=== PATIENT | female | born 1945 | race Caucasian/White ===

== ENCOUNTER → 2018-03-22 11:18 | Outpatient (CLI) | payer MEDICARE, MEDICAID, SELFPAY ==
--- NOTE | 2018-03-22 11:23 | ECHOD_ITS ---
Reason For Study: arrhythmia Procedure This was a 2D Doppler, Color Flow transthoracic echocardiogram. The study was technically difficult. Due to body habitus and right hip pain. Exam performed in department. Left Ventricle Normal LV size. Left ventricular systolic function is normal. The estimated ejection fraction is 60 %. No evidence for diastolic dysfunction. No regional wall motion abnormalities noted. Right Ventricle Normal RV size. Normal systolic function. Atria Normal left atrium. Normal right atrium. Mitral Valve Normal mitral valve. Tricuspid Valve Normal tricuspid valve. Mild (1+) tricuspid valve insufficiency. Pulmonary artery systolic pressure is 40 mmHg. Aortic Valve Normal aortic valve. Trisinus/trileaflet aortic valve. Pulmonic Valve Normal pulmonic valve. Great Vessels Normal aortic root. The pulmonary artery is normal size. Normal inferior vena cava. Pericardium/Pleural No pericardial effusion. MMode/2D Measurements & Calculations LVIDd: 5.4 cm IVSd: 0.99 cm LVOT diam: 2.0 cm LVIDs: 3.6 cm LVPWd: 0.99 cm LVOT area: 3.1 cm2 RVDd: 3.6 cm FS: 32.8 % Ao root diam: 3.1 cm LAV(MOD-bp): 62.0 ml LA A4 area: 19.7 cm2 LA dimension: 3.4 cm LAV(MOD-bp) Indexed: 29.5 ml/m2 LAV(MOD-sp2): 64.9 ml LAV(MOD-sp4): 59.3 ml RA A4 area: 12.4 cm2 Doppler Measurements & Calculations MV E max rashad: 80.1 cm/sec Lat Peak E' Rashad: 9.1 cm/sec Med Peak E' Rashad: 7.7 cm/sec MV A max rashad: 68.8 cm/sec E/E' lat: 8.8 E/E' med: 10.5 MV E/A: 1.2 Ao V2 max: 156.8 cm/sec AI max rashad: 382.5 cm/sec LV V1 max: 124.0 cm/sec Ao max P.8 mmHg AI max P.5 mmHg LV V1 max P.2 mmHg CAITLIN(V,D): 2.5 cm2 AI dec slope: 225.6 cm/sec2 AI P1/2t: 496.7 msec PA V2 max: 105.8 cm/sec TR max rashad: 308.5 cm/sec TR max P.1 mmHg Interpretation Summary Normal LV size. Left ventricular systolic function is normal. The estimated ejection fraction is 60 %. No evidence for diastolic dysfunction. Mild (1+) tricuspid valve insufficiency. Ordering Physician: Osman Montez Referring Physician: Kandis Dawson Performed By: Karyna Rothman RDCS, RVT
--- NOTE | 2018-03-22 15:11 | STRESSREP ---
Stress Test Report Pharmacologic myocardial perfusion stress test. 72-year-old lady with history of atrial tachycardia. Stress protocol: Resting EKG demonstrates normal sinus rhythm with a rate of 62 bpm normal intervals and noted resting blood pressures 160/60 mmHg. 0.4 mg of regadenoson was infused per usual protocol followed by rapid intravenous saline flush injection continuous EKG monitoring was performed. Patient maintained sinus rhythm throughout the recording. The maximum heart rate attained was 95 bpm which was 64% of maximum predicted heart rate the maximum workload was 1 metabolic equivalent. At rest there were no ST or T wave changes noted suggest abnormal flow reserve at peak infusion no ST or T wave changes were noted to suggest abnormal flow reserve. Resting blood pressure 160/60 peak blood pressure 180/70 mmHg. Myocardial perfusion protocol. 14.7 mCi of technetium 99m sestamibi was injected at rest. 0.4 mg regadenoson was infused per usual protocol peak infusion 44.8 mCi of technetium 99m sestamibi was injected stress images were obtained stress and rest images were reconstructed and compared in the short axis vertical long horizontal long axis. Gated images were also obtained. Perfusion SPECT analysis: Review of the stress images demonstrate normal uptake of tracer noted in the septum anterior wall and lateral wall. There is reduced perfusion noted in the mid inferior wall on the stress and rest images to a similar extent. The above likely suggest diaphragmatic attenuation. No obvious ischemia is noted. Gated SPECT analysis: The gated ejection fraction is 62%. Conclusion: Normal pharmacologic myocardial perfusion stress test. Diaphragmatic attenuation present.
== END ==
PROVIDERS: Family Provider Family Medicine; PCP Family Medicine; Referring Provider Internal Medicine Cardiovascular Disease; Visit Provider Internal Medicine Cardiovascular Disease
DX: I47.1 Supraventricular tachycardia (principal); R94.31 Abnormal electrocardiogram [ECG] [EKG]
CPT/HCPCS: 78452; 93017; 93225; 93306; A9500; A4216; J2785

== ENCOUNTER → 2018-10-29 08:12 | Outpatient (CLI) | payer MEDICARE, MEDICAID, SELFPAY ==
[2018-10-01 14:06] VITALS: BMI 41.3
[2018-10-29 09:33] LABS: Absolute Lymphocyte Count 1.82 X10^3/ul (0.83-4.51); Absolute Neutrophil Count 4.2 X10^3/uL (2.0-7.7); Basophil# 0.06 X10^3/uL; Basophil% 0.9 % (0-1); Eosinophil# 0.23 X10^3/uL; Eosinophils% 3.4 % (0-5); Hematocrit 41.6 % (37-47); Hemoglobin 13.9 g/dl (12.0-15.0); Lymphocyte # 1.82 X10^3/ul (4.0); Lymphocyte % 27.1 % (19-41); Mean Corp Hgb Conc 33.4 g/gl (32-36); Mean Corpuscular Hgb 29.3 pg (27.0-32.0); Mean Corpuscular Volume 87.8 fL (81-99); Mean Platelet Vol. 9.8 fl (6.2-12.0); Monocyte# 0.39 X10^3/uL; Monocyte% 5.8 % (0-10); Neutrophil % 62.7 % (47-70); Platelet Count 269 K/mm3 (150-450); RBC Distribution Width CV 13.7 % (11.6-14.6); Red Blood Count 4.74 M/mm3 (4.2-5.4); White Blood Count 6.7 K/mm3 (4.4-11.0)
[2018-10-29 09:34] LABS: POSITIVE COUNT NO; POSITIVE DIFFERENTIAL NO; POSITIVE MORPHOLOGY NO
[2018-10-29 10:08] LABS: Microalbumin:Creatinine Ratio 200.9 mg/g CRE (<30 mg/g CRE)
[2018-10-29 10:14] LABS: AST(SGOT) 19 U/L (15-37); Alanine Aminotransfer ALT/SGPT 26 U/L (13-56); Albumin, Serum 3.3 g/dL (3.2-5.0); Alkaline Phosphatase 62 U/L (45-117); Anion Gap 8 (5-15); BUN 17 mg/dL (7-18); BUN/Creat Ratio 18.7 RATIO (10-20); Calcium,Total 8.7 mg/dL (8.5-10.1); Chloride 101 mmol/L (98-107); Cholesterol 99 mg/dL (200); Creatinine, Serum 0.91 mg/dL (0.55-1.02); EST Glomerular Filtration Rate 64 mL/min (>60); Est Glom Filt Rate - Afr Amer 78 mL/min (>60); Globulin 3.4 g/dL (2.2-4.2); Glucose 132 mg/dL (74-106); High Density Lipoprotein 36 mg/dL; Potassium 3.6 mmol/L (3.5-5.1); Protein, Total 6.7 g/dL (6.4-8.2); Sodium Level 138 mmol/L (136-145); Thyroid Stim Hormone (TSH) 1.53 uIU/mL (0.358-3.74); Triglycerides 187 mg/dL; Very Low Density Lipoprotein 37 mg/dL (5-40)
== END ==
PROVIDERS: Family Provider Family Medicine; PCP Family Medicine; Referring Provider Family Medicine; Visit Provider Family Medicine
DX: E11.29 Type 2 diabetes mellitus with other diabetic kidney complication (principal); R80.9 Proteinuria, unspecified; I10 Essential (primary) hypertension; R53.83 Other fatigue
CPT/HCPCS: 36415; 80053; 80061; 82043; 82570; 84443; 85025

== ENCOUNTER → 2019-08-26 08:35 | Outpatient (CLI) | payer MEDICARE, MEDICAID, SELFPAY ==
[2019-05-13 10:18] VITALS: BMI 40.5
[2019-08-26 11:02] LABS: Absolute Lymphocyte Count 1.13 X10^3/uL (0.83-4.51); Absolute Neutrophil Count 4.6 X10^3/uL (2.0-7.7); Basophil# 0.05 X10^3/uL; Basophil% 0.8 % (0-1); Eosinophil# 0.11 X10^3/uL; Eosinophils% 1.8 % (0-5); Hematocrit 40.6 % (37-47); Hemoglobin 13.3 g/dL (12.0-15.0); Lymphocyte # 1.13 X10^3/ul (4.0); Lymphocyte % 18.1 % (19-41); Mean Corp Hgb Conc 32.8 g/dL (32-36); Mean Corpuscular Hgb 29.2 pg (27.0-32.0); Mean Platelet Vol. 9.9 fl (6.2-12.0); Monocyte# 0.35 X10^3/uL; Monocyte% 5.6 % (0-10); NRBC Flagged by Analyzer 0 % (0-5); Neutrophil % 73.4 % (47-70); Platelet Count 253 K/mm3 (150-450); RBC Distribution Width CV 13.2 % (11.6-14.6); RBC Distribution Width SD 43.1 fl (35.1-43.9); Red Blood Count 4.56 M/mm3 (4.2-5.4); White Blood Count 6.3 K/mm3 (4.4-11.0)
[2019-08-26 11:21] LABS: ALB/GLOB Ratio 0.9 RATIO (0.9-2.4); AST(SGOT) 20 U/L (15-37); Alanine Aminotransfer ALT/SGPT 22 U/L (13-56); Albumin, Serum 3.2 g/dL (3.2-5.0); Alkaline Phosphatase 62 U/L (45-117); Anion Gap 4 (5-15); BUN 13 mg/dL (7-18); BUN/Creat Ratio 17.3 RATIO (10-20); Calcium,Total 8.6 mg/dL (8.5-10.1); Chloride 105 mmol/L (98-107); Creatinine, Serum 0.75 mg/dL (0.55-1.02); EST Glomerular Filtration Rate 80 mL/min (>60); Est Glom Filt Rate - Afr Amer 97 mL/min (>60); Globulin 3.4 g/dL (2.2-4.2); Glucose 89 mg/dL (74-106); Potassium 3.4 mmol/L (3.5-5.1); Protein, Total 6.6 g/dL (6.4-8.2); Sodium Level 140 mmol/L (136-145)
== END ==
PROVIDERS: PCP Family Medicine; Visit Provider Family Medicine
DX: E11.29 Type 2 diabetes mellitus with other diabetic kidney complication (principal); R80.9 Proteinuria, unspecified; I10 Essential (primary) hypertension
CPT/HCPCS: 36415; 80053; 85025

== ENCOUNTER → 2020-06-07 09:28 | Outpatient (CLI) | payer MEDICARE, MEDICAID, SELFPAY ==
[2020-01-31 09:00] VITALS: BMI 41.0
[2020-06-07 12:46] LABS: Absolute Neutrophil Count 4.2 X10^3/uL (2.0-7.7); Basophil# 0.07 X10^3/uL; Basophil% 1.1 % (0-1); Eosinophil# 0.11 X10^3/uL; Eosinophils% 1.8 % (0-5); Hematocrit 40.2 % (37-47); Hemoglobin 12.4 g/dL (12.0-15.0); Lymphocyte % 22.5 % (19-41); Mean Corp Hgb Conc 30.8 g/dL (32-36); Mean Corpuscular Hgb 28.6 pg (27.0-32.0); Mean Corpuscular Volume 92.6 fL (81-99); Mean Platelet Vol. 10.3 fl (6.2-12.0); Monocyte# 0.37 X10^3/uL; NRBC Flagged by Analyzer 0 % (0-5); Neutrophil # 4.24 X10^3/uL (2.7-7.7); Neutrophil % 68.3 % (47-70); Platelet Count 297 K/mm3 (150-450); RBC Distribution Width CV 13.3 % (11.6-14.6); RBC Distribution Width SD 45.6 fl (35.1-43.9); Red Blood Count 4.34 M/mm3 (4.2-5.4); White Blood Count 6.2 K/mm3 (4.4-11.0)
[2020-06-07 12:51] LABS: ALB/GLOB Ratio 0.9 RATIO (0.9-2.4); AST(SGOT) 17 U/L (15-37); Alanine Aminotransfer ALT/SGPT 19 U/L (13-56); Albumin, Serum 3.2 g/dL (3.2-5.0); Alkaline Phosphatase 68 U/L (45-117); Anion Gap 6 (5-15); BUN 15 mg/dL (7-18); BUN/Creat Ratio 19.4 RATIO (10-20); Calcium,Total 8.3 mg/dL (8.5-10.1); Chloride 105 mmol/L (98-107); Creatinine, Serum 0.78 mg/dL (0.55-1.02); EST Glomerular Filtration Rate 77 mL/min (>60); Est Glom Filt Rate - Afr Amer 93 mL/min (>60); Globulin 3.5 g/dL (2.2-4.2); Glucose 63 mg/dL (74-106); Potassium 3.3 mmol/L (3.5-5.1); Protein, Total 6.7 g/dL (6.4-8.2); Sodium Level 142 mmol/L (136-145)
== END ==
PROVIDERS: PCP Family Medicine; Visit Provider Family Medicine
DX: E11.29 Type 2 diabetes mellitus with other diabetic kidney complication (principal); I10 Essential (primary) hypertension; R80.9 Proteinuria, unspecified
CPT/HCPCS: 36415; 80053; 85025

== ENCOUNTER → 2020-09-20 08:53 | Outpatient (CLI) | payer MEDICARE, MEDICAID, SELFPAY ==
[2020-01-31 09:00] VITALS: BMI 41.0
[2020-09-20 10:04] LABS: Color, Urine Yellow (Yellow); Glucose, Dipstick Normal (Normal); Ketone-Dipstick Negative (Negative); Leukocyte Esterase-Dipstick 25 /ul (Negative); Nitrite-Dipstick Negative (Negative); Occult Blood-Urine 10 /ul (Negative); Protein-Dipstick 100 mg/dl (Negative); Specific Gravity, Urine 1.015 (1.002-1.030); Urine Bilirubin Dipstick Negative (Negative); Urine Clarity Clear (Clear); Urine Urobilinogen Normal (Normal)
[2020-09-20 10:05] LABS: Absolute Lymphocyte Count 1.54 X10^3/uL (0.83-4.51); Absolute Neutrophil Count 4.1 X10^3/uL (2.0-7.7); Basophil# 0.05 X10^3/uL; Basophil% 0.8 % (0-1); Eosinophil# 0.13 X10^3/uL; Eosinophils% 2.1 % (0-5); Hematocrit 39.1 % (37-47); Hemoglobin 12.3 g/dL (12.0-15.0); Lymphocyte # 1.54 X10^3/ul (4.0); Lymphocyte % 24.6 % (19-41); Mean Corp Hgb Conc 31.5 g/dL (32-36); Mean Corpuscular Hgb 28.7 pg (27.0-32.0); Mean Corpuscular Volume 91.4 fL (81-99); Mean Platelet Vol. 10.2 fl (6.2-12.0); Monocyte# 0.39 X10^3/uL; Monocyte% 6.2 % (0-10); NRBC Flagged by Analyzer 0 % (0-5); Neutrophil # 4.14 X10^3/uL (2.7-7.7); Platelet Count 236 K/mm3 (150-450); RBC Distribution Width CV 13.8 % (11.6-14.6); RBC Distribution Width SD 46.3 fl (35.1-43.9); Red Blood Count 4.28 M/mm3 (4.2-5.4); White Blood Count 6.3 K/mm3 (4.4-11.0)
[2020-09-20 10:25] LABS: AST(SGOT) 17 U/L (15-37); Alanine Aminotransfer ALT/SGPT 21 U/L (13-56); Albumin, Serum 3.3 g/dL (3.2-5.0); Alkaline Phosphatase 67 U/L (45-117); Anion Gap 3 (5-15); BUN 16 mg/dL (7-18); BUN/Creat Ratio 20.6 RATIO (10-20); Calcium,Total 8.2 mg/dL (8.5-10.1); Chloride 109 mmol/L (98-107); Cholesterol 92 mg/dL (200); Creatinine, Serum 0.78 mg/dL (0.55-1.02); EST Glomerular Filtration Rate 77 mL/min (>60); Est Glom Filt Rate - Afr Amer 93 mL/min (>60); Globulin 3.3 g/dL (2.2-4.2); Glucose 62 mg/dL (74-106); High Density Lipoprotein 34 mg/dL; Potassium 3.7 mmol/L (3.5-5.1); Protein, Total 6.6 g/dL (6.4-8.2); Sodium Level 140 mmol/L (136-145); Triglycerides 136 mg/dL; Very Low Density Lipoprotein 27 mg/dL (5-40)
== END ==
PROVIDERS: PCP Family Medicine; Referring Provider Family Medicine; Visit Provider Family Medicine
DX: J44.9 Chronic obstructive pulmonary disease, unspecified (principal); E11.29 Type 2 diabetes mellitus with other diabetic kidney complication; I10 Essential (primary) hypertension; K21.9 Gastro-esophageal reflux disease without esophagitis; F17.200 Nicotine dependence, unspecified, uncomplicated; R80.9 Proteinuria, unspecified
CPT/HCPCS: 36415; 80053; 80061; 81002; 85025; 94762

== ENCOUNTER → 2020-12-18 14:41 | Outpatient (CLI) | payer MEDICARE, MEDICAID, SELFPAY ==
[2020-01-31 09:00] VITALS: BMI 41.0
--- NOTE | 2020-12-18 14:50 | CT_ITS ---
STUDY: CT CHEST WITHOUT CONTRAST- LOW DOSE SCREENING PROTOCOL REASON FOR EXAM: Female, 75 years old. Current smoker. 45 pack per year history. No current symptoms of lung cancer or pulmonary infection. Shared decision-making with referring PCP documented in patient''s record. RADIATION DOSAGE (If Supplied By Facility): CTDIvol = ( 3.18 ) mGy, DLP = ( 95.29 ) mGycm TECHNIQUE: Low dose screening CT examination performed from the base of the neck to the upper abdomen. Sagittal and coronal reformatted images performed. Sagittal and coronal MIP images provided. The measurements provided are average, rounded measurements per ACR guidelines. COMPARISON: None. FINDINGS: Some subpleural scarring. No noncalcified nodule or mass. There is no demonstrated pleural abnormality. Normal heart and pericardium. There are calcifications of the coronary arteries. Normal mediastinum. Normal hilar regions. Normal unenhanced pulmonary arteries. Normal aorta arch and descending thoracic aorta. Normal osseous structures. There is no demonstrated abnormality of the visualized upper abdomen. CT/Low Dose CT Lung Screening IMPRESSION: 1. No significant indeterminate incidental findings requiring additional imaging. 2. Incidental findings include subpleural scarring. ASSESSMENT CATEGORY: LungRADS 1 - Negative. Continue annual screening with LDCT in 12 months, per established ACR guidelines. Electronically Signed: Rob Guardado MD at 9:03 EDT Tel , Service support ,
== END ==
PROVIDERS: PCP Family Medicine; Referring Provider Family Medicine; Visit Provider Family Medicine
DX: J44.9 Chronic obstructive pulmonary disease, unspecified (principal); Z87.891 Personal history of nicotine dependence
CPT/HCPCS: 71271

== ENCOUNTER → 2020-12-20 07:51 | Outpatient (CLI) | payer MEDICARE, MEDICAID, SELFPAY ==
[2020-01-31 09:00] VITALS: BMI 41.0
[2020-12-20 08:28] VITALS: PULSE 67; PULSE 69; PULSE 78; PULSE 85; PULSE 88; O2SAT 92; O2SAT 95; O2SAT 96
--- NOTE | 2020-12-20 08:33 | CPS ---
1 min 30 seconds to end of test pt rested. Pt had stopped at 1 min 30 seconds for rest. During that rest pt became very emotional and started to cry. Pt was helped back into wheel chair and remained in chair for remainder of test.
--- NOTE | 2020-12-20 13:37 | PCM.PSN.6M ---
PSN 6 Minute Walk Test 6 Minute Walk Test 6 Minute Walk Test: 6 Minute Walk Test PSN:6-Minute Walk Test Start: 12/20/20 08:28 Freq: Status: Active Protocol: RESP.6MINW Document 12/20/20 08:28 [facility] (Rec: 12/20/20 08:37 [facility] [id number]) 6 Minute Walk Test Date Performed 12/20/20 Time Performed 08:15 Height 5 ft 4 in Weight: 240 lb Weight in Pounds 240.[address]: Kathy Assistive device used: Walker Pre-test Oxygen Delivery Method Room Air Pulse Ox (%) 96 Pulse Rate (60-100 beats/min) 67 Dyspnea Lisa Scale (0-10) 1 Reported Symptoms Increased Work of Breathing 1st minute Oxygen Delivery Method Room Air Pulse Ox (%) 92 Pulse Rate (60-100 beats/min) 78 Reported Symptoms Increased Work of Breathing 2nd minute Oxygen Delivery Method Room Air Pulse Ox (%) 92 Pulse Rate (60-100 beats/min) 78 Dyspnea Lisa Scale (0-10) 7 Reported Symptoms Increased Work of Breathing 3rd minute Oxygen Delivery Method Room Air Pulse Ox (%) 92 Pulse Rate (60-100 beats/min) 88 Dyspnea Lisa Scale (0-10) 7 Number of Rests Taken 1 Reported Symptoms Increased Work of Breathing 4th minute Oxygen Delivery Method Room Air Pulse Ox (%) 95 Pulse Rate (60-100 beats/min) 85 Dyspnea Lisa Scale (0-10) 7 Number of Rests Taken 1 Reported Symptoms Increased Work of Breathing 5th minute Oxygen Delivery Method Room Air Pulse Ox (%) 95 Pulse Rate (60-100 beats/min) 85 Dyspnea Lisa Scale (0-10) 7 Number of Rests Taken 1 Reported Symptoms Increased Work of Breathing 6th minute Oxygen Delivery Method Room Air Pulse Ox (%) 96 Pulse Rate (60-100 beats/min) 69 Dyspnea Lisa Scale (0-10) 4 Exertion Lisa Scale (6-20) 0 Number of Rests Taken 1 Reported Symptoms Increased Work of Breathing Post-test Oxygen Delivery Method Room Air Pulse Ox (%) 95 Pulse Rate (60-100 beats/min) 67 Full Laps Walked 1 Partial Lap, Number of Tiles Walked 29 Total Distance Walked (ft) 88 12/20/20 08:33 Cardiopulmonary Services by Neris Carr 1 min 30 seconds to end of test pt rested. Pt had stopped at 1 min 30 seconds for rest. During that rest pt became very emotional and started to cry. Pt was helped back into wheel chair and remained in chair for remainder of test. Initialized on 12/20/20 08:33 - END OF NOTE Interpretation Interpretation: The patient ambulated 88 feet over the course of 6 minutes beginning on room air with a walker. It should be noted that the patient only ambulated for the first 1 minute and 30 seconds of testing and then rested throughout the remainder of the test. Pretesting oxygen saturation was noted to be 96% on room air. With ambulation, the sharad oxygen saturation was 92%. This represents a significant exertional oxygen desaturation. Recommendations Recommendations: There is no indication for the use of supplemental oxygen at this time. However, the sensitivity for detecting exertional hypoxemia was significantly limited by the patient's limited walk time. Close interval follow-up is recommended.
== END ==
PROVIDERS: PCP Family Medicine; Referring Provider Family Medicine; Visit Provider Family Medicine
DX: J44.9 Chronic obstructive pulmonary disease, unspecified (principal)
CPT/HCPCS: 94618

== ENCOUNTER → 2021-01-01 13:37 | Outpatient (CLI) | payer MEDICARE, MEDICAID, SELFPAY ==
[2020-01-31 09:00] VITALS: BMI 41.0
[2021-01-01 14:16] VITALS: PULSE 101; PULSE 109; PULSE 110; PULSE 111; PULSE 118; PULSE 126; PULSE 130; PULSE 93; O2SAT 89; O2SAT 90; O2SAT 91; O2SAT 92; O2SAT 94
--- NOTE | 2021-01-02 10:02 | PCM.PSN.6M ---
PSN 6 Minute Walk Test 6 Minute Walk Test 6 Minute Walk Test: 6 Minute Walk Test PSN:6-Minute Walk Test Start: 01/01/21 14:16 Freq: Status: Active Protocol: RESP.6MINW Document 01/01/21 14:16 [facility] (Rec: 01/01/21 14:19 [facility]) 6 Minute Walk Test Date Performed 01/01/21 Time Performed 13:45 Height 5 ft 4 in Weight: 240 lb Weight in Pounds 240.[address]: Rajeev Dawson Assistive device used: Walker Pre-test Oxygen Delivery Method Room Air Pulse Ox (%) 91 Pulse Rate (60-100 beats/min) 101 H Dyspnea Lisa Scale (0-10) 0.5 Exertion Lisa Scale (6-20) 6 1st minute Oxygen Delivery Method Room Air Pulse Ox (%) 90 Pulse Rate (60-100 beats/min) 111 H 2nd minute Oxygen Delivery Method Room Air Pulse Ox (%) 91 Pulse Rate (60-100 beats/min) 110 H 3rd minute Oxygen Delivery Method Room Air Pulse Ox (%) 90 Pulse Rate (60-100 beats/min) 109 H 4th minute Oxygen Delivery Method Room Air Pulse Ox (%) 91 Pulse Rate (60-100 beats/min) 118 H 5th minute Oxygen Delivery Method Room Air Pulse Ox (%) 92 Pulse Rate (60-100 beats/min) 126 H 6th minute Oxygen Delivery Method Room Air Pulse Ox (%) 89 Pulse Rate (60-100 beats/min) 130 H Post-test Oxygen Delivery Method Room Air Pulse Ox (%) 94 Pulse Rate (60-100 beats/min) 93 Full Laps Walked 8 Partial Lap, Number of Tiles Walked 10 Total Distance Walked (ft) 482 Interpretation Interpretation: The patient ambulated 482 feet over the course of 6 minutes beginning on room air with the use of a push wheelchair. Pretesting oxygen saturation was noted to be 91% on room air. With ambulation, the sharad oxygen saturation was 89%. Although there was no evidence of significant exertional oxygen desaturation, there was evidence of impaired walk distance. Recommendations Recommendations: There is no indication for the use of supplemental oxygen at this time. However, close interval follow-up is recommended, given the patient's low resting oxygen saturation. Given the minimal walk distance traveled, the sensitivity for detecting significant exertional oxygen desaturation will be limited.
== END ==
PROVIDERS: PCP Family Medicine; Referring Provider Family Medicine; Visit Provider Family Medicine
DX: J44.9 Chronic obstructive pulmonary disease, unspecified (principal)
CPT/HCPCS: 94618

== ENCOUNTER → 2021-03-12 12:07 | Outpatient (CLI) | payer MEDICARE, MEDICAID, SELFPAY ==
[2021-03-12 13:06] LABS: Anion Gap 6 (5-15); BUN 18 mg/dL (7-18); Calcium,Total 8.8 mg/dL (8.5-10.1); Chloride 104 mmol/L (98-107); Creatinine, Serum 0.82 mg/dL (0.55-1.02); EST Glomerular Filtration Rate 72 mL/min (>60); Est Glom Filt Rate - Afr Amer 87 mL/min (>60); Glucose 224 mg/dL (74-106); Sodium Level 139 mmol/L (136-145)
== END ==
PROVIDERS: PCP Family Medicine; Referring Provider Nurse Practitioner Family; Visit Provider Nurse Practitioner Family
DX: I48.0 Paroxysmal atrial fibrillation (principal); R06.00 Dyspnea, unspecified
CPT/HCPCS: 36415; 80048; 83880

== ENCOUNTER → 2021-03-20 08:14 | Outpatient (CLI) | payer MEDICARE, MEDICAID, SELFPAY | PROVIDERS: PCP Family Medicine; Visit Provider Nurse Practitioner Family | DX: I48.0 Paroxysmal atrial fibrillation (principal); R06.00 Dyspnea, unspecified | CPT/HCPCS: 93225; 93226 ==

== ENCOUNTER 2021-11-19 15:53 | Inpatient (IN) | payer MEDICARE, MEDICAID, SELFPAY ==
[2021-11-19] VITALS (8 sets, daily range): BP systolic 120–148; BP diastolic 30–109; PULSE 67–73; RESP 18–28; TEMP 36.4–36.9; O2SAT 93–98; BMI 43.1; BMI 41.3
--- NOTE | 2021-11-19 16:02 | EKG12_ITS ---
Test Reason : SOB Blood Pressure : / mmHG Vent. Rate : 071 BPM Atrial Rate : 071 BPM P-R Int : 130 ms QRS Dur : 082 ms QT Int : 454 ms P-R-T Axes : 036 -30 052 degrees QTc Int : 493 ms Normal sinus rhythm Left axis deviation Prolonged QT Abnormal ECG Confirmed by BROCK MACHADO, EDWARDO ([id number]), food expeditor JESSICA ORTIZ ([id number]) on 11/20/2021 9:03:28 AM Referred By: Florencio Loco Confirmed By:EDWARDO GUTIÉRREZ MD
--- NOTE | 2021-11-19 16:03 | EDS_ITS ---
HPI History of Present Illness Chief Complaint: Fall Informant: patient and EMS Narrative Narrative: 76-year-old female arriving via EMS from home following a fall. She states that she tripped over a pillow and landed on her right knee. EMS notes a deformity and significant swelling. She denies any other injuries. EMS related that as they attempted to splint the knee region they could not feel a pulse in the foot so they unsplinted her and they could feel a pulse again. She notes that she is on Eliquis for paroxysmal A. fib. She is a diabetic. [facility] Medical History (Updated 11/19/21 @ 17:[address] Israel Hubbard, DO) Anemia Cataracts, bilateral Ectopic atrial tachycardia Essential (primary) hypertension GERD (gastroesophageal reflux disease) Hearing loss Hyperlipidemia Nicotine dependence Obesity Osteoarthritis Paroxysmal atrial fibrillation Peripheral neuropathic pain Sciatica Type 2 diabetes mellitus Home Medications amlodipine 10 mg tablet 10 mg PO DAILY 90 Days #90 tab 03/05/18 [History Last Taken Unknown] atenolol 100 mg tablet 100 mg PO DAILY 90 Days #90 tab 03/05/18 [History Last Taken Unknown] atorvastatin 40 mg tablet 40 mg PO DAILY 90 Days #90 tab 03/05/18 [History Last Taken Unknown] esomeprazole magnesium 20 mg capsule,delayed release 40 mg PO DAILY 90 Days #180 cap 03/05/18 [History Last Taken Unknown] ferrous sulfate 325 mg (65 mg iron) tablet 325 mg PO DAILY tab 03/05/18 [History Last Taken Unknown] ibuprofen 600 mg tablet 600 mg PO QHS 22 Days 03/05/18 [History Last Taken Unknown] insulin NPH isoph U-100 human 100 unit/mL subcutaneous suspension See Rx Instructions .ROUTE .COMPLEX 90 Days 03/05/18 [History Last Taken Unknown] insulin glargine 100 unit/mL subcutaneous solution 62 unit SC QHS 77 Days 03/05/18 [History Last Taken Unknown] insulin regular human 100 unit/mL injection solution 20 unit SC BID 85 Days 03/05/18 [History Last Taken Unknown] valsartan 80 mg tablet 80 mg PO DAILY 90 Days #90 tab 03/05/18 [History Last Taken Unknown] metformin 500 mg tablet 1,000 mg PO BID 90 Days #360 tab 10/01/18 [History Last Taken Unknown] calcium carbonate 600 mg calcium (1,500 mg) tablet 1,200 mg PO DAILY tab 01/31/20 [History Last Taken Unknown] diphenhydramine HCl 25 mg capsule 25 mg PO QHS 01/31/20 [History Last Taken Unknown] apixaban 5 mg tablet 5 mg PO BID #180 tab 01/29/21 [Rx Last Taken Unknown] furosemide 40 mg tablet 40 mg PO DAILY tab 04/11/21 [History Last Taken Unknown] potassium chloride 20 meq PO DAILY 11/19/21 [History Last Taken Unknown] Allergy/AdvReac Type Severity Reaction Status Date / Time No Known Allergies Allergy Verified 04/11/21 09:04 Family History (Reviewed 04/11/21 @ 09:14 by Peter Tanner TECHNICAL CUSTOMER SUPPORT SPECIALIST, TECHNICAL CUSTOMER SUPPORT SPECIALIST-C) Mother Hypertension Diabetes Father Lung cancer Sister Kidney disease Breast cancer Cancer liver, ovarian Hypertension Diabetes Brother Hypertension Diabetes Surgical History History of cataract surgery History of dilatation and curettage History of hysteroscopy Social History (Reviewed 04/11/21 @ 09:14 by Peter Tanner TECHNICAL CUSTOMER SUPPORT SPECIALIST, TECHNICAL CUSTOMER SUPPORT SPECIALIST-C) Smoking Status: Current every day smoker tobacco type: cigarettes ROS ROS ED Constitutional Constitutional ED: Denies chills, fever(s) or weight loss Eyes Eyes: Denies change in vision or diplopia ENT ENT ED: Denies ear pain, rhinorrhea or sore throat Cardiovascular Cardiovascular: Denies chest pain, orthopnea, palpitations or racing heartbeat Respiratory/Chest Respiratory/Chest: Denies cough, dyspnea or orthopnea Gastrointestinal Gastrointestinal: Denies abdominal pain, diarrhea, nausea or vomiting Genitourinary Genitourinary ED: Denies dysuria, hematuria or urinary frequency Musculoskeletal Musculoskeletal: Denies arthralgias or myalgias Integumentary Denies abscess or rash Neurologic Neurologic: Denies headache(s) or weakness Psychiatric Psychiatric: Denies anxiety, depression, suicidal ideation or suicidal thoughts Endocrine Endocrinology: Denies polydipsia, polyphagia or polyuria Allergic/Immunologic Allergic/Immunologic ED: Denies mouth swelling, tongue swelling or urticaria EXAM Physical Exam Const Vital Signs: 11/19/21 15:54 Temperature 97.5 F L Temperature Source Temporal Respiratory Rate 21 H Blood Pressure 134/109 H Blood Pressure Mean 117 Pulse Ox 95 Oxygen Delivery Method Nasal Cannula Oxygen Flow Rate (L/min) 2 Positive well nourished, well developed and obese General Appearance ED: well developed Nutritional Appearance: obese HEENT Reports normocephalic, head/scalp atraumatic, TM's clear and moist mucous membranes HEENT Narrative: Normal oropharyngeal exam atraumatic; Negative for trauma Tympanic Membrane ED: Yes TM's clear Eyes PERRL and EOMs intact bilaterally Neck full ROM, no lymphadenopathy, supple and no JVD General: Negative for tenderness Resp normal respiratory effort and clear to auscultation bilaterally Cardio regular rate, regular rhythm and no murmurs GI normal to inspection, nondistended, normoactive bowel sounds and non-tender Palpation: soft Back/Spine no CVA tenderness and normal ROM Extremity Extremity Narrative: There is a large hematoma formation and deformity of the right knee region. Distally the patient is able to move her toes. The foot is warm. Has capillary refill. I do feel a dorsalis pedis pulse. General Extremety ED: Yes tenderness Neuro oriented x3 and CN's II-XII intact bilaterally Sensorium / Orientation: alert Motor Exam: strength 5/5 throughout Psych mental status grossly normal Mood & Affect: Negative for depressed or tearful Skin no rashes or lesions noted and no wounds MDM MDM MDM Narrative Medical decision making narrative: Patient received morphine and Zofran as well as gentle hydration. My interpretation of the x-rays is as following: x-rays of the knee demonstrated prepatellar soft tissue swelling but no obvious fracture. X-rays of the femur were negative for fracture and chest x-ray is normal examination Patient noted to have a drop in her hemoglobin of 10.9 most likely due to this bleeding. I discussed the case with Dr. Reyes as well as Dr. Loco. Because the patient cannot ambulate we will be admitting her. Ice has been applied as well as Pancho wrap. Lab Data Attestation: I reviewed the patient's lab results. Labs: Laboratory Results - last 24 hr 11/19/21 11/19/21 11/19/21 16:03 16:03 16:03 WBC 11.1 H RBC 3.67 L Hgb 10.9 L Hct 33.1 L MCV 90.2 MCH 29.7 MCHC 32.9 RDW Std Deviation 42.5 RDW Coeff of Sebastian 13.0 Plt Count 280 MPV 10.7 Immature Gran % (Auto) 0.300 Neut % (Auto) 77.3 H Lymph % (Auto) 15.4 L [place] % (Auto) 5.7 Eos % (Auto) 0.8 Baso % (Auto) 0.5 Absolute Neuts (auto) 8.6 H Absolute Lymphs (auto) 1.71 Nucleated RBC % 0 PT 14.6 INR 1.2 APTT 30.7 Sodium 139 Potassium 4.6 Chloride 108 H Carbon Dioxide 24.0 Anion Gap 7 BUN 24 H Creatinine 0.98 Estim Creat Clear Calc 42.17 Est GFR (MDRD) Af Amer 71 Est GFR (MDRD) Non-Af 59 L BUN/Creatinine Ratio 24.5 H Glucose 226 H Calcium 8.5 Total Bilirubin 0.30 AST 19 ALT 18 Alkaline Phosphatase 59 Total Protein 6.2 L Albumin 3.2 Globulin 3.0 Albumin/Globulin Ratio 1.1 Radiography Diagnostic Testing: Clinical Impression(s) from Imaging Studies Chest X-Ray 11/19/21 16:12 IMPRESSION: Normal x-ray examination of the chest. Electronically Signed: Rob Guardado MD at 16:51 EDT , Knee X-Ray 11/19/21 16:13 IMPRESSION: Severe prepatellar soft tissue swelling. Electronically Signed: Rob Guardado MD at 16:52 EDT , Femur X-Ray 11/19/21 16:41 IMPRESSION: No acute fracture or dislocation in the right femur. 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 Large prepatellar soft tissue swelling/hematoma. No radiopaque foreign body. Electronically Signed: Denny Duckworth MD at 17:08 EDT , EKG Initial EKG: Attestation: I personally reviewed and interpreted this EKG as follows: Comments: Normal sinus rhythm with a ventricular rate of 71 bpm. Discharge Plan Dx/Rx/DC Orders Clinical Impression: Paroxysmal atrial fibrillation, Anticoagulant long-term use, Traumatic hematoma of right knee, Fall Disposition Disposition: Acute Care Hospital [facility]
[2021-11-19] MEDS: Ondansetron 4 MG/2 ML Vial IV (16:08)
[2021-11-19] MEDS: Morphine 4 MG/ML Syringe IV (16:08)
[2021-11-19] MEDS: 0.9% Normal Saline 1,000 ML 150 ML IV (16:10)
--- NOTE | 2021-11-19 16:12 | RAD_ITS ---
STUDY: X-RAY CHEST REASON FOR EXAM: Female, 76 years old. dyspnea TECHNIQUE: Single AP portable view of the chest. COMPARISON: None. FINDINGS: The lungs are clear and expanded. There is no demonstrated pleural abnormality. Normal size heart. Normal mediastinum and mayo. Normal visualized pulmonary arteries. Normal visualized aortic arch and descending thoracic aorta. Normal visualized thoracic spine. Normal visualized ribs, clavicles, and shoulders. There is no demonstrated abnormality of the visualized soft tissue structures of the upper abdomen. RAD/Chest 1 View IMPRESSION: Normal x-ray examination of the chest. Electronically Signed: Rob Guardado MD at 16:51 EDT ,
--- NOTE | 2021-11-19 16:13 | RAD_ITS ---
STUDY: X-RAY - RIGHT KNEE REASON FOR EXAM: Female, 76 years old. trauma TECHNIQUE: 2 view(s) of the knee. COMPARISON: None. FINDINGS: Normal visualized distal femur. Normal visualized proximal tibia and fibula. Normal proximal tibiofibular articulation. There is mild degenerative arthrosis of the medial femorotibial compartment. There is mild degenerative arthrosis of the lateral femorotibial compartment. There is moderate degenerative arthrosis of the patellofemoral articulation. Severe prepatellar soft tissue swelling. RAD/Knee 1 or 2 Views IMPRESSION: Severe prepatellar soft tissue swelling. Electronically Signed: Rob Guardado MD at 16:52 EDT ,
[2021-11-19 16:34] LABS: Absolute Lymphocyte Count 1.71 X10^3/uL (0.83-4.51); Absolute Neutrophil Count 8.6 X10^3/uL (2.0-7.7); Basophil# 0.05 X10^3/uL; Basophil% 0.5 % (0-1); Eosinophil# 0.09 X10^3/uL; Eosinophils% 0.8 % (0-5); Hematocrit 33.1 % (37-47); Hemoglobin 10.9 g/dL (12.0-15.0); Lymphocyte # 1.71 X10^3/ul (0.83-4.51); Lymphocyte % 15.4 % (19-41); Mean Corp Hgb Conc 32.9 g/dL (32-36); Mean Corpuscular Hgb 29.7 pg (27.0-32.0); Mean Corpuscular Volume 90.2 fL (81-99); Mean Platelet Vol. 10.7 fl (6.2-12.0); Monocyte# 0.63 X10^3/uL; Monocyte% 5.7 % (0-10); NRBC Flagged by Analyzer 0 % (0-5); Neutrophil % 77.3 % (47-70); Platelet Count 280 K/mm3 (150-450); RBC Distribution Width SD 42.5 fl (35.1-43.9); Red Blood Count 3.67 M/mm3 (4.2-5.4); White Blood Count 11.1 K/mm3 (4.4-11.0)
--- NOTE | 2021-11-19 16:41 | RAD_ITS ---
STUDY: X-RAY - RIGHT FEMUR REASON FOR STUDY: Female, 76 years old. trauma TECHNIQUE: 2 view(s) of the femur. COMPARISON: None. FINDINGS: Please see the impression. RAD/Femur Min 2 Views IMPRESSION: No acute fracture or dislocation in the right femur. 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 Large prepatellar soft tissue swelling/hematoma. No radiopaque foreign body. Electronically Signed: Denny Duckworth MD at 17:08 EDT ,
[2021-11-19 16:45] LABS: ALB/GLOB Ratio 1.1 RATIO (0.9-2.4); AST(SGOT) 19 U/L (15-37); Alanine Aminotransfer ALT/SGPT 18 U/L (13-56); Albumin, Serum 3.2 g/dL (3.2-5.0); Alkaline Phosphatase 59 U/L (45-117); Anion Gap 7 (5-15); BUN 24 mg/dL (7-18); BUN/Creat Ratio 24.5 RATIO (10-20); Calcium,Total 8.5 mg/dL (8.5-10.1); Chloride 108 mmol/L (98-107); Creatinine, Serum 0.98 mg/dL (0.55-1.02); EST Glomerular Filtration Rate 59 mL/min (>60); Est Glom Filt Rate - Afr Amer 71 mL/min (>60); Estimated Creatinine Clearance 42.17 ml/min; Glucose 226 mg/dL (74-106); Potassium 4.6 mmol/L (3.5-5.1); Protein, Total 6.2 g/dL (6.4-8.2); Sodium Level 139 mmol/L (136-145)
[2021-11-19 16:54] LABS: International Normalized Ratio 1.2; Prothrombin Time (Protime)PT. 14.6 SECONDS (11.7-14.9)
[2021-11-19 16:55] LABS: Partial Thromboplast Time 30.7 Seconds (24.1-36.2)
--- NOTE | 2021-11-19 17:59 | PCM.HP.STD ---
Documented by User: MARTINA Pineda 11/19/21 18:17 HPI - General General Date of Admission: 11/19/21 Date of Service: 11/19/21 Chief Complaint: Right knee pain HPI Narrative KARLA CAMARGO, is a 76 F who presents following a fall at home. Patient reports right knee pain. Xray in ER negative for fracture of the right femur, Large prepatellar soft tissue swelling/hematoma. Patient continues to report pain following administration of 1 dose of morphine. Medial aspect of the right thigh considerably swollen in comparison to the left leg. Patient is on Eliquis and this is likely contributing to the increased swelling. ER physician discussed the case with Dr. Anderw Alvarez. Because patient cannot ambulate and having pain we will admit her overnight for observation. Patient reports a medical history of hypertension, diabetes mellitus type 2, GERD, hyperlipidemia, atrial fibrillation. [facility] Medical History Anemia Cataracts, bilateral Ectopic atrial tachycardia Essential (primary) hypertension GERD (gastroesophageal reflux disease) Hearing loss Hyperlipidemia Nicotine dependence Obesity Osteoarthritis Paroxysmal atrial fibrillation Peripheral neuropathic pain Sciatica Type 2 diabetes mellitus Home Medications amlodipine 10 mg tablet 10 mg PO DAILY 90 Days #90 tab 03/05/18 [History Last Taken 11/19/21] atenolol 100 mg tablet 100 mg PO DAILY 90 Days #90 tab 03/05/18 [History Last Taken 11/19/21] atorvastatin 40 mg tablet 40 mg PO DAILY 90 Days #90 tab 03/05/18 [History Last Taken 11/19/21] esomeprazole magnesium 20 mg capsule,delayed release 40 mg PO DAILY 90 Days #180 cap 03/05/18 [History Last Taken 11/19/21] ferrous sulfate 325 mg (65 mg iron) tablet 325 mg PO DAILY tab 03/05/18 [History Last Taken 11/19/21] ibuprofen 600 mg tablet 600 mg PO QHS 22 Days 03/05/18 [History Last Taken 11/18/21] insulin NPH isoph U-100 human 100 unit/mL subcutaneous suspension See Rx Instructions .ROUTE .COMPLEX 90 Days 03/05/18 [History Last Taken 11/19/21] insulin glargine 100 unit/mL subcutaneous solution 62 unit SC QHS 77 Days 03/05/18 [History Last Taken 11/18/21] insulin regular human 100 unit/mL injection solution 20 unit SC BID 85 Days 03/05/18 [History Last Taken 11/19/21] valsartan 80 mg tablet 80 mg PO DAILY 90 Days #90 tab 03/05/18 [History Last Taken 11/19/21] metformin 500 mg tablet 1,000 mg PO BID 90 Days #360 tab 10/01/18 [History Last Taken 11/19/21] calcium carbonate 600 mg calcium (1,500 mg) tablet 1,200 mg PO DAILY tab 01/31/20 [History Last Taken 11/19/21] diphenhydramine HCl 25 mg capsule 25 mg PO QHS 01/31/20 [History Last Taken 11/19/21] furosemide 40 mg tablet 40 mg PO DAILY tab 04/11/21 [History Last Taken 11/19/21] apixaban [Eliquis] 5 mg PO BID 11/19/21 [History Last Taken 11/19/21] potassium chloride 20 meq PO DAILY 11/19/21 [History Last Taken 11/19/21] Allergy/AdvReac Type Severity Reaction Status Date / Time No Known Allergies Allergy Verified 04/11/21 09:04 Family History Mother Hypertension Diabetes Father Lung cancer Sister Kidney disease Breast cancer Cancer liver, ovarian Hypertension Diabetes Brother Hypertension Diabetes Surgical History History of cataract surgery History of dilatation and curettage History of hysteroscopy Social History Smoking Status: Current every day smoker tobacco type: cigarettes ROS Constitutional Constitutional: Denies anorexia, chills, fatigue, fever(s) or malaise Cardiovascular Cardiovascular: Denies chest pain, edema, palpitations or syncope Respiratory/Chest Respiratory/Chest: Denies cough, shortness of breath at rest, shortness of breath with exertion or wheezing Gastrointestinal Gastrointestinal: Denies abdominal pain, constipation, diarrhea, nausea or vomiting Genitourinary Genitourinary: Denies dysuria Musculoskeletal Musculoskeletal: Reports difficulty walking, extremity pain, joint swelling and limited range of motion; Denies back pain Integumentary Integumentary: Denies dry skin Neurologic Neurologic: Denies abnormal gait, abnormal speech, confusion or dizziness Psychiatric Psychiatric: Denies anxiety or depression Endocrine Endocrinology: Denies change in body appearance Hematologic/Lymphatic Hematologic/Lymphatic: Reports easy bleeding and easy bruising Vital Signs Vital Signs Vital Signs: 11/19/21 15:54 Temperature 97.5 F L Temperature Source Temporal Respiratory Rate 21 H Blood Pressure 134/109 H Blood Pressure Mean 117 Pulse Ox 95 Oxygen Delivery Method Nasal Cannula Oxygen Flow Rate (L/min) 2 Weight Weight: 251 lb 5.231 oz Body Mass Index (BMI) 43.1 Physical Exam Const alert, oriented x3 and no apparent distress General Appearance: cooperative HEENT normocephalic and head/scalp atraumatic Eyes conjunctivae normal and no scleral icterus Neck supple General: trachea midline Resp normal respiratory effort and normal air movement Effort and Inspection: able to speak in complete sentences and symmetric chest movement Auscultation: diminished lung sounds Cardio regular rate, regular rhythm, S1 normal heart sound, S2 normal heart sound and peripheral pulses 2+ throughout GI normal to inspection, nondistended, normoactive bowel sounds, soft to palpation and non-tender Extremity normal capillary refill Peripheral Pulses: Yes pulses 2+ throughout Right Lower Extremity: knee joint inspection (Swollen medial aspect of the right leg extending from the knee up to mid thigh), palpation (Tender), ROM (Limited) and neurovascular exam (Intact) Neuro no focal motor deficits and no sensory deficits noted Psych thought process normal, cooperative and affect normal Appearance: appropriate Results Lab / Micro Data Result Diagrams: 11/19/21 16:03 11/19/21 16:03 Labs: Laboratory Results - last 24 hr 11/19/21 16:03: WBC 11.1 H, RBC 3.67 L, Hgb 10.9 L, Hct 33.1 L, MCV 90.2, MCH 29.7, MCHC 32.9, RDW Std Deviation 42.5, RDW Coeff of Sebastian 13.0, Plt Count 280, MPV 10.7, Immature Gran % (Auto) 0.300, Neut % (Auto) 77.3 H, Lymph % (Auto) 15.4 L, [place] % (Auto) 5.7, Eos % (Auto) 0.8, Baso % (Auto) 0.5, Absolute Neuts (auto) 8.6 H, Absolute Lymphs (auto) 1.71, Nucleated RBC % 0 11/19/21 16:03: PT 14.6, INR 1.2, APTT 30.7 11/19/21 16:03: Sodium 139, Potassium 4.6, Chloride 108 H, Carbon Dioxide 24.0, Anion Gap 7, BUN 24 H, Creatinine 0.98, Estim Creat Clear Calc 42.17, Est GFR (MDRD) Af Amer 71, Est GFR (MDRD) Non-Af 59 L, BUN/Creatinine Ratio 24.5 H, Glucose 226 H, Calcium 8.5, Total Bilirubin 0.30, AST 19, ALT 18, Alkaline Phosphatase 59, Total Protein 6.2 L, Albumin 3.2, Globulin 3.0, Albumin/Globulin Ratio 1.1 Radiology Impression Chest X-Ray 11/19/21 16:12 IMPRESSION: Normal x-ray examination of the chest. Electronically Signed: Rob Guardado MD at 16:51 EDT , Knee X-Ray 11/19/21 16:13 IMPRESSION: Severe prepatellar soft tissue swelling. Electronically Signed: Rob Guardado MD at 16:52 EDT , Femur X-Ray 11/19/21 16:41 IMPRESSION: No acute fracture or dislocation in the right femur. 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 Large prepatellar soft tissue swelling/hematoma. No radiopaque foreign body. Electronically Signed: Denny Duckworth MD at 17:08 EDT , Assessment & Plan Assessment/Plan (1) Traumatic hematoma of right knee: QUALIFIERS: Encounter type: initial encounter Qualified Code(s): S80.01XA - Contusion of right knee, initial encounter (2) Fall: QUALIFIERS: Encounter type: initial encounter Qualified Code(s): W19.XXXA - Unspecified fall, initial encounter PLAN: 1. Traumatic hematoma of right knee secondary to mechanical fall at home -Admit to MedSurg -PT and OT to eval and treat -Consult orthopedics, case discussed with Dr. Reyes -Apply Pancho wrap to right knee and upper thigh -Apply ice to area -CBC ordered for a.m. -repeat hemoglobin and hematocrit 2300 -Hold apixaban -Normal saline 75 mL/h -As needed oxycodone and morphine ordered for pain management 2. Hypertension -Continue valsartan, furosemide, atenolol, amlodipine -Vital signs per protocol, slightly elevated likely secondary to pain 3. Diabetes mellitus type 2 -Hold metformin -ACH S blood sugars with sliding scale insulin ordered -Carb controlled diet ordered DVT prophylaxis-not indicated, chronically anticoagulated with Eliquis This patient was seen by Nanette Daigle, VICKIE-C under the supervision of Dr. Cobb. 30 minutes spent in clinical coordination of patient's plan of care. Documented by User: Dr. Florencio Loco DO 11/19/21 20:26 HPI - General General Date of Admission: 11/19/21 [facility] Medical History Anemia Cataracts, bilateral Ectopic atrial tachycardia Essential (primary) hypertension GERD (gastroesophageal reflux disease) Hearing loss Hyperlipidemia Nicotine dependence Obesity Osteoarthritis Paroxysmal atrial fibrillation Peripheral neuropathic pain Sciatica Type 2 diabetes mellitus Home Medications amlodipine 10 mg tablet 10 mg PO DAILY 90 Days #90 tab 03/05/18 [History Last Taken 11/19/21] atenolol 100 mg tablet 100 mg PO DAILY 90 Days #90 tab 03/05/18 [History Last Taken 11/19/21] atorvastatin 40 mg tablet 40 mg PO DAILY 90 Days #90 tab 03/05/18 [History Last Taken 11/19/21] esomeprazole magnesium 20 mg capsule,delayed release 40 mg PO DAILY 90 Days #180 cap 03/05/18 [History Last Taken 11/19/21] ferrous sulfate 325 mg (65 mg iron) tablet 325 mg PO DAILY tab 03/05/18 [History Last Taken 11/19/21] ibuprofen 600 mg tablet 600 mg PO QHS 22 Days 03/05/18 [History Last Taken 11/18/21] insulin NPH isoph U-100 human 100 unit/mL subcutaneous suspension See Rx Instructions .ROUTE .COMPLEX 90 Days 03/05/18 [History Last Taken 11/19/21] insulin glargine 100 unit/mL subcutaneous solution 62 unit SC QHS 77 Days 03/05/18 [History Last Taken 11/18/21] insulin regular human 100 unit/mL injection solution 20 unit SC BID 85 Days 03/05/18 [History Last Taken 11/19/21] valsartan 80 mg tablet 80 mg PO DAILY 90 Days #90 tab 03/05/18 [History Last Taken 11/19/21] metformin 500 mg tablet 1,000 mg PO BID 90 Days #360 tab 10/01/18 [History Last Taken 11/19/21] calcium carbonate 600 mg calcium (1,500 mg) tablet 1,200 mg PO DAILY tab 01/31/20 [History Last Taken 11/19/21] diphenhydramine HCl 25 mg capsule 25 mg PO QHS 01/31/20 [History Last Taken 11/19/21] furosemide 40 mg tablet 40 mg PO DAILY tab 04/11/21 [History Last Taken 11/19/21] apixaban [Eliquis] 5 mg PO BID 11/19/21 [History Last Taken 11/19/21] potassium chloride 20 meq PO DAILY 11/19/21 [History Last Taken 11/19/21] Allergy/AdvReac Type Severity Reaction Status Date / Time No Known Allergies Allergy Verified 04/11/21 09:04 Family History Mother Hypertension Diabetes Father Lung cancer Sister Kidney disease Breast cancer Cancer liver, ovarian Hypertension Diabetes Brother Hypertension Diabetes Surgical History History of cataract surgery History of dilatation and curettage History of hysteroscopy Social History Smoking Status: Current every day smoker tobacco type: cigarettes Results Lab / Micro Data Result Diagrams: 11/19/21 16:03 11/19/21 16:03 Charges/Coding Addendum Addendum: Patient was seen and examined independently of Angie Daigle today, she came to the emergency room today after sustaining a fall landing on her right knee area. The knee is grossly swollen and she was unable to ambulate or bear weight on the right leg. On examination she appeared in good health and spirits, she does not appear to be in any distress. Vital signs as documented. Skin warm and dry and without overt rashes. Neck without JVD, thyroid appears normal, trachea is midline, neck is supple. Lungs clear, normal air movement was noted. Heart exam notable for regular rhythm, normal sounds and absence of murmurs, rubs or gallops. Abdomen unremarkable and without evidence of organomegaly, masses, or abdominal aortic enlargement, bowel sounds are present in all 4 quadrants, no abdominal tenderness was noted. Extremities-there is severe edema in the inner aspect of the patient's right thigh extending down toward the knee and involving the knee-there is some visible ecchymosis noted of the area,, no cyanosis was noted, no clubbing was noted. There is decreased range of motion to flexion and extension of the right knee noted. Neuro: Cranial nerves II through XII are grossly intact, no focal motor deficits were noted, sensation to light touch and pinprick is intact, motor exam 5/5 throughout. Psych: Patient is alert and oriented x3, she does not appear anxious or depressed, she does not appear agitated. Impression: #1 severe contusion of the right knee with associated bleeding into the soft tissues of the right inner thigh and right knee area-patient will be admitted to [facility], repeat H&H will be obtained tonight and another CBC obtained tomorrow, patient will be seen in consultation by orthopedic surgery-I talked to them by phone today. Patient will be given IV pain meds as needed #2 paroxysmal atrial fibrillation-patient will need to be off her Eliquis for now, she will remain on her other home meds #3 type 2 diabetes-blood sugars will be monitored, patient is supposedly on Lantus insulin along with Humulin N insulin-I do not understand this combination and I will place her on Humulin N and sliding scale insulin, blood sugars will be monitored #4 morbid obesity-complicates care, prognosis, and recovery #5 chronic use of anticoagulation-Eliquis will be held at this time I have reviewed Angie Daigle's history and physical including her medical assessment and plan of care and endorse it. Total clinical time spent by myself addressing patient's issues, reviewing all the data, and collaborating with the patient's care team: 45 minutes Visit Charges Inpatient E&M: [id number] Init Hosp L3
[2021-11-19] MEDS: 0.9% Normal Saline 1,000 ML 75 ML IV (22:03)
[2021-11-19] MEDS: Insulin NPH Human 100 UNITS/ML PEN 35 UNITS SC (22:10)
[2021-11-19] MEDS: Nystatin Powder 15gm Bottle 1 APPLIC TOPICAL (22:19)
[2021-11-19] MEDS: Menthol/Lanolin/Calamine/Znox 113 GM Tube 1 APPLIC TOPICAL (22:19)
[2021-11-19 22:46] LABS: Bedside Glucose 249 mg/dL (74-106)
[2021-11-20] VITALS (10 sets, daily range): BP systolic 129–140; BP diastolic 64–104; PULSE 68–88; RESP 18–24; TEMP 36.8–37.1; O2SAT 92–97
[2021-11-20] MEDS: Acetaminophen 325 MG Tablet 650 MG PO ×2 (01:06→06:28)
[2021-11-20] MEDS: Albuterol 2.5 MG/3 ML VIAL.NEB. INHALATION ×2 (02:41→13:09)
[2021-11-20 06:02] LABS: Absolute Lymphocyte Count 1.17 X10^3/uL (0.83-4.51); Absolute Neutrophil Count 4.8 X10^3/uL (2.0-7.7); Basophil# 0.03 X10^3/uL; Basophil% 0.5 % (0-1); Eosinophil# 0.06 X10^3/uL; Eosinophils% 0.9 % (0-5); Hematocrit 24.6 % (37-47); Hemoglobin 8.1 g/dL (12.0-15.0); Lymphocyte # 1.17 X10^3/ul (0.83-4.51); Lymphocyte % 17.9 % (19-41); Mean Corp Hgb Conc 32.9 g/dL (32-36); Mean Corpuscular Volume 91.1 fL (81-99); Mean Platelet Vol. 10.4 fl (6.2-12.0); Monocyte# 0.47 X10^3/uL; Monocyte% 7.2 % (0-10); NRBC Flagged by Analyzer 0 % (0-5); Neutrophil # 4.77 X10^3/uL (2.7-7.7); Platelet Count 201 K/mm3 (150-450); RBC Distribution Width SD 42.9 fl (35.1-43.9); White Blood Count 6.5 K/mm3 (4.4-11.0)
[2021-11-20] MEDS: Insulin Lispro 100 UNIT/ML INSULN.PEN SC ×3 (08:16→16:15)
[2021-11-20] MEDS: Insulin NPH Human 100 UNITS/ML PEN 35 UNITS SC ×2 (08:17→16:16)
[2021-11-20] MEDS: Potassium Chloride Oral Tablet 20 MEQ PO (08:18)
[2021-11-20 08:26] LABS: Bedside Glucose 222 mg/dL (74-106)
--- NOTE | 2021-11-20 09:48 | CASEMGMT ---
ZAN WEBBER Assessment: Face to Face with pt for initial transition planning/care coordination assessment. ZAN WEBBER introduced self and role at [facility], pt voices understanding and consents to assessment. Pt is A/O x4 and answers all questions appropriately at this time. Pt lying in bed with O2 on in no distress with dtr at bedside. Care providers, pharmacy, and demographics verified/updated. Admitting Dx: hematoma knee PCP:Eunice Specialists:Melida cardio Contreras Pharmacy: [facility] Insurance: [facility] crossover Prescription Benefit: yes LW/HPOA: Pt states she has a LW/DPOA and is aware it is not on file at [facility]. She states her DPOA is her dtr cornel Jenkinsr aware this can be brought in to be scanned into her chart. LNOK: Karynamarco antonio Lam dtr Living Arrangements: Pt lives with dtr and anita in a ground level apt with 1 step to enter with a rail. Pt reports she is I in ADL's and denies concerns at home. Transportation: Pt does not drive, her dtr transports her and she denies concerns with transportation. DME/HHC/SNF: Pt has a cane that she uses when she needs it. She has oxygen through [employer] at 2L at hs only. She does not have a portable tank. Pt has a pox. Pt denies hx of HHC, SNF stays. Pt states no concerns with going home at time of dc. Pt states no further concerns/needs. CM to follow. Advised pt to ask CM if any further question/concerns/needs arise, voices understanding. Pt Goal: Home Plan: Home, pending course of treatment and therapy.
[2021-11-20] MEDS: Pantoprazole Sodium 40 MG Tablet PO (10:42)
[2021-11-20] MEDS: Atorvastatin Calcium 40 MG Tablet PO (10:42)
[2021-11-20] MEDS: Atenolol 100 MG Tablet PO (10:42)
[2021-11-20] MEDS: Furosemide 40 MG Tablet PO (10:42)
[2021-11-20] MEDS: Menthol/Lanolin/Calamine/Znox 113 GM Tube 1 APPLIC TOPICAL (10:43)
[2021-11-20] MEDS: Nystatin Powder 15gm Bottle 1 APPLIC TOPICAL (10:43)
[2021-11-20] MEDS: amLODIPine 10 MG Tablet PO (10:43)
[2021-11-20] MEDS: Losartan Potassium 25 MG Tablet PO (10:45)
--- NOTE | 2021-11-20 10:45 | PCM.PN.HOSP ---
Documented by User: MARTINA Pineda 11/20/21 10:50 Subjective Subjective Patient seen and examined. Patient lying in bed eating breakfast no distress noted. Pancho wrap to right leg intact, right thigh appears more swollen than yesterday and on initial evaluation. Objective Data Objective Data Vital Signs: Vital Signs Temp Pulse Resp BP Pulse Ox 98.3 F 74 18 137/64 H 97 11/20/21 08:21 11/20/21 08:21 11/20/21 09:54 11/20/21 08:21 11/20/21 08:21 Oxygen Flow Rate (L/min) 3 Oxygen Delivery Method Nasal Cannula Weight: 240 lb 8.389 oz Body Mass Index (BMI) 41.3 Intake & Output: Intake and Output for Last 24 Hours 11/18/21 11/19/21 11/20/21 23:59 23:59 23:59 Intake Total 592.5 / 992.5 400 / 400 Output Total 400 / 400 Balance 592.5 / 992.5 0 / 0 Lab / Micro Data Result Diagrams: 11/20/21 13:10 11/19/21 16:03 Labs: Laboratory Results - last 24 hr 11/19/21 16:03: WBC 11.1 H, RBC 3.67 L, Hgb 10.9 L, Hct 33.1 L, MCV 90.2, MCH 29.7, MCHC 32.9, RDW Std Deviation 42.5, RDW Coeff of Sebastian 13.0, Plt Count 280, MPV 10.7, Immature Gran % (Auto) 0.300, Neut % (Auto) 77.3 H, Lymph % (Auto) 15.4 L, [place] % (Auto) 5.7, Eos % (Auto) 0.8, Baso % (Auto) 0.5, Absolute Neuts (auto) 8.6 H, Absolute Lymphs (auto) 1.71, Nucleated RBC % 0 11/19/21 16:03: PT 14.6, INR 1.2, APTT 30.7 11/19/21 16:03: Sodium 139, Potassium 4.6, Chloride 108 H, Carbon Dioxide 24.0, Anion Gap 7, BUN 24 H, Creatinine 0.98, Estim Creat Clear Calc 42.17, Est GFR (MDRD) Af Amer 71, Est GFR (MDRD) Non-Af 59 L, BUN/Creatinine Ratio 24.5 H, Glucose 226 H, Calcium 8.5, Total Bilirubin 0.30, AST 19, ALT 18, Alkaline Phosphatase 59, Total Protein 6.2 L, Albumin 3.2, Globulin 3.0, Albumin/Globulin Ratio 1.1 11/19/21 22:09: POC Glucose 249 H 11/20/21 05:43: WBC 6.5, RBC 2.70 L, Hgb 8.1 L, Hct 24.6 L, MCV 91.1, MCH 30.0, MCHC 32.9, RDW Std Deviation 42.9, RDW Coeff of Sebastian 13.0, Plt Count 201, MPV 10.4, Immature Gran % (Auto) 0.500, Neut % (Auto) 73.0 H, Lymph % (Auto) 17.9 L, [place] % (Auto) 7.2, Eos % (Auto) 0.9, Baso % (Auto) 0.5, Absolute Neuts (auto) 4.8, Absolute Lymphs (auto) 1.17, Nucleated RBC % 0 11/20/21 08:08: POC Glucose 222 H Radiography Diagnostic Testing: Radiology Impression Chest X-Ray 11/19/21 16:12 IMPRESSION: Normal x-ray examination of the chest. Electronically Signed: Rob Guardado MD at 16:51 EDT , Knee X-Ray 11/19/21 16:13 IMPRESSION: Severe prepatellar soft tissue swelling. Electronically Signed: Rob Guardado MD at 16:52 EDT , Femur X-Ray 11/19/21 16:41 IMPRESSION: No acute fracture or dislocation in the right femur. 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 Large prepatellar soft tissue swelling/hematoma. No radiopaque foreign body. Electronically Signed: Denny Duckworth MD at 17:08 EDT , Physical Exam Const alert, oriented x3 and no apparent distress General Appearance: cooperative HEENT normocephalic and head/scalp atraumatic Eyes conjunctivae normal and no scleral icterus Neck supple General: trachea midline Resp normal respiratory effort and normal air movement Effort and Inspection: able to speak in complete sentences and symmetric chest movement Auscultation: diminished lung sounds Cardio regular rate, regular rhythm, S1 normal heart sound, S2 normal heart sound and peripheral pulses 2+ throughout GI normal to inspection, nondistended, normoactive bowel sounds, soft to palpation and non-tender Extremity normal capillary refill Right Lower Extremity: knee joint inspection (Swollen medial aspect of the right leg extending from the knee up to mid thigh), palpation (Tender), ROM (Limited) and neurovascular exam (Intact) Neuro no focal motor deficits and no sensory deficits noted Psych thought process normal, cooperative and affect normal Appearance: appropriate Assessment & Plan Assessment/Plan (1) Traumatic hematoma of right knee: QUALIFIERS: Encounter type: initial encounter Qualified Code(s): S80.01XA - Contusion of right knee, initial encounter (2) Fall: QUALIFIERS: Encounter type: initial encounter Qualified Code(s): W19.XXXA - Unspecified fall, initial encounter PLAN: 1. Traumatic hematoma of right knee secondary to mechanical fall at home -PT and OT following -Dr. Reyes following -Continue Pancho wrap to right knee and upper thigh -Apply ice to area -CBC daily, patient hemoglobin dropped from 10.9-8.1 today. H&H ordered for 1300 -Hold apixaban -Normal saline 75 mL/h -As needed oxycodone and morphine ordered for pain management 2. Hypertension -Continue valsartan, furosemide, atenolol, amlodipine -Vital signs per protocol, slightly elevated likely secondary to pain 3. Diabetes mellitus type 2 -Hold metformin -ACH S blood sugars with sliding scale insulin ordered -Carb controlled diet ordered DVT prophylaxis-not indicated, chronically anticoagulated with Eliquis This patient was seen by Nanette Daigle NP-C under the supervision of Dr. Cobb. 13 minutes spent in clinical coordination of patient's plan of care. Documented by User: Dr. Florencio Loco DO 11/23/21 17:58 Objective Data Lab / Micro Data Result Diagrams: 11/20/21 13:10 11/19/21 16:03
[2021-11-20] MEDS: DiphenhydrAMINE 25 MG Capsule PO (10:54)
[2021-11-20] MEDS: Ondansetron 4 MG/2 ML Vial IV (11:00)
[2021-11-20 11:40] LABS: Bedside Glucose 242 mg/dL (74-106)
--- NOTE | 2021-11-20 11:44 | CASEMGMT ---
Social Work Referral received from physician that pt and dgt now [facility]. SW met with pt and her dgt to discuss d/c plan. Pt dgt states pt lives with dgt and dgt but both work and they are concerned with pt being home alone. SW provided pt with SNF providers including quality and resource use data and consistent with the patient's preferred geographic region, medical needs and insurance network. Dgts preferred provider is [facility] as this is where she works. SW spoke with pt regarding placement at [facility] and pt is agreeable to this discharge plan. Phone call to Aide at [facility] and referral made. SW will await determination of acceptance. BETTY Haynes
[2021-11-20] MEDS: Ferrous Sulfate 325 MG Tablet PO (12:19)
[2021-11-20] MEDS: oxyCODONE 5 MG Tablet 10 MG PO ×2 (12:23→16:11)
--- NOTE | 2021-11-20 13:13 | CASEMGMT ---
Addendum entered by Cris Chen 11/20/21 16:19: Social Work Per physician, pt is ready for discharge. Pt and dgt notified and agreeable. 7000 convalescent form completed in [facility] and faxed along with orders to [facility]. Phone call to Kayli at [facility] and informed of d/c today. RN updated and to obtain Covid Test. [employer] to set up transportation when covid results are obtained. Plan: [facility] skilled level of care under convalescent stay BETTY Haynes Original Note: Social Work SW received call from Kayli at [facility] and they are able to accept pt when medically ready. Physician updated. Pt and dgt notified and agreeable with d/c plan. Plan: [facility], when medically ready BETTY Haynes
[2021-11-20 13:15] LABS: Hematocrit 25.6 % (37-47); Hemoglobin 8.3 g/dL (12.0-15.0)
--- NOTE | 2021-11-20 14:41 | CT_ITS ---
STUDY: CT RIGHT KNEE WITHOUT CONTRAST REASON FOR EXAM: Female, 76 years old. Possible tibial plateau fracture following a fall. Patient is on anticoagulants. RADIATION DOSAGE (If Supplied By Facility): CTDIvol = ( 15.35 ) mGy, DLP = ( 468.98 ) mGycm TECHNIQUE: Transaxial CT imaging of the knee was performed. Coronal and sagittal images were reformatted. Individualized dose optimization techniques were used for this CT. COMPARISON: None. FINDINGS: Normal medial femoral condyle and medial tibial plateau. Moderate degree of joint space narrowing of the medial compartment of the knee joint. Normal lateral femoral condyle and lateral tibial plateau. There is preservation of the articular joint space of the lateral knee compartment. Moderate degree of joint space narrowing of the patellofemoral joint. Normal proximal tibiofibular articulation. There is no joint effusion. The quadriceps tendon is grossly normal. The patellar tendon is grossly normal. Normal Hoffa''s fat pad. There is evidence of a 4.27 x 12.2 cm x 10.2 cm hematoma in the anterior medial aspect of the knee joint. There is also evidence of diffuse subcutaneous edematous changes. CT/Extremity Lower without Contra IMPRESSION: No fracture is seen. No evidence of joint effusion. Degenerative changes as described. Large hematoma overlying the anterior medial aspect of the knee joint. Electronically Signed: Serge Mueller MD at 15:33 EDT ,
--- NOTE | 2021-11-20 14:46 | CONS.ORTHO ---
HPI Consult Data Date of Consult: 11/20/21 HPI Narrative Reason for Consultation: Right knee pain with swelling HPI Narrative: KARLA CAMARGO, is a 76 F who presents to [facility] emergency department via squad as result of a fall at home on Friday November 19, 2021. Patient states she fell directly onto her right knee. Patient had immediate pain at the time of the fall. Patient also started developing swelling immediately after the fall per the patient. The patient denies striking her head any loss of consciousness or any other complaint of pain at this time. Patient is on anticoagulation Eliquis for history of atrial fib. Patient reports she is having significant pain in the right knee and in the thigh region. Patient denies any numbness or ting of the arms face or legs. Patient denies any pain of the right hip or ankle. Patient denies any neck or back pain. Patient this time has no other complaints. [facility] Medical History (Updated 11/20/21 @ 15:01 by Kevon CROWE PA-C) Anemia Cataracts, bilateral Ectopic atrial tachycardia Essential (primary) hypertension GERD (gastroesophageal reflux disease) Hearing loss Hyperlipidemia Nicotine dependence Obesity Osteoarthritis Paroxysmal atrial fibrillation Peripheral neuropathic pain Sciatica Type 2 diabetes mellitus Home Medications amlodipine 10 mg tablet 10 mg PO DAILY 90 Days #90 tab 03/05/18 [History Last Taken 11/19/21] atenolol 100 mg tablet 100 mg PO DAILY 90 Days #90 tab 03/05/18 [History Last Taken 11/19/21] atorvastatin 40 mg tablet 40 mg PO DAILY 90 Days #90 tab 03/05/18 [History Last Taken 11/19/21] esomeprazole magnesium 20 mg capsule,delayed release 40 mg PO DAILY 90 Days #180 cap 03/05/18 [History Last Taken 11/19/21] ferrous sulfate 325 mg (65 mg iron) tablet 325 mg PO DAILY tab 03/05/18 [History Last Taken 11/19/21] ibuprofen 600 mg tablet 600 mg PO QHS 22 Days 03/05/18 [History Last Taken 11/18/21] insulin NPH isoph U-100 human 100 unit/mL subcutaneous suspension See Rx Instructions .ROUTE .COMPLEX 90 Days 03/05/18 [History Last Taken 11/19/21] insulin glargine 100 unit/mL subcutaneous solution 62 unit SC QHS 77 Days 03/05/18 [History Last Taken 11/18/21] insulin regular human 100 unit/mL injection solution 20 unit SC BID 85 Days 03/05/18 [History Last Taken 11/19/21] valsartan 80 mg tablet 80 mg PO DAILY 90 Days #90 tab 03/05/18 [History Last Taken 11/19/21] metformin 500 mg tablet 1,000 mg PO BID 90 Days #360 tab 10/01/18 [History Last Taken 11/19/21] calcium carbonate 600 mg calcium (1,500 mg) tablet 1,200 mg PO DAILY tab 01/31/20 [History Last Taken 11/19/21] diphenhydramine HCl 25 mg capsule 25 mg PO QHS 01/31/20 [History Last Taken 11/19/21] furosemide 40 mg tablet 40 mg PO DAILY tab 04/11/21 [History Last Taken 11/19/21] apixaban [Eliquis] 5 mg PO BID 11/19/21 [History Last Taken 11/19/21] potassium chloride 20 meq PO DAILY 11/19/21 [History Last Taken 11/19/21] Allergy/AdvReac Type Severity Reaction Status Date / Time No Known Allergies Allergy Verified 04/11/21 09:04 Family History Mother Hypertension Diabetes Father Lung cancer Sister Kidney disease Breast cancer Cancer liver, ovarian Hypertension Diabetes Brother Hypertension Diabetes Surgical History History of cataract surgery History of dilatation and curettage History of hysteroscopy Social History Smoking Status: Current every day smoker tobacco type: cigarettes ROS ROS Narrative I reviewed 10 review of systems with the patient and medical records. Vital Signs Vital Signs Vital Signs: 11/19/21 15:54 11/19/21 16:53 11/19/21 17:00 Temperature 97.5 F L Temperature Source Temporal Pulse Rate Respiratory Rate 21 H 22 H 24 H Respiratory Effort Respiratory Pattern Blood Pressure 134/109 H Blood Pressure Mean 117 Blood Pressure Source Blood Pressure Position Blood Pressure Location Pulse Ox 95 96 95 Oxygen Delivery Method Nasal Cannula Nasal Cannula Nasal Cannula Oxygen Flow Rate (L/min) 2 2 2 11/19/21 18:00 11/19/21 18:20 11/19/21 18:22 Temperature 97.9 F 97.9 F Temperature Source Temporal Temporal Pulse Rate 73 73 Respiratory Rate 20 H 20 H Respiratory Effort Short of Breath Respiratory Pattern Tachypnea Blood Pressure 122/90 H 122/90 H Blood Pressure Mean 100 100 Blood Pressure Source Blood Pressure Position Blood Pressure Location Pulse Ox 93 93 Oxygen Delivery Method Nasal Cannula Nasal Cannula Nasal Cannula Oxygen Flow Rate (L/min) 2 2 2 11/19/21 19:00 11/19/21 22:20 11/19/21 22:28 Temperature 98.1 F 98.5 F Temperature Source Temporal Oral Pulse Rate 67 69 Respiratory Rate 18 28 H 24 H Respiratory Effort Respiratory Pattern Blood Pressure 120/95 H 148/30 H Blood Pressure Mean 103 69 Blood Pressure Source Monitor Monitor Blood Pressure Position Semi-Fowlers Semi-Fowlers Blood Pressure Location Left Arm Left Arm Pulse Ox 97 97 98 Oxygen Delivery Method Nasal Cannula Nasal Cannula Nasal Cannula Oxygen Flow Rate (L/min) 2 2 3 11/19/21 22:33 11/20/21 00:59 11/20/21 01:08 Temperature 98.4 F Temperature Source Oral Pulse Rate 69 68 Respiratory Rate 22 H 24 H Respiratory Effort Respiratory Pattern Blood Pressure 135/102 H Blood Pressure Mean 113 Blood Pressure Source Monitor Blood Pressure Position Semi-Fowlers Blood Pressure Location Left Arm Pulse Ox 92 96 Oxygen Delivery Method Nasal Cannula Nasal Cannula Nasal Cannula Oxygen Flow Rate (L/min) 3 3 3 11/20/21 01:12 11/20/21 02:41 11/20/21 02:46 Temperature Temperature Source Pulse Rate 71 Respiratory Rate 22 H Respiratory Effort Normal Short of Breath Respiratory Pattern Tachypnea Tachypnea Blood Pressure Blood Pressure Mean Blood Pressure Source Blood Pressure Position Blood Pressure Location Pulse Ox 95 Oxygen Delivery Method Nasal Cannula Nasal Cannula Oxygen Flow Rate (L/min) 3 3 11/20/21 06:21 11/20/21 08:21 11/20/21 09:54 Temperature 98.7 F 98.3 F Temperature Source Oral Oral Pulse Rate 72 74 Respiratory Rate 24 H 20 H 18 Respiratory Effort Normal Non-Labored Respiratory Pattern Blood Pressure 129/104 H 137/64 H Blood Pressure Mean 112 88 Blood Pressure Source Monitor Monitor Blood Pressure Position Semi-Fowlers Semi-Fowlers Blood Pressure Location Left Arm Left Arm Pulse Ox 94 97 Oxygen Delivery Method Nasal Cannula Nasal Cannula Nasal Cannula Oxygen Flow Rate (L/min) 3 3 3 11/20/21 12:03 11/20/21 13:30 11/20/21 13:55 Temperature Temperature Source Pulse Rate 79 Respiratory Rate 22 H Respiratory Effort Respiratory Pattern Tachypnea Blood Pressure Blood Pressure Mean Blood Pressure Source Blood Pressure Position Blood Pressure Location Pulse Ox 94 Oxygen Delivery Method Nasal Cannula Oxygen Flow Rate (L/min) 2 3 3 Weight Weight: 109.1 kg Body Mass Index (BMI) 41.3 Physical Exam Narrative Upon exam, I found the patient lying comfortably in bed. Her daughter at her side. Patient no signs of trauma to head face neck. Cranial nerves II through XII grossly intact. Patient no pain palpation cervical thoracic spine. Patient for exposure of the upper extremities with good muscle tone and strength. Patient full range of motion of the left hip knee and ankle without pain. There is no signs of trauma to the lower left extremity. Exam of the right leg, patient has diffuse swelling and ecchymosis of the medial aspect of the right thigh with extension into the right knee with +2 effusion. Patient was quite tender to palpation circumferentially of the right knee. Patient also had tenderness through the mid body and medial aspect of the quadriceps. Patient had good motion of the right hip without pain. Patient extensor mechanism was intact on the right leg with pain. There is no palpable defect within the distal quadriceps. The patella appeared to be midline and tracking with within the femoral groove. Patient was lacking approximately 6 degrees full extension, flexion to 90 degrees with pain. Patient has no calf tenderness. She has no pain through the tib-fib of the right leg. She has good plantar flexion dorsiflexion of the ankle and foot. Patient has strong posterior tibial and dorsalis pedis pulses. Neurovascular she is was otherwise intact. Lab / Micro Data Result Diagrams: 11/20/21 13:10 11/19/21 16:03 Labs: Laboratory Results - last 24 hr 11/19/21 16:03: WBC 11.1 H, RBC 3.67 L, Hgb 10.9 L, Hct 33.1 L, MCV 90.2, MCH 29.7, MCHC 32.9, RDW Std Deviation 42.5, RDW Coeff of Sebastian 13.0, Plt Count 280, MPV 10.7, Immature Gran % (Auto) 0.300, Neut % (Auto) 77.3 H, Lymph % (Auto) 15.4 L, [place] % (Auto) 5.7, Eos % (Auto) 0.8, Baso % (Auto) 0.5, Absolute Neuts (auto) 8.6 H, Absolute Lymphs (auto) 1.71, Nucleated RBC % 0 11/19/21 16:03: PT 14.6, INR 1.2, APTT 30.7 11/19/21 16:03: Sodium 139, Potassium 4.6, Chloride 108 H, Carbon Dioxide 24.0, Anion Gap 7, BUN 24 H, Creatinine 0.98, Estim Creat Clear Calc 42.17, Est GFR (MDRD) Af Amer 71, Est GFR (MDRD) Non-Af 59 L, BUN/Creatinine Ratio 24.5 H, Glucose 226 H, Calcium 8.5, Total Bilirubin 0.30, AST 19, ALT 18, Alkaline Phosphatase 59, Total Protein 6.2 L, Albumin 3.2, Globulin 3.0, Albumin/Globulin Ratio 1.1 11/19/21 22:09: POC Glucose 249 H 11/20/21 05:43: WBC 6.5, RBC 2.70 L, Hgb 8.1 L, Hct 24.6 L, MCV 91.1, MCH 30.0, MCHC 32.9, RDW Std Deviation 42.9, RDW Coeff of Sebastian 13.0, Plt Count 201, MPV 10.4, Immature Gran % (Auto) 0.500, Neut % (Auto) 73.0 H, Lymph % (Auto) 17.9 L, [place] % (Auto) 7.2, Eos % (Auto) 0.9, Baso % (Auto) 0.5, Absolute Neuts (auto) 4.8, Absolute Lymphs (auto) 1.17, Nucleated RBC % 0 11/20/21 08:08: POC Glucose 222 H 11/20/21 11:37: POC Glucose 242 H 11/20/21 13:10: Hgb 8.3 L, Hct 25.6 L Radiology Impression Chest X-Ray 11/19/21 16:12 IMPRESSION: Normal x-ray examination of the chest. Electronically Signed: Rob Guardado MD at 16:51 EDT , Knee X-Ray 11/19/21 16:13 IMPRESSION: Severe prepatellar soft tissue swelling. Electronically Signed: Rob Guardado MD at 16:52 EDT , Femur X-Ray 11/19/21 16:41 IMPRESSION: No acute fracture or dislocation in the right femur. 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 Large prepatellar soft tissue swelling/hematoma. No radiopaque foreign body. Electronically Signed: Denny Duckworth MD at 17:08 EDT , Assessment & Plan Assessment/Plan (1) Traumatic hematoma of right knee: QUALIFIERS: Encounter type: initial encounter Qualified Code(s): S80.01XA - Contusion of right knee, initial encounter PLAN: 1. Continue all pain medication as prescribed 2. Pancho wrap compression from the ankle up to the thigh 3. Continue with ice to the right knee and thigh 4. Toe-touch weightbearing with assistance with transfer 5. Keep right leg elevated 6. Obtain CT right knee for possible underlying tibial plateau fracture 7. Discharge to [facility] when cleared by medicine 8. Patient to follow-up with Kevon Hay PA-C in 10 to 14 days at [facility] [place]. Patient call for [phone] (2) Knee pain, acute:
--- NOTE | 2021-11-20 15:46 | TREXTCAR_ITS ---
Diet 11/19/21 19:02 Diet: Consistent Carb - Calorie Controlled Food consistency:: Regular Liquid Consistency:: Regular/Thin How many daily calories?: 1800 calorie Routine Orders/Code Status Enema Type: Fleetz Enema Frequency: Daily PRN Suppository Type: Dulcolax 10mg Suppository Frequency: Daily PRN O2 Liters per Minute: 2 O2 Frequency: PRN Routine Lab Work: CBC (1 week) Code Status: Full Code Wound(s) R knee: Wound Type: Hematoma Suggestions for Active Care Change Position every (hours): 2 Times a day to sit in chair: 3 Therapies Weight Bearing: Toe-touch weight bearing Extremity Affected:: Right Lower Physical Therapy: Eval and Treat Occupational Therapy: Eval and Treat Problem/Diagnosis (1) Traumatic hematoma of right knee: Status: Acute (2) Knee pain, acute: Status: Acute Allergies/Procedures Done in Hospital Allergies No Known Allergies Allergy (Verified 04/11/21 09:04) Procedures: None Type of Care/Length of Stay Estimated LOS: Convalescent Care Less Than 30 days Type of Care Needed: Skilled Rehab Potential: Good Prognosis: Good Additional Orders/Day of Discharge Day of Discharge: 11/20/21 Follow Up Care Please Follow Up With: Eric When: 10-14 days Discharge Plan Admission Admit Date/Time: 11/19/21 17:54 Primary Reason for Your Visit: Right knee contusion Attending Provider: Florencio Loco Primary Care Provider: Kandis Dawson Consulting Providers: Mendel Reyes Discharge Orders/Prescriptions Prescriptions: New acetaminophen [Tylenol] 325 mg Tablet 650 mg PO Q4H PRN PRN (Reason: Fever, pain 1-03/31) Qty: 0 RF: 0 albuterol sulfate 2.5 mg /3 mL (0.083 %) Solution For Nebulization 2.5 mg inhalation Q4H.RT Qty: 0 RF: 0 insulin lispro [Humalog KwikPen Insulin] 100 unit/mL Insulin Pen See Protocol unit subcut ACHS Qty: 0 RF: 0 Humulin N NPH Insulin KwikPen 100 unit/mL (3 mL) Insulin Pen 35 unit subcut BIDCM Qty: 0 RF: 0 nystatin [Nyamyc] 100,000 unit/gram Powder 1 applic topical BID Qty: 0 RF: 0 oxycodone 5 mg Tablet 10 mg PO Q4H PRN PRN (Reason: Pain Score 6-10) 3 Days Qty: 15 RF: 0 menthol-zinc oxide [Calmoseptine] 0.44-20.6 % Ointment 1 applic topical BID Qty: 0 RF: 0 Continued ferrous sulfate 325 mg (65 mg iron) tablet 325 mg PO DAILY RF: 0 atorvastatin 40 mg tablet 40 mg PO DAILY 90 Days Qty: 90 RF: 0 atenolol 100 mg tablet 100 mg PO DAILY 90 Days Qty: 90 RF: 0 amlodipine 10 mg tablet 10 mg PO DAILY 90 Days Qty: 90 RF: 0 valsartan 80 mg tablet 80 mg PO DAILY 90 Days Qty: 90 RF: 0 ibuprofen 600 mg tablet 600 mg PO QHS 22 Days RF: 0 esomeprazole magnesium 20 mg capsule,delayed release(DR/EC) 40 mg PO DAILY 90 Days Qty: 180 RF: 0 metformin 500 mg tablet 1,000 mg PO BID 90 Days Qty: 360 RF: 0 calcium carbonate [Calcium 600] 600 mg calcium (1,500 mg) tablet 1,200 mg PO DAILY RF: 0 diphenhydramine HCl [Allergy Relief(diphenhydramin)] 25 mg capsule 25 mg PO QHS RF: 0 furosemide [Lasix] 40 mg tablet 40 mg PO DAILY RF: 0 potassium chloride 20 mEq tablet,ER particles/crystals 20 meq PO DAILY RF: 0 Held Eliquis 5 mg tablet 5 mg PO BID RF: 0 Hold Instructions: Resume on 12/04/21. consult cardiology for restart of eliquis following follow up with ortho Discontinued insulin regular human 100 unit/mL solution 20 unit SC BID 85 Days RF: 0 insulin NPH isoph U-100 human 100 unit/mL suspension See Rx Instructions .ROUTE .COMPLEX 90 Days RF: 0 insulin glargine 100 unit/mL solution 62 unit SC QHS 77 Days RF: 0 Referrals / Follow Up: Kandis Dawson MD [Primary Care Provider] - Disposition Disposition (needs filled in before D/C Order can be placed): [facility] Facility
--- NOTE | 2021-11-20 15:57 | DS.PCM_ITS ---
Documented by User: MARTINA Pineda 11/20/21 16:00 Providers Date of Admission: 11/19/21 Date of Discharge: 11/20/21 Primary Care Physician: Dr. Kandis Dawson MD Consultations 11/19/21 19:02 Consult: Orthopedics Routine Consulting Provider: Mendel Reyes Reason for Consult: hematoma knee EMERGENT Consult: No MD Notified: Yes Date Notified: 11/19/21 Time Notified: 18:02 Method of Notification: Verbal Reason For Visit: HEMATOMA KNEE Diagnosis Discharge Diagnosis (1) Traumatic hematoma of right knee: Status: Acute Code(s): S80.01XA - Contusion of right knee, initial encounter Qualifiers: Encounter type: initial encounter Qualified Code(s): S80.01XA - Contusion of right knee, initial encounter (2) Knee pain, acute: Status: Acute Code(s): M25.569 - Pain in unspecified knee Medications at Discharge Home Medications amlodipine 10 mg tablet 10 mg PO DAILY 90 Days #90 tab 03/05/18 atenolol 100 mg tablet 100 mg PO DAILY 90 Days #90 tab 03/05/18 atorvastatin 40 mg tablet 40 mg PO DAILY 90 Days #90 tab 03/05/18 esomeprazole magnesium 20 mg capsule,delayed release 40 mg PO DAILY 90 Days #180 cap 03/05/18 ferrous sulfate 325 mg (65 mg iron) tablet 325 mg PO DAILY tab 03/05/18 ibuprofen 600 mg tablet 600 mg PO QHS 22 Days 03/05/18 valsartan 80 mg tablet 80 mg PO DAILY 90 Days #90 tab 03/05/18 metformin 500 mg tablet 1,000 mg PO BID 90 Days #360 tab 10/01/18 calcium carbonate 600 mg calcium (1,500 mg) tablet 1,200 mg PO DAILY tab 01/31/20 diphenhydramine HCl 25 mg capsule 25 mg PO QHS 01/31/20 furosemide 40 mg tablet 40 mg PO DAILY tab 04/11/21 Eliquis 5 mg PO BID 11/19/21 potassium chloride 20 meq PO DAILY 11/19/21 acetaminophen [Tylenol] 650 mg PO Q4H PRN PRN #0 tab 11/20/21 albuterol sulfate 2.5 mg INHALATION Q4H.RT #0 ml 11/20/21 insulin NPH isoph U-100 human [Humulin N NPH Insulin KwikPen] 35 unit SUBCUT BIDCM #0 ml 11/20/21 insulin lispro [Humalog KwikPen Insulin] See Protocol SUBCUT ACHS #0 ml 11/20/21 menthol-zinc oxide [Calmoseptine] 1 applic TOPICAL BID #0 g 11/20/21 nystatin [Nyamyc] 1 applic TOPICAL BID #0 g 11/20/21 oxycodone 10 mg PO Q4H PRN PRN 3 Days #15 tab 11/20/21 Hospital Course Operations None Procedures None Summary of Care Provided Minutes Spent on Discharge: 35 Hospital Course: Is a 76-year-old female who presented following a mechanical fall at home. Patient is on chronic anticoagulation with Eliquis for proximal A. fib. Patient was noted to have a large contusion to her medial aspect of her right thigh. Knee and femur x-ray demonstrate no acute fracture, large pr epatellar soft tissue swelling and hematoma. Lower extremity CT obtained prior to patient discharge demonstrates large hematoma overlying the anterior medial aspect of the knee joint, no evidence of joint effusion. Patient will be discharged to a [place] [facility] facility for further PT and OT until patient is able to ambulate. Patient continues to have large amount of pain secondary to hematoma. Physical Exam Const alert, oriented x3 and no apparent distress General Appearance: cooperative HEENT normocephalic and head/scalp atraumatic Eyes conjunctivae normal and no scleral icterus Neck supple General: trachea midline Resp normal respiratory effort and normal air movement Effort and Inspection: able to speak in complete sentences and symmetric chest movement Auscultation: diminished lung sounds Cardio regular rate, regular rhythm, S1 normal heart sound, S2 normal heart sound and peripheral pulses 2+ throughout GI normal to inspection, nondistended, normoactive bowel sounds, soft to palpation and non-tender Extremity normal capillary refill Right Lower Extremity: knee joint inspection (Swollen medial aspect of the right leg extending from the knee up to mid thigh), palpation (Tender), ROM (Limited) and neurovascular exam (Intact) Neuro no focal motor deficits and no sensory deficits noted Psych thought process normal, cooperative and affect normal Appearance: appropriate Weight / BMI Weight Weight: 240 lb 8.389 oz Body Mass Index (BMI) 41.3 ABG / Lab / Microbiology Data Result Diagrams: 11/20/21 13:10 11/19/21 16:03 Laboratory: Laboratory Results - last 24 hr 11/19/21 16:03: WBC 11.1 H, RBC 3.67 L, Hgb 10.9 L, Hct 33.1 L, MCV 90.2, MCH 29.7, MCHC 32.9, RDW Std Deviation 42.5, RDW Coeff of Sebastian 13.0, Plt Count 280, MPV 10.7, Immature Gran % (Auto) 0.300, Neut % (Auto) 77.3 H, Lymph % (Auto) 15.4 L, [place] % (Auto) 5.7, Eos % (Auto) 0.8, Baso % (Auto) 0.5, Absolute Neuts (auto) 8.6 H, Absolute Lymphs (auto) 1.71, Nucleated RBC % 0 11/19/21 16:03: PT 14.6, INR 1.2, APTT 30.7 11/19/21 16:03: Sodium 139, Potassium 4.6, Chloride 108 H, Carbon Dioxide 24.0, Anion Gap 7, BUN 24 H, Creatinine 0.98, Estim Creat Clear Calc 42.17, Est GFR (MDRD) Af Amer 71, Est GFR (MDRD) Non-Af 59 L, BUN/Creatinine Ratio 24.5 H, Glucose 226 H, Calcium 8.5, Total Bilirubin 0.30, AST 19, ALT 18, Alkaline Phosphatase 59, Total Protein 6.2 L, Albumin 3.2, Globulin 3.0, Albumin/Globulin Ratio 1.1 11/19/21 22:09: POC Glucose 249 H 11/20/21 05:43: WBC 6.5, RBC 2.70 L, Hgb 8.1 L, Hct 24.6 L, MCV 91.1, MCH 30.0, MCHC 32.9, RDW Std Deviation 42.9, RDW Coeff of Sebastian 13.0, Plt Count 201, MPV 10.4, Immature Gran % (Auto) 0.500, Neut % (Auto) 73.0 H, Lymph % (Auto) 17.9 L, [place] % (Auto) 7.2, Eos % (Auto) 0.9, Baso % (Auto) 0.5, Absolute Neuts (auto) 4.8, Absolute Lymphs (auto) 1.17, Nucleated RBC % 0 11/20/21 08:08: POC Glucose 222 H 11/20/21 11:37: POC Glucose 242 H 11/20/21 13:10: Hgb 8.3 L, Hct 25.6 L Radiography Diagnostic Testing: Radiology Impression Chest X-Ray 11/19/21 16:12 IMPRESSION: Normal x-ray examination of the chest. Electronically Signed: Rob Guardado MD at 16:51 EDT , Knee X-Ray 11/19/21 16:13 IMPRESSION: Severe prepatellar soft tissue swelling. Electronically Signed: Rob Guardado MD at 16:52 EDT , Femur X-Ray 11/19/21 16:41 IMPRESSION: No acute fracture or dislocation in the right femur. 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 Large prepatellar soft tissue swelling/hematoma. No radiopaque foreign body. Electronically Signed: Denny Duckworth MD at 17:08 EDT , Lower Extremity CT 11/20/21 14:41 IMPRESSION: No fracture is seen. No evidence of joint effusion. Degenerative changes as described. Large hematoma overlying the anterior medial aspect of the knee joint. Electronically Signed: Serge Mueller MD at 15:33 EDT , D/C Instructions Please Follow Up With: Eric Meaningful Use Info Meaningful Use Diagnoses (Choose all that apply): None applicable Discharge Plan Admission Admit Date/Time: 11/19/21 17:54 Primary Reason for Your Visit: Right knee contusion Attending Provider: Florencio Loco Primary Care Provider: Kandis Dawson Consulting Providers: Mendel Reyes Discharge Orders/Prescriptions Prescriptions: New acetaminophen [Tylenol] 325 mg Tablet 650 mg PO Q4H PRN PRN (Reason: Fever, pain 1-10/10) Qty: 0 RF: 0 albuterol sulfate 2.5 mg /3 mL (0.083 %) Solution For Nebulization 2.5 mg inhalation Q4H.RT Qty: 0 RF: 0 insulin lispro [Humalog KwikPen Insulin] 100 unit/mL Insulin Pen See Protocol unit subcut ACHS Qty: 0 RF: 0 Humulin N NPH Insulin KwikPen 100 unit/mL (3 mL) Insulin Pen 35 unit subcut BIDCM Qty: 0 RF: 0 nystatin [Nyamyc] 100,000 unit/gram Powder 1 applic topical BID Qty: 0 RF: 0 oxycodone 5 mg Tablet 10 mg PO Q4H PRN PRN (Reason: Pain Score 6-10) 3 Days Qty: 15 RF: 0 menthol-zinc oxide [Calmoseptine] 0.44-20.6 % Ointment 1 applic topical BID Qty: 0 RF: 0 Continued ferrous sulfate 325 mg (65 mg iron) tablet 325 mg PO DAILY RF: 0 atorvastatin 40 mg tablet 40 mg PO DAILY 90 Days Qty: 90 RF: 0 atenolol 100 mg tablet 100 mg PO DAILY 90 Days Qty: 90 RF: 0 amlodipine 10 mg tablet 10 mg PO DAILY 90 Days Qty: 90 RF: 0 valsartan 80 mg tablet 80 mg PO DAILY 90 Days Qty: 90 RF: 0 ibuprofen 600 mg tablet 600 mg PO QHS 22 Days RF: 0 esomeprazole magnesium 20 mg capsule,delayed release(DR/EC) 40 mg PO DAILY 90 Days Qty: 180 RF: 0 metformin 500 mg tablet 1,000 mg PO BID 90 Days Qty: 360 RF: 0 calcium carbonate [Calcium 600] 600 mg calcium (1,500 mg) tablet 1,200 mg PO DAILY RF: 0 diphenhydramine HCl [Allergy Relief(diphenhydramin)] 25 mg capsule 25 mg PO QHS RF: 0 furosemide [Lasix] 40 mg tablet 40 mg PO DAILY RF: 0 potassium chloride 20 mEq tablet,ER particles/crystals 20 meq PO DAILY RF: 0 Held Eliquis 5 mg tablet 5 mg PO BID RF: 0 Hold Instructions: Resume on 12/04/21. consult cardiology for restart of eliquis following follow up with ortho Discontinued insulin regular human 100 unit/mL solution 20 unit SC BID 85 Days RF: 0 insulin NPH isoph U-100 human 100 unit/mL suspension See Rx Instructions .ROUTE .COMPLEX 90 Days RF: 0 insulin glargine 100 unit/mL solution 62 unit SC QHS 77 Days RF: 0 Referrals / Follow Up: Kandis Dawson MD [Primary Care Provider] - Disposition Disposition (needs filled in before D/C Order can be placed): Long Term Facility Documented by User: Dr. Florencio Loco DO 11/20/21 21:15 Providers Date of Admission: 11/19/21 Reason For Visit: HEMATOMA KNEE Medications at Discharge Home Medications amlodipine 10 mg tablet 10 mg PO DAILY 90 Days #90 tab 03/05/18 atenolol 100 mg tablet 100 mg PO DAILY 90 Days #90 tab 03/05/18 atorvastatin 40 mg tablet 40 mg PO DAILY 90 Days #90 tab 03/05/18 esomeprazole magnesium 20 mg capsule,delayed release 40 mg PO DAILY 90 Days #180 cap 03/05/18 ferrous sulfate 325 mg (65 mg iron) tablet 325 mg PO DAILY tab 03/05/18 ibuprofen 600 mg tablet 600 mg PO QHS 22 Days 03/05/18 valsartan 80 mg tablet 80 mg PO DAILY 90 Days #90 tab 03/05/18 metformin 500 mg tablet 1,000 mg PO BID 90 Days #360 tab 10/01/18 calcium carbonate 600 mg calcium (1,500 mg) tablet 1,200 mg PO DAILY tab 01/31/20 diphenhydramine HCl 25 mg capsule 25 mg PO QHS 01/31/20 furosemide 40 mg tablet 40 mg PO DAILY tab 04/11/21 Eliquis 5 mg PO BID 11/19/21 potassium chloride 20 meq PO DAILY 11/19/21 acetaminophen [Tylenol] 650 mg PO Q4H PRN PRN #0 tab 11/20/21 albuterol sulfate 2.5 mg INHALATION Q4H.RT #0 ml 11/20/21 insulin NPH isoph U-100 human [Humulin N NPH Insulin KwikPen] 35 unit SUBCUT BIDCM #0 ml 11/20/21 insulin lispro [Humalog KwikPen Insulin] See Protocol SUBCUT ACHS #0 ml 11/20/21 menthol-zinc oxide [Calmoseptine] 1 applic TOPICAL BID #0 g 11/20/21 nystatin [Nyamyc] 1 applic TOPICAL BID #0 g 11/20/21 oxycodone 10 mg PO Q4H PRN PRN 3 Days #15 tab 11/20/21 ABG / Lab / Microbiology Data Result Diagrams: 11/20/21 13:10 11/19/21 16:03 Discharge Plan Admission Admit Date/Time: 11/19/21 17:54 Primary Reason for Your Visit: Right knee contusion Attending Provider: Florencio Loco Primary Care Provider: Kandis Dawson Consulting Providers: Mendel Reyes Discharge Orders/Prescriptions Prescriptions: New acetaminophen [Tylenol] 325 mg Tablet 650 mg PO Q4H PRN PRN (Reason: Fever, pain 1-10/10) Qty: 0 RF: 0 albuterol sulfate 2.5 mg /3 mL (0.083 %) Solution For Nebulization 2.5 mg inhalation Q4H.RT Qty: 0 RF: 0 insulin lispro [Humalog KwikPen Insulin] 100 unit/mL Insulin Pen See Protocol unit subcut ACHS Qty: 0 RF: 0 Humulin N NPH Insulin KwikPen 100 unit/mL (3 mL) Insulin Pen 35 unit subcut BIDCM Qty: 0 RF: 0 nystatin [Nyamyc] 100,000 unit/gram Powder 1 applic topical BID Qty: 0 RF: 0 oxycodone 5 mg Tablet 10 mg PO Q4H PRN PRN (Reason: Pain Score 6-10) 3 Days Qty: 15 RF: 0 menthol-zinc oxide [Calmoseptine] 0.44-20.6 % Ointment 1 applic topical BID Qty: 0 RF: 0 Continued ferrous sulfate 325 mg (65 mg iron) tablet 325 mg PO DAILY RF: 0 atorvastatin 40 mg tablet 40 mg PO DAILY 90 Days Qty: 90 RF: 0 atenolol 100 mg tablet 100 mg PO DAILY 90 Days Qty: 90 RF: 0 amlodipine 10 mg tablet 10 mg PO DAILY 90 Days Qty: 90 RF: 0 valsartan 80 mg tablet 80 mg PO DAILY 90 Days Qty: 90 RF: 0 ibuprofen 600 mg tablet 600 mg PO QHS 22 Days RF: 0 esomeprazole magnesium 20 mg capsule,delayed release(DR/EC) 40 mg PO DAILY 90 Days Qty: 180 RF: 0 metformin 500 mg tablet 1,000 mg PO BID 90 Days Qty: 360 RF: 0 calcium carbonate [Calcium 600] 600 mg calcium (1,500 mg) tablet 1,200 mg PO DAILY RF: 0 diphenhydramine HCl [Allergy Relief(diphenhydramin)] 25 mg capsule 25 mg PO QHS RF: 0 furosemide [Lasix] 40 mg tablet 40 mg PO DAILY RF: 0 potassium chloride 20 mEq tablet,ER particles/crystals 20 meq PO DAILY RF: 0 Held Eliquis 5 mg tablet 5 mg PO BID RF: 0 Hold Instructions: Resume on 12/04/21. consult cardiology for restart of eliquis following follow up with ortho Discontinued insulin regular human 100 unit/mL solution 20 unit SC BID 85 Days RF: 0 insulin NPH isoph U-100 human 100 unit/mL suspension See Rx Instructions .ROUTE .COMPLEX 90 Days RF: 0 insulin glargine 100 unit/mL solution 62 unit SC QHS 77 Days RF: 0 Referrals / Follow Up: Kandis Dawson MD [Primary Care Provider] - Disposition Disposition (needs filled in before D/C Order can be placed): Long Term Facility Charges/Coding Addendum Addendum: Patient was seen and examined independently of Angie Daigle today, I repeated her CBC to recheck her hemoglobin and it is unchanged at this time in the afternoon of 11/20/2021, I talked with orthopedic surgery about her care today , we obtained a CT of the patient's right knee area which showed no evidence of hematoma in the knee joint and no evidence of any tibial plateau fracture. On examination she appeared older than her stated age, she does not appear to be in any distress. Vital signs as documented. Skin warm and dry and without overt rashes. Neck without JVD, thyroid appears normal, trachea is midline, neck is supple. Lungs-scattered expiratory wheezes are noted bilaterally, normal air movement was noted. Heart exam notable for regular rhythm, normal sounds and absence of murmurs, rubs or gallops. Abdomen unremarkable and without evidence of organomegaly, masses, or abdominal aortic enlargement, bowel sounds are present in all 4 quadrants, no abdominal tenderness was noted. Extremities-there is ecchymosis noted over the patient's right inner thigh up into the groin area, there is also ecchymosis noted around the right knee with swelling noted around the right knee and tenderness in the area of the right knee and right thigh area, no cyanosis was noted, no clubbing was noted. Neuro: Cranial nerves II t hrough XII are grossly intact, no focal motor deficits were noted, sensation to light touch and pinprick is intact, motor exam 5/5 throughout. Psych: Patient is alert and oriented x3, she does not appear anxious or depressed, she does not appear agitated. #1 severe contusion of the right knee with associated bleeding to the soft tissues of the right inner thigh and around the right knee area-patient remains medically stable at this time, she will be discharged to an extended care facility for inpatient rehab services. She will follow-up with orthopedic surgery as an outpatient, no surgeries indicated at this time #2 paroxysmal atrial fibrillation #3 type 2 diabetes #4 morbid obesity #5 chronic use of anticoagulation I have reviewed Angie Daigle's discharge summary including her medical assessment and plan of care with the above additions endorse it. Total clinical time spent by myself addressing the patient's medical issues, reviewing the data, and collaborating with the patient's care team: 30 minutes Visit Charges Inpatient E&M: 07810 Disch Hosp
[2021-11-20 16:25] LABS: Bedside Glucose 173 mg/dL (74-106)
== END 2021-11-20 18:22 | DRG 605 ==
LOC: ED 17:48 → MS3 18:20
PROVIDERS: Nurse Practitioner Family; Admitting Provider Internal Medicine; Emergency Provider Emergency Medicine; PCP Family Medicine; Referring Provider Internal Medicine; Visit Provider Internal Medicine
DX: S80.01XA Contusion of right knee, initial encounter (principal); I48.0 Paroxysmal atrial fibrillation; Z68.41 Body mass index [BMI] 40.0-44.9, adult; E11.9 Type 2 diabetes mellitus without complications; E66.01 Morbid (severe) obesity due to excess calories; E78.5 Hyperlipidemia, unspecified; D64.9 Anemia, unspecified; Z79.4 Long term (current) use of insulin; W01.10XA Fall on same level from slipping, tripping and stumbling with subsequent striking against unspecified object, initial encounter; Y92.009 Unspecified place in unspecified non-institutional (private) residence as the place of occurrence of the external cause; I10 Essential (primary) hypertension; K21.9 Gastro-esophageal reflux disease without esophagitis; Z20.822 Contact with and (suspected) exposure to COVID-19; H91.90 Unspecified hearing loss, unspecified ear; F17.210 Nicotine dependence, cigarettes, uncomplicated; Z79.01 Long term (current) use of anticoagulants; Z79.1 Long term (current) use of non-steroidal anti-inflammatories (NSAID); Z79.899 Other long term (current) drug therapy
CPT/HCPCS: 36415; 71045; 73552; 73560; 73700; 80053; 82962; 85014; 85018; 85025; 85610; 85730; 87811; 93005; 94640; 94762; 97162; 97166; 99285; J7030; A4216; J2405

== ENCOUNTER → 2021-12-12 | Outpatient (CLI) | payer MEDICARE, MEDICAID, SELFPAY ==
--- NOTE | 2021-12-12 13:44 | VDLE_ITS ---
Reason For Study: contusion of right knee RIGHT GSV is normal. CFV is compressible, spontaneous, phasic, competent and demonstrates normal augmentation. FV is compressible, spontaneous, phasic, competent and demonstrates normal augmentation. POP V is compressible, spontaneous, phasic, competent and demonstrates normal augmentation. T/P Trunk is compressible. PTV is compressible. RT PerV is compressible. Heterogeneous area on the knee. Area is too large to measure. Area appears to be nonvascular. Procedure This is a venous duplex using B-mode, color flow and spectral Doppler. Exam performed in department. The exam was abbreviated due to the COVID 19 protocol. The exam was diagnostic. A preliminary report was called and/or faxed to Alonso Hay. VL/Venous Duplex US, Unilateral Interpretation Summary Deep veins of the right lower extremity are patent and compressible segmentally . There is no evidence of right lower extremity deep vein thrombosis. Valvular competence janel ears intact within the proximal deep venous system on the right . The right great saphenous vein a ppears patent and compressible segmentally. A large, non-vascular, heterogeneous area is noted ab out the right knee, which may represent a hematoma. Clinical correlation is advised. Ordering Physician: Kevon Hay Performed By: Elias Murdock RVT
== END | disposition home or self-care (01) ==
LOC: CVS 13:40
PROVIDERS: PCP Family Medicine; Visit Provider Physician Assistant
DX: M79.661 Pain in right lower leg (principal)
CPT/HCPCS: 93971

== ENCOUNTER → 2022-04-29 | Outpatient (CLI) | payer MEDICARE, MEDICAID, SELFPAY ==
[2022-04-29 15:15] LABS: Absolute Lymphocyte Count 1.45 X10^3/uL (0.83-4.51); Absolute Neutrophil Count 5.6 X10^3/uL (2.0-7.7); Basophil# 0.06 X10^3/uL; Basophil% 0.8 % (0-1); Eosinophil# 0.14 X10^3/uL; Eosinophils% 1.8 % (0-5); Hematocrit 35.1 % (37-47); Hemoglobin 10.6 g/dL (12.0-15.0); Lymphocyte # 1.45 X10^3/ul (0.83-4.51); Lymphocyte % 18.6 % (19-41); Mean Corp Hgb Conc 30.2 g/dL (32-36); Mean Corpuscular Volume 86.2 fL (81-99); Monocyte% 6.4 % (0-10); NRBC Flagged by Analyzer 0.3 % (0-5); Neutrophil # 5.62 X10^3/uL (2.7-7.7); Neutrophil % 72.1 % (47-70); Platelet Count 304 K/mm3 (150-450); RBC Distribution Width SD 50.7 fl (35.1-43.9); Red Blood Count 4.07 M/mm3 (4.2-5.4); White Blood Count 7.8 K/mm3 (4.4-11.0)
[2022-04-29 15:19] LABS: Anion Gap 7 (5-15); BUN 19 mg/dL (7-18); BUN/Creat Ratio 18.8 RATIO (10-20); Calcium,Total 8.8 mg/dL (8.5-10.1); Chloride 100 mmol/L (98-107); Creatinine, Serum 1.01 mg/dL (0.55-1.02); EST Glomerular Filtration Rate 57 mL/min (>60); Est Glom Filt Rate - Afr Amer 68 mL/min (>60); Glucose 101 mg/dL (74-106); Potassium 3.8 mmol/L (3.5-5.1); Sodium Level 139 mmol/L (136-145)
== END | disposition home or self-care (01) ==
LOC: BFHLAB 13:40
PROVIDERS: PCP Family Medicine; Visit Provider Family Medicine
DX: I48.19 Other persistent atrial fibrillation (principal); I50.9 Heart failure, unspecified
CPT/HCPCS: 36415; 80048; 85025

== ENCOUNTER → 2022-05-20 | Outpatient (CLI) | payer MEDICARE, MEDICAID, SELFPAY ==
--- NOTE | 2022-05-20 07:51 | US_ITS ---
STUDY: ULTRASOUND OF THE FEMALE PELVIS - COMPLETE REASON FOR EXAM: Female, 76 years old. Postmenopausal bleeding. LMP: Patient is postmenopausal. TECHNIQUE: Transabdominal and Transvaginal TECHNICAL QUALITY: Adequate. COMPARISON: None. FINDINGS: The uterus is anteverted and is in a midline position. The uterus measures 8.3 cm x 6 cm x 6.3 cm. Normal uterine cervix. The endometrium is thickened and measures 21 mm in thickness, and is hypoechoic. There is no demonstrated endometrial mass. Multiple fibroids are seen. The largest measures 2.3 cm x 2.77 x 1.9 cm. Scattered uterine calcifications are present. I.U.D. - The patient does not have an I.U.D. The right ovary is non-visualized. The left ovary is non-visualized. There is no fluid in the cul-de-sac. The pre void volume of the bladder was 53 ml. US/Pelvic (Non ) IMPRESSION: Fibroid uterus. Thickened endometrium. Electronically Signed: Serge Mueller MD at 14:54 EST ,
== END | disposition home or self-care (01) ==
LOC: US 07:49
PROVIDERS: PCP Family Medicine; Visit Provider Family Medicine
DX: N95.0 Postmenopausal bleeding (principal); N93.9 Abnormal uterine and vaginal bleeding, unspecified
CPT/HCPCS: 76830; 76856

== ENCOUNTER → 2022-06-17 | Outpatient (CLI) | payer MEDICARE, MEDICAID, SELFPAY ==
--- NOTE | 2022-06-17 11:40 | RAD_ITS ---
STUDY: X-RAY CHEST REASON FOR EXAM: Female, 76 years old. Increased oxygen requirements. Evaluate for edema. TECHNIQUE: Frontal and lateral views of the chest. COMPARISON: November 19, 2021. FINDINGS: Mild diffuse interstitial pattern which is slightly increased since the prior study. Linear scar/atelectasis in the left midlung zone. Stable scattered healed parenchymal granulomatous calcifications. There is no demonstrated pleural abnormality. Stable cardiomegaly. Normal mediastinum and mayo. Normal visualized pulmonary arteries. Aortic tortuosity with calcification unchanged. Stable diffuse thoracic spondylosis. Normal visualized ribs, clavicles, and shoulders. There is no demonstrated abnormality of the visualized soft tissue structures of the upper abdomen. RAD/Chest PA and Lateral IMPRESSION: Cardiomegaly with mild increase in diffuse interstitial pattern which may represent mild interstitial edema/congestive failure. Follow-up chest imaging to resolution recommended. No acute abnormality. Electronically Signed: Kevon Solano, at 12:01 EST ,
== END | disposition home or self-care (01) ==
LOC: MTRAD 11:29
PROVIDERS: PCP Family Medicine; Referring Provider Family Medicine; Visit Provider Family Medicine
DX: R60.9 Edema, unspecified (principal)
CPT/HCPCS: 71046

== ENCOUNTER → 2022-06-26 | Outpatient (CLI) | payer MEDICARE, MEDICAID, SELFPAY ==
--- NOTE | 2022-06-26 | EMB_PTH ---
PATIENT: KARLA CAMARGO LOC: [facility]#:[id number] AGE/SX: 76/F ROOM: RE06/26/[address]: Dr. Candido Escalona MD : 1945 BED: DIS: 06/26/2022 SPEC #: [id number] RECD: 06/26/22 12:04 STATUS: JR TYREL #: [id number] DENG: 06/26/22 00:[address]: Candido Escalona DEPT: SURGICAL PATHOLOGY RECD BY: Sobeida Childs ENTERED: 06/26/22 13:32 SP TYPE: ENDOM BX/C JAMES DR: Dr. Kandis Dawson MD Tissues: A - Endometrium, NOS B - Uterine cervix, NOS Procedures: Surgery Specimen Level IV HEADER OPERATION: Endometrial biopsy, cervical polyp removal PRE-OP DIAGNOSIS: PMB TISSUE SUBMITTED: A - Endometrial biopsy, B ? Cervical polyp MICROSCOPIC DIAGNOSIS A. Endometrium, biopsy: Fragments of benign lower uterine endometrium/endocervix. B. Cervical polyp, polypectomy: Benign endocervical polyp, inflamed. AM:jarret 06/27/2022 MICROSCOPIC DESCRIPTION Slides are reviewed. GROSS DESCRIPTION A - Received in fixative is one container labeled with the patient's name and designated endometrial biopsy. The specimen consists of multiple irregular fragments of light pink-lowery soft tissue that in aggregate measure 2.5 x 2 x <0.1 cm. The specimen is totally submitted in one cassette. B - Received in fixative is one container labeled with the patient's name and designated cervical polyp. The specimen consists of a polypoid fragment of pink-lowery soft tissue measuring 2 x 1.5 x 0.2 cm. The specimen is totally submitted in one cassette. / AM:jarret 06/26/2022 TC:1 CPT: 84894 x2
== END | disposition home or self-care (01) ==
LOC: LABSPEC 11:30
PROVIDERS: PCP Family Medicine; Visit Provider Obstetrics & Gynecology
DX: N84.1 Polyp of cervix uteri (principal)
CPT/HCPCS: 88305

== ENCOUNTER → 2022-08-26 | Outpatient (CLI) | payer MEDICARE, MEDICAID, SELFPAY ==
[2022-08-26 15:05] LABS: Absolute Lymphocyte Count 2.04 X10^3/uL (0.83-4.51); Absolute Neutrophil Count 6.7 X10^3/uL (2.0-7.7); Basophil# 0.05 X10^3/uL; Basophil% 0.5 % (0-1); Eosinophil# 0.11 X10^3/uL; Eosinophils% 1.2 % (0-5); Hematocrit 40.8 % (37-47); Hemoglobin 12.8 g/dL (12.0-15.0); Lymphocyte # 2.04 X10^3/ul (0.83-4.51); Lymphocyte % 21.4 % (19-41); Mean Corp Hgb Conc 31.4 g/dL (32-36); Mean Corpuscular Hgb 28.1 pg (27.0-32.0); Mean Corpuscular Volume 89.7 fL (81-99); Mean Platelet Vol. 10.7 fl (6.2-12.0); Monocyte# 0.61 X10^3/uL; Monocyte% 6.4 % (0-10); NRBC Flagged by Analyzer 0 % (0-5); Neutrophil # 6.71 X10^3/uL (2.7-7.7); Neutrophil % 70.2 % (47-70); Platelet Count 257 K/mm3 (150-450); RBC Distribution Width CV 15.1 % (11.6-14.6); RBC Distribution Width SD 49.1 fl (35.1-43.9); Red Blood Count 4.55 M/mm3 (4.2-5.4); White Blood Count 9.6 K/mm3 (4.4-11.0)
[2022-08-26 15:17] LABS: ALB/GLOB Ratio 0.9 RATIO (0.9-2.4); AST(SGOT) 25 U/L (15-37); Alanine Aminotransfer ALT/SGPT 27 U/L (13-56); Albumin, Serum 3.6 g/dL (3.2-5.0); Alkaline Phosphatase 75 U/L (45-117); Anion Gap 10 (5-15); BUN 22 mg/dL (7-18); Calcium,Total 9.2 mg/dL (8.5-10.1); Chloride 103 mmol/L (98-107); EST Glomerular Filtration Rate 51 mL/min (>60); Est Glom Filt Rate - Afr Amer 62 mL/min (>60); Globulin 3.8 g/dL (2.2-4.2); Glucose 79 mg/dL (74-106); Potassium 4.2 mmol/L (3.5-5.1); Protein, Total 7.4 g/dL (6.4-8.2); Sodium Level 141 mmol/L (136-145)
== END | disposition home or self-care (01) ==
LOC: BFHLAB 12:58
PROVIDERS: PCP Family Medicine; Visit Provider Family Medicine
DX: E11.29 Type 2 diabetes mellitus with other diabetic kidney complication (principal); I10 Essential (primary) hypertension
CPT/HCPCS: 36415; 80053; 85025

== ENCOUNTER → 2023-03-07 | Outpatient (CLI) | payer MEDICARE, MEDICAID, SELFPAY ==
[2023-03-07 09:57] LABS: Absolute Lymphocyte Count 1.29 X10^3/uL (0.83-4.51); Absolute Neutrophil Count 3.9 X10^3/uL (2.0-7.7); Basophil# 0.04 X10^3/uL; Basophil% 0.7 % (0-1); Eosinophil# 0.16 X10^3/uL; Eosinophils% 2.8 % (0-5); Hemoglobin 12.3 g/dL (12.0-15.0); Lymphocyte # 1.29 X10^3/ul (0.83-4.51); Lymphocyte % 22.2 % (19-41); Mean Corp Hgb Conc 31.5 g/dL (32-36); Mean Corpuscular Hgb 29.5 pg (27.0-32.0); Mean Corpuscular Volume 93.5 fL (81-99); Mean Platelet Vol. 10.4 fl (6.2-12.0); Monocyte# 0.38 X10^3/uL; Monocyte% 6.6 % (0-10); NRBC Flagged by Analyzer 0 % (0-5); Neutrophil # 3.91 X10^3/uL (2.7-7.7); Neutrophil % 67.4 % (47-70); Platelet Count 209 K/mm3 (150-450); RBC Distribution Width CV 13.2 % (11.6-14.6); RBC Distribution Width SD 44.8 fl (35.1-43.9); Red Blood Count 4.17 M/mm3 (4.2-5.4); White Blood Count 5.8 K/mm3 (4.4-11.0)
[2023-03-07 10:17] LABS: Hemoglobin A1c 7.6 % (3.8-5.6)
[2023-03-07 10:24] LABS: Microalbumin:Creatinine Ratio 328.9 mg/g CRE (<30 mg/g CRE)
[2023-03-07 10:29] LABS: ALB/GLOB Ratio 0.9 RATIO (0.9-2.4); AST(SGOT) 15 U/L (15-37); Alanine Aminotransfer ALT/SGPT 21 U/L (13-56); Albumin, Serum 3.1 g/dL (3.2-5.0); Alkaline Phosphatase 70 U/L (45-117); Anion Gap 5 (5-15); BUN 18 mg/dL (7-18); Calcium,Total 8.7 mg/dL (8.5-10.1); Chloride 109 mmol/L (98-107); Cholesterol 98 mg/dL (200); Creatinine, Serum 0.86 mg/dL (0.55-1.02); EST Glomerular Filtration Rate 68 mL/min (>60); Est Glom Filt Rate - Afr Amer 83 mL/min (>60); Globulin 3.4 g/dL (2.2-4.2); Glucose 114 mg/dL (74-106); High Density Lipoprotein 33 mg/dL; Protein, Total 6.5 g/dL (6.4-8.2); Sodium Level 142 mmol/L (136-145); Triglycerides 173 mg/dL; Very Low Density Lipoprotein 35 mg/dL (5-40)
== END | disposition home or self-care (01) ==
LOC: LAB 09:07
PROVIDERS: PCP Family Medicine; Referring Provider Family Medicine; Visit Provider Family Medicine
DX: Z00.00 Encounter for general adult medical examination without abnormal findings (principal); J44.9 Chronic obstructive pulmonary disease, unspecified; E11.29 Type 2 diabetes mellitus with other diabetic kidney complication; I48.19 Other persistent atrial fibrillation; R80.9 Proteinuria, unspecified
CPT/HCPCS: 36415; 80053; 80061; 82043; 82570; 83036; 85025

== ENCOUNTER → 2023-10-22 | Outpatient (CLI) | payer MEDICARE, SELFPAY ==
--- NOTE | 2023-10-22 14:48 | NEURO ---
NCS and/or EMG Patient Report Ordering Doctor: Jaspreet Dawson DATE OF SERVICE: 10/22/23 Clinical Summary: 78 year old female with numbness, tingling, and pain in the right hand/wrist. She denies having numbness, tingling, or pain in the left hand or either feet. Nerve Conduction Studies Summary: The right median-D2 SNAP was absent. The right median and ulnar corey response amplitudes were reduced. The right ulnar-D5 SNAP distal latency was prolonged with reduced amplitude. The right median-APB CMAP distal latency was prolonged with reduced amplitude. The right median motor conduction velocity was reduced in the forearm segment. The right ulnar-ADM CMAP distal latency was prolonged with reduced amplitude. The right median and ulnar F-wave onset latencies were prolonged. Needle Examination Summary: Needle examination demonstrated a higher proportion of motor unit action potentials with reduced recruitment, increased amplitude, increased duration, and polyphasia in the right first dorsal interosseous and abductor pollicis brevis muscles. 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
== END | disposition home or self-care (01) ==
PROVIDERS: PCP Family Medicine; Referring Provider Family Medicine; Visit Provider Family Medicine
DX: G56.20 Lesion of ulnar nerve, unspecified upper limb (principal); R53.1 Weakness
CPT/HCPCS: 95886; 95910

== ENCOUNTER → 2024-01-12 | Outpatient (CLI) | payer MEDICARE, SELFPAY ==
--- NOTE | 2024-01-12 09:45 | ECHOCS_ITS ---
Reason For Study: ATRIAL FIBRILLATION Procedure This was a 2D Doppler, Color Flow transthoracic echocardiogram. The study was technically difficult. Due to body habitus and deep respirations. Contrast injection was performed. Exam performed in department. Left Ventricle Normal LV size. Left ventricular systolic function is normal. The left ventricular ejection fraction is 60 %. Stage 2 diastolic dysfunction. No regional wall motion abnormalities noted. Right Ventricle Normal RV size. Normal systolic function. Atria The left atrium is moderately enlarged. Normal right atrium. Aortic Valve The aortic valve is not well visualized. Mild (1+) aortic valve insufficiency. Great Vessels Normal aortic root. Pericardium/Pleural No pericardial effusion. Medication 22 gauge I.V. with prn adaptor inserted into right arm. Diluted definity 2.5ml given slow IV push to enhance endocardial definition. MMode/2D Measurements & Calculations LVIDd: 4.6 cm FS: 30.5 % Ao root diam: 3.0 cm LVIDs: 3.2 cm RVDd: 4.0 cm LAV(MOD-bp): 92.3 ml SV(MOD-sp4): 57.4 ml LVAd ap4: 27.8 cm2 LAV(MOD-bp) Indexed: 43.1 ml/m2 LVLd ap4: 7.9 cm LAV(MOD-sp2): 87.8 ml EDV(MOD-sp4): 79.2 ml LAV(MOD-sp4): 85.0 ml EDV(sp4-el): 83.0 ml LVAs ap4: 13.0 cm2 LVLs ap4: 6.3 cm ESV(MOD-sp4): 21.8 ml ESV(sp4-el): 22.9 ml EF(MOD-sp4): 72.4 % EF(sp4-el): 72.4 % SV(sp4-el): 60.1 ml LA dimension(2D): 4.4 cm LA A4 area: 26.5 cm2 TAPSE: 2.3 cm RA A4 area: 14.6 cm2 Time Measurements MV dec time: 0.22 sec Doppler Measurements & Calculations MV E max rashad: 109.7 cm/sec Lat Peak E' Rashad: 4.2 cm/sec MV V2 max: 112.2 cm/sec MV A max rashad: 61.1 cm/sec E/E' lat: 26.1 MV max P.0 mmHg MV E/A: 1.8 MV V2 mean: 47.4 cm/sec MV mean P.2 mmHg MV V2 VTI: 30.5 cm MV P1/2t max rashad: 123.4 cm/sec Ao V2 max: 141.7 cm/sec AI max rashad: 273.6 cm/sec MV P1/2t: 69.3 msec Ao max P.1 mmHg AI max P.9 mmHg Ao V2 mean: 101.9 cm/sec MV dec slope: 521.7 cm/sec2 Ao mean P.7 mmHg AI dec slope: 136.0 cm/sec2 MVA(P1/2t): 3.2 cm2 Ao V2 VTI: 38.9 cm AI P1/2t: 589.1 msec AV (velocity ratio): 0.85 LV V1 max: 119.8 cm/sec PA V2 max: 110.5 cm/sec LV V1 max P.7 mmHg PA V2 mean: 75.8 cm/sec LV V1 mean P.4 mmHg LV V1 mean: 87.8 cm/sec LV V1 VTI: 32.9 cm ECHO/Echo Complete W/ Contrast Interpretation Summary Normal LV size. Left ventricular systolic function is normal. The left ventricular ejection fraction is 60 %. Stage 2 diastolic dysfunction. Contrast injection was performed. The study was technically difficult. Ordering Physician: Osman Montez Referring Physician: Kandis Dawson Performed By: Karyna Rothman, RDCS, RVT
== END | disposition home or self-care (01) ==
LOC: CVS 09:45
PROVIDERS: PCP Family Medicine; Referring Provider Internal Medicine Cardiovascular Disease; Visit Provider Internal Medicine Cardiovascular Disease
DX: I48.0 Paroxysmal atrial fibrillation (principal)
CPT/HCPCS: 93306; Q9957; A4216; C8929

== ENCOUNTER 2024-03-30 07:45 | Day surgery (SDC) | payer MEDICARE, MEDICAID, SELFPAY ==
[2024-03-30] VITALS (9 sets, daily range): BP systolic 99–171; BP diastolic 66–122; PULSE 91–139; RESP 16–32; TEMP 36.1–37.2; O2SAT 90–94; BMI 41.2
--- NOTE | 2024-03-30 08:52 | PRE.ANES_ITS ---
ASA Classification* ASA Classification ASA Classification: 3 Assessment & Plan Anesthesia* Anesthesia Assessment Anesthesia Assessment: Discussed sedation and/or anesthesia options, risks, benefits, and alternatives with patient/parents/legal guardian/POA. Questions invited. The patient/parents/legal guardian/POA seems to understand and agrees to proceed with anesthesia plan. Reviewed the physical assessment, medical history, allergy history and patient home medications list prior to surgery/procedure/anesthetic and documented any changes. Performed airway and anesthesia risk assessments. Anesthesia Type Anesthesia Type: MAC (GA bkup) Anesthesia Focused Assessment* Temperature: 97.0 F Pulse Rate: 112 Blood Pressure: 129/78 Respiratory Rate: 22 Pulse Ox: 94 Airway Assessment Mouth opens: >3 cm Mallampati Score: II Focused Labs Anesthesia Preop lab: CBC WBC 5.8 K/mm3 (4.4-11.0) 03/07/23 09:25 RBC 4.17 M/mm3 (4.2-5.4) L 03/07/23 09:25 Hgb 12.3 g/dL (12.0-15.0) 03/07/23 09:25 Hct 39.0 % (37-47) 03/07/23 09:25 Plt Count 209 K/mm3 (150-450) 03/07/23 09:25 CHEMISTRY Potassium 4.0 mmol/L (3.5-5.1) 03/07/23 09:25 Sodium 142 mmol/L (136-145) 03/07/23 09:25 BUN 18 mg/dL (7-18) 03/07/23 09:25 Creatinine 0.86 mg/dL (0.55-1.02) 03/07/23 09:25 Glucose 114 mg/dL (74-106) H 03/07/23 09:25 POC Glucose 173 mg/dL (74-106) H 11/20/21 16:14 TSH 1.53 uIU/mL (0.358-3.74) 10/29/18 08:18 COAG PT 14.6 SECONDS (11.7-14.9) 11/19/21 16:03 Pre-Assessment Diagnosis/Proposed Procedure Planned Operative Procedure(s): RIGHT ENDOSCOPIC CARPAL TUNNEL RELEASE, RIGHT ELBOW CUBITAL TUNNEL RELEASE Anesthesia History 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 When Was Last Pacemaker Check QUESTION #4 FULL TEXT: You/Your Family Experience fever (hyperthermia) with Anesthesia Last Oral Intake Last Oral intake: Last Oral Intake NPO since 00:00 03/30/24 08:14 Meds taken in AM with sips of No 03/30/24 08:14 water? Meds patient instructed to take am of surgery PONV PONV - mold maintenance technician: PONV - mold maintenance technician Female Yes 03/15/24 12:49 HX of Motion Sickness No 03/15/24 12:49 HX of N/V After Surgery No 03/15/24 12:49 Non-Smoker No 03/15/24 12:49 Duration of Surgery greater No 03/15/24 12:49 than 60 minutes Number of Risk Factors 1 03/15/24 12:49 PONV Score Low Risk 03/15/24 12:49 Height & Weight Height & Weight: Anesthesia: Height & Weight Height 5 ft 4 in 03/30/24 08:14 Weight: 109 kg 03/30/24 08:14 Body Mass Index (BMI) 41.2 03/30/24 08:14 Respiratory Assessment Respiratory Assessment - mold maintenance technician: Respiratory Tract Infection Hx - mold maintenance technician Hx Respiratory Tract Infection No 03/15/24 12:49 STOP Sleep Apnea STOP Sleep Apnea - mold maintenance technician: STOP Sleep Apnea - mold maintenance technician Hx Hypertension Yes: CONTROLLED WITH MEDS 03/15/24 12:49 Hx Sleep Apnea No 03/15/24 12:49 CPAP BIPAP Do you snore loudly (louder No 03/15/24 12:49 than talking or can be heard Do you often feel tired/ No 03/15/24 12:49 fatigued/ sleepy during daytime? Has anyone observed you stop No 03/15/24 12:49 breathing during sleep? STOP Results Negative 03/15/24 12:49 QUESTION #5 FULL TEXT : Do you snore loudly (louder than talking or can be heard through closed doors)? 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 technician: Tobacco Use History - mold maintenance technician Tobacco Use Smoking Status Current every day smoker 03/15/24 12:49 Hx Tobacco Use Yes 03/15/24 12:49 Years Smoking Packs Smoked per Day Smoking Cessation Date was within the last 15 years Hx Smoking Cessation Date Hx Smoking Cessation Counseling Hematologic Medial History Hematologic Hx - mold maintenance technician: Hematologic Medical Hx - clinical documentation spec Hx of Blood Transfusion No 03/15/24 12:49 Hx of Transfusion in last 3 No 03/15/24 12:49 Months Date of Last Transfusion (if within last 3 months) Ever experience any problems No 03/15/24 12:49 with transfusion(s)? Specify any problems Hx of Preganancy in last 3 No 03/15/24 12:49 Months Nurse Filling Out Transfusion [id number] 03/15/24 12:49 & Questions: Date: 03/15/24 03/15/24 12:49 Time: 12:52 03/15/24 12:49 Patient unable to answer at this time (ie. confused, unrespo /Reproduction History /Reproductive History - mold maintenance technician: /Reproductive Hx- mold maintenance technician Hx Now Gestational Age (in weeks): EDC: Hx Hx Para Hx Section SAB Active Medications Active Medications: Current Medications Generic Name Dose Route Start Last Admin Trade Name Freq PRN Reason Stop Dose Admin Cefazolin Sodium 2 gm/ Sodium 110 mls @ 150 mls/hr 03/30/24 09:35 Chloride IV 03/30/24 10:18 PREOP ONE [facility] Medical History Wears dentures History of stress test History of echocardiogram Cardiology follow-up encounter Cubital tunnel syndrome on right Right carpal tunnel syndrome On home oxygen therapy Lower extremity edema Knee pain, acute Traumatic hematoma of right knee Anticoagulant long-term use Paroxysmal atrial fibrillation Essential (primary) hypertension Sciatica Hearing loss Peripheral neuropathic pain Hyperlipidemia Cataracts, bilateral Osteoarthritis Anemia GERD (gastroesophageal reflux disease) Type 2 diabetes mellitus Nicotine dependence Obesity Ectopic atrial tachycardia Home Medications ?Medication ?Instructions ?Recorded ?Last Taken ?Type esomeprazole magnesium 20 mg 40 mg PO DAILY stomach 90 days 03/05/18 11/19/21 History capsule,delayed release #180 caps ferrous sulfate 325 mg (65 mg 325 mg PO DAILY supplement 03/05/18 11/19/21 History iron) tablet ibuprofen 600 mg tablet 600 mg PO QHS pain 22 days 03/05/18 11/18/21 History calcium carbonate (Calcium 600) 600 mg PO BID supplement 01/31/20 11/19/21 History diphenhydramine HCl 25 mg capsule 25 mg PO QHS allergies 01/31/20 11/19/21 History (Allergy Relief (diphenhydramine)) ipratropium bromide 0.02 % 2.5 ml continuous nebulization Q6H 02/06/22 Unknown History solution for inhalation PRN shortness of breath or wheezing amlodipine 10 mg tablet 10 mg PO DAILY bp 90 days #90 tabs 09/30/22 Unknown Rx valsartan 80 mg tablet 80 mg PO BID bp 90 days #180 tabs 09/30/22 Unknown Rx atenolol 100 mg tablet 50 mg (1/2 x 100 mg) PO DAILY bp 04/07/23 Unknown Rx 90 days #45 tabs docusate sodium 100 mg capsule 100 mg PO DAILY 04/07/23 Unknown History metformin 500 mg tablet 1,000 mg PO BID diabetes 90 days 04/07/23 Unknown History apixaban 5 mg tablet (Eliquis) 5 mg PO BID blood thinner #180 tabs 10/09/23 03/27/24 Rx atorvastatin 40 mg tablet 40 mg PO DAILY cholesterol 90 days 10/09/23 Unknown Rx #90 tabs potassium chloride 20 mEq 20 meq PO DAILY supplement #90 tabs 10/09/23 Unknown Rx tablet,extended release(part/cryst) insulin NPH isoph U-100 human 100 40 unit subcut DAILY 12/17/23 Unknown History unit/mL (3 mL) subcutaneous pen (Humulin N NPH U-100 Insulin KwikPen) albuterol sulfate 2.5 mg/3 mL 2.5 mg inhalation PRN PRN 03/28/24 Unknown History (0.083 %) solution for nebulization shortness of breath or wheezing furosemide 80 mg tablet 40 mg PO DAILY fluid retention 03/28/24 Unknown History insulin NPH isoph U-100 human 100 27 unit subcut QHS 03/28/24 Unknown History unit/mL subcutaneous suspension (Novolin N NPH U-100 Insulin isophane) insulin glargine 100 unit/mL 62 unit subcut QHS 03/28/24 Unknown History subcutaneous solution (Lantus U-100 Insulin) insulin regular human 100 unit/mL 20 unit subcut BID 03/28/24 Unknown History injection solution (Humulin R Regular U-100 Insulin) Allergy/AdvReac Type Severity Reaction Status Date / Time No Known Allergies Allergy Verified 03/30/24 08:08 Family History Mother Hypertension Diabetes Father Lung cancer Sister Kidney disease Breast cancer Cancer liver, ovarian Hypertension Diabetes Brother Hypertension Diabetes Surgical History History of dilatation and curettage History of hysteroscopy History of cataract surgery Social History Smoking Status: Current every day smoker tobacco type: cigarettes Review of Systems (Anesthesia) ROS Narrative System reviewed and no additional complaints, except as documented.
[2024-03-30 09:35] LABS: Bedside Glucose 148 mg/dL (74-106)
--- NOTE | 2024-03-30 09:38 | PCM.HP.STD ---
HPI - General HPI Narrative KARLA CAMARGO, is a 78 F who presents for right endoscopic carpal tunnel release, right elbow cubital tunnel release. No changes to history and physical exam. Patient wishes to proceed. Right elbow and right wrist marked. Patient was advised to hold her blood thinners prior to surgery. Risks alternatives benefits as well as postoperative instructions follow-up and narcotic counseling done. The patient understands no further questions or concerns. MR#: [id number] Acct: [id number] Name: KARLA CAMARGO Rep #: [id number] : 1945 Provider: Dr. Isauro Lewis MD Age/Sex: 78/F Location: [facility] [place] Status: Signed Intake Vital Signs 11/04/2408:54 12/16/2412:42 Height 5 ft 4 in 5 ft 4 in Weight: 247 lb 2 oz BMI 42.4 BP 136/61 H Blood Pressure Location Lt brachial Position Sitting Respiration 18 Pulse 59 L Pulse Source Monitor Intake Visit Reasons: RIGHT HAND Chief Complaint: pain and numbness Is patient in pain?: Yes Pain scale (1-10): 3 Allergies No Known Allergies Allergy (Verified 02/11/24 08:57) Medications ?Medication ?Instructions ?Recorded ?Confirmed ?Type esomeprazole magnesium 20 mg 40 mg PO DAILY stomach 90 days 03/05/18 02/11/24 History capsule,delayed release #180 caps ferrous sulfate 325 mg (65 mg 325 mg PO DAILY supplement 03/05/18 02/11/24 History iron) tablet ibuprofen 600 mg tablet 600 mg PO QHS pain 22 days 03/05/18 02/11/24 History calcium carbonate (Calcium 600) 1,200 mg PO DAILY supplement 01/31/20 02/11/24 History diphenhydramine HCl 25 mg capsule 25 mg PO QHS allergies 01/31/20 02/11/24 History (Allergy Relief (diphenhydramine)) acetaminophen 325 mg tablet 650 mg (2 x 325 mg) PO Q4H PRN PRN 11/20/21 02/11/24 Rx (Tylenol) Fever, pain 1-03/31 #0 tabs albuterol sulfate 2.5 mg/3 mL 2.5 mg (3 mL) inhalation Q4H.RT #0 11/20/21 02/11/24 Rx (0.083 %) solution for nebulization mL ipratropium bromide 0.02 % ml continuous nebulization Q6H 02/06/22 02/11/24 History solution for inhalation amlodipine 10 mg tablet 10 mg PO DAILY bp 90 days #90 tabs 09/30/22 02/11/24 Rx valsartan 80 mg tablet 80 mg PO BID bp 90 days #180 tabs 09/30/22 02/11/24 Rx atenolol 100 mg tablet 50 mg (1/2 x 100 mg) PO DAILY bp 04/07/23 02/11/24 Rx 90 days #45 tabs docusate sodium 100 mg capsule 100 mg PO DAILY 04/07/23 02/11/24 History metformin 500 mg tablet 500 mg PO .QID diabetes 90 days 04/07/23 02/11/24 History apixaban 5 mg tablet (Eliquis) 5 mg PO BID blood thinner #180 tabs 10/09/23 02/11/24 Rx atorvastatin 40 mg tablet 40 mg PO DAILY cholesterol 90 days 10/09/23 02/11/24 Rx #90 tabs furosemide 80 mg tablet 80 mg PO DAILY fluid retention #90 10/09/23 02/11/24 Rx tabs potassium chloride 20 mEq 20 meq PO DAILY supplement #90 tabs 10/09/23 02/11/24 Rx tablet,extended release(part/cryst) insulin NPH isoph U-100 human 100 40 unit subcut BIDCM 12/17/23 02/11/24 History unit/mL (3 mL) subcutaneous pen (Humulin N NPH U-100 Insulin KwikPen) insulin lispro 100 unit/mL 20 unit subcut ACHS 12/17/23 02/11/24 History subcutaneous pen (Humalog KwikPen (U-100) Insulin) Have you fallen in the past year?: No [facility] Medical History Cubital tunnel syndrome on right Right carpal tunnel syndrome On home oxygen therapy Lower extremity edema Knee pain, acute Traumatic hematoma of right knee Anticoagulant long-term use Paroxysmal atrial fibrillation Essential (primary) hypertension Sciatica Hearing loss Peripheral neuropathic pain Hyperlipidemia Cataracts, bilateral Osteoarthritis Anemia GERD (gastroesophageal reflux disease) Type 2 diabetes mellitus Nicotine dependence Obesity Ectopic atrial tachycardia Surgical History History of dilatation and curettage History of hysteroscopy History of cataract surgery Family History Mother Hypertension DiabetesFather Lung cancerSister Kidney disease Breast cancer Cancer liver, ovarian Hypertension DiabetesBrother Hypertension Diabetes Social History Smoking Status: Current every day smoker tobacco type: cigarettes HPI RIGHT HAND Details: This documentation accurately reflects the service provided and the decisions made by me, Dr. Isuaro Lewis MD 02/11/24 0853. Part of today?s visit was documented by [ ], acting as scribe. KARLA CAMARGO is a 78 year old F here today for 2 months follow-up for right carpal tunnel syndrome and cubital tunnel syndrome. Patient states the hand numbness is getting worse it is in all the fingers. Patient did try the nighttime splint for the last 6 weeks. The patient has diabetes hemoglobin A1c 7.1 most recently I do not have that formally. Smoker 7 to 10 cigarettes a day. The patient also is on home oxygen. Ortho Exam General General: Yes no acute distress Neurologic: Yes alert and Yes oriented x3 Psychologic: Yes reasonable and appropriate Right Wrist/Hand Skin/Wound: Yes CDI, No Swelling, No Ecchymosis, Yes nail intact and Yes capillary refill normal Right Wrist: Yes Thenar Atrophy; No Hypothenar Atrophy Motor: EPL: 4, FDP-2: 4, 1st Dorsal Interosseous: 4 and APB: 4 Sensation: Radial: I, Ulnar: D and Median: D WRIST: Patient has diffuse pain throughout the entire upper extremity where I am tapping and touching in a nondermatomal area. Tinel's test at the wrist and elbow are negative but Durkan's and compression test are positive at the wrist but equivocal at the elbow. Left Wrist/Hand Skin/Wound: No Swelling and No Ecchymosis Supplemental Info [facility] Pulmonary Services/Neurology [address] [place] [address] MR#: [id number] Acct: [id number] Name: KARLA CAMARGO Rep #: [id number] : 1945 78 From: Asmita Banda MD Referring Dr: Kandis Dawson MD Status: REG CLI Location: PSN Date: 10/22/23 Sex: F C NCS and/or EMG Patient Report Ordering Doctor: Jaspreet Dawson DATE OF SERVICE: 10/22/23 Clinical Summary: 78 year old female with numbness, tingling, and pain in the right hand/wrist. She denies having numbness, tingling, or pain in the left hand or either feet. Nerve Conduction Studies Summary: The right median-D2 SNAP was absent. The right median and ulnar corey response amplitudes were reduced. The right ulnar-D5 SNAP distal latency was prolonged with reduced amplitude. The right median-APB CMAP distal latency was prolonged with reduced amplitude. The right median motor conduction velocity was reduced in the forearm segment. The right ulnar-ADM CMAP distal latency was prolonged with reduced amplitude. The right median and ulnar F-wave onset latencies were prolonged. Needle Examination Summary: Needle examination demonstrated a higher proportion of motor unit action potentials with reduced recruitment, increased amplitude, increased duration, and polyphasia in the right first dorsal interosseous and abductor pollicis brevis muscles. Impression: There is electrodiagnostic evidence of the following - 1) Severe, right median mononeuropathy at the wrist (carpal tunnel syndrome), with secondary motor fiber axonal loss 2) Non-localizing, right ulnar mononeuropathy, with secondary motor fiber axonal loss Coding Level of Care Code Off vis,est,level 4 Diagnoses Cubital tunnel syndrome on right G56.21 Right carpal tunnel syndrome G56.01 Assessment and Plan Assessment and Plan (1) Cubital tunnel syndrome on right: Status: Acute Plan: KARLA CAMARGO is a 78 year old F here today for 2 months follow-up for right carpal tunnel syndrome and cubital tunnel syndrome. Patient symptoms are getting worse. Does have nerve conduction study evidence and physical exam findings for right carpal tunnel syndrome and right cubital tunnel syndrome. The carpal tunnel syndrome is severe that would be more unreliable in terms of surgical management as well as the patient's diabetes Eliquis and cigarette smoking on home oxygen would increase the risks of infection and surgery risks overall. The patient understands and is interested to proceed with surgical management of form of right endoscopic carpal tunnel release, right elbow cubital tunnel release. We will get a clearance from Dr. Montez to see if they can come off the Eliquis and for how long as well as a clearance from the family doctor. Pros and cons risks and benefits were discussed with the patient including but not limited to infection, pain, stiffness, bleeding, damage to surrounding structures, neurovascular injury, recurrence or retear, failure or wear of hardware or fixation, instability, fracture, deep vein thrombosis and pulmonary embolism, anesthetic risks, , patient dissatisfaction, need for further surgery and other risks. Patient understood and wished to proceed with surgery, and signed the informed consent documentation. (2) Right carpal tunnel syndrome: [facility] Medical History Wears dentures History of stress test History of echocardiogram Cardiology follow-up encounter Cubital tunnel syndrome on right Right carpal tunnel syndrome On home oxygen therapy Lower extremity edema Knee pain, acute Traumatic hematoma of right knee Anticoagulant long-term use Paroxysmal atrial fibrillation Essential (primary) hypertension Sciatica Hearing loss Peripheral neuropathic pain Hyperlipidemia Cataracts, bilateral Osteoarthritis Anemia GERD (gastroesophageal reflux disease) Type 2 diabetes mellitus Nicotine dependence Obesity Ectopic atrial tachycardia Home Medications ?Medication ?Instructions ?Recorded ?Last Taken ?Type esomeprazole magnesium 20 mg 40 mg PO DAILY stomach 90 days 03/05/18 11/19/21 History capsule,delayed release #180 caps ferrous sulfate 325 mg (65 mg 325 mg PO DAILY supplement 03/05/18 11/19/21 History iron) tablet ibuprofen 600 mg tablet 600 mg PO QHS pain 22 days 03/05/18 11/18/21 History calcium carbonate (Calcium 600) 600 mg PO BID supplement 01/31/20 11/19/21 History diphenhydramine HCl 25 mg capsule 25 mg PO QHS allergies 01/31/20 11/19/21 History (Allergy Relief (diphenhydramine)) ipratropium bromide 0.02 % 2.5 ml continuous nebulization Q6H 02/06/22 Unknown History solution for inhalation PRN shortness of breath or wheezing amlodipine 10 mg tablet 10 mg PO DAILY bp 90 days #90 tabs 09/30/22 Unknown Rx valsartan 80 mg tablet 80 mg PO BID bp 90 days #180 tabs 09/30/22 Unknown Rx atenolol 100 mg tablet 50 mg (1/2 x 100 mg) PO DAILY bp 04/07/23 Unknown Rx 90 days #45 tabs docusate sodium 100 mg capsule 100 mg PO DAILY 10/17/23 Unknown History metformin 500 mg tablet 1,000 mg PO BID diabetes 90 days 04/07/23 Unknown History apixaban 5 mg tablet (Eliquis) 5 mg PO BID blood thinner #180 tabs 10/09/23 03/27/24 Rx atorvastatin 40 mg tablet 40 mg PO DAILY cholesterol 90 days 10/09/23 Unknown Rx #90 tabs potassium chloride 20 mEq 20 meq PO DAILY supplement #90 tabs 10/09/23 Unknown Rx tablet,extended release(part/cryst) insulin NPH isoph U-100 human 100 40 unit subcut DAILY 12/17/23 Unknown History unit/mL (3 mL) subcutaneous pen (Humulin N NPH U-100 Insulin KwikPen) albuterol sulfate 2.5 mg/3 mL 2.5 mg inhalation PRN PRN 03/28/24 Unknown History (0.083 %) solution for nebulization shortness of breath or wheezing furosemide 80 mg tablet 40 mg PO DAILY fluid retention 03/28/24 Unknown History insulin NPH isoph U-100 human 100 27 unit subcut QHS 03/28/24 Unknown History unit/mL subcutaneous suspension (Novolin N NPH U-100 Insulin isophane) insulin glargine 100 unit/mL 62 unit subcut QHS 03/28/24 Unknown History subcutaneous solution (Lantus U-100 Insulin) insulin regular human 100 unit/mL 20 unit subcut BID 03/28/24 Unknown History injection solution (Humulin R Regular U-100 Insulin) Allergy/AdvReac Type Severity Reaction Status Date / Time No Known Allergies Allergy Verified 03/30/24 08:08 Family History Mother Hypertension Diabetes Father Lung cancer Sister Kidney disease Breast cancer Cancer liver, ovarian Hypertension Diabetes Brother Hypertension Diabetes Surgical History History of dilatation and curettage History of hysteroscopy History of cataract surgery Social History Smoking Status: Current every day smoker tobacco type: cigarettes Vital Signs Vital Signs Vital Signs: 03/30/24 08:14 03/30/24 08:14 03/30/24 08:52 Temperature 97.0 F L 97.0 F L Temperature Source Temporal Pulse Rate 112 H 112 H Respiratory Rate 22 H 22 H Respiratory Pattern Normal Blood Pressure 129/78 H 129/78 H Blood Pressure Mean 95 Blood Pressure Source Monitor Blood Pressure Position Semi-Fowlers Blood Pressure Location Left Arm Pulse Ox 94 94 Oxygen Delivery Method Nasal Cannula Oxygen Flow Rate (L/min) 3 3 Weight Weight: 240 lb 4.862 oz Body Mass Index (BMI) 41.2 Results Lab / Micro Data Labs: Laboratory Results - last 24 hr 03/30/24 08:30: POC Glucose 148 H
[2024-03-30] MEDS: Cefazolin 2 GM in 0.9% Normal Saline (100mL Bag) 100 ML IV (09:45)
[2024-03-30] MEDS: Bupivacaine 0.25% 30 ML Vial (10:31)
--- NOTE | 2024-03-30 10:49 | PCM.OPRPT ---
Problems Associated Problem List Diagnoses (1) Cubital tunnel syndrome on right: (2) Right carpal tunnel syndrome: Report of Operation Date of Procedure: 03/30/24 Pre-Operative Diagnosis: R carpal tunnel syndrome and right cubital tunnel release Post-Operative Diagnosis: same Surgery/Procedure Performed:: Right endoscopic carpal tunnel release and right cubital tunnel release Surgeon: Isauro Lewis Type of Anesthesia: Local MAC Anesthesiologist: Rolando Jennings Estimated Blood Loss (mL): 20 Description of Procedure: Patient brought to the operating room theater. Placed upon on the table. General anesthesia induced by the anesthetic team. Patient placed supine on the table all bony prominences padded. SCDs on the legs. Bed turned 90 degrees. Hand table used. Tourniquet applied properly padded to the upper extremity. Upper extremity prepped and draped in the usual sterile fashion with chlorhexidine-based prep solution allowing over 3 minutes drying time prior to draping. Preoperative timeout performed to confirm the site patient and the surgery. Began by elevating the limb and inflated the tourniquet to 250 mmHg. Used a bump under the elbow. Externally rotated the shoulder. Made a longitudinal incision over the medial aspect of the elbow overlying the ulnar nerve. Carried the dissection down through skin and subcutaneous tissue achieved meticulous hemostasis. Identified the nerve proximally followed this distally down through the cubital tunnel into the 2 heads of FCU, all the way to the first motor branch. Released all overlying fascia from the nerve. There was a positive hourglass sign just distal to the medial epicondyle. No osteophytes. I released the nerve from any sites of entrapment like the cubital tunnel ligament as well as 2 heads of the FCU medial intermuscular septum as well as proximally at the arcade of [place]. Released Zambrano's ligament took out a small central strip of this as it was a bit hypertrophic. Nerve was stable to range of motion no subluxation of the nerve. Left in situ. I used the [employer] center line endoscopic carpal tunnel kit / technique. I made a transverse 2 cm incision in line with the? transverse wrist crease.? This was in line with the fourth digit.? I carried the dissection down through skin and subcutaneous tissue achieved meticulous hemostasis. Just ulnar to palmaris tendon.? I incised the antebrachial fascia.? I passed sequential dilators into the carpal tunnel along the radial border of the Guyon's canal aiming for the fourth digit with the hand in extension.? I used a synovial elevator to identify the transverse fibers of the transverse carpal tunnel ligament.? Passed the scope into the carpal tunnel. Once I had identified the full proximal and distal extent of the ligament I fully released the ligament under direct visualization by deploying the blade and slowly withdrawing the scope made sequential passes until I no longer felt tension as well as the entire extent of the ligament was released under direct visualization.? Sounded the tunnel with penny tenotomy scissors, complete release, no bands. Arthroscope light was more visible through the skin. Pictures taken and saved. Wounds thoroughly irrigated.? 11cc 0.25% bupivicaine for local anesthesia. Tourniquet let down prior to end of the case and meticulous hemostasis achieved.? Thorough irrigation.? ? Incisions closed with 2-0 vicryl and 3-0 moncryl for the skin.?Then adaptic 4x4 gauze and ondina. Patient woken up,? transferred off the operating room table and taken to postanesthetic care unit in stable condition. All sponge needle instrument counts were correct no complications.? Plan for the patient to be discharged home according to day surgery criteria when they are comfortable. Follow-up in the office in 2 days time. Gentle ROM hand and elbow no heavy lifting. cpt 43738?and 17796 dictating machine transcriber finesse for positioning and retracting Procedure Start Time: 10:01 Procedure Stop Time: 10:43 Complications none Admit VTE Documentation VTE Present on Admission: No VTE Mechan Device Prophylaxis: SCD's VTE Pharm Prophylaxis ordered?: No Reason prophylaxis not ordered:: Treatment Not Indicated Procedures Musculoskeletal [id number]: Other Procedure See Report
--- NOTE | 2024-03-30 10:55 | DCINST_ITS ---
Discharge Instructions Diet Discharge Diet: No restrictions Activity Discharge Activity: Return to Normal Activity Ice area for (Minutes): 10 Keep extremity elevated above heart level: Operative Extremity Additional Activity Instructions:: rom of elbow and wrist ok, gently, no heavy lifting Dressing / Incision Call your doctor if your incision/area has: Continuous Slow Oozing, Sudden Increased Bleeding, Increased Pain/ Swelling, Increased Redness, Foul Smelling Discharge and Swelling at the incision site Call your doctor if you observe: Fever of 101 or Higher, Coldness, Increased Pain and Numbness or Tingling Remove Dressing in: leave in place till F/U Cleanse incision/area with: Do not get Incision Wet Follow Up Care Please Follow Up With: Isauro Lewis MD When: 2 days Test Results: Test results from this visit will be discussed in further detail at your follow- up appointment, if applicable. Discharge Plan Admission Attending Provider: Isauro Lewis Primary Care Provider: Kandis Dawson Instructions Print Language: Bulgarian Discharge Orders/Prescriptions Prescriptions: New oxycodone-acetaminophen [Percocet] 5-325 mg tablet 1 tab PO Q4H MDD 4 PRN (Reason: pain) 3 Days Qty: 14 0RF No Action ferrous sulfate 325 mg (65 mg iron) tablet 325 mg PO DAILY ibuprofen 600 mg tablet 600 mg PO QHS 22 Days Patient Comments: esomeprazole magnesium 20 mg capsule,delayed release(DR/EC) 40 mg PO DAILY 90 Days Qty: 180 Patient Comments: metformin 500 mg tablet 1,000 mg PO BID 90 Days Patient Comments: calcium carbonate [Calcium 600] 600 mg calcium (1,500 mg) tablet 600 mg PO BID diphenhydramine HCl [Allergy Relief(diphenhydramin)] 25 mg capsule 25 mg PO QHS ipratropium bromide 0.02 % solution 2.5 ml continuous nebulization Q6H PRN (Reason: shortness of breath or wheezing) Patient Comments: INHALE 1 VIAL IN NEBULIZER EVERY 6 HOURS NEEDED amlodipine 10 mg tablet 10 mg PO DAILY 90 Days Qty: 90 3RF valsartan 80 mg tablet 80 mg PO BID 90 Days Qty: 180 3RF docusate sodium 100 mg capsule 100 mg PO DAILY atenolol 100 mg tablet 50 mg PO DAILY 90 Days Qty: 45 0RF Humulin N NPH Insulin KwikPen 100 unit/mL (3 mL) insulin pen 40 unit subcut DAILY Humulin R Regular U-100 Insuln 100 unit/mL solution 20 unit subcut BID Patient Comments: INJECT 20 UNITS EVERY MORNING , THEN INJECT 20 UNITS EVERY EVENING Novolin N NPH U-100 Insulin 100 unit/mL suspension 27 unit subcut QHS insulin glargine [Lantus U-100 Insulin] 100 unit/mL solution 62 unit subcut QHS albuterol sulfate 2.5 mg /3 mL (0.083 %) Solution For Nebulization 2.5 mg inhalation PRN PRN (Reason: shortness of breath or wheezing) furosemide 80 mg tablet 40 mg PO DAILY Eliquis 5 mg tablet 5 mg PO BID Qty: 180 3RF Patient Comments: HOLD 03/27/24 FOR SURGERY ON 03/30/24 atorvastatin 40 mg tablet 40 mg PO DAILY 90 Days Qty: 90 3RF potassium chloride 20 mEq tablet,ER particles/crystals 20 meq PO DAILY Qty: 90 3RF Referrals / Follow Up: Kandis Dawson MD [Primary Care Provider] - Isauro Lewis MD [Med Staff - Active Staff] - Disposition Disposition (needs filled in before D/C Order can be placed): Home, Self Care
--- NOTE | 2024-03-30 10:58 | PCM.POST.ANE ---
Anesthesia: Postop Eval I Current Vital Signs Temperature: 98 F Pulse Rate: 126 (Baseline 122) Blood Pressure: 145/122 Respiratory Rate: 25 (Baseline 22) Pulse Ox: 93 Oxygen Delivery Method: Venturi Mask Oxygen Flow Rate (L/min): 6 Assessment Airway patent: Yes Spontaneous unlabored respirations: Yes Mental status: Awake and Uncooperative nausea: No Vomiting: No Anesthesia Complication: No Fluid Hydration Crystalloid volume administer (ml): 30 Total IV fluid infused: 30 Progress Note Anesthesia document: Postop Eval 1 completed: Yes
--- NOTE | 2024-03-30 11:42 | POSTOPAN2_ITS ---
Anesthesia Postop Eval I Sum Postop Eval Completion status Anesthesia document: Postop Eval 1 completed: Yes Anesthesia Postop Eval I Summary Anesthesia Postop Eval I Summary: Anesthesia Postop Eval I: Assessment Summary Airway patent Yes 03/30/24 10:59 LAUNDRY BAG PUNCH OPERATOR.MATEOLOU Spontaneous unlabored Yes 03/30/24 10:59 LAUNDRY BAG PUNCH OPERATOR.TENNILLE respirations Mental status Awake, 03/30/24 10:59 LAUNDRY BAG PUNCH OPERATOR.MATEOLOU Uncooperative nausea No 03/30/24 10:59 LAUNDRY BAG PUNCH OPERATOR.MATEOLOU Vomiting No 03/30/24 10:59 LAUNDRY BAG PUNCH OPERATOR.MATEOLOU Anesthesia Postop Eval I: Fluid Summary Crystalloid volume administer 30 03/30/24 10:59 LAUNDRY BAG PUNCH OPERATOR.MATEOLOU (ml) Colloids volume administered ( ml) Blood Product volume administered (ml) Total IV fluid infused 30 03/30/24 10:59 LAUNDRY BAG PUNCH OPERATOR.MATEOLORob Anesthesia Postop Eval I: Summary Notes Anesthesia Complication No 03/30/24 10:59 LAUNDRY BAG PUNCH OPERATOR.TENNILLE Anesthesia Complication Comment: Post-operative progress note Anesthesia: Postop Eval II Evaluation Mental status: Awake and Calm (Patient is more awake and cooperative now.) Pain Level: 1 nausea: No Vomiting: No Complications Anesthesia Complication: No
--- NOTE | 2024-03-30 11:42 | PCM.POSTANE2 ---
Anesthesia Postop Eval I Sum Postop Eval Completion status Anesthesia document: Postop Eval 1 completed: Yes Anesthesia Postop Eval I Summary Anesthesia Postop Eval I Summary: Anesthesia Postop Eval I: Assessment Summary Airway patent Yes 03/30/24 10:59 BUILDER BEAM.MATEOLOU Spontaneous unlabored Yes 03/30/24 10:59 BUILDER BEAM.TENNILLE respirations Mental status Awake, 03/30/24 10:59 BUILDER BEAM.MATEOLOU Uncooperative nausea No 03/30/24 10:59 BUILDER BEAM.MATEOLOU Vomiting No 03/30/24 10:59 BUILDER BEAM.MATEOLOU Anesthesia Postop Eval I: Fluid Summary Crystalloid volume administer 30 03/30/24 10:59 BUILDER BEAM.MATEOLOU (ml) Colloids volume administered ( ml) Blood Product volume administered (ml) Total IV fluid infused 30 03/30/24 10:59 BUILDER BEAM.MATEOLORob Anesthesia Postop Eval I: Summary Notes Anesthesia Complication No 03/30/24 10:59 BUILDER BEAM.TENNILLE Anesthesia Complication Comment: Post-operative progress note Anesthesia: Postop Eval II Evaluation Mental status: Awake and Calm (Patient is more awake and cooperative now.) Pain Level: 1 nausea: No Vomiting: No Complications Anesthesia Complication: No
== END 2024-03-30 12:33 | disposition home or self-care (01) ==
LOC: SDC 07:48 → AC 07:51
PROVIDERS: PCP Family Medicine; Referring Provider Orthopaedic Surgery Sports Medicine; Visit Provider Orthopaedic Surgery Sports Medicine
PROC: (CPT 29848; principal; 2024-03-30 09:20)
DX: G56.01 Carpal tunnel syndrome, right upper limb (principal); I48.0 Paroxysmal atrial fibrillation; Z68.41 Body mass index [BMI] 40.0-44.9, adult; Z79.4 Long term (current) use of insulin; E11.42 Type 2 diabetes mellitus with diabetic polyneuropathy; G56.21 Lesion of ulnar nerve, right upper limb; I10 Essential (primary) hypertension; E78.5 Hyperlipidemia, unspecified; E66.9 Obesity, unspecified; F17.210 Nicotine dependence, cigarettes, uncomplicated; Z99.81 Dependence on supplemental oxygen; Z79.01 Long term (current) use of anticoagulants; Z79.84 Long term (current) use of oral hypoglycemic drugs; Z79.899 Other long term (current) drug therapy
CPT/HCPCS: 29848; 64718; 01830; 82962; A4216; J2405

== ENCOUNTER 2024-09-06 08:21 | Inpatient (IN) | payer MEDICARE, MEDICAID, SELFPAY ==
[2024-09-06] VITALS (22 sets, daily range): BP systolic 93–157; BP diastolic 47–91; PULSE 59–78; RESP 16–28; TEMP 36.2–37; O2SAT 83–97; BMI 43.1; BMI 41.5
--- NOTE | 2024-09-06 08:30 | EDS_ITS ---
HPI History of Present Illness Chief Complaint: Hypoglycemia Informant: patient and family Onset/Context/Timing Onset: Today Context: Sudden Onset Timing: Continuous Quality: Dyspnea with exertion Location: Chest Worsened by: Exertion Relieved by: Rest Narrative Narrative: Patient presents with low blood sugar and shortness of breath that began today. Patient states her breathing is worse with any exertion. Patient states it is better with rest. Family states that patient's blood sugar was down to 53 this morning. EMS administered oral glucose and it improved. Patient states she is coughing up occasional white sputum. Patient admits to some subjective chills but denies any fevers. Patient denies any chest pain. Patient admits to a mild headache. Patient has a history of COPD. Patient smokes 5 to 7 cigarettes/day. [facility] Medical History Wears dentures History of stress test History of echocardiogram Cardiology follow-up encounter Cubital tunnel syndrome on right Right carpal tunnel syndrome On home oxygen therapy Lower extremity edema Knee pain, acute Traumatic hematoma of right knee Anticoagulant long-term use Paroxysmal atrial fibrillation Essential (primary) hypertension Sciatica Hearing loss Peripheral neuropathic pain Hyperlipidemia Cataracts, bilateral Osteoarthritis Anemia GERD (gastroesophageal reflux disease) Type 2 diabetes mellitus Nicotine dependence Obesity Ectopic atrial tachycardia Home Medications ?Medication ?Instructions ?Recorded ?Last Taken ?Type ferrous sulfate 325 mg (65 mg 325 mg PO DAILY suppleme nt 03/05/18 09/05/24 History iron) tablet ibuprofen 600 mg tablet 600 mg PO QHS pain 22 days 0 03/05/18 09/05/24 History calcium carbonate (Calcium 600) 600 mg PO BID suppleme nt 01/31/20 09/05/24 History diphenhydramine HCl 25 mg capsule 25 mg PO QHS allergi es 01/31/20 09/05/24 History (Allergy Relief (diphenhydramine)) ipratropium bromide 0.02 % 2.5 ml continuous nebulizat ion Q6H 02/06/22 09/05/24 History solution for inhalation PRN shortness of breath or w heezing amlodipine 10 mg tablet 10 mg PO DAILY bp 90 days #9 0 tabs 09/30/22 09/05/24 Rx valsartan 80 mg tablet 80 mg PO BID bp 90 days #180 tabs 09/30/22 09/05/24 Rx docusate sodium 100 mg capsule 100 mg PO QHS 04/07/23 09/05/24 History metformin 500 mg tablet 1,000 mg PO BID diabetes 90 days 04/07/23 09/05/24 History apixaban 5 mg tablet (Eliquis) 5 mg PO BID blood thinn er #180 tabs 10/09/23 09/05/24 Rx atorvastatin 40 mg tablet 40 mg PO DAILY cholesterol 9 0 days 10/09/23 09/05/24 Rx #90 tabs potassium chloride 20 mEq 20 meq PO DAILY supplement # 90 tabs 10/09/23 09/05/24 Rx tablet,extended release(part/cryst) insulin NPH isoph U-100 human 100 40 unit subcut DAILY 12/17/23 09/05/24 History unit/mL (3 mL) subcutaneous pen (Humulin N NPH U-100 Insulin KwikPen) albuterol sulfate 2.5 mg/3 mL 2.5 mg inhalation PRN DE N 03/28/24 09/05/24 History (0.083 %) solution for nebulization shortness of breat h or wheezing insulin glargine 100 unit/mL 62 unit subcut QHS 09/05/24 History subcutaneous solution (Lantus U-100 Insulin) insulin regular human 100 unit/mL 20 unit subcut BID 1 09/05/24 History injection solution (Humulin R Regular U-100 Insulin) atenolol 50 mg tablet 50 mg PO QDAY 06/09/2409/05 History esomeprazole magnesium 40 mg 40 mg PO QDAY 06/09/24 History capsule,delayed release furosemide 80 mg tablet 80 mg PO DAILY fluid retenti on 06/09/24 09/05/24 History insulin NPH isoph U-100 human 100 27 unit subcut QPM 0 09/06/24 09/05/24 History unit/mL (3 mL) subcutaneous pen (Humulin N NPH U-100 Insulin KwikPen) Allergy/AdvReac Type Severity Reaction Status Date / Time No Known Allergies Allergy Verified 06/09/24 10:31 Family History Mother Hypertension Diabetes Father Lung cancer Sister Kidney disease Breast cancer Cancer liver, ovarian Hypertension Diabetes Brother Hypertension Diabetes Surgical History History of carpal tunnel surgery of right wrist History of dilatation and curettage History of hysteroscopy History of cataract surgery Social History Smoking Status: Light Smoker (<10/day) alcohol intake: never substance use type: does not use caffeine: Yes Type: carbonated beverages and coffee ROS ROS ED Constitutional Constitutional ED: Reports chills and subjective; Denies fever(s) Eyes Eyes: Denies blurry vision or change in vision ENT ENT ED: Denies rhinorrhea or sore throat Cardiovascular Cardiovascular: Denies chest pain or palpitations Respiratory/Chest Respiratory/Chest: Reports cough and dyspnea Gastrointestinal Gastrointestinal: Denies nausea or vomiting Genitourinary Genitourinary ED: Denies dysuria or hematuria Musculoskeletal Musculoskeletal: Denies back pain or neck pain Integumentary Denies abscess or rash Neurologic Neurologic: Reports headache(s); Denies weakness Allergic/Immunologic Allergic/Immunologic ED: Denies mouth swelling or urticaria EXAM
--- NOTE | 2024-09-06 08:30 | EX.ED.DYSGE1 ---
HPI History of Present Illness Chief Complaint: Hypoglycemia Informant: patient and family Onset/Context/Timing Onset: Today Context: Sudden Onset Timing: Continuous Quality: Dyspnea with exertion Location: Chest Worsened by: Exertion Relieved by: Rest Narrative Narrative: Patient presents with low blood sugar and shortness of breath that began today. Patient states her breathing is worse with any exertion. Patient states it is better with rest. Family states that patient's blood sugar was down to 53 this morning. EMS administered oral glucose and it improved. Patient states she is coughing up occasional white sputum. Patient admits to some subjective chills but denies any fevers. Patient denies any chest pain. Patient admits to a mild headache. Patient has a history of COPD. Patient smokes 5 to 7 cigarettes/day. [facility] Medical History Wears dentures History of stress test History of echocardiogram Cardiology follow-up encounter Cubital tunnel syndrome on right Right carpal tunnel syndrome On home oxygen therapy Lower extremity edema Knee pain, acute Traumatic hematoma of right knee Anticoagulant long-term use Paroxysmal atrial fibrillation Essential (primary) hypertension Sciatica Hearing loss Peripheral neuropathic pain Hyperlipidemia Cataracts, bilateral Osteoarthritis Anemia GERD (gastroesophageal reflux disease) Type 2 diabetes mellitus Nicotine dependence Obesity Ectopic atrial tachycardia Home Medications ?Medication ?Instructions ?Recorded ?Last Taken ?Type ferrous sulfate 325 mg (65 mg 325 mg PO DAILY supplement 03/05/18 09/05/24 History iron) tablet ibuprofen 600 mg tablet 600 mg PO QHS pain 22 days 03/05/18 09/05/24 History calcium carbonate (Calcium 600) 600 mg PO BID supplement 01/31/20 09/05/24 History diphenhydramine HCl 25 mg capsule 25 mg PO QHS allergies 01/31/20 09/05/24 History (Allergy Relief (diphenhydramine)) ipratropium bromide 0.02 % 2.5 ml continuous nebulization Q6H 02/06/22 09/05/24 History solution for inhalation PRN shortness of breath or wheezing amlodipine 10 mg tablet 10 mg PO DAILY bp 90 days #90 tabs 09/30/22 09/05/24 Rx valsartan 80 mg tablet 80 mg PO BID bp 90 days #180 tabs 09/30/22 09/05/24 Rx docusate sodium 100 mg capsule 100 mg PO QHS 04/07/23 09/05/24 History metformin 500 mg tablet 1,000 mg PO BID diabetes 90 days 04/07/23 09/05/24 History apixaban 5 mg tablet (Eliquis) 5 mg PO BID blood thinner #180 tabs 10/09/23 09/05/24 Rx atorvastatin 40 mg tablet 40 mg PO DAILY cholesterol 90 days 10/09/23 09/05/24 Rx #90 tabs potassium chloride 20 mEq 20 meq PO DAILY supplement #90 tabs 10/09/23 09/05/24 Rx tablet,extended release(part/cryst) insulin NPH isoph U-100 human 100 40 unit subcut DAILY 12/17/23 09/05/24 History unit/mL (3 mL) subcutaneous pen (Humulin N NPH U-100 Insulin KwikPen) albuterol sulfate 2.5 mg/3 mL 2.5 mg inhalation PRN PRN 03/28/24 09/05/24 History (0.083 %) solution for nebulization shortness of breath or wheezing insulin glargine 100 unit/mL 62 unit subcut QHS 03/28/24 09/05/24 History subcutaneous solution (Lantus U-100 Insulin) insulin regular human 100 unit/mL 20 unit subcut BID 03/28/24 09/05/24 History injection solution (Humulin R Regular U-100 Insulin) atenolol 50 mg tablet 50 mg PO QDAY 06/09/24 09/05/24 History esomeprazole magnesium 40 mg 40 mg PO QDAY 06/09/24 09/05/24 History capsule,delayed release furosemide 80 mg tablet 80 mg PO DAILY fluid retention 06/09/24 09/05/24 History insulin NPH isoph U-100 human 100 27 unit subcut QPM 09/06/24 09/05/24 History unit/mL (3 mL) subcutaneous pen (Humulin N NPH U-100 Insulin KwikPen) Allergy/AdvReac Type Severity Reaction Status Date / Time No Known Allergies Allergy Verified 06/09/24 10:31 Family History Mother Hypertension Diabetes Father Lung cancer Sister Kidney disease Breast cancer Cancer liver, ovarian Hypertension Diabetes Brother Hypertension Diabetes Surgical History History of carpal tunnel surgery of right wrist History of dilatation and curettage History of hysteroscopy History of cataract surgery Social History Smoking Status: Light Smoker (<10/day) alcohol intake: never substance use type: does not use caffeine: Yes Type: carbonated beverages and coffee ROS ROS ED Constitutional Constitutional ED: Reports chills and subjective; Denies fever(s) Eyes Eyes: Denies blurry vision or change in vision ENT ENT ED: Denies rhinorrhea or sore throat Cardiovascular Cardiovascular: Denies chest pain or palpitations Respiratory/Chest Respiratory/Chest: Reports cough and dyspnea Gastrointestinal Gastrointestinal: Denies nausea or vomiting Genitourinary Genitourinary ED: Denies dysuria or hematuria Musculoskeletal Musculoskeletal: Denies back pain or neck pain Integumentary Denies abscess or rash Neurologic Neurologic: Reports headache(s); Denies weakness Allergic/Immunologic Allergic/Immunologic ED: Denies mouth swelling or urticaria EXAM Physical Exam Const Vital Signs: 09/06/24 08:23 09/06/24 08:42 09/06/24 09:03 Temperature 98.3 F Temperature Source Oral Pulse Rate 69 Respiratory Rate 16 Respiratory Pattern Normal Blood Pressure 121/91 H Blood Pressure Mean 101 Pulse Ox 97 93 Oxygen Delivery Method Nasal Cannula Nasal Cannula Oxygen Flow Rate (L/min) 3 3 09/06/24 09:03 09/06/24 10:21 09/06/24 12:00 Temperature Temperature Source Pulse Rate 65 63 61 Respiratory Rate 18 18 16 Respiratory Pattern Normal Blood Pressure 131/47 H 140/78 H Blood Pressure Mean 75 98 Pulse Ox 94 93 Oxygen Delivery Method Nasal Cannula Room Air Oxygen Flow Rate (L/min) 3 09/06/24 13:22 Temperature Temperature Source Pulse Rate 59 L Respiratory Rate 17 Respiratory Pattern Normal Blood Pressure Blood Pressure Mean Pulse Ox Oxygen Delivery Method Oxygen Flow Rate (L/min) Positive well nourished and well developed General Appearance ED: well developed and NAD HEENT Reports moist mucous membranes Neck supple and no JVD Resp normal respiratory effort Auscultation: wheezes expiratory wheezes and throughout Cardio regular rate Rhythm: abnormal rhythm irregularly irregular GI non-tender and non-distended Palpation: soft Extremity normal to inspection Neuro oriented x3, CN's II-XII intact bilaterally and no sensory deficits noted Sensorium / Orientation: alert Motor Exam: strength 5/5 throughout Psych mental status grossly normal MDM MDM MDM Narrative Medical decision making narrative: Differential diagnosis includes COPD exacerbation, pneumonia, bronchitis, hypoglycemia, electrolyte abnormality, cardiac dysrhythmia, and cardiac ischemia. EKG will be obtained to assess for cardiac dysrhythmia and cardiac ischemia. Chest x-ray will be obtained to assess for pneumonia or bronchitis. CBC will be obtained to assess for leukocytosis and anemia. Basic metabolic profile will be obtained to assess for electrolyte abnormality and renal function. Lab Data Attestation: I reviewed the patient's lab results. Lab results narrative: CBC was reviewed. There is a mild anemia with a hemoglobin of 10.3 hematocrit 32.8. Platelets were normal. Basic metabolic profile was reviewed and was within normal limits. BNP was reviewed and was normal at 692. Labs: Laboratory Results - last 24 hr 09/06/24 09/06/24 09/06/24 09:02 09:02 09:25 WBC Cancelled 5.8 Corrected WBC Cancelled RBC Cancelled 3.66 L Hgb Cancelled 10.3 L Hct Cancelled 32.8 L MCV Cancelled 89.6 MCH Cancelled 28.1 MCHC Cancelled 31.4 L RDW Std Deviation Cancelled 45.2 H RDW Coeff of Sebastian Cancelled 14.0 Plt Count Cancelled 208 MPV Cancelled 9.7 Immature Gran % (Auto) Cancelled 0.300 Neut % (Auto) Cancelled 77.5 H Lymph % (Auto) Cancelled 13.9 L [place] % (Auto) Cancelled 6.2 Eos % (Auto) Cancelled 1.4 Baso % (Auto) Cancelled 0.7 Absolute Neuts (auto) Cancelled 4.5 Absolute Lymphs (auto) Cancelled 0.81 L Total Counted Cancelled Neutrophils % (Manual) Cancelled Band Neutrophils % Cancelled Lymphocytes % (Manual) Cancelled Monocytes % (Manual) Cancelled Eosinophils % (Manual) Cancelled Basophils % (Manual) Cancelled Metamyelocytes % Cancelled Myelocytes % Cancelled Promyelocytes % Cancelled Blast Cells % Cancelled Plasma Cell % (Manual) Cancelled Other Cells % Cancelled Nucleated RBC % Cancelled 0 Nucleated RBCs/100 WBC Cancelled Differential Comment Cancelled Diff Path Review Cancelled Hypersegmented Neuts Cancelled Atypical Lymphocytes Cancelled Reactive Lymphocytes Cancelled Smudge Cells Cancelled Toxic Granulation Cancelled Toxic Vacuolation Cancelled Dohle Bodies Cancelled Chet Rods Cancelled Platelet Estimate Cancelled Plt Morphology Comment Cancelled RBC Morphology Cancelled Cancelled Polychromasia Cancelled Hypochromasia Cancelled Basophilic Stippling Cancelled Anisocytosis Cancelled Microcytosis Cancelled Macrocytosis Cancelled Spherocytes Cancelled Sickle Cells Cancelled Target Cells Cancelled Tear Drop Cells Cancelled Ovalocytes Cancelled Stomatocytes Cancelled [place] Bodies Cancelled Troy Cells Cancelled Bite Cells Cancelled Crenated Cell Cancelled Acanthocytes (Spur) Cancelled Rouleaux Cancelled Schistocytes Cancelled Sodium 141 Potassium 4.4 Chloride 107 Carbon Dioxide 21.1 Anion Gap 12 BUN 20 H Creatinine 0.87 Estim Creat Clear Calc 64.91 Est GFR (MDRD) Non-Af 68 BUN/Creatinine Ratio 23.4 H Glucose 92 Calcium 8.6 NT pro BNP II 692 POC Glucose 09/06/24 09/06/24 09:57 10:54 WBC Corrected WBC RBC Hgb Hct MCV MCH MCHC RDW Std Deviation RDW Coeff of Sebastian Plt Count MPV Immature Gran % (Auto) Neut % (Auto) Lymph % (Auto) [place] % (Auto) Eos % (Auto) Baso % (Auto) Absolute Neuts (auto) Absolute Lymphs (auto) Total Counted Neutrophils % (Manual) Band Neutrophils % Lymphocytes % (Manual) Monocytes % (Manual) Eosinophils % (Manual) Basophils % (Manual) Metamyelocytes % Myelocytes % Promyelocytes % Blast Cells % Plasma Cell % (Manual) Other Cells % Nucleated RBC % Nucleated RBCs/100 WBC Differential Comment Diff Path Review Hypersegmented Neuts Atypical Lymphocytes Reactive Lymphocytes Smudge Cells Toxic Granulation Toxic Vacuolation Dohle Bodies Chet Rods Platelet Estimate Plt Morphology Comment RBC Morphology Polychromasia Hypochromasia Basophilic Stippling Anisocytosis Microcytosis Macrocytosis Spherocytes Sickle Cells Target Cells Tear Drop Cells Ovalocytes Stomatocytes [place] Bodies Viki Cells Bite Cells Crenated Cell Acanthocytes (Spur) Rouleaux Schistocytes Sodium Potassium Chloride Carbon Dioxide Anion Gap BUN Creatinine Estim Creat Clear Calc Est GFR (MDRD) Non-Af BUN/Creatinine Ratio Glucose Calcium NT pro BNP II POC Glucose 90 168 H Radiography Chest X-Ray - ED: 2 View, Read by ED Physician, Read by Radiologist and - (Pulmonary venous congestion) Diagnostic Testing: Clinical Impression(s) from Imaging Studies Chest X-Ray 09/06/24 09:33 IMPRESSION: Pulmonary venous congestion. Reading Location: [facility] PA and lateral chest x-ray was obtained. There are 2 views. On my independent interpretation, lung estrella show some pulmonary venous congestion. There is normal cardiac silhouette. Bony thorax is normal. Radiologist also interpreted the x-ray and agrees. EKG Initial EKG: Attestation: I personally reviewed and interpreted this EKG as follows: Interpretation: Sinus Rhythm (60) and No Acute Injury Pattern Comments: EKG was obtained. On my independent interpretation, it showed a normal sinus rhythm with a rate of 60. CO interval, QRS interval, and QTc intervals were all normal. There is borderline left axis deviation at -28. There are no acute ST or T wave changes. Prior EKG tracings: available for review Prior: Unchanged (11/19/2021) Management Discussion w/another healthcare provider: Hospitalist (Dr. Gregory) Treatment and Re-Evaluation :: Smoking cessation was discussed. Patient was given a DuoNeb aerosol here. Patient was feeling better on reevaluation. Patient was advised of her findings. Patient was ambulated here in the emergency department. Patient oxygen saturation dropped to 89% while ambulating, and then dropped to 86% after she got back into bed. Patient was given an albuterol aerosol. Patient was given a dose of Solu-Medrol. Patient was advised of her need for admission for hypoxia. Patient is agreeable with this. Case was discussed with the hospitalist. He will admit the patient to his service. Patient understood and was agreeable with the plan. All questions were answered. Discharge Plan Triage Chief Complaint: Hypoglycemia ED Provider: Richard Corbett Dx/Rx/DC Orders Clinical Impression: Acute exacerbation of chronic obstructive pulmonary disease, Nicotine dependence, Hypoxia Prescriptions: No Action ferrous sulfate 325 mg (65 mg iron) tablet 325 mg PO DAILY ibuprofen 600 mg tablet 600 mg PO QHS 22 Days Patient Comments: metformin 500 mg tablet 1,000 mg PO BID 90 Days Patient Comments: calcium carbonate [Calcium 600] 600 mg calcium (1,500 mg) tablet 600 mg PO BID diphenhydramine HCl [Allergy Relief(diphenhydramin)] 25 mg capsule 25 mg PO QHS ipratropium bromide 0.02 % solution 2.5 ml continuous nebulization Q6H PRN (Reason: shortness of breath or wheezing) amlodipine 10 mg tablet 10 mg PO DAILY 90 Days Qty: 90 3RF valsartan 80 mg tablet 80 mg PO BID 90 Days Qty: 180 3RF docusate sodium 100 mg capsule 100 mg PO QHS Humulin N NPH Insulin KwikPen 100 unit/mL (3 mL) insulin pen 40 unit subcut DAILY atenolol 50 mg tablet 50 mg PO QDAY esomeprazole magnesium 40 mg capsule,delayed release(DR/EC) 40 mg PO QDAY Humulin R Regular U-100 Insuln 100 unit/mL solution 20 unit subcut BID Patient Comments: INJECT 20 UNITS EVERY MORNING , THEN INJECT 20 UNITS EVERY EVENING insulin glargine [Lantus U-100 Insulin] 100 unit/mL solution 62 unit subcut QHS albuterol sulfate 2.5 mg /3 mL (0.083 %) Solution For Nebulization 2.5 mg inhalation PRN PRN (Reason: shortness of breath or wheezing) furosemide 80 mg tablet 80 mg PO DAILY Humulin N NPH Insulin KwikPen 100 unit/mL (3 mL) insulin pen 27 unit subcut QPM Eliquis 5 mg tablet 5 mg PO BID Qty: 180 3RF atorvastatin 40 mg tablet 40 mg PO DAILY 90 Days Qty: 90 3RF potassium chloride 20 mEq tablet,ER particles/crystals 20 meq PO DAILY Qty: 90 3RF Primary Care Provider: Kandis Dawson Referrals: Kandis Dawson MD [Primary Care Provider] - Print Language: Namibian Disposition Disposition: Acute Care Hospital [facility]
--- NOTE | 2024-09-06 08:42 | EKG12_ITS ---
Test Reason : Blood Pressure : */* mmHG Vent. Rate : 60 BPM Atrial Rate : 60 BPM P-R Int : 158 ms QRS Dur : 92 ms QT Int : 484 ms P-R-T Axes : 53 -28 85 degrees QTcB Int : 484 ms Normal sinus rhythm Normal ECG When compared with ECG of 19-Nov-2021 17:03, No significant change was found Confirmed by BROCK MACHADO, EDWARDO ([id number]), pictures editor JESSICA ORTIZ ([id number]) on 09/08/2024 1:04:03 PM Referred By: Confirmed By: EDWARDO GUTIÉRREZ MD
[2024-09-06] MEDS: Ipratropium/Albuterol Sulfate 3 ML AMPUL.NEB INHALATION ×3 (09:03→23:03)
[2024-09-06 09:30] LABS: Absolute Lymphocyte Count 0.81 X10^3/uL (0.83-4.51); Absolute Neutrophil Count 4.5 X10^3/uL (2.0-7.7); Basophil# 0.04 X10^3/uL; Basophil% 0.7 % (0-1); Eosinophil# 0.08 X10^3/uL; Eosinophils% 1.4 % (0-5); Hematocrit 32.8 % (37-47); Hemoglobin 10.3 g/dL (12.0-15.0); Lymphocyte # 0.81 X10^3/ul (0.83-4.51); Lymphocyte % 13.9 % (19-41); Mean Corp Hgb Conc 31.4 g/dL (32-36); Mean Corpuscular Hgb 28.1 pg (27.0-32.0); Mean Corpuscular Volume 89.6 fL (81-99); Mean Platelet Vol. 9.7 fl (6.2-12.0); Monocyte# 0.36 X10^3/uL; Monocyte% 6.2 % (0-10); NRBC Flagged by Analyzer 0 % (0-5); Neutrophil % 77.5 % (47-70); Platelet Count 208 K/mm3 (150-450); RBC Distribution Width SD 45.2 fl (35.1-43.9); Red Blood Count 3.66 M/mm3 (4.2-5.4); White Blood Count 5.8 K/mm3 (4.4-11.0)
--- NOTE | 2024-09-06 09:33 | RAD_ITS ---
EXAM: XR Chest, 2 Views CLINICAL INDICATION: DYSPNEA TECHNIQUE: Frontal and lateral views of the chest. COMPARISON: No relevant prior studies available. FINDINGS: LUNGS AND PLEURAL SPACES: Pulmonary venous congestion. No consolidation. No pneumothorax. HEART: Unremarkable. No cardiomegaly. MEDIASTINUM: Unremarkable. Normal mediastinal contour. BONES/JOINTS: Unremarkable. No acute fracture. RAD/Chest PA and Lateral IMPRESSION: Pulmonary venous congestion. Reading Location: [facility]
[2024-09-06 09:36] LABS: Anion Gap 12 (5-15); BUN 20 mg/dL (4-19); BUN/Creat Ratio 23.4 RATIO (10-20); Calcium,Total 8.6 mg/dL (7.6-11.0); Carbon Dioxide 21.1 mmol/L (21.0-32.0); Chloride 107 mmol/L (98-108); Creatinine, Serum 0.87 mg/dL (0.70-1.20); EST Glomerular Filtration Rate 68 (>60); Estimated Creatinine Clearance 64.91 ml/min (50-250); Glucose 92 mg/dL (70-99); Potassium 4.4 mmol/L (3.3-5.1); Sodium Level 141 mmol/L (133-145)
[2024-09-06 10:16] LABS: Bedside Glucose 90 mg/dL (74-106)
[2024-09-06 10:48] LABS: Pro- Brain NATRIURETIC PEPTIDE 692 pg/mL (<=1800)
[2024-09-06 11:11] LABS: Bedside Glucose 168 mg/dL (74-106)
[2024-09-06] MEDS: MethylPREDNISolone 125 MG/2 ML Vial 60 MG IV (13:08)
[2024-09-06] MEDS: Albuterol 2.5 MG/3 ML VIAL.NEB. INHALATION (13:22)
--- NOTE | 2024-09-06 13:36 | PCM.HP.STD ---
[facility] - General General Date of Admission: 09/06/24 Date of Service: 09/06/24 Chief Complaint: Shortness of breath and hypoglycemia HPI Narrative KARLA CAMARGO, is a 79 F who presented to [facility] ED on 09/06/2024 with shortness of breath and hypoglycemia. Patient lives at home with her daughter. History is significant for COPD with chronic respiratory failure on 3 L nasal cannula, insulin-dependent type 2 diabetes mellitus, paroxysmal A-fib, hypertension, hyperlipidemia, and current smoker. Patient reports worsening shortness of breath with exertion over the past several months. However, this morning her daughter noted that she was much more short of breath when she woke up and called EMS. Was found to have a blood sugar 59 per EMS. Blood sugar improved with treatment. On arrival to the ED she was back on her home 3 L nasal cannula with oxygen saturations in the low 90s. She was mildly hypertensive but otherwise in rate controlled A-fib. CBC and BMP were unremarkable. BNP was normal at 692 but notably patient has BMI of 43. Chest x-ray showed pulmonary venous congestion patient had mild bilateral lower extremity edema on exam. Given concern for COPD versus CHF exacerbation, she was given doses of IV Solu-Medrol, DuoNeb treatment and IV Lasix and hospitalist was contacted for admission. I saw the patient at bedside in the ED, daughter and son were present. Patient was somewhat chronically ill appearing and mildly fatigued appearing but otherwise sitting back comfortably in bed, breathing comfortably on 3 L nasal cannula and in no acute distress. She is very hard of hearing at baseline and has difficulty maintaining a conversation. She does make appropriate eye contact and answers questions with short appropriate responses as able. She was able to show me her insulin regimen and notes that she has been taking this as prescribed recently. Denies any recent fevers or chills or upper respiratory symptoms. Has had slightly decreased appetite over the past few weeks especially per daughter but no nausea or vomiting. Has been taking her home Lasix as prescribed with good urine output. No other acute concerns at this time. [facility] Medical History Wears dentures History of stress test History of echocardiogram Cardiology follow-up encounter Cubital tunnel syndrome on right Right carpal tunnel syndrome On home oxygen therapy Lower extremity edema Knee pain, acute Traumatic hematoma of right knee Anticoagulant long-term use Paroxysmal atrial fibrillation Essential (primary) hypertension Sciatica Hearing loss Peripheral neuropathic pain Hyperlipidemia Cataracts, bilateral Osteoarthritis Anemia GERD (gastroesophageal reflux disease) Type 2 diabetes mellitus Nicotine dependence Obesity Ectopic atrial tachycardia Home Medications ?Medication ?Instructions ?Recorded ?Last Taken ?Type ferrous sulfate 325 mg (65 mg 325 mg PO DAILY supplement 03/05/18 09/05/24 History iron) tablet ibuprofen 600 mg tablet 600 mg PO QHS pain 22 days 03/05/18 09/05/24 History calcium carbonate (Calcium 600) 600 mg PO BID supplement 01/31/20 09/05/24 History diphenhydramine HCl 25 mg capsule 25 mg PO QHS allergies 01/31/20 09/05/24 History (Allergy Relief (diphenhydramine)) ipratropium bromide 0.02 % 2.5 ml continuous nebulization Q6H 02/06/22 09/05/24 History solution for inhalation PRN shortness of breath or wheezing amlodipine 10 mg tablet 10 mg PO DAILY bp 90 days #90 tabs 09/30/22 09/05/24 Rx valsartan 80 mg tablet 80 mg PO BID bp 90 days #180 tabs 09/30/22 09/05/24 Rx docusate sodium 100 mg capsule 100 mg PO QHS 04/07/23 09/05/24 History metformin 500 mg tablet 1,000 mg PO BID diabetes 90 days 04/07/23 09/05/24 History apixaban 5 mg tablet (Eliquis) 5 mg PO BID blood thinner #180 tabs 10/09/23 09/05/24 Rx atorvastatin 40 mg tablet 40 mg PO DAILY cholesterol 90 days 10/09/23 09/05/24 Rx #90 tabs potassium chloride 20 mEq 20 meq PO DAILY supplement #90 tabs 10/09/23 09/05/24 Rx tablet,extended release(part/cryst) insulin NPH isoph U-100 human 100 40 unit subcut DAILY 12/17/23 09/05/24 History unit/mL (3 mL) subcutaneous pen (Humulin N NPH U-100 Insulin KwikPen) albuterol sulfate 2.5 mg/3 mL 2.5 mg inhalation PRN PRN 03/28/24 09/05/24 History (0.083 %) solution for nebulization shortness of breath or wheezing insulin glargine 100 unit/mL 62 unit subcut QHS 03/28/24 09/05/24 History subcutaneous solution (Lantus U-100 Insulin) insulin regular human 100 unit/mL 20 unit subcut BID 03/28/24 09/05/24 History injection solution (Humulin R Regular U-100 Insulin) atenolol 50 mg tablet 50 mg PO QDAY 06/09/24 09/05/24 History esomeprazole magnesium 40 mg 40 mg PO QDAY 06/09/24 09/05/24 History capsule,delayed release furosemide 80 mg tablet 80 mg PO DAILY fluid retention 06/09/24 09/05/24 History insulin NPH isoph U-100 human 100 27 unit subcut QPM 09/06/24 09/05/24 History unit/mL (3 mL) subcutaneous pen (Humulin N NPH U-100 Insulin KwikPen) Allergy/AdvReac Type Severity Reaction Status Date / Time No Known Allergies Allergy Verified 06/09/24 10:31 Family History Mother Hypertension Diabetes Father Lung cancer Sister Kidney disease Breast cancer Cancer liver, ovarian Hypertension Diabetes Brother Hypertension Diabetes Surgical History History of carpal tunnel surgery of right wrist History of dilatation and curettage History of hysteroscopy History of cataract surgery Social History Smoking Status: Light Smoker (<10/day) alcohol intake: never substance use type: does not use caffeine: Yes Type: carbonated beverages and coffee ROS Constitutional Constitutional: Reports fatigue; Denies chills, fever(s) or weakness Eyes Eyes: Denies change in vision Cardiovascular Cardiovascular: Reports dyspnea on exertion, edema and orthopnea; Denies chest pain or palpitations Respiratory/Chest Respiratory/Chest: Reports cough, shortness of breath at rest and shortness of breath with exertion; Denies productive cough or wheezing Gastrointestinal Gastrointestinal: Denies abdominal pain, constipation, diarrhea, nausea or vomiting Genitourinary Genitourinary: Denies dysuria Musculoskeletal Musculoskeletal: Denies arthralgias or myalgias Neurologic Neurologic: Denies dizziness or headache(s) Vital Signs Vital Signs Vital Signs: 09/06/24 08:23 09/06/24 08:42 09/06/24 09:03 Temperature 98.3 F Temperature Source Oral Pulse Rate 69 Respiratory Rate 16 Respiratory Pattern Normal Blood Pressure 121/91 H Blood Pressure Mean 101 Pulse Ox 97 93 Oxygen Delivery Method Nasal Cannula Nasal Cannula Oxygen Flow Rate (L/min) 3 3 09/06/24 09:03 09/06/24 10:21 09/06/24 12:00 Temperature Temperature Source Pulse Rate 65 63 61 Respiratory Rate 18 18 16 Respiratory Pattern Normal Blood Pressure 131/47 H 140/78 H Blood Pressure Mean 75 98 Pulse Ox 94 93 Oxygen Delivery Method Nasal Cannula Room Air Oxygen Flow Rate (L/min) 3 09/06/24 13:22 Temperature Temperature Source Pulse Rate 59 L Respiratory Rate 17 Respiratory Pattern Normal Blood Pressure Blood Pressure Mean Pulse Ox Oxygen Delivery Method Oxygen Flow Rate (L/min) Weight Weight: 114 kg Body Mass Index (BMI) 43.1 Physical Exam Const alert, oriented x3 and no apparent distress Constitutional Narrative: Elderly female, chronically ill-appearing, mildly fatigued appearing, class III obesity, very hard of hearing, otherwise sitting back comfortably in bed, breathing comfortably on 3 L nasal cannula and in no acute distress. General Appearance: cooperative and comfortable HEENT normocephalic, head/scalp atraumatic, nasal mucous membranes and turbinates normal and moist oral mucous membranes HEENT Narrative: Very hard of hearing. Eyes PERRL, EOMs intact bilaterally and conjunctivae normal Neck full ROM Chest inspection of chest normal Resp normal respiratory effort and no use of accessory muscles Resp Narrative: Breathing comfortably on 3 L nasal cannula at rest. Mildly decreased breath sounds bilaterally with crackles and midlung zones. No wheezing noted. Cardio no murmurs and peripheral pulses 2+ throughout Cardio Narrative: A-fib, rate controlled. GI normal to inspection, nondistended, normoactive bowel sounds, soft to palpation, non-tender and non-distended Back/Spine normal ROM Extremity Extremity Narrative: +1-2 lower extremity edema noted. Skin no rashes or lesions noted Neuro moves all extremities and no focal motor deficits Speech: speech normal Psych mental status grossly normal Results Lab / Micro Data 09/06/24 09:25 09/06/24 09:02 Labs: Laboratory Results - last 24 hr 09/06/24 09:02: WBC Cancelled, Corrected WBC Cancelled, RBC Cancelled, Hgb Cancelled, Hct Cancelled, MCV Cancelled, MCH Cancelled, MCHC Cancelled, RDW Std Deviation Cancelled, RDW Coeff of Sebastian Cancelled, Plt Count Cancelled, MPV Cancelled, Immature Gran % (Auto) Cancelled, Neut % (Auto) Cancelled, Lymph % (Auto) Cancelled, Mcculloch % (Auto) Cancelled, Eos % (Auto) Cancelled, Baso % (Auto) Cancelled, Absolute Neuts (auto) Cancelled, Absolute Lymphs (auto) Cancelled, Total Counted Cancelled, Neutrophils % (Manual) Cancelled, Band Neutrophils % Cancelled, Lymphocytes % (Manual) Cancelled, Monocytes % (Manual) Cancelled, Eosinophils % (Manual) Cancelled, Basophils % (Manual) Cancelled, Metamyelocytes % Cancelled, Myelocytes % Cancelled, Promyelocytes % Cancelled, Blast Cells % Cancelled, Plasma Cell % (Manual) Cancelled, Other Cells % Cancelled, Nucleated RBC % Cancelled, Nucleated RBCs/100 WBC Cancelled, Differential Comment Cancelled, Diff Path Review Cancelled, Hypersegmented Neuts Cancelled, Atypical Lymphocytes Cancelled, Reactive Lymphocytes Cancelled, Smudge Cells Cancelled, Toxic Granulation Cancelled, Toxic Vacuolation Cancelled, Dohle Bodies Cancelled, Chet Rods Cancelled, Platelet Estimate Cancelled, Plt Morphology Comment Cancelled, RBC Morphology Cancelled 09/06/24 09:02: RBC Morphology Cancelled, Polychromasia Cancelled, Hypochromasia Cancelled, Basophilic Stippling Cancelled, Anisocytosis Cancelled, Microcytosis Cancelled, Macrocytosis Cancelled, Spherocytes Cancelled, Sickle Cells Cancelled, Target Cells Cancelled, Tear Drop Cells Cancelled, Ovalocytes Cancelled, Stomatocytes Cancelled, Hernandez-Centerfield Bodies Cancelled, Mosier Cells Cancelled, Bite Cells Cancelled, Crenated Cell Cancelled, Acanthocytes (Spur) Cancelled, Rouleaux Cancelled, Schistocytes Cancelled, Sodium 141, Potassium 4.4, Chloride 107, Carbon Dioxide 21.1, Anion Gap 12, BUN 20 H, Creatinine 0.87, Estim Creat Clear Calc 64.91, Est GFR (MDRD) Non-Af 68, BUN/Creatinine Ratio 23.4 H, Glucose 92, Calcium 8.6, NT pro BNP II 692 09/06/24 09:25: WBC 5.8, RBC 3.66 L, Hgb 10.3 L, Hct 32.8 L, MCV 89.6, MCH 28.1, MCHC 31.4 L, RDW Std Deviation 45.2 H, RDW Coeff of Sebastian 14.0, Plt Count 208, MPV 9.7, Immature Gran % (Auto) 0.300, Neut % (Auto) 77.5 H, Lymph % (Auto) 13.9 L, Mcculloch % (Auto) 6.2, Eos % (Auto) 1.4, Baso % (Auto) 0.7, Absolute Neuts (auto) 4.5, Absolute Lymphs (auto) 0.81 L, Nucleated RBC % 0 09/06/24 09:57: POC Glucose 90 09/06/24 10:54: POC Glucose 168 H Imaging Radiology Impression Chest X-Ray 09/06/24 09:33 IMPRESSION: Pulmonary venous congestion. Reading Location: [facility] Assessment & Plan Assessment/Plan (1) Acute heart failure with preserved ejection fraction (HFpEF): (2) Acute exacerbation of chronic obstructive pulmonary disease: PLAN: Plan Patient is a 79-year-old female who presented to [facility] ED on 09/06/2024 with shortness of breath and hypoglycemia. 1. Suspected HFpEF exacerbation with possible mild COPD exacerbation in setting of COPD with chronic hypoxic respiratory failure ? Admit under inpatient status to PCU. On home 3 L nasal cannula and stable on 3 L nasal cannula at rest in ED but did drop to the mid 80s with exertion. Chest x-ray showed pulmonary vascular congestion and patient with mild lower extremity edema on exam. On chart review, echo in 12/2023 showed EF 60%, stage II diastolic dysfunction. BNP normal but notably is underestimated with class III obesity. Suspect she has developed volume overload over an extended period of time in setting of her hypertension. Will treat with IV Lasix 60 mg twice daily for now, monitor daily BMP and urine output. COVID/flu/RSV pending. Will treat for COPD exacerbation as well with scheduled DuoNebs and IV Solu-Medrol but low threshold to de-escalate if patient improving with Lasix. 2. Episode of hypoglycemia in setting of insulin-dependent type 2 diabetes mellitus ? Current home regimen of Lantus 58 units at night, regular insulin 20 units in the morning and 20 units at night. Is being managed by her PCP. Has likely had reduced appetite recently due to volume overload from HFpEF exacerbation and this is led to episodes of hypoglycemia. Will treat with Lantus 40 units at night and sliding scale insulin with meals for now, adjust as needed. 3. Paroxysmal A-fib, hypertension, hyperlipidemia ? In rate controlled A-fib on admit. Continue home atenolol, amlodipine, valsartan, Eliquis and statin. 4. Mild acute on chronic debility ? PT/OT/case management consulted. Patient lives at home with her daughter and has slightly worsened debility now in setting of HFpEF and possible COPD exacerbation. Appreciate therapy recommendations. Chronic medical conditions: ? Class III obesity: BMI 43 on admit. Complicates hospital course, care and prognosis. ? GERD: Continue home PPI. ? Chronic iron deficiency anemia: Hemoglobin stable at baseline 10-11 on admit. Continue home iron supplement. DVT prophylaxis: Not indicated, on Eliquis CODE STATUS: DNR CCA, DNI Expected disposition: Home, 2 to 3 days Total clinical time spent by myself addressing the patient's medical issues, reviewing all the data, and collaborating with patient's care team: 75 minutes. Charges/Coding Visit Charges Inpatient E&M: 32226 Init Hosp L3
[2024-09-06] MEDS: Furosemide 100 MG/10 ML Vial 60 MG IV ×2 (14:00→21:14)
[2024-09-06 14:18] LABS: Hemoglobin A1c 6.6 % (<=5.6)
[2024-09-06] MEDS: Calcium (Elemental) 500 MG Tablet PO (16:22)
[2024-09-06] MEDS: amLODIPine 10 MG Tablet PO (16:23)
[2024-09-06] MEDS: APIXABAN 5 MG TABLET PO ×2 (16:23→22:54)
[2024-09-06] MEDS: Losartan Potassium 25 MG Tablet PO ×2 (16:24→22:54)
[2024-09-06] MEDS: Potassium Chloride Oral Tablet 20 MEQ PO (16:24)
[2024-09-06] MEDS: Pantoprazole Sodium 40 MG Tablet PO (16:24)
[2024-09-06] MEDS: Atenolol 50 MG Tablet PO (16:25)
[2024-09-06] MEDS: Insulin Lispro 100 UNIT/ML INSULN.PEN SC ×2 (16:25→21:00)
[2024-09-06] MEDS: Ferrous Sulfate 325 MG Tablet PO (16:25)
[2024-09-06 17:02] LABS: Bedside Glucose 119 mg/dL (74-106)
[2024-09-06 17:11] LABS: Bedside Glucose 282 mg/dL (74-106)
[2024-09-06] MEDS: Docusate Sodium 100 MG Capsule PO (20:56)
[2024-09-06] MEDS: Atorvastatin Calcium 40 MG Tablet PO (20:57)
[2024-09-06] MEDS: Insulin Glargine-YFGN 100 UNIT/ML Pen 40 UNIT SC (20:59)
[2024-09-06] MEDS: Methylprednisolone Sod Succ 40 MG/ML VIAL IV (21:02)
[2024-09-06] MEDS: 0.9% Saline Lock 10 ML Syringe IV (21:10)
[2024-09-06 22:35] LABS: Bedside Glucose 337 mg/dL (74-106)
[2024-09-07] VITALS (10 sets, daily range): BP systolic 131–161; BP diastolic 50–62; PULSE 61–82; RESP 16–24; TEMP 36.1–36.6; O2SAT 93–98; BMI 40.8
[2024-09-07] MEDS: guaiFENesin 10 ML UDC (200MG/10ML) PO ×3 (02:09→14:49)
[2024-09-07] MEDS: 0.9% Saline Lock 10 ML Syringe IV ×2 (05:17→11:23)
[2024-09-07] MEDS: Methylprednisolone Sod Succ 40 MG/ML VIAL IV ×3 (05:17→21:10)
[2024-09-07 05:41] LABS: Hematocrit 35.2 % (37-47); Hemoglobin 11.4 g/dL (12.0-15.0); Mean Corp Hgb Conc 32.4 g/dL (32-36); Mean Corpuscular Hgb 28.3 pg (27.0-32.0); Mean Corpuscular Volume 87.3 fL (81-99); Mean Platelet Vol. 10.8 fl (6.2-12.0); Platelet Count 236 K/mm3 (150-450); RBC Distribution Width CV 13.9 % (11.6-14.6); RBC Distribution Width SD 44.1 fl (35.1-43.9); Red Blood Count 4.03 M/mm3 (4.2-5.4); White Blood Count 6.7 K/mm3 (4.4-11.0)
[2024-09-07 06:14] LABS: Anion Gap 11 (5-15); BUN 24 mg/dL (4-19); BUN/Creat Ratio 23.3 RATIO (10-20); Calcium,Total 8.9 mg/dL (7.6-11.0); Carbon Dioxide 26.1 mmol/L (21.0-32.0); Chloride 102 mmol/L (98-108); Creatinine, Serum 1.01 mg/dL (0.70-1.20); EST Glomerular Filtration Rate 57 (>60); Estimated Creatinine Clearance 54.24 ml/min (50-250); Glucose 322 mg/dL (70-99); Potassium 4.2 mmol/L (3.3-5.1); Sodium Level 139 mmol/L (133-145)
[2024-09-07] MEDS: Insulin Lispro 100 UNIT/ML INSULN.PEN SC ×4 (06:38→21:17)
[2024-09-07 06:59] LABS: Bedside Glucose 321 mg/dL (74-106)
[2024-09-07] MEDS: Ipratropium/Albuterol Sulfate 3 ML AMPUL.NEB INHALATION ×4 (08:00→19:48)
--- NOTE | 2024-09-07 10:45 | CASEMGMT ---
Addendum entered by Dipak Giron 09/07/24 17:27: 3:50 PM: RN CM to room. Pt sitting up in chair, family @ bedside. Per therapy notes today, pt ambulated 17 ft w/CGA of one and state home w/HHC. Pt and dtr made aware. Pt states would like to go home and confirms she would like Karyna to decide on HHC agency. A list of [facility] providers including quality and resource use data and consistent with the patient?s preferred geographic region, medical needs, and insurance network were provided from the [employer] Guide. Karyna states she will take this home tonight to review and will give CM choices tomorrow. Karyna confirms she will charge pt's POC and can bring to [facility] for pt to go home on @ v[place]. Original Note: RN CM BATCH STILL OPERATOR CM?to room to meet with patient for initial transition planning/care coordination assessment. RN CM?introduced self and role at [facility]. Pt voices understanding and consents to assessment?at this time. Pt resting in bed in no distress at this time. Pt is A/O at this time and answers all questions appropriately. Care providers, pharmacy, and demographics verified/updated at this time. Strata:?2 PCP: Dr Dawson Specialists:YOAV/Cardiology- Dr Montez and AMRITA Banuelos Preferred Pharmacy: [facility] @ [place]. Insurance: [facility], [employer] Prescription Benefit: Yes Living Will/HPOA: Pt states she has both LW and HCPOA and states her daughter, Karyna, is primary agent. LNOK: Pt has 3 adult children. Dtr, Karyna, is only contact listed and pt states she is her HCPOA. Pt states she is only in contact w/2 of her children, stating, The other one I don't get along with. Living Arrangements: Lives w/dtr, Karyna, and son-in-law in ground-level apartment w/one step to enter w/rail. She states she is indep w/ADL's and manages her own medications. Karyna manages her appts, helps w/with bathing, and cooks dinner. Pt states she prepares her own breakfast and lunch most days and can usually dress herself. Transportation:?Pt does not drive. Krayna provides transportation and will take her home @ dc. DME: States has the following DME: shower chair, cane (uses PRN), hospital bed, functioning glucometer w/supplies, sufficient supply of insulin and needles, pulse ox, nebulizer, walker, rollator, lift chair, O2 through [employer] and POC. Pt states she has been wearing the O2 @ 3 L/M. She states her daughter can bring in the POC @ dc, will need to charge it. Pt states no need for further DME at this time. HHC/SNF: Hx of [facility] in 2021 and then had HHC after returning home. Discussed discharge and pt's wishes. She states she is weak and states, I don't know if I'll be strong enough. I was up last night and was shaky. Pt states she prefers to dc home w/HHC, if able to return home, but states if SNF is needed, she would be agreeable and 1st choice would be [facility] and declines wanting list of other SNF options. If she is able to dc home, then she would want her daughter to decide what HHC agency. Pt voices no further concerns/needs at this time. Advised pt to ask for CM?if any further questions/concerns/needs arise. Voices understanding. PLAN: TBD by progress w/therapy. Jose Alberto ANDREA RN AKBAR
[2024-09-07] MEDS: Furosemide 100 MG/10 ML Vial 60 MG IV ×2 (11:23→17:26)
[2024-09-07] MEDS: Pantoprazole Sodium 40 MG Tablet PO (11:23)
[2024-09-07] MEDS: Ferrous Sulfate 325 MG Tablet PO (11:23)
[2024-09-07] MEDS: Potassium Chloride Oral Tablet 20 MEQ PO (11:23)
[2024-09-07] MEDS: Losartan Potassium 25 MG Tablet PO ×2 (11:24→21:09)
[2024-09-07] MEDS: amLODIPine 10 MG Tablet PO (11:24)
[2024-09-07] MEDS: Atenolol 50 MG Tablet PO (11:24)
[2024-09-07] MEDS: Calcium (Elemental) 500 MG Tablet PO ×2 (11:39→17:26)
[2024-09-07] MEDS: APIXABAN 5 MG TABLET PO ×2 (11:39→21:09)
[2024-09-07 11:51] LABS: Bedside Glucose 374 mg/dL (74-106)
--- NOTE | 2024-09-07 13:01 | PN.HOSP_ITS ---
Reason for Visit Reason for Visit: Diagnoses Acute diastolic (congestive) heart failure (09/06/24) Chronic obstructive pulmonary disease with (acute) exacerbation (09/06/24) Subjective Subjective Patient was seen and examined today, she appears comfortable at rest, she is requiring 5 L oxygen via nasal cannula. Objective Data Objective Data Vital Signs: Vital Signs Temp Pulse Resp BP Pulse Ox O2 Del Method O2 Flow Rate 97.5 F L 79 20 H 144/54 H 97 Nasal Cannula 5 09/07/24 11:03 09/07/24 11:13 09/07/24 11:13 09/07/24 11:03 09/07/24 11:03 09/07/24 11:03 09/07/24 11:03 Oxygen Flow Rate (L/min) 5 Oxygen Delivery Method Nasal Cannula Weight: 108.12 kg Body Mass Index (BMI) 40.8 Intake & Output: Intake and Output for Last 24 Hours 09/05/24 09/06/24 09/07/24 23:59 23:59 23:59 Intake Total 480 / 480 120 / 120 Output Total 1000 / 1000 800 / 800 Balance -520 / -520 -680 / -680 Lab / Micro Data 09/07/24 05:04 09/07/24 05:04 Labs: Laboratory Results - last 24 hr 09/06/24 08:24: POC Glucose 119 H 09/06/24 09:25: Hemoglobin A1c 6.6 09/06/24 16:21: POC Glucose 282 H 09/06/24 20:46: POC Glucose 337 H 09/07/24 05:04: WBC 6.7, RBC 4.03 L, Hgb 11.4 L, Hct 35.2 L, MCV 87.3, MCH 28.3, MCHC 32.4, RDW Std Deviation 44.1 H, RDW Coeff of Sebastian 13.9, Plt Count 236, MPV 10.8, Sodium 139, Potassium 4.2, Chloride 102, Carbon Dioxide 26.1, Anion Gap 11, BUN 24 H, Creatinine 1.01, Estim Creat Clear Calc 54.24, Est GFR (MDRD) Non- Af 57 L, BUN/Creatinine Ratio 23.3 H, Glucose 322 H, Calcium 8.9 09/07/24 06:31: POC Glucose 321 H 09/07/24 11:27: POC Glucose 374 H Micro: Microbiology 09/06/24 14:00 Mucosa - Nose SARS-CoV-2, Influenza & RSV (PCR) - Final Physical Exam Const alert, oriented x3, no apparent distress and healthy appearing Constitutional Narrative: Patient has class III obesity General Appearance: cooperative, well kempt and well developed Orientation / Consciousness: awake, oriented to person, oriented to place and oriented to time HEENT normocephalic, head/scalp atraumatic and moist oral mucous membranes Eyes PERRL, EOMs intact bilaterally and conjunctivae normal Neck supple, no JVD, thyroid normal and no carotid bruits General: trachea midline Resp normal respiratory effort, no retractions and no use of accessory muscles Resp Narrative: Breath sounds are diminished bilaterally Auscultation: Negative for rales, rhonchi or wheezes Cardio regular rate, regular rhythm, S1 normal heart sound, S2 normal heart sound, no murmurs, no rub and no gallops GI normal to inspection, nondistended, normoactive bowel sounds, soft to palpation, non-tender and non-distended Extremity Extremity Narrative: Patient has bilateral lower leg edema Skin no rashes or lesions noted General Skin Exam: no breakdown Neuro oriented x3, CN's II-XII intact bilaterally, moves all extremities, no focal motor deficits and no sensory deficits noted Sensorium / Orientation: awake and alert Speech: speech normal Psych affect normal Assessment & Plan Assessment/Plan (1) Acute heart failure with preserved ejection fraction (HFpEF): PLAN: Plan 1. Acute congestive heart failure with preserved ejection fraction-continue IV Lasix at this time #2 acute on chronic hypoxic respiratory failure-patient is currently on 5 L of oxygen at rest, her baseline oxygen at home is 3 L, pulse ox will be monitored #3 acute exacerbation of chronic obstructive pulmonary disease-patient is being treated with IV corticosteroids and aerosol treatments #4 paroxysmal atrial fibrillation-patient is currently in sinus rhythm at this time, she will remain on rate limiting agents and Eliquis #5 essential hypertension-patient is on amlodipine and atenolol #6 hyperlipidemia-patient is on atorvastatin #7 type 2 diabetes-patient's blood sugars will be monitored with fingerstick blood sugars, sliding scale insulin will be administered as indicated, patient is on basal insulin Total clinical time spent by myself addressing the patient's medical issues, reviewing all of her data, and collaborating with patient's care team: 50 minutes Charges/Coding Visit Charges Inpatient E&M: 73637 Subs Hosp L3
[2024-09-07 19:16] LABS: Bedside Glucose 308 mg/dL (74-106)
[2024-09-07] MEDS: Atorvastatin Calcium 40 MG Tablet PO (21:10)
[2024-09-07] MEDS: Docusate Sodium 100 MG Capsule PO (21:10)
[2024-09-07] MEDS: Insulin Glargine-YFGN 100 UNIT/ML Pen 40 UNIT SC (21:16)
[2024-09-07 21:40] LABS: Bedside Glucose 338 mg/dL (74-106)
[2024-09-08] VITALS (10 sets, daily range): BP systolic 124–151; BP diastolic 48–62; PULSE 62–72; RESP 18–24; TEMP 36.7–36.9; O2SAT 89–98; BMI 41.1
[2024-09-08] MEDS: Methylprednisolone Sod Succ 40 MG/ML VIAL IV ×3 (05:12→20:41)
[2024-09-08] MEDS: Ipratropium/Albuterol Sulfate 3 ML AMPUL.NEB INHALATION ×4 (06:57→19:59)
[2024-09-08] MEDS: Insulin Lispro 100 UNIT/ML INSULN.PEN SC ×4 (08:10→20:34)
[2024-09-08] MEDS: Potassium Chloride Oral Tablet 20 MEQ PO (08:12)
[2024-09-08] MEDS: Calcium (Elemental) 500 MG Tablet PO ×2 (08:14→17:15)
[2024-09-08 08:27] LABS: Bedside Glucose 269 mg/dL (74-106)
--- NOTE | 2024-09-08 09:38 | PCM.PN.HOSP ---
Reason for Visit Reason for Visit: Diagnoses Acute diastolic (congestive) heart failure (09/06/24) Chronic obstructive pulmonary disease with (acute) exacerbation (09/06/24) Subjective Subjective Patient was seen and examined today, her family members were in the room at the time of my examination, I had a question whether the patient had a heart attack this admission-I stated she did not. Patient remains on 4 L of oxygen at this time, family states that the patient is on 3 L of oxygen normally at home and when ambulating. Objective Data Objective Data Vital Signs: Vital Signs Temp Pulse Resp BP Pulse Ox O2 Del Method O2 Flow Rate 98.2 F 66 18 128/48 H 95 Nasal Cannula 4 09/08/24 02:10 09/08/24 06:50 09/08/24 06:50 09/08/24 02:10 09/08/24 06:50 09/08/24 06:50 09/08/24 06:50 Oxygen Flow Rate (L/min) 4 Oxygen Delivery Method Nasal Cannula Weight: 108.6 kg Body Mass Index (BMI) 41.1 Intake & Output: Intake and Output for Last 24 Hours 09/06/24 09/07/24 09/08/24 23:59 23:59 23:59 Intake Total 480 / 480 570 / 570 0 / 0 Output Total 1000 / 1000 1675 / 1675 Balance -520 / -520 -1105 / -1105 0 / 0 Lab / Micro Data 09/07/24 05:04 09/07/24 05:04 Labs: Laboratory Results - last 24 hr 09/07/24 11:27: POC Glucose 374 H 09/07/24 17:25: POC Glucose 308 H 09/07/24 21:15: POC Glucose 338 H 09/08/24 08:09: POC Glucose 269 H Micro: Microbiology 09/06/24 14:00 Mucosa - Nose SARS-CoV-2, Influenza & RSV (PCR) - Final Physical Exam Narrative alert, oriented x3, no apparent distress and healthy appearing Constitutional Narrative: Patient has class III obesity General Appearance: cooperative, well kempt and well developed Orientation / Consciousness: awake, oriented to person, oriented to place and oriented to time HEENT normocephalic, head/scalp atraumatic and moist oral mucous membranes Eyes PERRL, EOMs intact bilaterally and conjunctivae normal Neck supple, no JVD, thyroid normal and no carotid bruits General: trachea midline Resp normal respiratory effort, no retractions and no use of accessory muscles Resp Narrative: Breath sounds are diminished bilaterally Auscultation: Negative for rales, rhonchi or wheezes Cardio regular rate, regular rhythm, S1 normal heart sound, S2 normal heart sound, no murmurs, no rub and no gallops GI normal to inspection, nondistended, normoactive bowel sounds, soft to palpation, non-tender and non-distended Extremity Extremity Narrative: Patient has bilateral lower leg edema Skin no rashes or lesions noted General Skin Exam: no breakdown Neuro oriented x3, CN's II-XII intact bilaterally, moves all extremities, no focal motor deficits and no sensory deficits noted Sensorium / Orientation: awake and alert Speech: speech normal Psych affect normal Assessment & Plan Assessment/Plan (1) Acute heart failure with preserved ejection fraction (HFpEF): PLAN: Plan 1. Acute congestive heart failure with preserved ejection fraction-continue IV Lasix at this time #2 acute on chronic hypoxic respiratory failure-patient is currently on 4 L of oxygen at rest, her baseline oxygen at home is 3 L, pulse ox will be monitored #3 acute exacerbation of chronic obstructive pulmonary disease-patient is being treated with IV corticosteroids and aerosol treatments #4 paroxysmal atrial fibrillation-patient is currently in sinus rhythm at this time, she will remain on rate limiting agents and Eliquis #5 essential hypertension-patient is on amlodipine and atenolol #6 hyperlipidemia-patient is on atorvastatin #7 type 2 diabetes-patient's blood sugars will be monitored with fingerstick blood sugars, sliding scale insulin will be administered as indicated, patient is on basal insulin Total clinical time spent by myself addressing the patient's medical issues, reviewing all of her data, and collaborating with patient's care team: 35 minutes Charges/Coding Visit Charges Inpatient E&M: 87584 Subs Hosp L2
[2024-09-08] MEDS: amLODIPine 10 MG Tablet PO (10:13)
[2024-09-08] MEDS: Furosemide 100 MG/10 ML Vial 60 MG IV ×2 (10:13→17:14)
[2024-09-08] MEDS: Pantoprazole Sodium 40 MG Tablet PO (10:13)
[2024-09-08] MEDS: Atenolol 50 MG Tablet PO (10:13)
[2024-09-08] MEDS: Losartan Potassium 25 MG Tablet PO ×2 (10:13→20:40)
[2024-09-08] MEDS: APIXABAN 5 MG TABLET PO ×2 (10:13→20:40)
[2024-09-08 11:54] LABS: Anion Gap 13 (5-15); BUN 33 mg/dL (4-19); BUN/Creat Ratio 30.1 RATIO (10-20); Calcium,Total 9.1 mg/dL (7.6-11.0); Carbon Dioxide 25.6 mmol/L (21.0-32.0); Chloride 97 mmol/L (98-108); EST Glomerular Filtration Rate 51 (>60); Estimated Creatinine Clearance 49.93 ml/min (50-250); Glucose 369 mg/dL (70-99); Potassium 4.5 mmol/L (3.3-5.1); Sodium Level 135 mmol/L (133-145)
[2024-09-08] MEDS: Ferrous Sulfate 325 MG Tablet PO (11:57)
[2024-09-08 12:12] LABS: Bedside Glucose 265 mg/dL (74-106)
[2024-09-08 17:24] LABS: Bedside Glucose 361 mg/dL (74-106)
[2024-09-08] MEDS: Insulin Glargine-YFGN 100 UNIT/ML Pen 40 UNIT SC (20:34)
[2024-09-08 20:39] LABS: Bedside Glucose 490 mg/dL (74-106)
[2024-09-08] MEDS: Atorvastatin Calcium 40 MG Tablet PO (20:40)
--- NOTE | 2024-09-08 22:16 | PCM.HOSP.N ---
Hospitalist Note BS remained elevated, on steroids of note, given ISS earlier and recheck only minimally improved, will given 10 u ISS x 1 now and reassess per discussion with RN.
[2024-09-08 22:27] LABS: Bedside Glucose 449 mg/dL (74-106)
[2024-09-08] MEDS: Insulin Lispro 100 UNIT/ML INSULN.PEN 10 UNIT SC (22:55)
[2024-09-09] VITALS (10 sets, daily range): BP systolic 119–130; BP diastolic 43–49; PULSE 52–84; RESP 18–22; TEMP 36.8–36.9; O2SAT 87–96; BMI 40.8
[2024-09-09] MEDS: Methylprednisolone Sod Succ 40 MG/ML VIAL IV ×2 (05:12→13:39)
[2024-09-09 06:19] LABS: Bedside Glucose 253 mg/dL (74-106)
[2024-09-09] MEDS: Ipratropium/Albuterol Sulfate 3 ML AMPUL.NEB INHALATION ×3 (07:34→14:27)
[2024-09-09] MEDS: Furosemide 100 MG/10 ML Vial 60 MG IV (08:42)
[2024-09-09] MEDS: 0.9% Saline Lock 10 ML Syringe IV (08:43)
[2024-09-09] MEDS: Pantoprazole Sodium 40 MG Tablet PO (08:45)
[2024-09-09] MEDS: Losartan Potassium 25 MG Tablet PO (08:45)
[2024-09-09] MEDS: Atenolol 50 MG Tablet PO (08:45)
[2024-09-09] MEDS: Potassium Chloride Oral Tablet 20 MEQ PO (08:45)
[2024-09-09] MEDS: amLODIPine 10 MG Tablet PO (08:45)
[2024-09-09] MEDS: Insulin Lispro 100 UNIT/ML INSULN.PEN SC ×2 (08:46→11:22)
[2024-09-09] MEDS: APIXABAN 5 MG TABLET PO (08:46)
[2024-09-09] MEDS: guaiFENesin 10 ML UDC (200MG/10ML) PO (08:51)
[2024-09-09 09:31] LABS: Bedside Glucose 246 mg/dL (74-106)
[2024-09-09] MEDS: Ferrous Sulfate 325 MG Tablet PO (11:22)
[2024-09-09 11:40] LABS: Bedside Glucose 165 mg/dL (74-106)
--- NOTE | 2024-09-09 13:33 | DCINST_ITS ---
Discharge Instructions Diet Discharge Diet: No restrictions DC O2, CPAP, BIPAP needs Home O2 Discharge instructions: Yes Type of respiratory needs?: Oxygen Oxygen frequency: Continuous Continuous oxygen liters per minute: 3 L and With Ambulation Oxygen liters per minute during Ambulation: 4 L Dressing / Incision Discharge Activity: Return to Normal Activity Weight Bearing Status: Full weight bearing Follow Up Care Test Results: Test results from this visit will be discussed in further detail at your follow- up appointment, if applicable. Discharge Plan Admission Admit Date/Time: 09/06/24 13:37 Primary Reason for Your Visit: CHF, COPD Attending Provider: Florencio Loco Primary Care Provider: Kandis Dawson Consulting Providers: Bladimir Gregory Discharge Orders/Prescriptions Prescriptions: New furosemide [Lasix] 40 mg tablet 40 mg PO UD Qty: 90 0RF Rx Instructions: 2 tablets every morning, 1 tablet late afternoon prednisone 20 mg tablet 20 mg PO DAILY Qty: 7 0RF Continued ferrous sulfate 325 mg (65 mg iron) tablet 325 mg PO DAILY metformin 500 mg tablet 1,000 mg PO BID 90 Days Patient Comments: calcium carbonate [Calcium 600] 600 mg calcium (1,500 mg) tablet 600 mg PO BID diphenhydramine HCl [Allergy Relief(diphenhydramin)] 25 mg capsule 25 mg PO QHS ipratropium bromide 0.02 % solution 2.5 ml continuous nebulization Q6H PRN (Reason: shortness of breath or wheezing) amlodipine 10 mg tablet 10 mg PO DAILY 90 Days Qty: 90 3RF valsartan 80 mg tablet 80 mg PO BID 90 Days Qty: 180 3RF docusate sodium 100 mg capsule 100 mg PO QHS atenolol 50 mg tablet 50 mg PO QDAY esomeprazole magnesium 40 mg capsule,delayed release(DR/EC) 40 mg PO QDAY insulin glargine [Lantus U-100 Insulin] 100 unit/mL solution 62 unit subcut QHS albuterol sulfate 2.5 mg /3 mL (0.083 %) Solution For Nebulization 2.5 mg inhalation PRN PRN (Reason: shortness of breath or wheezing) Eliquis 5 mg tablet 5 mg PO BID Qty: 180 3RF atorvastatin 40 mg tablet 40 mg PO DAILY 90 Days Qty: 90 3RF potassium chloride 20 mEq tablet,ER particles/crystals 20 meq PO DAILY Qty: 90 3RF Changed Humulin R Regular U-100 Insuln 100 unit/mL solution 15 unit subcut BID Qty: 1 0RF Patient Comments: INJECT 20 UNITS EVERY MORNING , THEN INJECT 20 UNITS EVERY EVENING Discontinued ibuprofen 600 mg tablet 600 mg PO QHS 22 Days Patient Comments: Humulin N NPH Insulin KwikPen 100 unit/mL (3 mL) insulin pen 40 unit subcut DAILY furosemide 80 mg tablet 80 mg PO DAILY Humulin N NPH Insulin KwikPen 100 unit/mL (3 mL) insulin pen 27 unit subcut QPM Referrals / Follow Up: Kandis Dawson MD [Primary Care Provider] - In 1 Week Disposition Disposition (needs filled in before D/C Order can be placed): Home, Self Care
--- NOTE | 2024-09-09 13:54 | DS.PCM_ITS ---
Providers Date of Admission: 09/06/24 Date of Discharge: 09/09/24 Primary Care Physician: Dr. Kandis Dawson MD Reason For Visit: hypoglycemia Diagnosis Discharge Diagnosis (1) Acute heart failure with preserved ejection fraction (HFpEF): Status: Acute Code(s): I50.31 - Acute diastolic (congestive) heart failure Plan 1. Acute congestive heart failure with preserved ejection fraction-continue IV Lasix at this time #2 acute on chronic hypoxic respiratory failure-patient is currently on 4 L of oxygen at rest, her baseline oxygen at home is 3 L, pulse ox will be monitored #3 acute exacerbation of chronic obstructive pulmonary disease-patient is being treated with IV corticosteroids and aerosol treatments #4 paroxysmal atrial fibrillation-patient is currently in sinus rhythm at this time, she will remain on rate limiting agents and Eliquis #5 essential hypertension-patient is on amlodipine and atenolol #6 hyperlipidemia-patient is on atorvastatin #7 type 2 diabetes-patient's blood sugars will be monitored with fingerstick blood sugars, sliding scale insulin will be administered as indicated, patient is on basal insulin Total clinical time spent by myself addressing the patient's medical issues, reviewing all of her data, and collaborating with patient's care team: 35 minutes Medications at Discharge Home Medications ferrous sulfate 325 mg (65 mg iron) tablet 325 mg PO DAILY supplement 03/05/18 calcium carbonate (Calcium 600) 600 mg PO BID supplement 01/31/20 diphenhydramine HCl 25 mg capsule (Allergy Relief (diphenhydramine)) 25 mg PO QHS allergies 01/31/20 ipratropium bromide 0.02 % solution for inhalation 2.5 ml continuous nebulization Q6H PRN shortness of breath or wheezing 02/06/22 amlodipine 10 mg tablet 10 mg PO DAILY bp 90 days #90 tabs 09/30/22 valsartan 80 mg tablet 80 mg PO BID bp 90 days #180 tabs 09/30/22 docusate sodium 100 mg capsule 100 mg PO QHS 04/07/23 metformin 500 mg tablet 1,000 mg PO BID diabetes 90 days 04/07/23 apixaban 5 mg tablet (Eliquis) 5 mg PO BID blood thinner #180 tabs 10/09/23 atorvastatin 40 mg tablet 40 mg PO DAILY cholesterol 90 days #90 tabs 10/09/23 potassium chloride 20 mEq tablet,extended release(part/cryst) 20 meq PO DAILY supplement #90 tabs 10/09/23 albuterol sulfate 2.5 mg/3 mL (0.083 %) solution for nebulization 2.5 mg inhalation PRN PRN shortness of breath or wheezing 03/28/24 insulin glargine 100 unit/mL subcutaneous solution (Lantus U-100 Insulin) 62 unit subcut QHS 03/28/24 atenolol 50 mg tablet 50 mg PO QDAY 06/09/24 esomeprazole magnesium 40 mg capsule,delayed release 40 mg PO QDAY 06/09/24 furosemide 40 mg tablet (Lasix) 40 mg PO UD #90 tabs 09/09/24 insulin regular human 100 unit/mL injection solution (Humulin R Regular U-100 Insulin) 15 unit (0.15 mL) subcut BID #1 mL 09/09/24 prednisone 20 mg tablet 20 mg PO DAILY #7 tabs 09/09/24 Hospital Course Operations None Procedures None Summary of Care Provided Minutes Spent on Discharge: 31 Hospital Course: This 79-year-old white female was seen in the emergency room at [facility] with complaints of shortness of breath and low blood sugar. Workup in the emergency room included a CBC which showed a normal white blood cell count, hemoglobin was 10.3, patient's chest x-ray showed pulmonary venous congestion. Patient was admitted to PCU with a diagnosis of acute congestive heart failure and acute exacerbation of COPD. She was given aerosol treatments, IV corticosteroids, and IV Lasix. Patient improved over the next several days. On 09/09/2024, patient was seen and examined:alert, oriented x3, no apparent distress and healthy appearing Constitutional Narrative: Patient has class III obesity General Appearance: cooperative, well kempt and well developed Orientation / Consciousness: awake, oriented to person, oriented to place and oriented to time HEENT normocephalic, head/scalp atraumatic and moist oral mucous membranes Eyes PERRL, EOMs intact bilaterally and conjunctivae normal Neck supple, no JVD, thyroid normal and no carotid bruits General: trachea midline Resp normal respiratory effort, no retractions and no use of accessory muscles Resp Narrative: Breath sounds are diminished bilaterally Auscultation: Negative for rales, rhonchi or wheezes Cardio regular rate, regular rhythm, S1 normal heart sound, S2 normal heart sound, no murmurs, no rub and no gallops GI normal to inspection, nondistended, normoactive bowel sounds, soft to palpation, non-tender and non-distended Extremity Extremity Narrative: Patient has bilateral lower leg edema Skin no rashes or lesions noted General Skin Exam: no breakdown Neuro oriented x3, CN's II-XII intact bilaterally, moves all extremities, no focal motor deficits and no sensory deficits noted Sensorium / Orientation: awake and alert Speech: speech normal Psych affect normal On 09/09/2024, patient was seen and examined and felt to be in stable condition for discharge home, patient required 3 L of oxygen at rest and 4 L of oxygen while ambulating at the time of discharge home Weight / BMI Weight Weight: 108.1 kg Body Mass Index (BMI) 40.8 ABG / Lab / Microbiology Data 09/07/24 05:04 09/08/24 10:57 Laboratory: Laboratory Results - last 24 hr 09/08/24 17:06: POC Glucose 361 H 09/08/24 20:17: POC Glucose 490 H* 09/08/24 22:08: POC Glucose 449 H 09/09/24 05:58: POC Glucose 253 H 09/09/24 08:38: POC Glucose 246 H 09/09/24 11:19: POC Glucose 165 H Microbiology: Microbiology 09/06/24 14:00 Mucosa - Nose SARS-CoV-2, Influenza & RSV (PCR) - Final D/C Instructions Discharge Diet: No restrictions Weight Bearing Status: Full weight bearing DC O2, CPAP, BIPAP Needs Home O2 Discharge instructions: Yes Type of respiratory needs?: Oxygen Oxygen frequency: Continuous Continuous oxygen liters per minute: 3 L and With Ambulation Oxygen liters per minute during Ambulation: 4 L DC home with Oxygen: Yes Home O2 MD Review: I have reviewed the oxygen testing, and the patient qualifies for home oxygen equipment and portability. The patient is mobile in the home and the community. Meaningful Use Info Meaningful Use Meaningful Use Diagnoses (Choose all that apply): CHF CHF GILBERT/ARB ordered at discharge?: Yes Documented LVEF (%): 60 Ischemic Stroke Statin Dosing Therapy Reference: STATIN DOSE THERAPY REFERENCE: * Patients > 75 years receive moderate or high dose statin therapy. * Patients 75 years or YOUNGER should receive HIGH intensity statin dose unless contraindicated. You will be required to document reason for non-treatment if statin daily dose does not meet guidelines. HIGH DOSE STATIN THERAPY DAILY Atorvastatin > than or = to 40 mg Rosuvastatin > than or = to 20 mg Amlodipine + Atorvastatin > than or = to 2.5/40 mg Ezetimibe + Simvastatin 10/80 mg Simvastatin 80mg Discharge Plan Admission Admit Date/Time: 09/06/24 13:37 Primary Reason for Your Visit: CHF, COPD Attending Provider: Florencio Loco Primary Care Provider: Kandis Dawson Consulting Providers: Bladimir Gregory Discharge Orders/Prescriptions Prescriptions: New furosemide [Lasix] 40 mg tablet 40 mg PO UD Qty: 90 0RF Rx Instructions: 2 tablets every morning, 1 tablet late afternoon prednisone 20 mg tablet 20 mg PO DAILY Qty: 7 0RF Continued ferrous sulfate 325 mg (65 mg iron) tablet 325 mg PO DAILY metformin 500 mg tablet 1,000 mg PO BID 90 Days Patient Comments: calcium carbonate [Calcium 600] 600 mg calcium (1,500 mg) tablet 600 mg PO BID diphenhydramine HCl [Allergy Relief(diphenhydramin)] 25 mg capsule 25 mg PO QHS ipratropium bromide 0.02 % solution 2.5 ml continuous nebulization Q6H PRN (Reason: shortness of breath or wheezing) amlodipine 10 mg tablet 10 mg PO DAILY 90 Days Qty: 90 3RF valsartan 80 mg tablet 80 mg PO BID 90 Days Qty: 180 3RF docusate sodium 100 mg capsule 100 mg PO QHS atenolol 50 mg tablet 50 mg PO QDAY esomeprazole magnesium 40 mg capsule,delayed release(DR/EC) 40 mg PO QDAY insulin glargine [Lantus U-100 Insulin] 100 unit/mL solution 62 unit subcut QHS albuterol sulfate 2.5 mg /3 mL (0.083 %) Solution For Nebulization 2.5 mg inhalation PRN PRN (Reason: shortness of breath or wheezing) Eliquis 5 mg tablet 5 mg PO BID Qty: 180 3RF atorvastatin 40 mg tablet 40 mg PO DAILY 90 Days Qty: 90 3RF potassium chloride 20 mEq tablet,ER particles/crystals 20 meq PO DAILY Qty: 90 3RF Changed Humulin R Regular U-100 Insuln 100 unit/mL solution 15 unit subcut BID Qty: 1 0RF Patient Comments: INJECT 20 UNITS EVERY MORNING , THEN INJECT 20 UNITS EVERY EVENING Discontinued ibuprofen 600 mg tablet 600 mg PO QHS 22 Days Patient Comments: Humulin N NPH Insulin KwikPen 100 unit/mL (3 mL) insulin pen 40 unit subcut DAILY furosemide 80 mg tablet 80 mg PO DAILY Humulin N NPH Insulin KwikPen 100 unit/mL (3 mL) insulin pen 27 unit subcut QPM Referrals / Follow Up: Kandis Dawson MD [Primary Care Provider] - In 1 Week Disposition Disposition (needs filled in before D/C Order can be placed): Home, Self Care Charges/Coding Visit Charges Inpatient E&M: 58891 Disch Hosp >30min
--- NOTE | 2024-09-09 14:24 | CASEMGMT ---
Patient has order for discharge. 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 Daughter states that patient does not need HHC at discharge. Patient requires increase in home oxygen, daughter states she has POC for at discharge. Daughter denied further needs or concerns at discharge. ZAN WEBBER received updated script for home oxygen and [place] [facility] [place] [facility] Discharge plan updated.
--- NOTE | 2024-09-09 16:04 | PHA.DC.MC.R ---
Pharmacy [facility] has performed discharge medication reconciliation and counseling for this patient. 1. PREDNISONE 20MG PO DAILY X 7 DAYS 2. LASIX CHANGED TO 80MG AM AND 40MG IN THE AFTERNOON 3. HUMULIN R CHANGED TO 15 UNITS AM AND 15 UNITS PM 4. HUMULIN N STOPPED, IBUPROFEN STOPPED The patient's discharge medication list was reviewed for discrepancies and discrepancies were resolved. The patient was counseled on the following discharge medications and changes in medications for homegoing were reviewed. The Reason for Use, instructions for use, and potential side effects were reviewed for all new medications. The patient's questions regarding all of their medications were answered. The patient was able to verbally demonstrate an understanding of their discharge medications. Medications at Discharge Home Medications ferrous sulfate 325 mg (65 mg iron) tablet 325 mg PO DAILY supplement 03/05/18 calcium carbonate (Calcium 600) 600 mg PO BID supplement 01/31/20 diphenhydramine HCl 25 mg capsule (Allergy Relief (diphenhydramine)) 25 mg PO QHS allergies 01/31/20 ipratropium bromide 0.02 % solution for inhalation 2.5 ml continuous nebulization Q6H PRN shortness of breath or wheezing 02/06/22 amlodipine 10 mg tablet 10 mg PO DAILY bp 90 days #90 tabs 09/30/22 valsartan 80 mg tablet 80 mg PO BID bp 90 days #180 tabs 09/30/22 docusate sodium 100 mg capsule 100 mg PO QHS 04/07/23 metformin 500 mg tablet 1,000 mg PO BID diabetes 90 days 04/07/23 apixaban 5 mg tablet (Eliquis) 5 mg PO BID blood thinner #180 tabs 10/09/23 atorvastatin 40 mg tablet 40 mg PO DAILY cholesterol 90 days #90 tabs 10/09/23 potassium chloride 20 mEq tablet,extended release(part/cryst) 20 meq PO DAILY supplement #90 tabs 10/09/23 albuterol sulfate 2.5 mg/3 mL (0.083 %) solution for nebulization 2.5 mg inhalation PRN PRN shortness of breath or wheezing 03/28/24 insulin glargine 100 unit/mL subcutaneous solution (Lantus U-100 Insulin) 62 unit subcut QHS 03/28/24 atenolol 50 mg tablet 50 mg PO QDAY 06/09/24 esomeprazole magnesium 40 mg capsule,delayed release 40 mg PO QDAY 06/09/24 furosemide 40 mg tablet (Lasix) 40 mg PO UD #90 tabs 09/09/24 insulin regular human 100 unit/mL injection solution (Humulin R Regular U-100 Insulin) 15 unit (0.15 mL) subcut BID #1 mL 09/09/24 prednisone 20 mg tablet 20 mg PO DAILY #7 tabs 09/09/24
== END 2024-09-09 16:09 | disposition home or self-care (01) | DRG 291 ==
LOC: ED 13:44 → PCU 14:42
PROVIDERS: Admitting Provider Hospitalist; Emergency Provider Emergency Medicine; PCP Family Medicine; Visit Provider Internal Medicine
DX: I11.0 Hypertensive heart disease with heart failure (principal); I50.31 Acute diastolic (congestive) heart failure; J96.21 Acute and chronic respiratory failure with hypoxia; J44.1 Chronic obstructive pulmonary disease with (acute) exacerbation; Z68.41 Body mass index [BMI] 40.0-44.9, adult; E11.649 Type 2 diabetes mellitus with hypoglycemia without coma; D50.9 Iron deficiency anemia, unspecified; E11.42 Type 2 diabetes mellitus with diabetic polyneuropathy; Z66 Do not resuscitate; I48.0 Paroxysmal atrial fibrillation; E11.65 Type 2 diabetes mellitus with hyperglycemia; F17.210 Nicotine dependence, cigarettes, uncomplicated; E78.5 Hyperlipidemia, unspecified; Z79.4 Long term (current) use of insulin; K21.9 Gastro-esophageal reflux disease without esophagitis; E66.813 Obesity, class 3; R53.81 Other malaise; Z99.81 Dependence on supplemental oxygen; Z79.01 Long term (current) use of anticoagulants; Z79.84 Long term (current) use of oral hypoglycemic drugs; Z79.899 Other long term (current) drug therapy
CPT/HCPCS: 36415; 71046; 80048; 82962; 83036; 83880; 85025; 85027; 87631; 93005; 94640; 94668; 97162; 97166; 97530; 97535; 97802; 97803; 99285; 99406; A4216; J1940

== ENCOUNTER → 2024-10-27 | Outpatient (CLI) | payer MEDICARE, MEDICAID, SELFPAY ==
[2024-11-01 13:08] LABS: HPV APTIMA, High Risk Negative (Negative)
== END | disposition home or self-care (01) ==
LOC: LABSPEC 14:21
PROVIDERS: PCP Family Medicine; Referring Provider Nurse Practitioner Family; Visit Provider Nurse Practitioner Family
DX: Z12.4 Encounter for screening for malignant neoplasm of cervix (principal)
CPT/HCPCS: 87624; 88175; G0145

== ENCOUNTER → 2024-11-01 | Outpatient (CLI) | payer MEDICARE, MEDICAID, SELFPAY ==
--- NOTE | 2024-11-01 15:13 | US_ITS ---
PROCEDURE: PELVIC W/ TRANSVAGINAL REASON FOR EXAM: AUB TECHNIQUE: Transabdominal and transvaginal pelvic ultrasound COMPARISON: None FINDINGS: Patient is postmenopausal. Measurements: Uterus: 8.9 cm x 7.9 cm x 5.6 cm with a volume of 204.5 mL Endometrial Thickness: Endometrium is thickened measuring 1.6 cm. Right Ovary: Not visualized. Left Ovary: Nonvisualized. TRANSABDOMINAL: Uterus: 3 fibroids are seen within the uterus. The largest measures 2.4 cm x 2.4 cm x 1.8 cm. Endometrium: The endometrium is thickened. Fluid is seen within the endometrium. Multiple cystic spaces with increased vascularity. Right ovary: Not visualized. Left ovary: Not visualized. Other: No large pelvic mass identified. Transvaginal sonography was performed to better visualize the endometrium. TRANSVAGINAL: Uterus: Anteverted. Fibroid changes as described. Endometrium: Heterogeneous thickening of the endometrium measuring 1.6 cm with vascularity. Clinical correlation recommended. Right ovary: Not visualized. Left ovary: Not visualized. Other adnexal findings: None. Cul-de-sac: No free intraperitoneal fluid identified. Tenderness: No tenderness US/Pelvic w/ Transvaginal IMPRESSION: Fibroid uterus. Heterogeneous thickening of the endometrium measuring 1.6 cm. Increased vascul arity is seen. Clinical correlation recommended. Reading Location: [id number]
== END | disposition home or self-care (01) ==
PROVIDERS: PCP Family Medicine; Referring Provider Nurse Practitioner Family; Visit Provider Nurse Practitioner Family
DX: N93.9 Abnormal uterine and vaginal bleeding, unspecified (principal)
CPT/HCPCS: 76830; 76856

== ENCOUNTER 2024-12-02 01:51 | Emergency (ER) | payer MEDICARE, SELFPAY ==
[2024-12-02] VITALS (21 sets, daily range): BP systolic 75–144; BP diastolic 50–120; PULSE 100–132; RESP 16–118; TEMP 32.9–36.8; O2SAT 91–100; BMI 43.4
--- NOTE | 2024-12-02 01:57 | EDS_ITS ---
HPI History of Present Illness Chief Complaint: Alt LOC Detail of Chief Complaint: Last known well 1999December 01 Informant: EMS Limited: uncooperative Onset/Context/Timing Onset: Today and Hours Context: Sudden Onset Timing: Continuous Quality: Patient was combative per EMS. She seemed more responsive by the time she Location: Unknown Mechanism/Context: Yes other Current Severity: Moderate Maximum Severity: Moderate Worsened by: Unknown Relieved by: Nothing Narrative Narrative: Patient is a 79-year-old woman. She has history of paroxysmal atrial fibrillation on apixaban and chronic respiratory failure with hypoxemia on oxygen at 3 to 3-1/2 L by nasal cannula, tobacco use, congestive heart failure, hypertension and hyperlipidemia. She was last seen alert and oriented x 4 at 1999 on December 01. Patient is not cooperative. She initially responded to her name. She is not responding to her name at this time. Will need to speak with family once they arrived and determine if she had any complaints. Patient had pulse ox in the 60s. She was on her oxygen however the length of the nasal cannula cord was quite long per paramedics. She also had a low blood sugar. They were unable to establish an IV because she was not cooperative and would swing at them. They did give glucagon. Patient was seen October 27 by Jojo Whittington for postmenopausal bleeding. Assessment was acute postmenopausal bleeding. EMB June 2022 benign. Ultrasound 22 mm lining. Plan was repeat ultrasound vaginal cavity Pap and return to office in 2 weeks to review ultrasound results and repeat exam by MD. Based on medication patient has history of iron deficiency anemia. She apparently has type 1 diabetes. Inpatient records indicates patient was admitted to the hospital on September 06 and discharged on September 09. She was admitted for acute heart failure with preserved ejection fraction. She also had acute on chronic hypoxemic respiratory failure. She was on 4 L at the time at rest. Baseline is [address] Florencio Loco's note. [facility] Medical History Acute heart failure with preserved ejection fraction (HFpEF) Acute exacerbation of chronic obstructive pulmonary disease Diabetes Smoker COPD (chronic obstructive pulmonary disease) Atrial fibrillation Congestive heart failure (CHF) Wears dentures History of stress test History of echocardiogram Cardiology follow-up encounter Cubital tunnel syndrome on right Right carpal tunnel syndrome On home oxygen therapy Lower extremity edema Knee pain, acute Traumatic hematoma of right knee Anticoagulant long-term use Paroxysmal atrial fibrillation Essential (primary) hypertension Sciatica Hearing loss Peripheral neuropathic pain Hyperlipidemia Cataracts, bilateral Osteoarthritis Anemia GERD (gastroesophageal reflux disease) Type 2 diabetes mellitus Nicotine dependence Obesity Ectopic atrial tachycardia Home Medications ?Medication ?Instructions ?Recorded ?Last Taken ?Type ferrous sulfate 325 mg (65 mg 325 mg PO DAILY suppleme nt 03/05/18 09/05/24 History iron) tablet calcium carbonate (Calcium 600) 600 mg PO BID suppleme nt 01/31/20 09/05/24 History diphenhydramine HCl 25 mg capsule 25 mg PO QHS allergi es 01/31/20 09/05/24 History (Allergy Relief (diphenhydramine)) ipratropium bromide 0.02 % 2.5 ml continuous nebulizat ion Q6H 02/06/22 09/05/24 History solution for inhalation PRN shortness of breath or w heezing amlodipine 10 mg tablet 10 mg PO DAILY bp 90 days #9 0 tabs 09/30/22 09/05/24 Rx valsartan 80 mg tablet 80 mg PO BID bp 90 days #180 tabs 09/30/22 09/05/24 Rx docusate sodium 100 mg capsule 100 mg PO QHS 04/07/23 09/05/24 History metformin 500 mg tablet 1,000 mg PO BID diabetes 90 days 04/07/23 09/05/24 History albuterol sulfate 2.5 mg/3 mL 2.5 mg inhalation PRN VT N 03/28/24 09/05/24 History (0.083 %) solution for nebulization shortness of breat h or wheezing insulin glargine 100 unit/mL 62 unit subcut QHS 09/05/24 History subcutaneous solution (Lantus U-100 Insulin) atenolol 50 mg tablet 50 mg PO QDAY 06/09/2409/05 History esomeprazole magnesium 40 mg 40 mg PO QDAY 06/09/24 History capsule,delayed release furosemide 40 mg tablet (Lasix) 40 mg PO UD #90 tabs 0 09/09/24 Unknown Rx Held on 10/04/24. Instructions: Home Medication placed on hold at Doctor's office insulin regular human 100 unit/mL 15 unit (0.15 mL) osei bcut BID #1 mL 09/09/24 09/05/24 Rx injection solution (Humulin R Regular U-100 Insulin) prednisone 20 mg tablet 20 mg PO DAILY #7 tabs 09/09 Unknown Rx apixaban 5 mg tablet (Eliquis) 5 mg PO BID blood thinn er #180 tabs 10/04/24 Unknown Rx atorvastatin 40 mg tablet 40 mg PO DAILY cholesterol 9 0 days 10/04/24 Unknown Rx #90 tabs furosemide 80 mg tablet 80 mg PO QAM #90 tabs Unknown Rx potassium chloride 20 mEq 20 meq PO DAILY supplement # 90 tabs 10/10/24 Unknown Rx tablet,extended release(part/cryst) nystatin 100,000 unit/gram topical 1 applic topical BI D 14 days #30 10/27/24 Unknown Rx ointment grams Allergy/AdvReac Type Severity Reaction Status Date / Time No Known Allergies Allergy Verified 12/02/24 02:12 Family History Mother Hypertension Diabetes Father Lung cancer Sister Kidney disease Breast cancer Cancer liver, ovarian Hypertension Diabetes Brother Hypertension Diabetes Surgical History History of carpal tunnel surgery of right wrist History of dilatation and curettage History of hysteroscopy History of cataract surgery Social History Smoking Status: Light Smoker (<10/day) alcohol intake: never substance use type: does not use caffeine: Yes Type: carbonated beverages and coffee ROS ROS ED Review of Systems ROS Unobtainable: due to mental status EXAM Physical Exam Const Vital Signs: 12/02/24 01:51 12/02/24 01:54 12/02/24 02:02 Temperature 92.4 F L 91.2 F L Temperature Source Rectal Core Pulse Rate 107 H 102 H 105 H Respiratory Rate 19 H 18 Respiratory Pattern Blood Pressure 144/120 H 144/120 H Blood Pressure Mean 128 128 Pulse Ox 93 92 93 Oxygen Delivery Method Nasal Cannula Nasal Cannula Nasal Cannula Oxygen Flow Rate (L/min) 4 4 4 Fraction of Inspired Oxygen (FIO2) 12/02/24 02:51 12/02/24 03:02 12/02/24 03:59 Temperature 93.1 F L 93.3 F L 94.4 F L Temperature Source Core Core Core Pulse Rate 110 H 108 H 132 H Respiratory Rate 18 18 16 Respiratory Pattern Blood Pressure 109/92 H 118/99 H 117/52 L Blood Pressure Mean 97 105 73 Pulse Ox 99 98 100 Oxygen Delivery Method Nasal Cannula Nasal Cannula Mechanical Ventilator Oxygen Flow Rate (L/min) 4 4 Fraction of Inspired Oxygen (FIO2) 12/02/24 04:02 12/02/24 04:43 12/02/24 04:59 Temperature 94.7 F L Temperature Source Core Pulse Rate 128 H 121 H Respiratory Rate 16 16 Respiratory Pattern Normal Normal Blood Pressure 123/56 H Blood Pressure Mean 78 Pulse Ox 99 95 Oxygen Delivery Method Mechanical Ventilator Oxygen Flow Rate (L/min) Fraction of Inspired Oxygen (FIO2) 100 12/02/24 05:00 12/02/24 05:47 12/02/24 06:00 Temperature 95.1 F L 95.9 F L 96.3 F L Temperature Source Core Core Core Pulse Rate 113 H 123 H 115 H Respiratory Rate 17 16 16 Respiratory Pattern Blood Pressure 95/64 75/50 L 100/62 Blood Pressure Mean 74 58 74 Pulse Ox 91 92 100 Oxygen Delivery Method Mechanical Ventilator Mechanical Ventilator Mechanical Ventilator Oxygen Flow Rate (L/min) Fraction of Inspired Oxygen (FIO2) 12/02/24 06:01 12/02/24 06:04 12/02/24 06:43 Temperature 96.1 F L 96.6 F L Temperature Source Core Core Pulse Rate 112 H 117 H 113 H Respiratory Rate 16 16 118 H Respiratory Pattern Normal Blood Pressure 85/69 L 116/80 Blood Pressure Mean 74 92 Pulse Ox 97 100 Oxygen Delivery Method Mechanical Ventilator Oxygen Flow Rate (L/min) Fraction of Inspired Oxygen (FIO2) 12/02/24 06:49 12/02/24 07:00 Temperature 96.8 F L Temperature Source Core Pulse Rate 100 115 H Respiratory Rate 16 16 Respiratory Pattern Blood Pressure 122/77 H Blood Pressure Mean 92 Pulse Ox 100 100 Oxygen Delivery Method Mechanical Ventilator Oxygen Flow Rate (L/min) Fraction of Inspired Oxygen (FIO2) 100 Positive well nourished, well developed and unkempt Constitutional Narrative: Poor hygiene. Vital signs at the time of this documentation 0207 have not been entered because patient is not cooperative. I was told by nurse that her rectal temperature is 92 degrees. Her skin is cool to touch. Perfusion is delayed. She has acrocyanosis noted. She is also diaphoretic. General Appearance ED: unkempt, well developed and pallor HEENT normocephalic and atraumatic Eyes Eyes Narrative: Attempt to open her eye lids to see if she has pale conjunctive and the size of her pupils was unsuccessful because she will tighten down. She is not able to follow simple commands at this time. Neck no lymphadenopathy and no JVD Neck Narrative: Trachea is midline. Unable to honestly say if she has JVD or not due to body habitus. Chest Wall Chest Narrative: Appears normal. Resp Resp Narrative: Her breathing is not labored. She does have some crackles at the bases. This may be due to poor inspiratory effort or heart failure. Cardio regular rate, regular rhythm and no murmurs GI non-tender, non-distended and no masses GI Narrative: Abdominal exam is limited due to lack of cooperation and body habitus. Also the due to the fact that she has altered mental status. Palpation: soft Neuro No oriented x3 Neuro Narrative: Unable to assess gait. Unable to assess for cerebellar dysfunction. Sensorium / Orientation: Negative for alert Psych Appearance: unkempt Attitude: agitated Skin General Skin Exam: pallor Lesions: no lesions Rashes: no rashes MDM MDM MDM Narrative Medical decision making narrative: Will need to speak to family when they arrive. Differential diagnosis is broad. This may represent sepsis, hypothyroidism, hypothermia due to environmental exposure, this may also contribute to her altered mental status. Also need to consider hypercapnia since she was hypoxic when paramedics arrived. Also this may be due to hypoglycemia since she is diabetic on insulin and blood sugar was 53. Her repeat glucose was 50. Since she is type I it is not unexpected that there was no response to the glucagon. Patient withdraws to Babinski testing. Also need to consider potential for intracranial bleed. Will attempt to adjust things. At this point she is not cooperative and would require either chemical sedation which would alter her exam or potential chemical paralysis with intubation to expedite CT of the head. Patient is still not cooperative. Will medicate with Versed. Also awaiting results of BGT. I was informed at 0221 by nurse that her blood glucose is 99. This is probably not the cause of her altered mental status. Since the geochemical laboratory technician is not able to do an EKG or ABG a VBG was ordered. CO2 is assessed through the monitor and is 45. This would not explain her change in mental status either. Her core temperature since she has temperature Pope Tonya is 91.7. Since patient is hypothermic and there is no good explanation at this time and she had abrupt onset of mental status change need to consider infectious cause and specifically meningitis. LP is contraindicated since patient is on anticoagulant. Patient is screaming and yelling out Gary. She is saying other things that I nor the nurses are able to understand. Concern patient will pull out her IV. She is not directable. Attempted Versed and unsuccessful to for sedation. She was given ketamine in order to obtain radiologic imaging. When she returned she was thrashing yelling. Apparently patient is also spitting. Her pulse ox was low but the waveform was not adequate. Spoke to daughter. She stated do it ever takes. She also was informed that we do not have critical care beds and she would require transfer. She requested in [facility]. Fentanyl and propofol drip was ordered for sedation postintubation. Patient received 5 mg of metoprolol IV push for rate control since she is on atenolol. With history of congestive heart failure fact the patient's has atrial fibrillation with RVR and there is worsening venous congestion on the postintubation x-ray will order IV Lasix for diuresis. This would not explain her acute encephalopathy since she was not hypoxic at the time of intubation. Spoke with the nurse practitioner for Dr. Love the vp customer service at 0428. Patient was admitted for transport to [facility]. Critical care transport was on the line as well. They will make arrangements to get patient for transfer. ABG results are consistent with a VBG. Respiratory therapist was asked to obtain an ABG. Patient's presently on ventilator AC/VC with a tidal volume of 500 respiratory rate of 16 PEEP of 5 and FiO2 of 1.0. (0437) ABG on ventilatory settings timed at 0452 reveals acidosis. pH is 7.34, CO2 is 44, PO2 is 94 on the documented vent settings with a base excess of -1.8 and a 96.8% saturation. Since patient has acute encephalopathy and unable to perform LP need to consider possibility of herpetic encephalopathy. 10 mg/kg of acyclovir was ordered. I was informed by respiratory therapist that patient is hypoxic. PEEP was in creased from 5-10. X-ray may represent ARDS. Will treat with DuoNeb to see if this helps. She also informing that he had some thick secretions. Las 2 attempts of suctioning resulted in no return. (0515) At 0520 I was asked to see patient by nurse. She has a palpable carotid pulse may be a femoral pulse. Blood pressure is reading 38 systolic. Will start peripheral Levophed. Levophed was quadrupled dose. Will need to place a central line if she does not respond to the low-dose Levophed. While peripheral Levophed was running a right IJ was placed. Patient not able to give consent. Patient was prepped draped in sterile fashion. Everyone in the room was wearing And mask. I was in appropriate attire. The right IJ was visualized with the ultrasound. The right IJ was cannulated successfully on first attempt. Using Salinger technique 7.5 [place] triple-lumen was placed. Blood was aspirated from all 3 ports. Since patient has a functioning central line Levophed was switched to the central line. Patient was ventilated by bag since difficulty ventilator on the ventilator. Her sats improved. Chest x-ray status post line placement reveals line to be in proper position. X-ray is consistent with ARDS. (1016) History & Record Review Additional record(s) reviewed:: Prior inpatient record, Prior outpatient record, Prior ED visit and Prior labs Lab Data Attestation: I reviewed the patient's lab results. Lab results narrative: CBC reveals mild anemia. Patient has chronic mild anemia. Indices are normal. Differential reveals slight elevation of neutrophils. Lactate is elevated 2.2. Comprehensive metabolic panel reveals slight elevation of her AST. CO2 is low normal at 20.4. Anion gap is 15. BUN is elevated 22 with a creatinine of 1.03 and a BUN to creatinine ratio of approximately 22-1. TSH is low end of normal at 1.2. Cortisol level is high at 35.4. Urine macro was positive for blood, nitrites and leukoesterase. Microscopic however reveals 0 RBCs and WBCs with 1+ bacteria. Labs: Laboratory Results - last 24 hr 12/02/24 12/02/24 12/02/24 02:10 02:12 02:18 WBC 8.3 RBC 3.96 L Hgb 11.3 L Hct 36.1 L MCV 91.2 MCH 28.5 MCHC 31.3 L RDW Std Deviation 51.2 H RDW Coeff of Sebastian 15.7 H Plt Count 263 MPV 10.7 Immature Gran % (Auto) 0.500 Neut % (Auto) 72.3 H Lymph % (Auto) 19.0 [place] % (Auto) 5.3 Eos % (Auto) 2.2 Baso % (Auto) 0.7 Absolute Neuts (auto) 6.0 Absolute Lymphs (auto) 1.58 Nucleated RBC % 0 Sodium 141 Potassium 4.2 Chloride 106 Carbon Dioxide 20.4 L Anion Gap 15 BUN 22 H Creatinine 1.03 Estim Creat Clear Calc 55.25 Est GFR (MDRD) Non-Af 55 L BUN/Creatinine Ratio 21.7 H Glucose 75 Lactic Acid 2.2 H* Calcium 9.1 Total Bilirubin 0.22 AST 41 H ALT 14 Alkaline Phosphatase 70 Total Creatine Kinase 193 Total Protein 6.6 Albumin 3.8 Globulin 2.8 Albumin/Globulin Ratio 1.4 Triglycerides 108 TSH 1.260 Cortisol PM Sample 35.40 H Urine Color Yellow Urine Clarity Clear Urine pH 6.0 Ur Specific [place] 1.015 Urine Protein 30 H Urine Glucose (UA) Normal Urine Ketones Negative Urine Occult Blood 10 H Urine Nitrite Positive H Urine Bilirubin Negative Urine Urobilinogen Normal Ur Leukocyte Esterase 25 H Urine RBC 0 SEEN Urine WBC 0 SEEN Ur Squamous Epith Cells 0 SEEN Urine Bacteria 1+ Urine Mucus 0 SEEN POC Glucose 12/02/24 12/02/24 02:20 06:29 WBC RBC Hgb Hct MCV MCH MCHC RDW Std Deviation RDW Coeff of Sebastian Plt Count MPV Immature Gran % (Auto) Neut % (Auto) Lymph % (Auto) [place] % (Auto) Eos % (Auto) Baso % (Auto) Absolute Neuts (auto) Absolute Lymphs (auto) Nucleated RBC % Sodium Potassium Chloride Carbon Dioxide Anion Gap BUN Creatinine Estim Creat Clear Calc Est GFR (MDRD) Non-Af BUN/Creatinine Ratio Glucose Lactic Acid 1.3 Calcium Total Bilirubin AST ALT Alkaline Phosphatase Total Creatine Kinase Total Protein Albumin Globulin Albumin/Globulin Ratio Triglycerides TSH Cortisol PM Sample Urine Color Urine Clarity Urine pH Ur Specific [place] Urine Protein Urine Glucose (UA) Urine Ketones Urine Occult Blood Urine Nitrite Urine Bilirubin Urine Urobilinogen Ur Leukocyte Esterase Urine RBC Urine WBC Ur Squamous Epith Cells Urine Bacteria Urine Mucus POC Glucose 99 ABG Data Attestation: I personally reviewed and interpreted this ABG as follows: Interpretation: VBG reveals a acidosis most likely metabolic. Her CO2 reading is 35 on the monitor. Results are a venous blood gas and not arterial. Because of lack of cooperation and the fact that she is on anticoagulant and concern for arterial injury respiratory therapist was unable to obtain a ABG. ABG results: ABG 12/02/24 12/02/24 12/02/24 02:48 04:29 04:52 Specimen Type APARNA Cancelled ART Sample Site Not entered Cancelled R Radial pH 7.34 L Bicarbonate Actual 24.0 Total CO2 25 Base Excess -2 O2 Saturation 97 O2 % 4.0 Cancelled 100.0 ABG pCO2 44.1 ABG pO2 94 Erwin Test N/A VBG pH 7.26 L Cancelled VBG pH (Temp Correct) Cancelled VBG pCO2 (Temp Corrct Cancelled VBG pO2 44 H Cancelled VBG HCO3 23 Cancelled VBG Total CO2 25 Cancelled VBG O2 Sat (Calc) 72 H Cancelled VBG Base Excess -4 L Cancelled POC Mix VBG pCO2 Pt Tmp 52.0 H Cancelled Respiration Rate Cancelled 16 O2 Delivery Device Cannula Cancelled Adult Vent Liter Flow Cancelled Minute Volume Cancelled Vent Mode AC Inspiratory Time Cancelled Expiratory Time Cancelled Tidal Volume Cancelled 500.0 Mean Airway Pressure Cancelled POC PEEP Cancelled 5 Peak Inspir Pressure Cancelled POC Pressure Suppt Cancelled Pressure Control Cancelled EPAP Cancelled IPAP Cancelled Blood Gas Comments Cancelled Crit Call To/Read Back Cancelled Blood Gas Notified Whom Cancelled Blood Gas Notified Time Cancelled Clinical Comments Cancelled Radiography Chest X-Ray - ED: 1 View, Read by ED Physician (Suboptimal due to lack of cooperation. Patient does have evidence of cephalization. Difficult to read anything else into this film.) and - (Portable chest x-ray postintubation and OG placement reveals OG to be in proper position. Endotracheal tube is approximately 4 cm above the wong. Patient has increased vascular congestion. Suboptimal film since she is rotated. Single view KUB was obtained. Orogastric tube is in proper positio) Diagnostic Testing: Clinical Impression(s) from Imaging Studies Brain CT 12/02/24 02:35 IMPRESSION: No CT evidence for acute brain abnormality. Reading Location[facility] Chest X-Ray 12/02/24 03:08 IMPRESSION: Increased central pulmonary venous congestion. Unchanged cardiomegaly. Reading Location: [place] [address] Chest X-Ray 12/02/24 04:06 IMPRESSION: Endotracheal tube is in good position. Enteric feeding tube is in good position with its tip at the level of the gastric body. Increased central pulmonary venous congestion. Increased bilateral basilar airspace disease/infiltrates. Enlarged cardiac silhouette. Reading Location: [place] [address] KUB X-Ray 12/02/24 04:06 IMPRESSION: Endotracheal tube is in good position. Enteric feeding tube is in good position with its tip extending below the level of the left hemidiaphragm reaching the gastric body. Increased bilateral basilar atelectatic changes/infiltrates. Mild increase in central pulmonary venous congestion. Reading Location: [place] [address] Chest X-Ray 12/02/24 07:10 IMPRESSION: Interval placement of right IJ line. Moderate pulmonary edema. Underlying focal consolidation is not excluded. Increased moderate posterior layered pleural effusion of the right and stable mild posterior layered pleural effusion of the left. Reading Location: [facility] CT of the head reveals a calcification in the left cerebellum. I do not believe this is blood. There is no comparison film. Awaiting read by radiologist. Rhythm Strip Rhythm Strip: A-fib Rate: 104 EKG Initial EKG: Attestation: I personally reviewed and interpreted this EKG as follows: Interpretation: Atrial Fibrillation (Rate is 134. QRS duration 94 ms. QT duration 356 ms. [place] is normal. There is nonspecific changes most likely due to the A-fib with RVR. Patient has history of chronic atrial fibrillation.) Management Discussion w/another healthcare provider: Cryptography Teacher, Pharmacist (Pharmacist called because of dose of acyclovir. They said that it should be on ideal body weight and not actual. Dose was changed.) and Other (Transfer nurse at [facility]) Procedures Intubations Intubation Method: orotracheal (Breath sounds noted bilateral. Chest x-ray was obtained to assess for tube placement.) Intubation Verification: Positive color change Intubation Complications: no complications Other Procedures Procedure(s): Right IJ placed by me. Documentation in the MDM portion of the EMR Critical Care Time Critical Care Time: Yes Critical care time (excluding procedures): 75-104 minutes (87), Including time spent: (History, physical, documentation, review of prior records, discussion with EMS, discussion with daughter, independent of rotation of laboratory results, chest x-ray and CT.), Discussing w/Patient &/or Family/Manager Marketing Communications (Discussed CODE STATUS and need for transfer with daughter), Discussing w/Consultants (Baggage Checker at receiving hospital, nurse practitioner Chintan on behalf of Dr. Love), Arranging Admission or Transfer and Performing Direct Patient Care at Bedside (Administer duration of IV anesthetic, dissociative agent, ketamine) Discharge Plan Triage Chief Complaint: Alt LOC ED Provider: Jared Mccall Dx/Rx/DC Orders Clinical Impression: Acute encephalopathy, Hyperlipidemia, Essential (primary) hypertension, Lower extremity edema, Atrial fibrillation with RVR, Chronic hypoxic respiratory failure, Anticoagulant long-term use, Hypothermia not due to cold exposure, Acidosis, lactic Prescriptions: No Action ferrous sulfate 325 mg (65 mg iron) tablet 325 mg PO DAILY metformin 500 mg tablet 1,000 mg PO BID 90 Days Patient Comments: calcium carbonate [Calcium 600] 600 mg calcium (1,500 mg) tablet 600 mg PO BID diphenhydramine HCl [Allergy Relief(diphenhydramin)] 25 mg capsule 25 mg PO QHS ipratropium bromide 0.02 % solution 2.5 ml continuous nebulization Q6H PRN (Reason: shortness of breath or wheezing) amlodipine 10 mg tablet 10 mg PO DAILY 90 Days Qty: 90 3RF valsartan 80 mg tablet 80 mg PO BID 90 Days Qty: 180 3RF docusate sodium 100 mg capsule 100 mg PO QHS atenolol 50 mg tablet 50 mg PO QDAY esomeprazole magnesium 40 mg capsule,delayed release(DR/EC) 40 mg PO QDAY nystatin 100,000 unit/gram ointment 1 applic topical BID 14 Days Qty: 30 1RF insulin glargine [Lantus U-100 Insulin] 100 unit/mL solution 62 unit subcut QHS albuterol sulfate 2.5 mg /3 mL (0.083 %) Solution For Nebulization 2.5 mg inhalation PRN PRN (Reason: shortness of breath or wheezing) furosemide [Lasix] 40 mg tablet 40 mg PO UD Qty: 90 0RF Rx Instructions: 2 tablets every morning, 1 tablet late afternoon Humulin R Regular U-100 Insuln 100 unit/mL solution 15 unit subcut BID Qty: 1 0RF Patient Comments: INJECT 20 UNITS EVERY MORNING , THEN INJECT 20 UNITS EVERY EVENING prednisone 20 mg tablet 20 mg PO DAILY Qty: 7 0RF atorvastatin 40 mg tablet 40 mg PO DAILY 90 Days Qty: 90 3RF Eliquis 5 mg tablet 5 mg PO BID Qty: 180 3RF furosemide 80 mg tablet 80 mg PO QAM Qty: 90 3RF potassium chloride 20 mEq tablet,ER particles/crystals 20 meq PO DAILY Qty: 90 3RF Primary Care Provider: Kandis Dawson Referrals: Kandis Dawson MD [Primary Care Provider] - Print Language: Serbian Disposition Disposition: Acute Care Hospital Discharge Location: [facility]
[2024-12-02 02:13] LABS: Mucous, Urine 0 SEEN /hpf (<or=2+); Red Blood Cells-Urine 0 SEEN /hpf (0-5); Squamous Epithelial Cells - UA 0 SEEN /hpf (5-10); White Blood Cells 0 SEEN /hpf (0-5)
[2024-12-02 02:14] LABS: Color, Urine Yellow (Yellow); Glucose, Dipstick Normal (Normal); Ketone-Dipstick Negative (Negative); Leukocyte Esterase-Dipstick 25 /ul (Negative); Nitrite-Dipstick Positive (Negative); Occult Blood-Urine 10 /ul (Negative); Protein-Dipstick 30 mg/dl (Negative); Specific Gravity, Urine 1.015 (1.002-1.030); Urine Bilirubin Dipstick Negative (Negative); Urine Clarity Clear (Clear); Urine Urobilinogen Normal (Normal)
[2024-12-02] MEDS: Midazolam 2 MG/2 ML Syringe IV (02:31)
--- NOTE | 2024-12-02 02:35 | CT_ITS ---
PROCEDURE: BRAIN/HEAD WITHOUT CONTRAST 12/02/2024 REASON FOR EXAM: ACUTE CHANGE IN MENTAL STATUS, ON ANTICOAGULANT TECHNIQUE: Head CT without intravenous contrast. Coronal and Sagittal reconstruction series were provided. One or more dose reduction techniques were used (e.g., Automated exposure control, adjustment of the mA and/or kV according to patient size, use of iterative reconstruction technique. RADIATION DOSE SUMMARY: CTDlvol: 44.99 mGy DLP: 914 mGycm COMPARISON: None. FINDINGS: Peripherally calcified benign chronic meningioma arising from the most lateral aspect of the left tentorium measuring 1.3 x 2.2 cm. No significant mass effect, edema or acute brain changes. Mild diffuse cortical atrophy, commensurate with the patient's age. Scattered hypodense foci in the periventricular and subcortical white matter suggestive of chronic ischemic white matter disease. Normal size of the ventricles and extra-axial spaces for the patient's age. Normal basal ganglia and thalami. Normal brainstem. Normal cerebellum. There is no demonstrated extra-axial, intraparenchymal, or intraventricular hemorrhage. There are no findings of an acute ischemic infarction. Normal calvarium. There is no demonstrated fracture. Normal soft tissue structures. Normal visualized paranasal sinuses. CT/Brain/Head without Contrast IMPRESSION: No CT evidence for acute brain abnormality. Reading Location[facility]
[2024-12-02 02:41] LABS: Absolute Lymphocyte Count 1.58 X10^3/uL (0.83-4.51); Basophil# 0.06 X10^3/uL; Basophil% 0.7 % (0-1); Eosinophil# 0.18 X10^3/uL; Eosinophils% 2.2 % (0-5); Hematocrit 36.1 % (37-47); Hemoglobin 11.3 g/dL (12.0-15.0); Lymphocyte # 1.58 X10^3/ul (0.83-4.51); Mean Corp Hgb Conc 31.3 g/dL (32-36); Mean Corpuscular Hgb 28.5 pg (27.0-32.0); Mean Corpuscular Volume 91.2 fL (81-99); Mean Platelet Vol. 10.7 fl (6.2-12.0); Monocyte# 0.44 X10^3/uL; Monocyte% 5.3 % (0-10); NRBC Flagged by Analyzer 0 % (0-5); Neutrophil # 6.01 X10^3/uL (2.7-7.7); Neutrophil % 72.3 % (47-70); Platelet Count 263 K/mm3 (150-450); RBC Distribution Width CV 15.7 % (11.6-14.6); RBC Distribution Width SD 51.2 fl (35.1-43.9); Red Blood Count 3.96 M/mm3 (4.2-5.4); White Blood Count 8.3 K/mm3 (4.4-11.0)
[2024-12-02] MEDS: Ketamine HCl 500 MG/5 ML Vial 55 MG IV (02:45)
[2024-12-02 02:52] LABS: Blood Gas Specimen Type VEN; O2 Delivery Device Cannula; SITE Not entered; VBG BASE EXCESS -4 mmol/L (-1.0-3.5); VBG Bicarbonate 23 mmol/L (22-26); VBG PO2 44 mmHg (25-40); VBG SO2 72 % (50-70); VBG TCO2 25 mmol/L (23-33); VBG pH 7.26 (7.32-7.42)
--- OUTSIDE RECORDS SUMMARY | 2024-12-02 02:53 | XMS RPT_ITS | CCD ---
Author Organization [facility] Care Team Providers Care [employer] Sergeant Name Role Phone Dr. Kandis Dawson Primary Care Provider Dr. Israel Hubbard Emergency Provider Dr. Florencio Loco Admit Provider Dr. Florencio Loco Referring Provider Dr. Florencio Loco Other Provider Dr. Mendel Reyes Other Provider MARTINA Daigle Attending Provider Unavail able Dr. Florencio Loco Attending Provider TIMO SYKES MD Admitting Unavailable TIMO SYKES MD Attending Unavailable TIMO SYKES MD Primary Care Unavailable KANDIS DAWSON MD Consulting Unavailable PROVIDER, UNKNOWN Consulting Unavailable PROVIDER, UNKNOWN Consulting Unavailable Dr. Kandis Dawson Primary Care Provider Dr. Kandis Dawson Referring Provider Dr. Osman Montez Attending Provider Sheryl Arora Attending Provider Unavailable Dr. Kandis Dawson Primary Care Provider Dr. Kandis Dawson Primary Care Provider Dr. Kandis Dawson Referring Provider Dr. Kandis Dawson Other Provider Dr. Amsita Banda Attending Provider Dr. Kandis Dawson MD Primary Care Provider Dr. Kandis Dawson MD Referring Provider Ciro JOHNSTON-CPeter Attending Provider Isauro Lewis MD Attending Provider Aric JOSHUA, Dr. Ramos Emergency Provider Aric JOSHUA, Dr. Ramos Emergency Provider Colt JOSHUA, Dr. Garrison Attending Provider Clot JOSHUA, Dr. Garrison Admit Provider Colt JOSHUA, Dr. Garrison Other Provider Claudy JOSHUA, Dr. Matias Attending Provider Claudy JOSHUA, Dr. Matias Other Provider Eunice MACHADO, Dr. Marquis Primary Care Provider Melida MACHADO, Dr. Brewer Attending Provider Dr. Osman Montez MD Referring Provider Eunice MACHADO, Dr. Marquis Referring Provider Pk VEGETABLE FARM WORKERJojo Bardales Attending Provider Pk VEGETABLE FARM WORKER-CJojo Referring Provider Bladimir Gregory Admitting Unavailable Miedel, Kandis Primary Care Unavailable Bladimir Gregory Consulting Unavailable Florencio Loco Attending Unavailable Florencio Loco Consulting Unavailable Miedel, Kandis Primary Care Unavailable Melida, Osman Referring Unavailable Melida, [place] Attending Unavailable Miedel, Kandis Referring Unavailable Miedel, Kandis Primary Care Unavailable Melida, Osman Attending Unavailable Miedel, Kandis Primary Care Unavailable Melida, Osman Attending Unavailable Miedel, Kandis Primary Care Unavailable Sylvia Morgan NP Attending Unavailable Miedel, Kandis Referring Unavailable Isauro Lewis Attending Unavailable Miedel, Kandis Primary Care Unavailable Larsel, Kandis Referring Unavailable Isauro Lewis Attending Unavailable Miedel, Kandis Primary Care Unavailable Aminahedel, Kandis Referring Unavailable Isauro Lewis Attending Unavailable [facility] Primary Care Unavailable [facility] Primary Care Unavailable Melida, Osman Referring Unavailable Melida, Osman Attending Unavailable Jojo Whittington Referring Unavailable Jojo Whittington Attending Unavailable [facility] Primary Care Unavailable Jojo Whittington Referring Unavailable Jojo Whittington Attending Unavailable [facility] Primary Care Unavailable Sibilia, Jian V Referring Unavailable Sibilia Jian V Attending Unavailable [facility] Primary Care Unavailable Bladimir Gregory Admitting Unavailable Sded, [place] Primary Care Unavailable Bladimir Gregory Consulting Unavailable Florencio Loco Attending Unavailable Isauro Leiws Referring Unavailable Isauro Lewis Attending Unavailable [facility] Primary Care Unavailable [facility] Primary Care Unavailable [facility], Kandis Referring Unavailable Isauro Lewis Attending Unavailable [facility] Primary Care Unavailable [facility], Kandis Referring Unavailable Isauro Lewis Attending Unavailable [facility] Referring Unavailable Peter Tanner NP Attending Unavailable [facility] Primary Care Unavailable Jojo Whittington Attending Unavailable [facility], Kandis Referring Unavailable [facility] Primary Care Unavailable Isauro Lewis Consulting Unavailable Isauro Lewis Referring Unavailable Isauro Lewis Attending Unavailable [facility] Primary Care Unavailable [facility], [place] Primary Care Unavailable Bladimir Gregory Attending Unavailable Micelesteel MD [place] Primary Care Provider Mitchell Almeida MD Unavailable [phone] MITCHELL ALMEIDA Attending Unavailable JOJO WHITTINGTON Referring Unavailable [facility] Primary Care Unavailable Medications Current Medications Medication Drug Class(es) Dates Sig (Normalized) Sig (Original) albuterol 0.83 mg/ml inhalation solution (19 sources) beta2-Adrenergic Agonist Start: 03-28-2024 Albuterol Sulfate 2.5 mg /3 mL (0.083 %) Solution For Nebulization Active 2.5 mg INHALATION NEEDED as needed for shortness of breath or wheezing March 28, 2024 12:00am Start: 11-20-2021 End: 03-28-2024 take 2.5 mg by inhalation every four hours Albuterol Sulfate 2.5 mg /3 mL (0.083 %) Solution For Nebulization Discontinued 2.5 mg INHALATION EVERY 4 HOURS 0 November 20, 2021 12:00am March 28, 2024 3:50pm albuterol (2.5 M G/3ML) 0.083% nebulizer solution Take 2.5 mg by nebulization every 6 hours as needed for wheezing or shortness of breath. Active amLODIPine 10 mg oral tablet (20 sources) Dihydropyridine Calcium Channel [place] Start: 03-05-2018 End: 09-30-2022 take 1 tablet by mouth once daily Amlodipine 10 mg tablet Active 10 mg PO DAILY 90 September 30, 2022 10:56am apixaban 5 mg oral tablet (20 sources) Factor Xa Inhibitor Start: 04-02-2018 End: 10-04-2024 take 1 tablet by mouth twice daily Apixaban (Eliquis) 5 mg tablet Active 5 mg PO TWICE A DAY 180 October 04, 2024 11:39am atenolol 50 mg oral tablet (20 sources) beta-Adrenergic [place] Start: 06-09-2024 take 1 tablet by mouth once daily Atenolol 50 mg tablet Active 50 mg PO daily June 09, 2024 1:00am Start: 04-07-2023 End: 04-07-2023 take 1 tablet by mouth once daily Atenolol 100 mg tablet Discontinued 100 mg PO DAILY 90 April 07, 2023 9:31am April 07, 2023 9:57am Start: 09-30-2022 End: 06-09-2024 Atenolol 100 mg tablet Disco ntinued 50 mg PO DAILY 45 April 07, 2023 9:56am June 09, 2024 9:56am Start: 09-30-2022 End: 04-07-2023 take 50 mg by mouth once daily Atenolol Active 50 MG P O DAILY 45 April 07, 2023 9:56am Start: 03-05-2018 End: 09-30-2022 take 1 tablet by mouth once daily Atenolol 100 mg tablet Discontinued 100 mg PO DAILY 90 March 05, 2018 12:00am September 30, 2022 10:55am atorvastatin 40 mg oral tablet (20 sources) HMG-CoA Reductase Inhibitor Start: 03-05-2018 End: 10-04-2024 take 1 tablet by mouth once daily Atorvastatin 40 mg tablet Active 40 mg PO DAILY October 04, 2024 11:39am calcium carbonate 1500 mg oral tablet (17 sources) Start: 01-31-2020 take 1 tablet by mouth twice daily Calcium Carbonate (Calcium 600) 600 mg calcium (1,500 mg) tablet Active 600 mg PO TWICE A DAY January 31, 2020 12:00am Start: 01-31-2020 Calcium Carbon ate (Calcium 600) 600 mg calcium (1,500 mg) tablet Active 1200 MG PO DAILY January 31, 2020 12:00am calcium carbonat e (Tums) 500 MG chewable tablet Chew 600 mg daily. Active diphenhydrAMINE hydrochloride 25 mg oral capsule (17 sources) Histamine-1 Receptor Antagonist Start: 01-31-2020 take 1 capsule by mouth at bedtime Diphenhydramine Hcl (Allergy Relief(Diphenhydramin)) 25 mg capsule Active 25 mg PO AT BEDTIME January 31, 2020 12:00am docusate sodium 100 mg oral capsule (8 sources) Start: 04-07-2023 take 1 capsule by mouth at bedtime Docusate Sodium 100 mg capsule Active 100 mg PO AT BEDTIME April 07, 2023 12:00am Esomeprazole Magnesium 40 mg capsule,delayed release(DR/EC) (3 sources) Start: 06-09-2024 take 1 capsule by mouth once daily Esomeprazole Magnesium 40 mg capsule,delayed release(DR/EC) Active 40 mg PO daily June 09, 2024 1:00am ferrous sulfate 325 mg oral tablet (17 sources) Start: 03-05-2018 take 1 tablet by mouth once daily Ferrous Sulfate 325 mg (65 mg iron) tablet Active 325 mg PO DAILY March 05, 2018 12:00am furosemide 80 mg oral tablet (20 sources) Loop Diuretic Start: 10-04-2024 take 1 tablet by mouth once daily in the morning Furosemide 80 mg tablet Active 80 mg PO EVERY MORNING October 04, 2024 12:00am Start: 09-09-2024 Furosemide (La six) 40 mg tablet Active 40 mg PO DIRECTED September 09, 2024 12:00am On Hold: None 2 tablets every morning, 1 tablet late afternoon Start: 06-09-2024 End: 09-09-2024 take 1 tablet by mouth once daily Furosemide 80 mg tablet Discontinued 80 mg PO DAILY June 09, 2024 9:55am September 09, 2024 1:35pm Start: 03-28-2024 End: 06-09-2024 Furosemide 80 mg tablet Disc ontinued 40 mg PO DAILY March 28, 2024 12:00am June 09, 2024 9:57am Start: 04-07-2023 End: 04-07-2023 Furosemide 80 mg tablet Disc ontinued 40 mg PO DAILY April 07, 2023 9:32am April 07, 2023 9:58am Start: 04-07-2023 End: 04-07-2023 take 40 mg by mouth once daily Furosemide Discontinued 40 MG PO DAILY April 07, 2023 9:32am April 07, 2023 9:58am Start: 09-30-2022 End: 03-28-2024 take 1 tablet by mouth once daily Furosemide 80 mg tablet Discontinued 80 mg PO DAILY October 09, 2023 12:57pm March 28, 2024 3:50pm Start: 09-30-2022 End: 09-30-2022 take 1 tablet by mouth once daily Furosemide (Lasix) 40 mg tablet Discontinued 40 mg PO DAILY September 30, 2022 10:17am September 30, 2022 10:59am Start: 04-29-2022 End: 09-30-2022 take 2 tablets by mouth once daily Furosemide (Lasix) 40 mg tablet Discontinued 80 mg PO DAILY April 29, 2022 8:47pm September 30, 2022 10:17am Start: 04-11-2021 End: 04-29-2022 take 1 tablet by mouth once daily Furosemide (Lasix) 40 mg tablet Discontinued 40 mg PO DAILY February 06, 2022 10:42am April 29, 2022 8:47pm Start: 03-12-2021 End: 04-11-2021 take 1 tablet by mouth twice daily Furosemide (Lasix) 40 mg tablet Discontinued 40 mg PO TWICE A DAY March 12, 2021 12:01pm April 11, 2021 9:30am Start: 01-31-2020 End: 03-12-2021 take 1 tablet by mouth once daily Furosemide (Lasix) 40 mg tablet Discontinued 40 mg PO DAILY January 29, 2021 10:56am March 12, 2021 12:01pm Insulin Glargine (Lantus U-1 00 Insulin) 100 unit/mL solution (3 sources) Start: 03-28-2024 Insulin Glargi ne (Lantus U-100 Insulin) 100 unit/mL solution Active 62 U SC AT BEDTIME March 28, 2024 12:00am insulin, regular, human 100 unt/ml injectable solution (20 sources) Insulin Start: 09-09-2024 Insulin Regula r Human (Humulin R Regular U-100 Insuln) 100 unit/mL solution Active 15 U SC TWICE A DAY 1 September 09, 2024 1:51pm Start: 03-28-2024 End: 09-09-2024 Insulin Regular Human (Humul in R Regular U-100 Insuln) 100 unit/mL solution Discontinued 20 U SC TWICE A DAY March 28, 2024 12:00am September 09, 2024 1:51pm Start: 03-05-2018 End: 11-20-2021 Insulin Regular Human 100 un it/mL solution Discontinued 20 U SC TWICE A DAY March 05, 2018 12:00am November 20, 2021 3:52pm insulin regular (HumuLIN R,NovoLIN R) 100 UNIT/ML patient supplied pump Inject 15 Units under the skin continuous. Active ipratropium bromide 0.2 mg/ml inhalation solution (14 sources) Anticholinergic Start: 02-06-2022 Ipratropium Br omide 0.02 % solution Active 2.5 mL continuous nebulization EVERY 6 HOURS as needed for shortness of breath or wheezing February 06, 2022 12:00am Start: 02-06-2022 Ipratropium Br omide Active ML continuous nebulization EVERY 6 HOURS February 06, 2022 12:00am ipratropium (Atr ovent) 0.02 % nebulizer solution Take 2.5 mL by nebulization every 6 hours. Active Menthol / Zinc Oxide (12 sources) Start: 11-20-2021 Menthol-Zinc O xide (Calmoseptine) 0.44-20.6 % Ointment Active 1 APPLIC TOPICAL TWICE A DAY 0 November 20, 2021 3:54pm Start: 11-20-2021 End: 02-06-2022 Menthol-Zinc Oxide (Calmosep rinku) 0.44-20.6 % Ointment Discontinued 1 NMA TOPICAL TWICE A DAY 0 November 20, 2021 12:00am February 06, 2022 10:40am Please contact the information source for Protocol details. Start: 11-20-2021 End: 02-06-2022 Menthol-Zinc Oxide (Calmosep rinku) 0.44-20.6 % Ointment Discontinued 1 APPLIC TOPICAL TWICE A DAY 0 November 20, 2021 12:00am February 06, 2022 10:40am Start: 11-20-2021 End: 02-06-2022 Menthol-Zinc Oxide (Calmosep rinku) 0.44-20.6 % Ointment Discontinued 1 APPLIC TOPICAL TWICE A DAY 0 November 19, 2021 11:00pm February 06, 2022 9:40am Start: 11-20-2021 Menthol-Zinc O xide (Calmoseptine) 0.44-20.6 % Ointment Active 1 APPLIC TOPICAL TWICE A DAY 0 November 20, 2021 12:00am metFORMIN hydrochloride 500 mg oral tablet (20 sources) Biguanide Start: 04-07-2023 take 500 mg by mouth four times daily Metformin Active 500 MG PO .QID April 07, 2023 9:32am Start: 10-01-2018 End: 04-07-2023 take 2 tablets by mouth twice daily Metformin 500 mg tablet Active 1000 mg PO TWICE A DAY April 07, 2023 9:32am Start: 10-01-2018 End: 04-07-2023 take 1000 mg by mouth twice daily Metformin Discontinued 1000 MG PO TWICE A DAY 360 October 01, 2018 2:19pm April 07, 2023 9:33am Start: 03-05-2018 End: 10-01-2018 take 2 tablets by mouth once daily Metformin 500 mg tablet Discontinued 1000 mg PO DAILY 180 March 05, 2018 12:00am October 01, 2018 2:20pm Start: 03-05-2018 End: 10-01-2018 take 1000 mg by mouth once daily Metformin Discontinued 1000 MG PO DAILY 180 March 05, 2018 12:00am October 01, 2018 2:20pm nystatin 100 unt/mg topical ointment (13 sources) Polyene Antifungal Start: 10-27-2024 Nystatin 10 0,000 unit/gram ointment Active 1 NMA TOPICAL TWICE A DAY 30 October 27, 2024 12:00am Start: 11-20-2021 End: 02-06-2022 Nystatin (Nyamyc) 100,000 un it/gram Powder Discontinued 1 NMA TOPICAL TWICE A DAY 0 November 20, 2021 12:00am February 06, 2022 10:39am Please contact the information source for Protocol details. Start: 11-20-2021 End: 02-06-2022 Nystatin (Nyamyc) 100,000 un it/gram Powder Discontinued 1 APPLIC TOPICAL TWICE A DAY 0 November 20, 2021 12:00am February 06, 2022 10:39am microencapsulated potassium chloride 20 meq extended release oral tablet (20 sources) Start: 11-19-2021 End: 10-10-2024 take 1 tablet by mouth once daily Potassium Chloride 20 mEq tablet,ER particles/crystals Active 20 meq PO DAILY October 10, 2024 4:22pm predniSONE 20 mg oral tablet (6 sources) Start: 09-09-2024 take 1 tablet by mouth once daily Prednisone 20 mg tablet Active 20 mg PO DAILY September 09, 2024 12:00am valsartan 80 mg oral tablet (20 sources) Angiotensin 2 Receptor [place] Start: 02-06-2022 End: 09-30-2022 take 1 tablet by mouth twice daily Valsartan 80 mg tablet Active 80 mg PO TWICE A DAY 180 90 September 30, 2022 10:57am Start: 03-05-2018 End: 02-06-2022 take 1 tablet by mouth once daily Valsartan 80 mg tablet Discontinued 80 mg PO DAILY 90 90 March 05, 2018 12:00am February 06, 2022 10:41am Completed/Discontinued Medications Medication Drug Class(es) Dates Sig (Normalized) Sig (Original) acetaminophen 325 mg oral tablet (12 sources) Start: 11-20-2021 End: 03-28-2024 take 2 tablets by mouth every four hours as needed for pain Acetaminophen (Tylenol) 325 mg Tablet Discontinued 650 mg PO EVERY 4 HOURS NEEDED as needed for Fever, pain 0 November 20, 2021 12:00am March 28, 2024 3:48pm acetaminophen 325 mg / oxyCODONE hydrochloride 5 mg oral tablet (3 sources) Opioid Agonist Start: 03-30-2024 End: 06-09-2024 Oxycodone-Acetamino phen (Percocet) 5-325 mg tablet Discontinued 1 {tbl} PO Q4H as needed for pain 14 3 March 30, 2024 June 09, 2024 9:56am aspirin 325 mg oral tablet (13 sources) Platelet Aggregation Inhibitor, Nonsteroidal Anti-inflammatory Drug Start: 03-05-2018 End: 04-02-2018 take 1 tablet by mouth once daily Aspirin 325 mg tablet Discontinued 325 mg PO DAILY March 05, 2018 12:00am April 02, 2018 1:34pm esomeprazole 20 mg delayed release oral capsule (17 sources) Proton Pump Inhibitor Start: 03-05-2018 End: 06-09-2024 take 2 capsules by mouth once daily Esomeprazole Magnesium 20 mg capsule,delayed release(DR/EC) Discontinued 40 mg PO DAILY 180 90 March 05, 2018 12:00am June 09, 2024 9:57am Start: 03-05-2018 take 40 mg by mouth once daily Esomeprazole Magnesium Active 40 MG PO DAILY 180 90 March 05, 2018 12:00am take 1 capsule by [facility] once daily before breakfast esomeprazole (NexIUM) [address] capsule Take 40 mg by mouth every morning (before breakfast). Do not open capsule. Active hydroCHLOROthiazide 50 mg oral tablet (13 sources) Thiazide Diuretic Start: 03-05-2018 End: 01-31-2020 take 1 tablet by mouth once daily in the morning Hydrochlorothiazide 50 mg tablet Discontinued 50 mg PO EVERY MORNING 90 90 March 05, 2018 12:00am January 31, 2020 9:27am ibuprofen 600 mg oral tablet (13 sources) Nonsteroidal Anti-inflammator y Drug Start: 03-05-2018 End: 09-09-2024 take 1 tablet by mouth at bedtime Ibuprofen 600 mg tablet Discontinued 600 mg PO AT BEDTIME March 05, 2018 12:00am September 09, 2024 1:36pm insulin glargine 100 unt/ml injectable solution (17 sources) Insulin Analog Start: 03-05-2018 End: 11-20-2021 Insulin Glargine 100 unit/mL solution Discontinued 62 U SC AT BEDTIME 77 March 05, 2018 12:00am November 20, 2021 3:51pm inject 62 [IU] by osei bcutaneous injection once daily insulin glargine (Lantus) 100 UNIT/ML injection Inject 62 Units under the skin Nightly. Active 3 ml insulin isophane, human 100 unt/ml pen injector (20 sources) Start: 09-06-2024 End: 09-09-2024 Insulin Nph Isoph U-100 Kim n (Humulin N Nph Insulin Kwikpen) 100 unit/mL (3 mL) insulin pen Discontinued 27 U SC EVERY EVENING September 06, 2024 12:00am September 09, 2024 1:45pm Start: 03-28-2024 End: 09-06-2024 Insulin Nph Isoph U-100 Kim n (Novolin N Nph U-100 Insulin) 100 unit/mL suspension Discontinued 27 U SC AT BEDTIME March 28, 2024 12:00am September 06, 2024 1:32pm Start: 12-17-2023 End: 09-09-2024 Insulin Nph Isoph U-100 Kim n (Humulin N Nph Insulin Kwikpen) 100 unit/mL (3 mL) insulin pen Discontinued 40 U SC DAILY December 17, 2023 1:46pm September 09, 2024 1:45pm Start: 11-20-2021 End: 12-17-2023 Insulin Nph Isoph U-100 Kim n (Humulin N Nph Insulin Kwikpen) 100 unit/mL (3 mL) Insulin Pen Discontinued 35 U SC TWICE DAILY WITH MEALS 0 November 20, 2021 12:00am December 17, 2023 1:48pm Start: 03-05-2018 End: 11-20-2021 Insulin Nph Isoph U-100 Kim n 100 unit/mL suspension Discontinued 0 .ROUTE .COMPLEX 90 March 05, 2018 12:00am November 20, 2021 3:52pm 40 U IN AM, 27 IN PM 3 ml insulin lispro 100 unt/ml pen injector (15 sources) Insulin Analog Start: 12-17-2023 End: 03-28-2024 Insulin Lispro (Humalog Kwikpen Insulin) 100 unit/mL insulin pen Discontinued 20 U SC BEFORE MEALS AND AT BEDTIME December 17, 2023 1:46pm March 28, 2024 3:42pm Please contact the information source for Protocol details. Start: 11-20-2021 End: 12-17-2023 Insulin Lispro (Humalog Kwik pen Insulin) 100 unit/mL Insulin Pen Discontinued 0 U SC BEFORE MEALS AND AT BEDTIME 0 November 20, 2021 12:00am December 17, 2023 1:48pm Please contact the information source for Protocol details. Start: 11-20-2021 Insulin Lispro (Humalog Kwikpen Insulin) 100 unit/mL Insulin Pen Active 0 UNIT SC BEFORE MEALS AND AT BEDTIME 0 November 20, 2021 12:00am oxyCODONE hydrochloride 5 mg oral tablet (12 sources) Opioid Agonist Start: 11-20-2021 End: 02-06-2022 take 2 tablets by mouth every four hours as needed for pain Oxycodone 5 mg Tablet Discontinued 10 mg PO EVERY 4 HOURS NEEDED as needed for Pain Score 6-10 15 3 November 20, 2021 February 06, 2022 10:39am Start: 11-20-2021 End: 02-06-2022 take 10 mg by mouth every four hours as needed Oxycodone Discontinued 10 MG PO EVERY 4 HOURS NEEDED 15 3 November 20, 2021 February 06, 2022 10:39am Problems Active Problems Problem Classification Problem Date Documented Da te Episodic/Chronic Cardiac dysrhythmias (20 sources) Paroxysmal atrial fibrillation; Translations: [Paroxysmal atrial fibrillation] Onset: 11-25-2021 Chronic Chronic obstructive pulmonary disease and bronchiectasis (6 sources) Acute exacerbation of chronic obstructive airways disease; Translations: [Chronic obstructive pulmonary disease with (acute) exacerbation] Onset: 09-12-2024 09-06-2024 Chronic Congestive heart failure; nonhypertensive (6 sources) Heart failure with normal ejection fraction; Translations: [Acute diastolic (congestive) heart failure] Onset: 09-12-2024 09-06-2024 Chronic Diabetes mellitus without complication (3 sources) Type 2 diabetes mellitus without complications; Translations: [Type 2 diabetes mellitus without complications] Onset: 11-25-2021 Chronic Disorders of lipid metabolism (14 sources) Hyperlipidemia; Translations: [Hyperlipidemia, unspecified] Onset: 11-25-2021 10-01-2018 Chronic E Codes: Fall (16 sources) Fall; Translations: [Unspecified fall, initial encounter] Episodic Essential hypertension (19 sources) Essential hypertension; Translations: [Essential (primary) hypertension] Onset: 11-25-2021 Chronic Menopausal disorders (8 sources) Postmenopausal bleeding; Translations: [Postmenopausal bleeding] Onset: 11-28-2024 10-27-2024 Chronic Comment on above: EMB 06/2022 benign; u ltrasound 22mm lining Mycoses (1 source) Candidiasis of skin; Translations: [Candidiasis of skin and nail] 10-27-2024 Episodic Comment on above: abdominal folds Osteoarthritis (1 source) Unspecified osteoarthritis, unspecified site; Translations: [Unspecified osteoarthritis, unspecified site] Onset: 11-25-2021 Chronic Other aftercare (13 sources) Long-term current use of anticoagulant; Translations: [ocean transportation intermediary (current) use of anticoagulants] 02-05-2022 Episodic Other aftercare (3 sources) alf (current) use of anticoagulants; Translations: [Long-term (current) use of anticoagulants] Episodic Other female genital disorders (1 source) Abnormal uterine and vaginal bleeding, unspecified; Translations: [Abnormal uterine and vaginal bleeding, unspecified] Onset: 11-10-2024 Chronic Other lower respiratory disease (13 sources) Dyspnea on exertion; Translations: [Dyspnea, unspecified] 01-31-2020 Episodic Other lower respiratory disease (3 sources) Hypoxia; Translations: [Hypoxemia] 09-06-2024 Episodic Other lower respiratory disease (1 source) Hypoxemia; Translations: [Hypoxemia] Onset: 09-13-2024 Episodic Other nervous system disorders (5 sources) Carpal tunnel syndrome of right wrist; Translations: [Carpal tunnel syndrome, right upper limb] 11-05-2023 Chronic Other nervous system disorders (6 sources) Lesion of ulnar nerve, right upper limb; Translations: [Cubital tunnel syndrome on right] Onset: 06-09-2024 12-17-2023 Chronic Other nervous system disorders (1 source) Carpal tunnel syndrome, right upper limb; Translations: [Carpal tunnel syndrome, right upper limb] Onset: 06-09-2024 Chronic Other non-traumatic joint disorders (14 sources) Pain in unspecified knee; Translations: [Acute knee pain] Episodic Other nutritional; endocrine; and metabolic disorders (10 sources) Obesity; Translations: [Obesity, unspecified] 02-05-2022 Chronic Other screening for suspected conditions (not mental disorders or infectious disease) (6 sources) Endometrium thickened; Translations: [Abnormal findings on diagnostic imaging of other specified body structures] Onset: 11-28-2024 11-27-2024 Chronic Other screening for suspected conditions (not mental disorders or infectious disease) (1 source) Encounter for screening for malignant neoplasm of cervix; Translations: [Encounter for screening for malignant neoplasm of cervix] Onset: 11-01-2024 Episodic Pulmonary heart disease (1 source) Pulmonary hypertension, unspecified; Translations: [Pulmonary hypertension, unspecified] Onset: 11-15-2024 Chronic Residual codes; unclassified (10 sources) Edema of lower extremity; Translations: [Localized edema] 04-29-2022 Episodic Comment on above: PCP increased lasix 80 mg 02/2022 see note 04/29/22 scanned in chart Respiratory failure; insufficiency; arrest (adult) (10 sources) Dependence on supplemental oxygen; Translations: [Dependence on supplemental oxygen] 04-29-2022 Chronic Substance-related disorders (13 sources) Nicotine dependence; Translations: [Nicotine dependence, unspecified, uncomplicated] 03-05-2018 Chronic Superficial injury; contusion (16 sources) Hematoma of right knee region; Translations: [Contusion of right knee, initial encounter] Episodic Past or Other Problems Problem Classification Problem Date Documented Da te Episodic/Chronic Genitourinary symptoms and ill-defined conditions (1 source) Other difficulties with micturition; Translations: [Other difficulties with micturition] Onset: 11-25-2021 Episodic Results Test Name Value Interpretation Reference Range Facility Office Visiton 11-28-2024 Follow-up visit [id number] Karla Mina 1945 F Date Provider Department Center 11/28/2024 [id number] ALMEIDA [facility] 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 SERVICES DIRECTOR None Family History Problem Relation Age of Onset Hypertension Mother Diabetes Mother Lung cancer Father Kidney disease Sister Breast cancer Sister Liver cancer Sister Ovarian cancer Sister Hypertension Sister Diabetes Sister Hypertension Brother Diabetes Brother Family Status - Relation Status Age at Mother Father Sister Brother Level of Service:51416 ID OFFICE/OUTPATIENT NEW LOW MDM 30 MINUTES (25) Reason for Visit and Comments: Female Problem [263] Normal [facility] Progress Noteon 11-28-2024 Progress Note Workforce Management Analyst was offered to the patient for exam. Patient accepted, faculty i on call medical assistant in room during exam Normal [facility] PAP IG HPV APTIMA 16/18,45on 11-01-2024 ADEQ Comment Normal . [facility] Comment on above: Order Comment: Speci men Comment: [id number] Specimen Comment: No. of containers..01 ThinPrep Vial Result Comment: Sati sfactory for evaluation. Endocervical and/or squamous metaplastic cells (endocervical component) are present. Performed By: #### L 7400.0280 #### [facility] [address] [place], [address] COMM . Normal . [facility] Comment on above: Order Comment: Speci men Comment: [id number] Specimen Comment: No. of containers..01 ThinPrep Vial Performed By: #### L 7400.0280 #### [facility] [address] [place], [address] COMMENT Comment Normal . [facility] Comment on above: Order Comment: Speci men Comment: [id number] Specimen Comment: No. of containers..01 ThinPrep Vial Result Comment: This liquid based ThinPrep(R) pap test was screened with the use of an image guided system. Performed By: #### L 7400.0280 #### [facility] [address] [place], [address] DIAG Comment Normal . [facility] Comment on above: Order Comment: Speci men Comment: [id number] Specimen Comment: No. of containers..01 ThinPrep Vial Result Comment: NEGA TIVE FOR INTRAEPITHELIAL LESION OR MALIGNANCY. Performed By: #### L 7400.0280 #### [facility] [address] [place], [address] HPV APTIMA, HR Negative Normal Negative [facility] Comment on above: Order Comment: Speci men Comment: [id number] Specimen Comment: No. of containers..01 ThinPrep Vial Result Comment: This nucleic acid amplification test detects fourteen high- risk HPV types (16,18,31,33,35,39,45,51,52,56,58,59,66,68) without differentiation. Performed By: #### L 7400.0280 #### [facility] [address] [place], [place], [id number] HPV Emily Rfx Comment Normal . [facility] Comment on above: Order Comment: Speci men Comment: [id number] Specimen Comment: No. of containers..01 ThinPrep Vial Result Comment: Crit eria not met, HPV Genotype not performed. Performed at: [facility] - [facility] [id number] Heel Sprayer First: Shelli Brenner MD, Phone: [phone] Performed at: =G - [facility] [place], [place] [id number] Heel Sprayer First: Shelli Brenner MD, Phone: [phone] Performed By: #### L 7400.0280 #### [facility] [address] [place], [place], [id number] PAPSMR Comment Normal . [facility] Comment on above: Order Comment: Speci men Comment: [id number] Specimen Comment: No. of containers..01 ThinPrep Vial Result Comment: The Pap smear is a screening test designed to aid in the detection of premalignant and malignant conditions of the uterine cervix. It is not a diagnostic procedure and should not be used as the sole means of detecting cervical cancer. Both false-positive and false-negative reports do occur. Performed By: #### L 7400.0280 #### [facility] [address] [place], [place], [address] PERFORM Comment Normal . [facility] Comment on above: Order Comment: Speci men Comment: [id number] Specimen Comment: No. of containers..01 ThinPrep Vial Result Comment: Eddy Tomas Respiratory Equipment Assistant (ASCP) Performed By: #### L 7400.0280 #### [facility] [address] [place], [place], [address] Pelvic w/ Transvaginalon Pelvic w/ Transvaginal [facility] Services [address] [place] [address] Pelvic w/ Transvaginal MR#: [id number] Acct: [id number] Name: KARLA MINA Rep #: [id number] : 1945 F 79 From: Serge chavez MD PCP: Dr. Kandis Dawson MD Status: REG CLI Study: Pelvic w/ Transvaginal Date of Exam: 11/01/24 Exam# [id number] Ordering Dr: Jojo Whittington VEGETABLE FARM WORKERCatia PROCEDURE: PELVIC W/ TRANSVAGINAL REASON FOR EXAM: AUB TECHNIQUE: Transabdominal and transvaginal pelvic ultrasound COMPARISON: None FINDINGS: Patient is postmenopausal. Measurements: Uterus: 8.9 cm x 7.9 cm x 5.6 cm with a volume of 204.5 mL Endometrial Thickness: Endometrium is thickened measuring 1.6 cm. Right Ovary: Not visualized. Left Ovary: Nonvisualized. TRANSABDOMINAL: Uterus: 3 fibroids are seen within the uterus. The largest measures 2.4 cm x 2.4 cm x 1.8 cm. Endometrium: The endometrium is thickened. Fluid is seen within the endometrium. Multiple cystic spaces with increased vascularity. Right ovary: Not visualized. Left ovary: Not visualized. Other: No large pelvic mass identified. Transvaginal sonography was performed to better visualize the endometrium. TRANSVAGINAL: Uterus: Anteverted. Fibroid changes as described. Endometrium: Heterogeneous thickening of the endometrium measuring 1.6 cm with vascularity. Clinical correlation recommended. Right ovary: Not visualized. Left ovary: Not visualized. Other adnexal findings: None. Cul-de-sac: No free intraperitoneal fluid identified. Tenderness: No tenderness US/Pelvic w/ Transvaginal IMPRESSION: Fibroid uterus. Heterogeneous thickening of the endometrium measuring 1.6 cm. Increased vascularity is seen. Clinical correlation recommended. Reading Location: [facility] CC: MARTINA Whittington; Dr. Kandis Dawson MD Manager Code: Signed Normal [facility] Adolescent Coordinator Office Visit Reporton 05-08-2025 Adolescent Coordinator Office Visit Report [facility] [address], [address] [place] [address] OFFICE VISIT Date of Service: 10/27/24 MR#: [id number] Acct: [id number] Name: KARLA MINA Rep #: [id number] : 1945 Provider: MARTINA Ca Age/Sex: 79/F Location: [facility] Status: Signed Intake Vital Signs 09/08/24 15:49 10/27/24 10:10 10/27/24 10:16 Height 5 ft 4 in 5 ft 4 in 5 ft 4 in Weight: 244 lb 7 oz BMI 41.9 BP 115/44 L Intake Visit Reasons: VAGINAL ULCER ([place] [facility]) Veneer Cutter Required: No Is patient in pain?: No Allergies No Known Allergies Allergy (Verified 10/27/24 10:10) Medications ???Medication ???Instructions ???Recorded ???Confirmed ???Type ferrous sulfate 325 mg (65 mg 325 mg PO DAILY supplement 8 10/27/24 History iron) tablet calcium carbonate (Calcium 600) 600 mg PO BID supplement 01/31/20 10/27/24 History diphenhydramine HCl 25 mg capsule 25 mg PO QHS allergies 01/31/20 0 10/27/24 History (Allergy Relief (diphenhydramine)) ipratropium bromide 0.02 % 2.5 ml continuous nebulization Q6H 02/06/22 10/27/24 History solution for inhalation PRN shortness of breath or wheezin g amlodipine 10 mg tablet 10 mg PO DAILY bp 90 days #90 tabs 09/30/22 10/27/24 Rx valsartan 80 mg tablet 80 mg PO BID bp 90 days #180 tabs 09/30/22 10/27/24 Rx docusate sodium 100 mg capsule 100 mg PO QHS 04/07/23 10/27/24 Hi story metformin 500 mg tablet 1,000 mg PO BID diabetes 90 days 1 10/27/24 History albuterol sulfate 2.5 mg/3 mL 2.5 mg inhalation PRN PRN 03/28/24 10/27/24 History (0.083 %) solution for nebulization shortness of breath or wheezing insulin glargine 100 unit/mL 62 unit subcut QHS 03/28/24 History subcutaneous solution (Lantus U-100 Insulin) atenolol 50 mg tablet 50 mg PO QDAY 06/09/24 10/27/24 Hi story esomeprazole magnesium 40 mg 40 mg PO QDAY 06/09/24 10/27/24 Hi story capsule,delayed release furosemide 40 mg tablet (Lasix) 40 mg PO UD #90 tabs 09/09/2402/13 Rx Held on 10/04/24. Instructions: Home Medication placed on hold at Doctor's office insulin regular human 100 unit/mL 15 unit (0.15 mL) subcut BID #1 m L 09/09/24 10/27/24 Rx injection solution (Humulin R Regular U-100 Insulin) prednisone 20 mg tablet 20 mg PO DAILY #7 tabs 09/09/24 Rx apixaban 5 mg tablet (Eliquis) 5 mg PO BID blood thinner #180 tab s 10/04/24 10/27/24 Rx atorvastatin 40 mg tablet 40 mg PO DAILY cholesterol 90 days 10/04/24 10/27/24 Rx #90 tabs furosemide 80 mg tablet 80 mg PO QAM #90 tabs 10/04/2402/13 Rx potassium chloride 20 mEq 20 meq PO DAILY supplement #90 tab s 10/10/24 10/27/24 Rx tablet,extended release(part/cryst) [facility] Medical History Acute heart failure with preserved ejection fraction (HFpEF) Acute exacerbation of chronic obstructive pulmonary disease Diabetes Smoker COPD (chronic obstructive pulmonary disease) Atrial fibrillation Congestive heart failure (CHF) Wears dentures History of stress test History of echocardiogram Cardiology follow-up encounter Cubital tunnel syndrome on right Right carpal tunnel syndrome On home oxygen therapy Lower extremity edema Knee pain, acute Traumatic hematoma of right knee Anticoagulant long-term use Paroxysmal atrial fibrillation Essential (primary) hypertension Sciatica Hearing loss Peripheral neuropathic pain Hyperlipidemia Cataracts, bilateral Osteoarthritis Anemia GERD (gastroesophageal reflux disease) Type 2 diabetes mellitus Nicotine dependence Obesity Ectopic atrial tachycardia Surgical History History of carpal tunnel surgery of right wrist History of dilatation and curettage History of hysteroscopy History of cataract surgery Family History Mother Hypertension Diabetes Father Lung cancer Sister Kidney disease Breast cancer Cancer liver, ovarian Hypertension Diabetes Brother Hypertension Diabetes Social History Smoking Status: Light Smoker (<10/day) alcohol intake: never substance use type: does not use caffeine: Yes Type: carbonated beverages and coffee HPI VAGINAL ULCER ([facility] FAMILY) Details: KARLA MINA is a 79 year old who presents for a vaginal ulcer; review of PCP note reports patient was seen October 04 for medicare annual and during this presented that she had witnessed vaginal ble eding. She is currently unsure how long this has been going on. Reports she has had on and off vaginal bleeding for a couple years at least. Denies pain/pelvic bloating or pain. During the visit with PCP it (more content not included)... Normal [facility] Bedside Glucoseon 09-09-2024 FINGERSTICK GLU 165 mg/dL High 74-106 [facility] Comment on above: Result Comment: NICOLAS GEMENT OF PATIENT CARE PER NURSING PROTOCOL Performed By: #### L 501.080 ####[facility] [address] [place], [address] FINGERSTICK GLU 246 mg/dL High -106 [facility] Comment on above: Result Comment: NICOLAS GEMENT OF PATIENT CARE PER NURSING PROTOCOL Performed By: #### L 501.080 ####[facility] [address] [place], [address] FINGERSTICK GLU 253 mg/dL High [facility]106 [facility] Comment on above: Result Comment: NICOLAS GEMENT OF PATIENT CARE PER NURSING PROTOCOL Performed By: #### L 501.080 #### [facility] [address] [place], [address] Discharge Instructionon 08-21 Discharge Instruction [facility] Medical Records Department [address] [place] [address] Instructions for Home/Discharge Instructions 09/09/24 1333 MR#: [id number] Acct: [id number] Name: KARLA MINA Rep #: [id number] : 1945 79 From: Florencio Loco DO PCP: Dr. Kandis Dawson MD Status:ADM IN Discharge Instructions Diet Discharge Diet: No restrictions DC O2, CPAP, BIPAP needs Home O2 Discharge instructions: Yes Type of respiratory needs?: Oxygen Oxygen frequency: Continuous Continuous oxygen liters per minute: 3 L and With Ambulation Oxygen liters per minute during Ambulation: 4 L Dressing / Incision Discharge Activity: Return to Normal Activity Weight Bearing Status: Full weight bearing Follow Up Care Test Results: Test results from this visit will be discussed in further detail at your follow-up appointment, if applicable. Discharge Plan Admission Admit Date/Time: 09/06/24 13:37 Primary Reason for Your Visit: CHF, COPD Attending Provider: Florencio Loco Primary Care Provider: Kandis Dawson Consulting Providers: Bladimir Gregory Discharge Orders/Prescription s Prescriptions: New furosemide [Lasix] 40 mg tablet 40 mg PO UD Qty: 90 0RF Rx Instructions: 2 tablets every morning, 1 tablet late afternoon prednisone 20 mg tablet 20 mg PO DAILY Qty: 7 0RF Continued ferrous sulfate 325 mg (65 mg iron) tablet 325 mg PO DAILY metformin 500 mg tablet 1,000 mg PO BID 90 Days Patient Comments: calcium carbonate [Calcium 600] 600 mg calcium (1,500 mg) tablet 600 mg PO BID diphenhydramine HCl [Allergy Relief(diphenhydram in)] 25 mg capsule 25 mg PO QHS ipratropium bromide 0.02 % solution 2.5 ml continuous nebulization Q6H PRN (Reason: shortness of breath or wheezing) amlodipine 10 mg tablet 10 mg PO DAILY 90 Days Qty: 90 3RF valsartan 80 mg tablet 80 mg PO BID 90 Days Qty: 180 3RF docusate sodium 100 mg capsule 100 mg PO QHS atenolol 50 mg tablet 50 mg PO QDAY esomeprazole magnesium 40 mg capsule,delayed release(DR/EC) 40 mg PO QDAY insulin glargine [Lantus U-100 Insulin] 100 unit/mL solution 62 unit subcut QHS albuterol sulfate 2.5 mg /3 mL (0.083 %) Solution For Nebulization 2.5 mg inhalation PRN PRN (Reason: shortness of breath or wheezing) Eliquis 5 mg tablet 5 mg PO BID Qty: 180 3RF atorvastatin 40 mg tablet 40 mg PO DAILY 90 Days Qty: 90 3RF potassium chloride 20 mEq tablet,ER particles/crystals 20 meq PO DAILY Qty: 90 3RF Changed Humulin R Regular U-100 Insuln 100 unit/mL solution 15 unit subcut BID Qty: 1 0RF Patient Comments: INJECT 20 UNITS EVERY MORNING , THEN INJECT 20 UNITS EVERY EVENING Discontinued ibuprofen 600 mg tablet 600 mg PO QHS 22 Days Patient Comments: Humulin N NPH Insulin KwikPen 100 unit/mL (3 mL) insulin pen 40 unit subcut DAILY furosemide 80 mg tablet 80 mg PO DAILY Humulin N NPH Insulin KwikPen 100 unit/mL (3 mL) insulin pen 27 unit subcut QPM Referrals / Follow Up: Kandis Dawson MD [Primary Care Provider] - In 1 Week Disposition Disposition (needs filled in before D/C Order can be placed): Home, Self Care 09/09/24 1354 Florencio Loco DO CC: Dr. Bladimir Gregory DO; Dr. Kandis Dawson MD Signed Normal [facility] Gl[facility] deOrdered By: Florencio Loco on 09-09-2024 Bedside Glucose (Misc Panel) 165 mg/dL [address] [facility] Comment on above: MANAGEMENT OF PATIEN T CARE PER NURSING PROTOCOL Glucose [Mass/Vol] 165 mg/dL High 74-106 [facility] Comment on above: MANAGEMENT OF PATIEN T CARE PER NURSING PROTOCOL Anion gap in Serum or Plasma Ordered By: Florencio Loco on 09-08-2024 Anion gap [Moles/Vol] 13 mmol/L - [facility] BUN/creatinine ratioOrdered By: Florencio Loco on 09-08-2024 Urea nitrogen/Creatinine [Mass ratio] 30.1 mg/mg High 04-10 [facility] Basic Metabolic Profile (BMP )on 09-08-2024 BUN/CRE 30.1 RATIO High [facility] Comment on above: Performed By: #### L 501.080 #### [facility] [address] [place], [address] Calcium [Mass/Vol] 9.1 mg/dL Normal 7.6-11.0 [facility] Comment on above: Performed By: #### L 501.080 #### [facility] [address] [place], [address] Chloride [Moles/Vol] 97 mmol/L Low 98-108 [facility] Comment on above: Performed By: #### L 501.080 #### [facility] [address] [place], [address] CO2 [Moles/Vol] 25.6 mmol/L Normal 21.0-32.0 [facility] Comment on above: Performed By: #### L 501.080 #### [facility] [address] [place], [address] Creatinine [Mass/Vol] 1.10 mg/dL Normal 0.70-1.20 [facility] Comment on above: Performed By: #### L 501.080 #### [facility] [address] [place], [address] ECRCL 49.93 ml/min Low 50-250 [facility] Comment on above: Performed By: #### L 501.080 #### [facility] [address] [place], [address] GAP 13 Normal 5-15 [facility] Comment on above: Performed By: #### L 501.080 #### [facility] [address] [place], [address] GFR/1.73 sq M.predicted among non-blacks MDRD (S/P/Bld) [Vol rate/Area] 51 mL/min/{1.73_m2} Low >60 [facility] Comment on above: Result Comment: mL/m in/1.73m2 CKD-EPI Creatinine Equation (2020) Performed By: #### L 501.080 #### [facility] [address] [place], [address] Glucose [Mass/Vol] 369 mg/dL High 70-99 [facility] Comment on above: Performed By: #### L 501.080 #### [facility] [address] [place], [address] Potassium [Moles/Vol] 4.5 mmol/L Normal 3.3-5.1 [facility] Comment on above: Performed By: #### L 501.080 #### [facility] [address] [place], [address] Sodium [Moles/Vol] 135 mmol/L Normal 133-145 [facility] Comment on above: Performed By: #### L 501.080 #### [facility] [address] [place], [address] Urea nitrogen [Mass/Vol] 33 mg/dL High 4-19 [facility] Comment on above: Performed By: #### L 501.080 #### [facility] [address] [place], [address] Bedside Glucoseon 09-08-2024 FINGERSTICK GLU 449 mg/dL High 74-106 [facility] Comment on above: Result Comment: NICOLAS GEMENT OF PATIENT CARE PER NURSING PROTOCOL Performed By: #### L 501.080 #### [facility] [address] [place], [address] FINGERSTICK GLU 490 mg/dL Invalid Interpretation Code 74-106 [facility] Comment on above: Result Comment: Dr Eddie felix Followed MANAGEMENT OF PATIENT CARE PER NURSING PROTOCOL Performed By: #### L 501.080 #### [facility] [address] [place], [address] FINGERSTICK GLU 361 mg/dL High 74-106 [facility] Comment on above: Result Comment: NICOLAS GEMENT OF PATIENT CARE PER NURSING PROTOCOL Performed By: #### L 501.080 #### [facility] [address] [place], [address] FINGERSTICK GLU 265 mg/dL High 74-106 [facility] Comment on above: Result Comment: NICOLAS GEMENT OF PATIENT CARE PER NURSING PROTOCOL Performed By: #### L 501.080 #### [facility] [address] [place], [address] FINGERSTICK GLU 269 mg/dL High 74-106 [facility] Comment on above: Result Comment: NICOLAS GEMENT OF PATIENT CARE PER NURSING PROTOCOL Performed By: #### L 501.080 ####[facility] [address] [place], [address] Carbon dioxide, total [Moles /volume] in Central venous bloodOrdered By: Florencio Loco on 09-08-2024 CO2 [Moles/Vol] 25.6 mmol/L 21.0-32.0 [facility] Chloride assayOrdered By: Katie Loco on 09-08-2024 Chloride [Moles/Vol] 97 mmol/L Low 98-108 [facility] Electrocardiogram reportOrde red By: Osman Montez on 09-08-2024 EKG study [facility] Cardiovascular Services [address] [place] [address] 12 Lead EKG 09/06/24 0904 MR#: [id number] Acct: [id number] Name: KARLA MINA Rep #:[id number] : 1945 79 From: Osman Montez MD Attending Dr: Dr. Florencio Loco, DO Status: ADM IN Ordering Dr: Richard Corbett DO Date: 09/06/24 Location: U Sex: F C Admitted: 09/06/24 Test Reason : Blood Pressure : */* mmHG Vent. Rate : 60 BPM Atrial Rate : 60 BPM P-R Int : 158 ms QRS Dur : 92 ms QT Int : 484 ms P-R-T Axes : 53 -28 85 degrees QTcB Int : 484 ms Normal sinus rhythm Normal ECG When compared with ECG of 19-Nov-2021 17:03, No significant change was found Confirmed by MELIDA MACHADO, OSMAN ([id number]), senior editor JESSICA ORTIZ ([id number]) on 51:04:03 PM Referred By: Confirmed By: OSMAN MONTEZ MD 09/08/24 1304 Date _ Osman Montez MD CC: Dr. Richard Corbett DO; Dr. Kandis Dawson MD; Dr. Florencio Loco DO ~ Signed [facility] Work Phone: [phone] Estimation of creatinine vance aranceOrdered By: Florencio Loco on 09-08-2024 Estimated Creatinine Clearance Calc 49.93 ml/min Low 50-250 [facility] GFR/1.73 sq M.predicted bala g non-blacks MDRD (S/P/Bld) [Vol rate/Area]Ordered By: Florencio Loco on 09-08-2024 Estimated GFR (MDRD) Non-Af Amer 51 Low >60 [facility] Comment on above: mL/min/1.73m2 CKD-EP I Creatinine Equation (2020) Glomerular filtration rate ( GFR) estimation/1.73 sq m using serum, plasma, or whole bOrdered By: Florencio Loco on 09-08-2024 GFR/1.73 sq M.predicted among non-blacks MDRD (S/P/Bld) [Vol rate/Area] 51 mL/min/{1.73_m2} Low >60 [facility] Comment on above: mL/min/1.73m2 CKD-EP I Creatinine Equation (2020) Potassium (Unsp spec) [Mass/ Vol]Ordered By: Florencio Loco on 09-08-2024 Potassium [Moles/Vol] 4.5 mmol/L 3.3-5.1 [facility] Potassium measurement (mass/ volume)Ordered By: Florencio Loco on 09-08-2024 Potassium (Unsp spec) [Mass/Vol] 4.5 mmol/L 3.3-5.1 [facility] Serum creatinine measurement (mass/volume)Ordered By: Florencio Loco on 09-08-2024 Creatinine [Mass/Vol] 1.10 mg/dL 0.70-1.20 [facility] Serum glucose measurement (m ass/volume)Ordered By: Florencio Loco on 09-08-2024 Glucose [Mass/Vol] 369 mg/dL High 70-99 [facility] Serum or plasma calcium luis urement (mass/volume)Ordered By: Florencio Loco on 09-08-2024 Calcium [Mass/Vol] 9.1 mg/dL 7.6-11.0 [facility] Serum or plasma urea nitroge n measurement (mass/volume)Ordered By: Florencio Loco on 09-08-2024 Urea nitrogen [Mass/Vol] 33 mg/dL High 10-08 [facility] Sodium levelOrdered By: Florencio Loco on 09-08-2024 Sodium [Moles/Vol] 135 mmol/L 133-145 [facility] Basic Metabolic Profile (BMP )on 09-07-2024 BUN/CRE 23.3 RATIO High 10-20 [facility] Comment on above: Performed By: #### L 100.0500, L500.2500 #### [facility] [address] [place], [address] Calcium [Mass/Vol] 8.9 mg/dL Normal 7.6-11.0 [facility] Comment on above: Performed By: #### L 100.0500, L500.2500 #### [facility] [address] [place], [address] Chloride [Moles/Vol] 102 mmol/L Normal 98-108 [facility] Comment on above: Performed By: #### L 100.0500, L500.2500 #### [facility] [address] [place], [address] CO2 [Moles/Vol] 26.1 mmol/L Normal 21.0-32.0 [facility] Comment on above: Performed By: #### L 100.0500, L500.2500 #### [facility] [address] [place], [address] Creatinine [Mass/Vol] 1.01 mg/dL Normal 0.70-1.20 [facility] Comment on above: Performed By: #### L 100.0500, L500.2500 #### [facility] [address] [place], [address] ECRCL 54.24 ml/min Normal 50-250 [facility] Comment on above: Performed By: #### L 100.0500, L500.2500 #### [facility] [address] [place], [address] GAP 11 Normal 5-15 [facility] Comment on above: Performed By: #### L 100.0500, L500.2500 #### [facility] [address] [place], [address] GFR/1.73 sq M.predicted among non-blacks MDRD (S/P/Bld) [Vol rate/Area] 57 mL/min/{1.73_m2} Low >60 [facility] Comment on above: Result Comment: mL/m in/1.73m2 CKD-EPI Creatinine Equation (2020) Performed By: #### L 100.0500, L500.2500 #### [facility] [address] [place], [address] Glucose [Mass/Vol] 322 mg/dL High 70-99 [facility] Comment on above: Performed By: #### L 100.0500, L500.2500 #### [facility] [address] [place], [address] Potassium [Moles/Vol] 4.2 mmol/L Normal 3.3-5.1 [facility] Comment on above: Performed By: #### L 100.0500, L500.2500 #### [facility] [address] [place], [address] Sodium [Moles/Vol] 139 mmol/L Normal 133-145 [facility] Comment on above: Performed By: #### L 100.0500, L500.2500 #### [facility] [address] [place], [address] Urea nitrogen [Mass/Vol] 24 mg/dL High -19 [facility] Comment on above: Performed By: #### L 100.0500, L500.2500 #### [facility] [address] [place], [address] Bedside Glucoseon 09-07-2024 FINGERSTICK GLU 338 mg/dL High 74-106 [facility] Comment on above: Result Comment: NICOLAS GEMENT OF PATIENT CARE PER NURSING PROTOCOL Performed By: #### L 100.0500, L500.2500 #### [facility] [address] [place], [address] FINGERSTICK GLU 308 mg/dL High 74-106 [facility] Comment on above: Result Comment: NICOLAS GEMENT OF PATIENT CARE PER NURSING PROTOCOL Performed By: #### L 501.080 ####[facility] [address] [place], [address] FINGERSTICK GLU 374 mg/dL High 74-106 [facility] Comment on above: Result Comment: NICOLAS GEMENT OF PATIENT CARE PER NURSING PROTOCOL Performed By: #### L 501.080 #### [facility] [address] [place], [address] FINGERSTICK GLU 321 mg/dL High 74-106 [facility] Comment on above: Result Comment: NICOLAS GEMENT OF PATIENT CARE PER NURSING PROTOCOL Performed By: #### L 501.080 ####[facility] [address] [place], [address] CBC-Complete Blood Cnt No Di ffon 09-07-2024 Erythrocyte distribution width (RBC) [Ratio] 13.9 % Normal 11.6-14.6 [facility] Comment on above: Performed By: #### L 100.0500, L500.2500 #### [facility] [address] [place], [address] Hematocrit (Bld) [Volume fraction] 35.2 % Low 37-47 [facility] Comment on above: Performed By: #### L 100.0500, L500.2500 #### [facility] [address] [place], [address] Hemoglobin (Bld) [Mass/Vol] 11.4 g/dL Low 12.0-15.0 [facility] Comment on above: Performed By: #### L 100.0500, L500.2500 #### [facility] [address] [place], [address] MCH (RBC) [Entitic mass] 28.3 pg Normal 27.0-32.0 [facility] Comment on above: Performed By: #### L 100.0500, L500.2500 #### [facility] [address] [place], [address] MCHC (RBC) [Mass/Vol] 32.4 g/dL Normal 32-36 [facility] Comment on above: Performed By: #### L 100.0500, L500.2500 #### [facility] [address] [place], [address] MCV (RBC) [Entitic vol] 87.3 fL Normal 81-99 [facility] Comment on above: Performed By: #### L 100.0500, L500.2500 #### [facility] [address] [place], [address] Platelet mean volume (Bld) [Entitic vol] 10.8 fL Normal 6.2-12.0 [facility] Comment on above: Performed By: #### L 100.0500, L500.2500 #### [facility] [address] [place], [address] Platelets (Bld) [#/Vol] 236 10*3/uL Normal 150-450 [facility] Comment on above: Performed By: #### L 100.0500, L500.2500 #### [facility] [address] [place], [address] RBC (Bld) [#/Vol] 4.03 10*6/uL Low 4.2-5.4 [facility] Comment on above: Performed By: #### L 100.0500, L500.2500 #### [facility] [address] [place], [address] RDW SD 44.1 fl High 35.1-43.9 [facility] Comment on above: Performed By: #### L 100.0500, L500.2500 #### [facility] [address] [place], [address] WBC (Bld) [#/Vol] 6.7 10*3/uL Normal 4.4-11.0 [facility] Comment on above: Performed By: #### L 100.0500, L500.2500 #### [facility] [address] [place], [address] Erythrocyte distribution wid th ratioOrdered By: Bladimir Gregory on 09-07-2024 Erythrocyte distribution width (RBC) [Ratio] 13.9 % 11.6-14.6 [facility] Erythrocyte distribution wid th standard deviationOrdered By: Bladimir Gregory on 09-07-2024 Erythrocyte distribution width (RBC) [Entitic vol] 44.1 fL High 35.1-43.9 [facility] Erythrocyte distribution width (RBC) [Ratio] 44.1 fl High 35.1-43.9 [facility] Hematocrit Auto (Bld) [Volum e fraction]Ordered By: Bladimir Gregory on 09-07-2024 Hematocrit (Bld) [Volume fraction] 35.2 % Low 37-47 [facility] Hemoglobin measurementOrdere d By: Bladimir Gregory on 09-07-2024 Hemoglobin (Bld) [Mass/Vol] 11.4 g/dL Low 12.0-15.0 [facility] MCV (mean corpuscular volume ) determinationOrdered By: Bladimir Gregory on 09-07-2024 MCV (RBC) [Entitic vol] 87.3 fL 81-99 [facility] Mean corpuscular hemoglobin (MCH) determinationOrdered By: Bladimir Gregory on 09-07-2024 MCH (RBC) [Entitic mass] 28.3 pg 27.0-32.0 [facility] Mean corpuscular hemoglobin concentration (MCHC) determinationOrdered By: Bladimir Gregory on 09-07-2024 MCHC (RBC) [Mass/Vol] 32.4 g/dL 32-36 [facility] Mean platelet volume determi nationOrdered By: Bladimir Gregory on 09-07-2024 Platelet mean volume (Bld) [Entitic vol] 10.8 fL 6.2-12.0 [facility] Platelet countOrdered By: Shayne Gregory on 09-07-2024 Platelets (Bld) [#/Vol] 236 10*3/uL 150-450 [facility] RBC Auto (Bld) [#/Vol]Ordere d By: Bladimir Gregory on 09-07-2024 RBC (Bld) [#/Vol] 4.03 10*6/uL Low 4.2-5.4 [facility] White blood cell (WBC) count Ordered By: Bladimir Gregory on 09-07-2024 WBC (Bld) [#/Vol] 6.7 10*3/uL 4.4-11.0 [facility] 12 Lead EKGon 09-06-2024 12 Lead EKG [facility] [address] [place] [address] 12 Lead EKG 09/06/24 0904 MR#: [id number] Acct: [id number] Name: KARLA MINA Rep #: [id number] : 1945 79 From: Osman Montez MD Attending Dr: Dr. Florencio Loco DO Status: A DM IN Ordering Dr: Richard Corbett DO Date: 09/06/24 Location: [facility] Sex: F C Admitted: 09/06/24 Test Reason : Blood Pressure : */* mmHG Vent. Rate : 60 BPM Atrial Rate : 60 BPM P-R Int : 158 ms QRS Dur : 92 ms QT Int : 484 ms P-R-T Axes : 53 -28 85 degrees QTcB Int : 484 ms Normal sinus rhythm Normal ECG When compared with ECG of 19-Nov-2021 17:03, No significant change was found Confirmed by MELIDA MACHADO, OSMAN ([id number]), senior editor JESSICA ORTIZ ([id number]) on 09/08/2024 1:04:03 PM Referred By: Confirmed By: OSMAN MONTEZ MD 09/08/24 1304 Date Osman Montez MD CC: Dr. Richard Corbett DO; Dr. Kandis Dawson MD; Dr. Florencio Loco DO Signed Normal [facility] Absolute lymphocyte countOrd ered By: Richard Corbett on 09-06-2024 Lymphocytes Auto (Unsp spec) [#/Vol] 0.81 10*3/uL Low 0.83-4.51 [facility] Absolute neutrophil countOrd ered By: Richard Corbett on 09-06-2024 Neutrophils (Bld) [#/Vol] 4.5 10*3/uL 2.0-7.7 [facility] Anion gap in Serum or Plasma Ordered By: Richard Corbett on 09-06-2024 Anion gap [Moles/Vol] 12 mmol/L 5-15 [facility] Automated lymphocyte count a s percentage of total leukocytesOrdered By: Richard Corbett on 09-06-2024 Lymphocytes/100 WBC Auto (Unsp spec) 13.9 % Low 19-41 [facility] BUN/creatinine ratioOrdered By: Richard Corbett on 09-06-2024 Urea nitrogen/Creatinine [Mass ratio] 23.4 mg/mg High 04-10 [facility] Basic Metabolic Profile (BMP )on 09-06-2024 BUN/CRE 23.4 RATIO High 04-10 [facility] Comment on above: Performed By: #### L 501.080 #### [facility] [address] [place], [address] Calcium [Mass/Vol] 8.6 mg/dL Normal 7.6-11.0 [facility] Comment on above: Performed By: #### L 501.080 #### [facility] [address] [place], [address] Chloride [Moles/Vol] 107 mmol/L Normal 98-108 [facility] Comment on above: Performed By: #### L 501.080 #### [facility] [address] [place], [address] CO2 [Moles/Vol] 21.1 mmol/L Normal 21.0-32.0 [facility] Comment on above: Performed By: #### L 501.080 #### [facility] [address] [place], [address] Creatinine [Mass/Vol] 0.87 mg/dL Normal 0.70-1.20 [facility] Comment on above: Performed By: #### L 501.080 #### [facility] [address] [place], [address] ECRCL 64.91 ml/min Normal 50-250 [facility] Comment on above: Performed By: #### L 501.080 #### [facility] [address] [place], [address] GAP 12 Normal 5-15 [facility] Comment on above: Performed By: #### L 501.080 #### [facility] [address] [place], [address] GFR/1.73 sq M.predicted among non-blacks MDRD (S/P/Bld) [Vol rate/Area] 68 mL/min/{1.73_m2} Normal >60 [facility] Comment on above: Result Comment: mL/m in/1.73m2 CKD-EPI Creatinine Equation (2020) Performed By: #### L 501.080 #### [facility] [address] [place], [address] Glucose [Mass/Vol] 92 mg/dL Normal 70-99 [facility] Comment on above: Performed By: #### L 501.080 #### [facility] [address] [place], [address] Potassium [Moles/Vol] 4.4 mmol/L Normal 3.3-5.1 [facility] Comment on above: Result Comment: Hemo lysis present, Results??could be affected. ?? Performed By: #### L 501.080 #### [facility] [address] [place], [address] Sodium [Moles/Vol] 141 mmol/L Normal 133-145 [facility] Comment on above: Performed By: #### L 501.080 #### [facility] [address] [place], [address] Urea nitrogen [Mass/Vol] 20 mg/dL High 4-19 [facility] Comment on above: Performed By: #### L 501.080 #### [facility] [address] [place], [address] Basophil percentageOrdered B y: Richard Corbett on 09-06-2024 Basophils/100 WBC (Bld) 0.7 % 0-1 [facility] Bedside Glucoseon 09-06-2024 FINGERSTICK GLU 337 mg/dL High 74-106 [facility] Comment on above: Result Comment: NICOLAS GEMENT OF PATIENT CARE PER NURSING PROTOCOL Performed By: #### L 501.080 ####[facility] [address] [place], [address] FINGERSTICK GLU 282 mg/dL High 74-106 [facility] Comment on above: Result Comment: NICOLAS GEMENT OF PATIENT CARE PER NURSING PROTOCOL Performed By: #### L 501.080 #### [facility] [address] [place], [address] FINGERSTICK GLU 119 mg/dL High 74-106 [facility] Comment on above: Result Comment: NICOALS GEMENT OF PATIENT CARE PER NURSING PROTOCOL Performed By: #### L 501.080 #### [facility] [address] [place], [address] FINGERSTICK GLU 168 mg/dL High 74-106 [facility] Comment on above: Result Comment: NICOLAS GEMENT OF PATIENT CARE PER NURSING PROTOCOL Performed By: #### L 501.080 #### [facility] [address] [place], [address] FINGERSTICK GLU 90 mg/dL Normal 74-106 [facility] Comment on above: Result Comment: NICOLAS GEMENT OF PATIENT CARE PER NURSING PROTOCOL Performed By: #### L 501.080 ####[facility] [address] [place], [address] CBC W/Diff, Automatedon 08-20 Absolute Lymph 0.81 X10 3/uL Low 0.83-4.51 [facility] Comment on above: Order Comment: REDRA W. PREVIOUS SPECIMEN REJECTED DUE TO SPECIMEN BEING CLOTTED. 09/06/24912 Adam Chavez Performed By: #### L 100.0100 #### [facility] [address] [place], [address] Absolute Neut 4.5 X10 3/uL Normal 2.0-7.7 [facility] Comment on above: Order Comment: REDRA W. PREVIOUS SPECIMEN REJECTED DUE TO SPECIMEN BEING CLOTTED. 09/06/24912 Adam Chavez Performed By: #### L 100.0100 #### [facility] [address] [place], [address] Basophils/100 WBC (Bld) 0.7 % Normal 0-1 [facility] Comment on above: Order Comment: REDRA W. PREVIOUS SPECIMEN REJECTED DUE TO SPECIMEN BEING CLOTTED. 09/06/24912 Adam Chavez Performed By: #### L 100.0100 #### [facility] [address] [place], [address] Eosinophils/100 WBC (Bld) 1.4 % Normal 0-5 [facility] Comment on above: Order Comment: REDRA W. PREVIOUS SPECIMEN REJECTED DUE TO SPECIMEN BEING CLOTTED. 09/06/24912 Adam Chavez Performed By: #### L 100.0100 #### [facility] [address] [place], [address] Erythrocyte distribution width (RBC) [Ratio] 14.0 % Normal 11.6-14.6 [facility] Comment on above: Order Comment: REDRA W. PREVIOUS SPECIMEN REJECTED DUE TO SPECIMEN BEING CLOTTED. 09/06/24912 Adam Chavez Performed By: #### L 100.0100 #### [facility] [address] [place], [address] Hematocrit (Bld) [Volume fraction] 32.8 % Low 37-47 [facility] Comment on above: Order Comment: REDRA W. PREVIOUS SPECIMEN REJECTED DUE TO SPECIMEN BEING CLOTTED. 09/06/24912 Adam Chavez Performed By: #### L 100.0100 #### [facility] [address] [place], [address] Hemoglobin (Bld) [Mass/Vol] 10.3 g/dL Low 12.0-15.0 [facility] Comment on above: Order Comment: REDRA W. PREVIOUS SPECIMEN REJECTED DUE TO SPECIMEN BEING CLOTTED. 09/06/24912 Adam Chavez Performed By: #### L 100.0100 #### [facility] [address] [place], [address] IG% 0.300 Normal 0.0-0.9 [facility] Comment on above: Order Comment: REDRA W. PREVIOUS SPECIMEN REJECTED DUE TO SPECIMEN BEING CLOTTED. 09/06/24912 Adam Chavez Result Comment: IG% - Immature Granulocytes (promyelocytes, myelocytes and metamyelocytes) > 1% indicates that a LEFT SHIFT is Present. Performed By: #### L 100.0100 #### [facility] [address] [place], [address] Lymphocytes/100 WBC (Bld) 13.9 % Low 19-41 [facility] Comment on above: Order Comment: REDRA W. PREVIOUS SPECIMEN REJECTED DUE TO SPECIMEN BEING CLOTTED. 09/06/24912 Adam Chavez Performed By: #### L 100.0100 #### [facility] [address] [place], [address] MCH (RBC) [Entitic mass] 28.1 pg Normal 27.0-32.0 [facility] Comment on above: Order Comment: REDRA W. PREVIOUS SPECIMEN REJECTED DUE TO SPECIMEN BEING CLOTTED. 09/06/24912 Adam Chavez Performed By: #### L 100.0100 #### [facility] [address] [place], [address] MCHC (RBC) [Mass/Vol] 31.4 g/dL Low 32-36 [facility] Comment on above: Order Comment: REDRA W. PREVIOUS SPECIMEN REJECTED DUE TO SPECIMEN BEING CLOTTED. 09/06/24912 Adam Chavez Performed By: #### L 100.0100 #### [facility] [address] [place], [address] MCV (RBC) [Entitic vol] 89.6 fL Normal 81-99 [facility] Comment on above: Order Comment: REDRA W. PREVIOUS SPECIMEN REJECTED DUE TO SPECIMEN BEING CLOTTED. 09/06/24912 Adam Chavez Performed By: #### L 100.0100 #### [facility] [address] [place], [address] Monocytes/100 WBC (Bld) 6.2 % Normal 0-10 [facility] Comment on above: Order Comment: REDRA W. PREVIOUS SPECIMEN REJECTED DUE TO SPECIMEN BEING CLOTTED. 09/06/24912 Adam Chavez Performed By: #### L 100.0100 #### [facility] [address] [place], [address] Neutrophils/100 WBC (Bld) 77.5 % High 47-70 [facility] Comment on above: Order Comment: REDRA W. PREVIOUS SPECIMEN REJECTED DUE TO SPECIMEN BEING CLOTTED. 09/06/24912 Adam Reyes. Performed By: #### L 100.0100 #### [facility] [address] [place], [address] Nucleated RBC (Bld) [#/Vol] 0 10*3/uL Normal 0-5 [facility] Comment on above: Order Comment: REDRA W. PREVIOUS SPECIMEN REJECTED DUE TO SPECIMEN BEING CLOTTED. 09/06/24912 Adam Chavez Performed By: #### L 100.0100 #### [facility] [address] [place], [address] Platelet mean volume (Bld) [Entitic vol] 9.7 fL Normal 6.2-12.0 [facility] Comment on above: Order Comment: REDRA W. PREVIOUS SPECIMEN REJECTED DUE TO SPECIMEN BEING CLOTTED. 09/06/24912 Adam Chavez Performed By: #### L 100.0100 #### [facility] [address] [place], [address] Platelets (Bld) [#/Vol] 208 10*3/uL Normal 150-450 [facility] Comment on above: Order Comment: REDRA W. PREVIOUS SPECIMEN REJECTED DUE TO SPECIMEN BEING CLOTTED. 09/06/24912 Adam Chavez Performed By: #### L 100.0100 #### [facility] [address] [place], [address] RBC (Bld) [#/Vol] 3.66 10*6/uL Low 4.2-5.4 [facility] Comment on above: Order Comment: REDRA W. PREVIOUS SPECIMEN REJECTED DUE TO SPECIMEN BEING CLOTTED. 09/06/24912 Adam Reyes. Performed By: #### L 100.0100 #### [facility] [address] [place], [address] RDW SD 45.2 fl High 35.1-43.9 [facility] Comment on above: Order Comment: REDRA W. PREVIOUS SPECIMEN REJECTED DUE TO SPECIMEN BEING CLOTTED. 09/06/24912 Adam Reyes. Performed By: #### L 100.0100 #### [facility] [address] [place], [address] WBC (Bld) [#/Vol] 5.8 10*3/uL Normal 4.4-11.0 [facility] Comment on above: Order Comment: REDRA W. PREVIOUS SPECIMEN REJECTED DUE TO SPECIMEN BEING CLOTTED. 09/06/24912 Adam Reyes. Performed By: #### L 100.0100 #### [facility] [address] [place], [address] Absolute Neut Normal 2.0-7.7 [facility] Comment on above: Result Comment: This specimen has been REJECTED due to Laboratory criteria: Clotted. ED STAFF has been notified of need of recollection. 09/06/24911 Adam Reyes Performed By: #### L 501.080 #### [facility] [address] [place], [address] HCT Normal 37-47 [facility] Comment on above: Result Comment: This specimen has been REJECTED due to Laboratory criteria: Clotted. ED STAFF has been notified of need of recollection. 09/06/24911 Adam Reyes Performed By: #### L 501.080 #### [facility] [address] [place], [address] HGB Normal 12.0-15.0 [facility] Comment on above: Result Comment: This specimen has been REJECTED due to Laboratory criteria: Clotted. ED STAFF has been notified of need of recollection. 09/06/24911 Adam R Stoner Performed By: #### L 501.080 #### [facility] [address] [place], [address] MCH Normal 27.0-32.0 [facility] Comment on above: Result Comment: This specimen has been REJECTED due to Laboratory criteria: Clotted. ED STAFF has been notified of need of recollection. 09/06/24911 Adam R Stoner Performed By: #### L 501.080 #### [facility] [address] [place], [address] MCHC Normal 32-36 [facility] Comment on above: Result Comment: This specimen has been REJECTED due to Laboratory criteria: Clotted. ED STAFF has been notified of need of recollection. 09/06/24911 Adam R Stoner Performed By: #### L 501.080 #### [facility] [address] [place], [address] MCV Normal 81-99 [facility] Comment on above: Result Comment: This specimen has been REJECTED due to Laboratory criteria: Clotted. ED STAFF has been notified of need of recollection. 09/06/24911 Adam R Stoner Performed By: #### L 501.080 #### [facility] [address] [place], [address] NEUT% Normal 47-70 [facility] Comment on above: Result Comment: This specimen has been REJECTED due to Laboratory criteria: Clotted. ED STAFF has been notified of need of recollection. 09/06/24911 Adam R Stoner Performed By: #### L 501.080 #### [facility] [address] [place], [address] PLT Normal 150-450 [facility] Comment on above: Result Comment: This specimen has been REJECTED due to Laboratory criteria: Clotted. ED STAFF has been notified of need of recollection. 09/06/24911 Adam R Stoner Performed By: #### L 501.080 #### [facility] [address] [place], [address] RBC Normal 4.2-5.4 [facility] Comment on above: Result Comment: This specimen has been REJECTED due to Laboratory criteria: Clotted. ED STAFF has been notified of need of recollection. 09/06/24911 Adam R Stoner Performed By: #### L 501.080 #### [facility] [address] [place], [address] RDW CV Normal 11.6-14.6 [facility] Comment on above: Result Comment: This specimen has been REJECTED due to Laboratory criteria: Clotted. ED STAFF has been notified of need of recollection. 09/06/24911 Adam R Stoner Performed By: #### L 501.080 #### [facility] [address] [place], [address] RDW SD Normal 35.1-43.9 [facility] Comment on above: Result Comment: This specimen has been REJECTED due to Laboratory criteria: Clotted. ED STAFF has been notified of need of recollection. 09/06/24911 Adam R Stoner Performed By: #### L 501.080 #### [facility] [address] [place], [address] WBC Normal 4.4-11.0 [facility] Comment on above: Result Comment: This specimen has been REJECTED due to Laboratory criteria: Clotted. ED STAFF has been notified of need of recollection. 09/06/24911 Adam R Stoner Performed By: #### L 501.080 #### [facility] [address] [place], [address] Carbon dioxide, total [Moles /volume] in Central venous bloodOrdered By: Richard Corbett on 09-06-2024 CO2 [Moles/Vol] 21.1 mmol/L 21.0-32.0 [facility] Chest PA and Lateralon 09-06 Chest PA and Lateral [facility] Imaging Services [address] [place] [address] Chest PA and Lateral MR#: [id number] Acct: [id number] Name: KARLA MINA Rep #: [id number] : 1945 F 79 From: Florencio Aaron MD PCP: Dr. Kandis Dawson MD Status: [facility] ER Study: Chest PA and Lateral Date of Exam: 09/06/24 Exam# [id number] Ordering Dr: Richard Corbett DO EXAM: XR Chest, 2 Views CLINICAL INDICATION: DYSPNEA TECHNIQUE: Frontal and lateral views of the chest. COMPARISON: No relevant prior studies available. FINDINGS: LUNGS AND PLEURAL SPACES: Pulmonary venous congestion. No consolidation. No pneumothorax. HEART: Unremarkable. No cardiomegaly. MEDIASTINUM: Unremarkable. Normal mediastinal contour. BONES/JOINTS: Unremarkable. No acute fracture. RAD/Chest PA and Lateral IMPRESSION: Pulmonary venous congestion. Reading Location: [facility] CC: Dr. Richard Corbett DO; Dr. Kandis Dawson MD Manager Code: Signed Normal [facility] Chloride assayOrdered By: Xiang Corbett on 09-06-2024 Chloride [Moles/Vol] 107 mmol/L 98-108 [facility] Emergency Department Summary on 09-06-2024 Emergency Department Summary [facility] Medical Records Department [address] [place] [address] Emergency Department Summary 09/06/24 MR#: [id number] Acct: [id number] Name: KARLA MINA Rep #: [id number] : 1945 79 From: Richard Corbett DO PCP: Dr. Kandis Dawson MD Status:ADM IN [id number] History of Present Illness Chief Complaint: Hypoglycemia Informant: patient and family Onset/Context/Niyah fontaine Onset: Today Context: Sudden Onset Timing: Continuous Quality: Dyspnea with exertion Location: Chest Worsened by: Exertion Relieved by: Rest Narrative Narrative: Patient presents with low blood sugar and shortness of breath that began today. Patient states her breathing is worse with any exertion. Patient states it is better with rest. Family states that patient's blood sugar was down to 53 this morning. EMS administered oral glucose and it improved. Patient states she is coughing up occasional white sputum. Patient admits to some subjective chills but denies any fevers. Patient denies any chest pain. Patient admits to a mild headache. Patient has a history of COPD. Patient smokes 5 to 7 cigarettes/day. [facility] Medical History Wears dentures History of stress test History of echocardiogram Cardiology follow-up encounter Cubital tunnel syndrome on right Right carpal tunnel syndrome On home oxygen therapy Lower extremity edema Knee pain, acute Traumatic hematoma of right knee Anticoagulant long-term use Paroxysmal atrial fibrillation Essential (primary) hypertension Sciatica Hearing loss Peripheral neuropathic pain Hyperlipidemia Cataracts, bilateral Osteoarthritis Anemia GERD (gastroesophageal reflux disease) Type 2 diabetes mellitus Nicotine dependence Obesity Ectopic atrial tachycardia Home Medications ???Medication ???Instructions ???Recorded ???Last Taken ???Type ferrous sulfate 325 mg (65 mg 325 mg PO DAILY supplement 8 09/05/24 History iron) tablet ibuprofen 600 mg tablet 600 mg PO QHS pain 22 days 8 09/05/24 History calcium carbonate (Calcium 600) 600 mg PO BID supplement 01/31/20 09/05/24 History diphenhydramine HCl 25 mg capsule 25 mg PO QHS allergies 01/31/20 0 09/05/24 History (Allergy Relief (diphenhydramine)) ipratropium bromide 0.02 % 2.5 ml continuous nebulization Q6H 02/06/22 09/05/24 History solution for inhalation PRN shortness of breath or wheezin g amlodipine 10 mg tablet 10 mg PO DAILY bp 90 days #90 tabs 09/30/22 09/05/24 Rx valsartan 80 mg tablet 80 mg PO BID bp 90 days #180 tabs 09/30/22 09/05/24 Rx docusate sodium 100 mg capsule 100 mg PO QHS 04/07/23 09/05/24 Hi story metformin 500 mg tablet 1,000 mg PO BID diabetes 90 days 1 09/05/24 History apixaban 5 mg tablet (Eliquis) 5 mg PO BID blood thinner #180 tab s 10/09/23 09/05/24 Rx atorvastatin 40 mg tablet 40 mg PO DAILY cholesterol 90 days 10/09/23 09/05/24 Rx #90 tabs potassium chloride 20 mEq 20 meq PO DAILY supplement #90 tab s 10/09/23 09/05/24 Rx tablet,extended release(part/cryst) insulin NPH isoph U-100 human 100 40 unit subcut DAILY 12/17/23 History unit/mL (3 mL) subcutaneous pen (Humulin N NPH U-100 Insulin KwikPen) albuterol sulfate 2.5 mg/3 mL 2.5 mg inhalation PRN PRN 03/28/24 09/05/24 History (0.083 %) solution for nebulization shortness of breath or wheezing insulin glargine 100 unit/mL 62 unit subcut QHS 03/28/24 History subcutaneous solution (Lantus U-100 Insulin) insulin regular human 100 unit/mL 20 unit subcut BID 03/28/2409/05 History injection solution (Humulin R Regular U-100 Insulin) atenolol 50 mg tablet 50 mg PO QDAY 06/09/24 09/05/24 Hi story esomeprazole magnesium 40 mg 40 mg PO QDAY 06/09/24 09/05/24 Hi story capsule,delayed release furosemide 80 mg tablet 80 mg PO DAILY fluid retention 09/05/24 History insulin NPH isoph U-100 human 100 27 unit subcut QPM 09/06/2409/05 History unit/mL (3 mL) subcutaneous pen (Humulin N NPH U-100 Insulin KwikPen) Allergy/AdvReac Type Severity Reaction Status Date / Time No Known Allergies Allergy Verified 06/09/24 10:31 Family History Mother Hypertension Diabetes Father Lung cancer Sister Kidney disease Breast cancer Cancer liver, ovarian Hypertension Diabetes Brother Hypertension Diabetes Surgical History History of carpal tunnel surgery of right wrist History of dilatation and curettage History of hysteroscopy History of cataract surgery Social History Smoking Status: Light Smoker (< (more content not included)... Normal [facility] Eosinophil percentageOrdered By: Richard Corbett on 09-06-2024 Eosinophils/100 WBC (Bld) 1.4 % 0-5 [facility] Erythrocyte distribution wid th ratioOrdered By: Richard Corbett on 09-06-2024 Erythrocyte distribution width (RBC) [Ratio] 14.0 % 11.6-14.6 [facility] Erythrocyte distribution wid th standard deviationOrdered By: Richard Corbett on 09-06-2024 Erythrocyte distribution width (RBC) [Entitic vol] 45.2 fL High 35.1-43.9 [facility] Estimation of creatinine vance aranceOrdered By: Richard Corbett on 09-06-2024 Estimated Creatinine Clearance Calc 64.91 ml/min 50-250 [facility] GFR/1.73 sq M.predicted bala g non-blacks MDRD (S/P/Bld) [Vol rate/Area]Ordered By: Richard Corbett on 09-06-2024 Estimated GFR (MDRD) Non-Af Amer 68 >60 [facility] Comment on above: mL/min/1.73m2 CKD-EP I Creatinine Equation (2020) [facility] deOrdered By: Richard Corbett on 09-06-2024 Bedside Glucose (Misc Panel) 168 mg/dL High 74-106 [facility] Comment on above: MANAGEMENT OF PATIEN T CARE PER NURSING PROTOCOL H AND P Exam - [facility] 09-06-2024 H&P Exam - Hospitalist [facility] Medical Records Department [address] [place] [address] H P Exam - Hospitalist 09/06/24 1336 MR#: [id number] Acct: [id number] Name: KARLA MINA Rep #: [id number] : 1945 79 From: Bladimir Gregory DO PCP: Dr. Kandis Dawson MD Status:REG ER Location: ED HPI - General General Date of Admission: 09/06/24 Date of Service: 09/06/24 Chief Complaint: Shortness of breath and hypoglycemia HPI Narrative KARLA MINA, is a 79 F who presented to [facility] ED on 09/06/2024 with shortness of breath and hypoglycemia. Patient lives at home with her daughter. History is significant for COPD with chronic respiratory failure on 3 L nasal cannula, insulin-dependent type 2 diabetes mellitus, paroxysmal A-fib, hypertension, hyperlipidemia, and current smoker. Patient reports worsening shortness of breath with exertion over the past several months. However, this morning her daughter noted that she was much more short of breath when she woke up and called EMS. Was found to have a blood sugar 59 per EMS. Blood sugar improved with treatment. On arrival to the ED she was back on her home 3 L nasal cannula with oxygen saturations in the low 90s. She was mildly hypertensive but otherwise in rate controlled A-fib. CBC and BMP were unremarkable. BNP was normal at 692 but notably patient has BMI of 43. Chest x-ray showed pulmonary venous congestion patient had mild bilateral lower extremity edema on exam. Given concern for COPD versus CHF exacerbation, she was given doses of IV Solu-Medrol, DuoNeb treatment and IV Lasix and hospitalist was contacted for admission. I saw the patient at bedside in the ED, daughter and son were present. Patient was somewhat chronically ill appearing and mildly fatigued appearing but otherwise sitting back comfortably in bed, breathing comfortably on 3 L nasal cannula and in no acute distress. She is very hard of hearing at baseline and has difficulty maintaining a conversation. She does make appropriate eye contact and answers questions with short appropriate responses as able. She was able to show me her insulin regimen and notes that she has been taking this as prescribed recently. Denies any recent fevers or chills or upper respiratory symptoms. Has had slightly decreased appetite over the past few weeks especially per daughter but no nausea or vomiting. Has been taking her home Lasix as prescribed with good urine output. No other acute concerns at this time. [facility], LAT[facility] Medical History Wears dentures History of stress test History of echocardiogram Cardiology follow-up encounter Cubital tunnel syndrome on right Right carpal tunnel syndrome On home oxygen therapy Lower extremity edema Knee pain, acute Traumatic hematoma of right knee Anticoagulant long-term use Paroxysmal atrial fibrillation Essential (primary) hypertension Sciatica Hearing loss Peripheral neuropathic pain Hyperlipidemia Cataracts, bilateral Osteoarthritis Anemia GERD (gastroesophageal reflux disease) Type 2 diabetes mellitus Nicotine dependence Obesity Ectopic atrial tachycardia Home Medications ???Medication ???Instructions ???Recorded ???Last Taken ???Type ferrous sulfate 325 mg (65 mg 325 mg PO DAILY supplement 8 09/05/24 History iron) tablet ibuprofen 600 mg tablet 600 mg PO QHS pain 22 days 8 09/05/24 History calcium carbonate (Calcium 600) 600 mg PO BID supplement 01/31/20 09/05/24 History diphenhydramine HCl 25 mg capsule 25 mg PO QHS allergies 01/31/20 0 09/05/24 History (Allergy Relief (diphenhydramine)) ipratropium bromide 0.02 % 2.5 ml continuous nebulization Q6H 02/06/22 09/05/24 History solution for inhalation PRN shortness of breath or wheezin g amlodipine 10 mg tablet 10 mg PO DAILY bp 90 days #90 tabs 09/30/22 09/05/24 Rx valsartan 80 mg tablet 80 mg PO BID bp 90 days #180 tabs 09/30/22 09/05/24 Rx docusate sodium 100 mg capsule 100 mg PO QHS 04/07/23 09/05/24 Hi story metformin 500 mg tablet 1,000 mg PO BID diabetes 90 days 1 09/05/24 History apixaban 5 mg tablet (Eliquis) 5 mg PO BID blood thinner #180 tab s 10/09/23 09/05/24 Rx atorvastatin 40 mg tablet 40 mg PO DAILY cholesterol 90 days 10/09/23 09/05/24 Rx #90 tabs potassium chloride 20 mEq 20 meq PO DAILY supplement #90 tab s 10/09/23 09/05/24 Rx tablet,extended release(part/cryst) insulin NPH isoph U-100 human 100 40 unit subcut DAILY 12/17/23 History unit/mL (3 mL) subcutaneous pen (Humulin N NPH U-100 Insulin KwikPen) albuterol sulfate 2.5 mg/3 mL 2.5 mg inhalation PRN PRN 03/28/24 09/05/24 History (0.083 %) solution for nebulization shortness of breath or wheezing insulin glargine 100 unit/mL 62 unit subcut QHS 03/28/2408/20 (more content not included)... Normal [facility] Hematocrit Auto (Bld) [Volum e fraction]Ordered By: Richard Corbett on 09-06-2024 Hematocrit (Bld) [Volume fraction] 32.8 % Low 37-47 [facility] Hemoglobin A1con 09-06-2024 HbA1c (Bld) [Mass fraction] 6.6 % Normal <=5.6 [facility] Comment on above: Performed By: #### L 501.9985 #### [facility] [address] [place], [address] Hemoglobin A1c percentageOrd ered By: Bladimir Gregory on 09-06-2024 HbA1c (Bld) [Mass fraction] 6.6 % >5.7 [facility] Hemoglobin measurementOrdere d By: Richard Corbett on 09-06-2024 Hemoglobin (Bld) [Mass/Vol] 10.3 g/dL Low 12.0-15.0 [facility] Immature granulocytes/100 WB C Auto (Bld)Ordered By: Richard Corbett on 09-06-2024 Immature granulocytes/100 WBC (Bld) 0.300 % 0.0-0.9 [facility] Comment on above: IG% - Immature Granu locytes (promyelocytes, myelocytes and metamyelocytes) > 1% indicates that a LEFT SHIFT is Present. Influenza virus A and B and SARS-CoV-2 (COVID-19) and Respiratory syncytial virus RNAOrdered By: Bladimir Gregory on 09-06-2024 SARS-CoV-2 (COVID-19) RNA MICHAEL+probe Ql (Unsp spec) [facility] L503.7505on 09-06-2024 Natriuretic peptide B (Bld) [Mass/Vol] 692 pg/mL Normal <=1800 [facility] Comment on above: Result Comment: Hear t Failure Unlikely: < 300 pg/mL Heart Failure Likely < 50 Years: > 450 pg/mL 50-75 Years: > 900 pg/mL >75 Years: > 1800 pg/mL Performed By: #### L 503.7505 ####[facility] [id number] [facility] [address] [place], [place], [id number] Laboratory - Chemistry and C hemistry - challengeOrdered By: Richard Corbett on 09-06-2024 Natriuretic peptide B (Bld) [Mass/Vol] 692 pg/mL <1800 [facility] Comment on above: Heart Failure Unlike ly: < 300 pg/mLHeart Failure Likely< 50 Years: > 450 pg/mL50-75 Years: > 900 pg/mL>75 Years: > 1800 pg/mL Lymphocytes Auto (Unsp spec) [#/Vol]Ordered By: Richard Corbett on 09-06-2024 Lymphocytes (Bld) [#/Vol] 0.81 10*3/uL Low 0.83-4.51 [facility] Lymphocytes/100 WBC Auto (Un sp spec)Ordered By: Richard Corbett on 09-06-2024 Lymphocytes/100 WBC (Bld) 13.9 % Low 19-41 [facility] M100.678on 09-06-2024 M100.678 Pending SARS-CoV-2 (COVID 19) Negative INFLUENZA A Negative INFLUENZA B Negative RSV PCR Negative Normal [facility] Comment on above: Performed By: #### M 100.678 ####[facility] [id number] [facility] [address] [place], [place], [id number] MCV (mean corpuscular volume ) determinationOrdered By: Richard Corbett on 09-06-2024 MCV (RBC) [Entitic vol] 89.6 fL 81-99 [facility] Mean corpuscular hemoglobin (MCH) determinationOrdered By: Richard Corbett on 09-06-2024 MCH (RBC) [Entitic mass] 28.1 pg 27.0-32.0 [facility] Mean corpuscular hemoglobin concentration (MCHC) determinationOrdered By: Richard Corbett on 09-06-2024 MCHC (RBC) [Mass/Vol] 31.4 g/dL Low 32-36 [facility] Mean platelet volume determi nationOrdered By: Richard Corbett on 09-06-2024 Platelet mean volume (Bld) [Entitic vol] 9.7 fL 6.2-12.0 [facility] Monocyte percentageOrdered B y: Richard Corbett on 09-06-2024 Monocytes/100 WBC (Bld) 6.2 % 0-10 [facility] Neutrophil percentageOrdered By: Richard Corbett on 09-06-2024 Neutrophils/100 WBC (Bld) 77.5 % High 47-70 [facility] Nucleated red blood cell per centageOrdered By: Richard Corbett on 09-06-2024 Nucleated RBC/100 WBC (Bld) [Ratio] 0 % 0-5 [facility] Platelet countOrdered By: Xiang Corbett on 09-06-2024 Platelets (Bld) [#/Vol] 208 10*3/uL 150-450 [facility] Potassium (Unsp spec) [Mass/ Vol]Ordered By: Richard Corbett on 09-06-2024 Potassium [Moles/Vol] 4.4 mmol/L 3.3-5.1 [facility] Comment on above: Hemolysis present, R esults could be affected. RBC Auto (Bld) [#/Vol]Ordere d By: Richard Corbett on 09-06-2024 RBC (Bld) [#/Vol] 3.66 10*6/uL Low 4.2-5.4 [facility] Serum creatinine measurement (mass/volume)Ordered By: Richard Corbett on 09-06-2024 Creatinine [Mass/Vol] 0.87 mg/dL 0.70-1.20 [facility] Serum glucose measurement (m ass/volume)Ordered By: Richard Corbett on 09-06-2024 Glucose [Mass/Vol] 92 mg/dL 70-99 [facility] Serum or plasma calcium luis urement (mass/volume)Ordered By: Richard Corbett on 09-06-2024 Calcium [Mass/Vol] 8.6 mg/dL 7.6-11.0 [facility] Serum or plasma urea nitroge n measurement (mass/volume)Ordered By: Richard Corbett on 03-18-2025 Urea nitrogen [Mass/Vol] 20 mg/dL High - [facility] Sodium levelOrdered By: Richard Corbett on 09-06-2024 Sodium [Moles/Vol] 141 mmol/L 133-145 [facility] White blood cell (WBC) count Ordered By: Richardmark Denisgalileo on 09-06-2024 WBC (Bld) [#/Vol] 5.8 10*3/uL 4.4-11.0 [facility] Cardiology Visit Reporton Cardiology Visit Report [facility] [address] [place] [address] OFFICE VISIT Date of Service: 06/09/24 MR#: [id number] Acct: [id number] Name: KARLA MINA Rep #: [id number] : 1945 Provider: MARTINA villarreal Age/Sex: 78/F Location: [facility] [place] Status: Signed HPI HPI History of Present Illness Details: This is a 78-year-old female that presents here today for a cardiovascular follow-up. She has a history of hypertension, hyperlipidemia, and paroxysmal atrial fibrillation. She appears now to be in permanent atrial fibrillation. She denies chest, arm, jaw, or neck discomfort. She denies palpitations. She denies bilateral lower extremity edema. She denies claudication. He states shortness of breath with activity and shortness of breath. This not new and most noted in the mornings. She denies orthopnea or PND. She denies chronic cough. She denies significant, sudden weight gain. She states lightheadedness when she first stands up. She denies dizziness, near-syncope, or syncope. She denies blood in urine, blood in stool, or epistaxis. He denies fever with chills. She denies myalgia. She denies fatigue. Her exercise level has remained stable. Intake Vital Signs 12/17/23 13:42 04/05/24 09:49 06/09/24 08:48 Height 5 ft 4 in 5 ft 4 in 5 ft 4 in Weight: 244 lb BMI 41.8 BP 150/56 H Blood Pressure Location Lt brachial Position Sitting Respiration 20 H Pulse 63 Pulse Source NIBP Pulse Oximetry (%) 85 Oxygen Delivery Method nasal canula Oxygen Flow Rate (L/min) 3 Intake Visit Reasons: 6 M FU Veneer Cutter Required: No Accompanied by: Daughter Is patient in pain?: No Allergies No Known Allergies Allergy (Verified 06/09/24 08:52) Medications ???Medication ???Instructions ???Recorded ???Confirmed ???Type ferrous sulfate 325 mg (65 mg 325 mg PO DAILY supplement 03/05/18 06/09/24 History iron) tablet ibuprofen 600 mg tablet 600 mg PO QHS pain 22 days 03/05/18 06/09/24 History calcium carbonate (Calcium 600) 600 mg PO BID supplement 01/31/20 06/09/24 History diphenhydramine HCl 25 mg capsule 25 mg PO QHS allergies 01/31/20 06/09/24 History (Allergy Relief (diphenhydramine)) ipratropium bromide 0.02 % 2.5 ml continuous nebulization Q6H 02/06/22 06/09/24 History solution for inhalation PRN shortness of breath or wheezing amlodipine 10 mg tablet 10 mg PO DAILY bp 90 days #90 tabs 09/30/22 06/09/24 Rx valsartan 80 mg tablet 80 mg PO BID bp 90 days #180 tabs 09/30/22 06/09/24 Rx docusate sodium 100 mg capsule 100 mg PO DAILY 04/07/23 06/09/24 History metformin 500 mg tablet 1,000 mg PO BID diabetes 90 days 04/07/23 06/09/24 History apixaban 5 mg tablet (Eliquis) 5 mg PO BID blood thinner #180 tabs 10/09/23 06/09/24 Rx atorvastatin 40 mg tablet 40 mg PO DAILY cholesterol 90 days 10/09/23 06/09/24 Rx #90 tabs potassium chloride 20 mEq 20 meq PO DAILY supplement #90 tabs 10/09/23 06/09/24 Rx tablet,extended release(part/cryst) insulin NPH isoph U-100 human 100 40 unit subcut DAILY 12/17/23 06/09/24 History unit/mL (3 mL) subcutaneous pen (Humulin N NPH U-100 Insulin KwikPen) albuterol sulfate 2.5 mg/3 mL 2.5 mg inhalation PRN PRN 03/28/24 06/09/24 History (0.083 %) solution for nebulization shortness of breath or wheezing insulin NPH isoph U-100 human 100 27 unit subcut QHS 03/28/24 06/09/24 History unit/mL subcutaneous suspension (Novolin N NPH U-100 Insulin isophane) insulin glargine 100 unit/mL 62 unit subcut QHS 03/28/24 06/09/24 History subcutaneous solution (Lantus U-100 Insulin) insulin regular human 100 unit/mL 20 unit subcut BID 03/28/24 06/09/24 History injection solution (Humulin R Regular U-100 Insulin) atenolol 50 mg tablet 50 mg PO QDAY 06/09/24 06/09/24 History esomeprazole magnesium 40 mg 40 mg PO QDAY 06/09/24 06/09/24 History capsule,delayed release furosemide 80 mg tablet 80 mg PO DAILY fluid retention 06/09/24 06/09/24 History Ejection fraction %: 60 Have you fallen in the past year?: No [facility] Medical History Wears dentures History of stress test History of echocardiogram Cardiology follow-up encounter Cubital tunnel syndrome on right Right carpal tunnel syndrome On home oxygen therapy Lower extremity edema Knee pain, acute Traumatic hematoma of right knee Anticoagulant long-term use Paroxysmal atrial fibrillation Essential (primary) hypertension Sciatica Hearing loss Peripheral neuropathic pain Hyperlipidemia Cataracts, bilateral Osteoarthritis Anemia GERD (gastroesophageal reflux disease) Type 2 diabetes mellitus Nicotine dependence Obesity Ectopic atrial tachycardia Surgical History ... Normal [facility] Orthopedic Visit Reporton Orthopedic Visit Report [facility] [address] [place] [address] [address] [place] [address] OFFICE VISIT Date of Service: 06/09/24 MR#: [id number] Acct: [id number] Name: KARLA MINA Rep #: [id number] : 1945 Provider: Dr. Isauro montgomery MD Age/Sex: 78/F Location: [facility] [place] Status: Signed Intake Vital Signs 04/05/24 09:49 06/09/24 08:48 Height 5 ft 4 in 5 ft 4 in Weight: 244 lb BMI 41.8 BP 150/56 H Blood Pressure Location Lt brachial Position Sitting Respiration 20 H Pulse 63 Pulse Source NIBP Pulse Oximetry (%) 85 Oxygen Delivery Method nasal canula Oxygen Flow Rate (L/min) 3 Intake Visit Reasons: RIGHT HAND Is patient in pain?: No Allergies No Known Allergies Allergy (Verified 06/09/24 10:31) Medications ???Medication ???Instructions ???Recorded ???Confirmed ???Type ferrous sulfate 325 mg (65 mg 325 mg PO DAILY supplement 03/05/18 06/09/24 History iron) tablet ibuprofen 600 mg tablet 600 mg PO QHS pain 22 days 03/05/18 06/09/24 History calcium carbonate (Calcium 600) 600 mg PO BID supplement 01/31/20 06/09/24 History diphenhydramine HCl 25 mg capsule 25 mg PO QHS allergies 01/31/20 06/09/24 History (Allergy Relief (diphenhydramine)) ipratropium bromide 0.02 % 2.5 ml continuous nebulization Q6H 02/06/22 06/09/24 History solution for inhalation PRN shortness of breath or wheezing amlodipine 10 mg tablet 10 mg PO DAILY bp 90 days #90 tabs 09/30/22 06/09/24 Rx valsartan 80 mg tablet 80 mg PO BID bp 90 days #180 tabs 09/30/22 06/09/24 Rx docusate sodium 100 mg capsule 100 mg PO DAILY 04/07/23 06/09/24 History metformin 500 mg tablet 1,000 mg PO BID diabetes 90 days 04/07/23 06/09/24 History apixaban 5 mg tablet (Eliquis) 5 mg PO BID blood thinner #180 tabs 10/09/23 06/09/24 Rx atorvastatin 40 mg tablet 40 mg PO DAILY cholesterol 90 days 10/09/23 06/09/24 Rx #90 tabs potassium chloride 20 mEq 20 meq PO DAILY supplement #90 tabs 10/09/23 06/09/24 Rx tablet,extended release(part/cryst) insulin NPH isoph U-100 human 100 40 unit subcut DAILY 12/17/23 06/09/24 History unit/mL (3 mL) subcutaneous pen (Humulin N NPH U-100 Insulin KwikPen) albuterol sulfate 2.5 mg/3 mL 2.5 mg inhalation PRN PRN 03/28/24 06/09/24 History (0.083 %) solution for nebulization shortness of breath or wheezing insulin NPH isoph U-100 human 100 27 unit subcut QHS 03/28/24 06/09/24 History unit/mL subcutaneous suspension (Novolin N NPH U-100 Insulin isophane) insulin glargine 100 unit/mL 62 unit subcut QHS 03/28/24 06/09/24 History subcutaneous solution (Lantus U-100 Insulin) insulin regular human 100 unit/mL 20 unit subcut BID 03/28/24 06/09/24 History injection solution (Humulin R Regular U-100 Insulin) atenolol 50 mg tablet 50 mg PO QDAY 06/09/24 06/09/24 History esomeprazole magnesium 40 mg 40 mg PO QDAY 06/09/24 06/09/24 History capsule,delayed release furosemide 80 mg tablet 80 mg PO DAILY fluid retention 06/09/24 06/09/24 History Have you fallen in the past year?: No PFSH Medical History Wears dentures History of stress test History of echocardiogram Cardiology follow-up encounter Cubital tunnel syndrome on right Right carpal tunnel syndrome On home oxygen therapy Lower extremity edema Knee pain, acute Traumatic hematoma of right knee Anticoagulant long-term use Paroxysmal atrial fibrillation Essential (primary) hypertension Sciatica Hearing loss Peripheral neuropathic pain Hyperlipidemia Cataracts, bilateral Osteoarthritis Anemia GERD (gastroesophageal reflux disease) Type 2 diabetes mellitus Nicotine dependence Obesity Ectopic atrial tachycardia Surgical History History of carpal tunnel surgery of right wrist History of dilatation and curettage History of hysteroscopy History of cataract surgery Family History Mother Hypertension Diabetes Father Lung cancer Sister Kidney disease Breast cancer Cancer liver, ovarian Hypertension Diabetes Brother Hypertension Diabetes Social History Smoking Status: Light Smoker (<10/day) alcohol intake: never substance use type: does not use caffeine: Yes Type: carbonated beverages and coffee HPI RIGHT HAND Details: This documentation accurately reflects the service provided and the decisions made by me, Dr. Isauro Lewis MD 06/09/24 0916. Part of today???s visit was documented by [ ], acting as scribe. KARLA MINA is a 78 year old F here today for 2.5 months follow-up right endoscopic carpal tunnel release and right cubital tunnel release. Patient doing (more content not included)... Normal [facility] Orthopedic Visit Reporton Orthopedic Visit Report [facility] [address] [place] [address] [address] [place] [address] OFFICE VISIT Date of Service: 04/12/24 MR#: [id number] Acct: [id number] Name: KARLA MINA Rep #: [id number] : 1945 Provider: Dr. Isauro montgomery MD Age/Sex: 78/F Location: [facility] [place] Status: Signed Intake Vital Signs 04/05/24 09:49 Height 5 ft 4 in Intake Visit Reasons: RIGHT HAND Accompanied by: Daughter Is patient in pain?: Yes Pain scale (1-10): 3 Allergies No Known Allergies Allergy (Verified 04/12/24 09:47) Medications ???Medication ???Instructions ???Recorded ???Confirmed ???Type esomeprazole magnesium 20 mg 40 mg PO DAILY stomach 90 days 03/05/18 04/12/24 History capsule,delayed release #180 caps ferrous sulfate 325 mg (65 mg 325 mg PO DAILY supplement 03/05/18 04/12/24 History iron) tablet ibuprofen 600 mg tablet 600 mg PO QHS pain 22 days 03/05/18 04/12/24 History calcium carbonate (Calcium 600) 600 mg PO BID supplement 01/31/20 04/12/24 History diphenhydramine HCl 25 mg capsule 25 mg PO QHS allergies 01/31/20 04/12/24 History (Allergy Relief (diphenhydramine)) ipratropium bromide 0.02 % 2.5 ml continuous nebulization Q6H 02/06/22 04/12/24 History solution for inhalation PRN shortness of breath or wheezing amlodipine 10 mg tablet 10 mg PO DAILY bp 90 days #90 tabs 09/30/22 04/12/24 Rx valsartan 80 mg tablet 80 mg PO BID bp 90 days #180 tabs 09/30/22 04/12/24 Rx atenolol 100 mg tablet 50 mg (1/2 x 100 mg) PO DAILY bp 04/07/23 04/12/24 Rx 90 days #45 tabs docusate sodium 100 mg capsule 100 mg PO DAILY 04/07/23 04/12/24 History metformin 500 mg tablet 1,000 mg PO BID diabetes 90 days 04/07/23 04/12/24 History apixaban 5 mg tablet (Eliquis) 5 mg PO BID blood thinner #180 tabs 10/09/23 04/12/24 Rx atorvastatin 40 mg tablet 40 mg PO DAILY cholesterol 90 days 10/09/23 04/12/24 Rx #90 tabs potassium chloride 20 mEq 20 meq PO DAILY supplement #90 tabs 10/09/23 04/12/24 Rx tablet,extended release(part/cryst) insulin NPH isoph U-100 human 100 40 unit subcut DAILY 12/17/23 04/12/24 History unit/mL (3 mL) subcutaneous pen (Humulin N NPH U-100 Insulin KwikPen) albuterol sulfate 2.5 mg/3 mL 2.5 mg inhalation PRN PRN 03/28/24 04/12/24 History (0.083 %) solution for nebulization shortness of breath or wheezing furosemide 80 mg tablet 40 mg PO DAILY fluid retention 03/28/24 04/12/24 History insulin NPH isoph U-100 human 100 27 unit subcut QHS 03/28/24 04/12/24 History unit/mL subcutaneous suspension (Novolin N NPH U-100 Insulin isophane) insulin glargine 100 unit/mL 62 unit subcut QHS 03/28/24 04/12/24 History subcutaneous solution (Lantus U-100 Insulin) insulin regular human 100 unit/mL 20 unit subcut BID 03/28/24 04/12/24 History injection solution (Humulin R Regular U-100 Insulin) oxycodone-acetamino phen 5 mg-325 1 tab PO Q4H PRN pain 3 days #14 03/30/24 04/12/24 Rx mg tablet (Percocet) tabs Have you fallen in the past year?: No PFSH Medical History Wears dentures History of stress test History of echocardiogram Cardiology follow-up encounter Cubital tunnel syndrome on right Right carpal tunnel syndrome On home oxygen therapy Lower extremity edema Knee pain, acute Traumatic hematoma of right knee Anticoagulant long-term use Paroxysmal atrial fibrillation Essential (primary) hypertension Sciatica Hearing loss Peripheral neuropathic pain Hyperlipidemia Cataracts, bilateral Osteoarthritis Anemia GERD (gastroesophageal reflux disease) Type 2 diabetes mellitus Nicotine dependence Obesity Ectopic atrial tachycardia Surgical History History of dilatation and curettage History of hysteroscopy History of cataract surgery Family History Mother Hypertension Diabetes Father Lung cancer Sister Kidney disease Breast cancer Cancer liver, ovarian Hypertension Diabetes Brother Hypertension Diabetes Social History Smoking Status: Current every day smoker tobacco type: cigarettes HPI RIGHT HAND Details: This documentation accurately reflects the service provided and the decisions made by me, Dr. Isauro Lewis MD 04/12/24 0938. Part of today???s visit was documented by [ ], acting as scribe. KARLA MINA is a 78 year old F here today for 2 week follow-up right endoscopic carpal tunnel release and right cubital tunnel release. Ortho Exam Right Wrist/Hand Skin/Wound: Yes CDI, Yes healed, No Swelling, No Ecchymosis, Yes nail intact and Yes capillary refill normal Motor: EPL: 5, FDP-2: 5, 1st Dorsal Interosseous: 5 and APB: (more content not included)... Normal [facility] Orthopedic Visit Reporton Orthopedic Visit Report [facility] [address] [place] [address] OFFICE VISIT Date of Service: 04/05/24 MR#: [id number] Acct: [id number] Name: KARLA MINA Rep #: [id number] : 1945 Provider: Dr. Isauro montgomery MD Age/Sex: 78/F Location: [facility] [place].[facility] Status: Signed Intake Vital Signs 03/30/24 08:14 04/05/24 09:49 Height 5 ft 4 in 5 ft 4 in Intake Visit Reasons: RIGHT HAND Is patient in pain?: Yes Allergies No Known Allergies Allergy (Verified 04/05/24 09:54) Medications ???Medication ???Instructions ???Recorded ???Confirmed ???Type esomeprazole magnesium 20 mg 40 mg PO DAILY stomach 90 days 03/05/18 04/05/24 History capsule,delayed release #180 caps ferrous sulfate 325 mg (65 mg 325 mg PO DAILY supplement 03/05/18 04/05/24 History iron) tablet ibuprofen 600 mg tablet 600 mg PO QHS pain 22 days 03/05/18 04/05/24 History calcium carbonate (Calcium 600) 600 mg PO BID supplement 01/31/20 04/05/24 History diphenhydramine HCl 25 mg capsule 25 mg PO QHS allergies 01/31/20 04/05/24 History (Allergy Relief (diphenhydramine)) ipratropium bromide 0.02 % 2.5 ml continuous nebulization Q6H 02/06/22 04/05/24 History solution for inhalation PRN shortness of breath or wheezing amlodipine 10 mg tablet 10 mg PO DAILY bp 90 days #90 tabs 09/30/22 04/05/24 Rx valsartan 80 mg tablet 80 mg PO BID bp 90 days #180 tabs 09/30/22 04/05/24 Rx atenolol 100 mg tablet 50 mg (1/2 x 100 mg) PO DAILY bp 04/07/23 04/05/24 Rx 90 days #45 tabs docusate sodium 100 mg capsule 100 mg PO DAILY 04/07/23 04/05/24 History metformin 500 mg tablet 1,000 mg PO BID diabetes 90 days 04/07/23 04/05/24 History apixaban 5 mg tablet (Eliquis) 5 mg PO BID blood thinner #180 tabs 10/09/23 04/05/24 Rx atorvastatin 40 mg tablet 40 mg PO DAILY cholesterol 90 days 10/09/23 04/05/24 Rx #90 tabs potassium chloride 20 mEq 20 meq PO DAILY supplement #90 tabs 10/09/23 04/05/24 Rx tablet,extended release(part/cryst) insulin NPH isoph U-100 human 100 40 unit subcut DAILY 12/17/23 04/05/24 History unit/mL (3 mL) subcutaneous pen (Humulin N NPH U-100 Insulin KwikPen) albuterol sulfate 2.5 mg/3 mL 2.5 mg inhalation PRN PRN 03/28/24 04/05/24 History (0.083 %) solution for nebulization shortness of breath or wheezing furosemide 80 mg tablet 40 mg PO DAILY fluid retention 03/28/24 04/05/24 History insulin NPH isoph U-100 human 100 27 unit subcut QHS 03/28/24 04/05/24 History unit/mL subcutaneous suspension (Novolin N NPH U-100 Insulin isophane) insulin glargine 100 unit/mL 62 unit subcut QHS 03/28/24 04/05/24 History subcutaneous solution (Lantus U-100 Insulin) insulin regular human 100 unit/mL 20 unit subcut BID 03/28/24 04/05/24 History injection solution (Humulin R Regular U-100 Insulin) oxycodone-acetamino phen 5 mg-325 1 tab PO Q4H PRN pain 3 days #14 03/30/24 04/05/24 Rx mg tablet (Percocet) tabs Have you fallen in the past year?: No (??) [facility] Medical History Wears dentures History of stress test History of echocardiogram Cardiology follow-up encounter Cubital tunnel syndrome on right Right carpal tunnel syndrome On home oxygen therapy Lower extremity edema Knee pain, acute Traumatic hematoma of right knee Anticoagulant long-term use Paroxysmal atrial fibrillation Essential (primary) hypertension Sciatica Hearing loss Peripheral neuropathic pain Hyperlipidemia Cataracts, bilateral Osteoarthritis Anemia GERD (gastroesophageal reflux disease) Type 2 diabetes mellitus Nicotine dependence Obesity Ectopic atrial tachycardia Surgical History History of dilatation and curettage History of hysteroscopy History of cataract surgery Family History Mother Hypertension Diabetes Father Lung cancer Sister Kidney disease Breast cancer Cancer liver, ovarian Hypertension Diabetes Brother Hypertension Diabetes Social History Smoking Status: Current every day smoker tobacco type: cigarettes HPI RIGHT HAND Details: This documentation accurately reflects the service provided and the decisions made by me, Dr. Isauro Lewis MD 04/05/24 0951. Part of today???s visit was documented by [ ], acting as scribe. KARLA MINA is a 78 year old F here today for 1 week follow-up right endoscopic carpal tunnel release and right cubital tunnel release. The patient is doing very well. Good sensation in the hand. No concerns. Ortho Exam Right Wrist/Hand Skin/Wound: Yes CDI, Yes healed, Yes wound(s) cleaned with betadine/alcohol and sterile water, Yes wound(s) man (more content not included)... Normal [facility] Bedside Glucoseon 03-30-2024 FINGERSTICK GLU 148 mg/dL High 74-106 [facility] Comment on above: Result Comment: NICOLAS SMITH OF PATIENT CARE PER NURSING PROTOCOL Performed By: #### L 501.080 ####[facility] [id number] [facility] [place], [address] Discharge Instructionon Discharge Instruction [facility] Medical Records Department [address] [place] [address] Instructions for Home/Discharge Instructions 03/30/24 1055 MR#: [id number] Acct: [id number] Name: KARLA MINA Rep #: [id number] : 1945 78 From: Isauro Lewis MD PCP: Dr. Kandis Dawson MD Status:REG [facility] Discharge Instructions Diet Discharge Diet: No restrictions Activity Discharge Activity: Return to Normal Activity Ice area for (Minutes): 10 Keep extremity elevated above heart level: Operative Extremity Additional Activity Instructions:: rom of elbow and wrist ok, gently, no heavy lifting Dressing / Incision Call your doctor if your incision/area has: Continuous Slow Oozing, Sudden Increased Bleeding, Increased Pain/ Swelling, Increased Redness, Foul Smelling Discharge and Swelling at the incision site Call your doctor if you observe: Fever of 101 or Higher, Coldness, Increased Pain and Numbness or Tingling Remove Dressing in: leave in place till F/U Cleanse incision/area with: Do not get Incision Wet Follow Up Care Please Follow Up With: Isauro Lewis MD When: 2 days Test Results: Test results from this visit will be discussed in further detail at your follow-up appointment, if applicable. Discharge Plan Admission Attending Provider: Isauro Lewis Primary Care Provider: Kandis Dawson Instructions Print Language: Dominican Discharge Orders/Prescription s Prescriptions: New oxycodone-acetamino phen [Percocet] 5-325 mg tablet 1 tab PO Q4H MDD 4 PRN (Reason: pain) 3 Days Qty: 14 0RF No Action ferrous sulfate 325 mg (65 mg iron) tablet 325 mg PO DAILY ibuprofen 600 mg tablet 600 mg PO QHS 22 Days Patient Comments: esomeprazole magnesium 20 mg capsule,delayed release(DR/EC) 40 mg PO DAILY 90 Days Qty: 180 Patient Comments: metformin 500 mg tablet 1,000 mg PO BID 90 Days Patient Comments: calcium carbonate [Calcium 600] 600 mg calcium (1,500 mg) tablet 600 mg PO BID diphenhydramine HCl [Allergy Relief(diphenhydram in)] 25 mg capsule 25 mg PO QHS ipratropium bromide 0.02 % solution 2.5 ml continuous nebulization Q6H PRN (Reason: shortness of breath or wheezing) Patient Comments: INHALE 1 VIAL IN NEBULIZER EVERY 6 HOURS NEEDED amlodipine 10 mg tablet 10 mg PO DAILY 90 Days Qty: 90 3RF valsartan 80 mg tablet 80 mg PO BID 90 Days Qty: 180 3RF docusate sodium 100 mg capsule 100 mg PO DAILY atenolol 100 mg tablet 50 mg PO DAILY 90 Days Qty: 45 0RF Humulin N NPH Insulin KwikPen 100 unit/mL (3 mL) insulin pen 40 unit subcut DAILY Humulin R Regular U-100 Insuln 100 unit/mL solution 20 unit subcut BID Patient Comments: INJECT 20 UNITS EVERY MORNING , THEN INJECT 20 UNITS EVERY EVENING Novolin N NPH U-100 Insulin 100 unit/mL suspension 27 unit subcut QHS insulin glargine [Lantus U-100 Insulin] 100 unit/mL solution 62 unit subcut QHS albuterol sulfate 2.5 mg /3 mL (0.083 %) Solution For Nebulization 2.5 mg inhalation PRN PRN (Reason: shortness of breath or wheezing) furosemide 80 mg tablet 40 mg PO DAILY Eliquis 5 mg tablet 5 mg PO BID Qty: 180 3RF Patient Comments: HOLD 03/27/24 FOR SURGERY ON 03/30/24 atorvastatin 40 mg tablet 40 mg PO DAILY 90 Days Qty: 90 3RF potassium chloride 20 mEq tablet,ER particles/crystals 20 meq PO DAILY Qty: 90 3RF Referrals / Follow Up: Kandis Dawson MD [Primary Care Provider] - Isauro Lewis MD [Med Staff - Active Staff] - Disposition Disposition (needs filled in before D/C Order can be placed): Home, Self Care 03/30/24 1057 Isauro Lewis MD CC: Dr. Kandis Dawson MD Signed [facility] MR/POSTOP.ANEon 03-30-2024 MR/POSTOP.[facility] Medical Records Department [address] [place] [address] Anesthesia Postop Eval I 03/30/24 1058 MR#: [id number] Acct: [id number] Name: KARLA MINA Rep #: [id number] : 1945 78 From: Wilner Rodriguez CRNA PCP: Dr. Kandis Dawson MD Status:REG [facility] Y Race: C Location: [place] [address] Anesthesia: Postop Eval I Current Vital Signs Temperature: 98 F Pulse Rate: 126 (Baseline 122) Blood Pressure: 145/122 Respiratory Rate: 25 (Baseline 22) Pulse Ox: 93 Oxygen Delivery Method: Venturi Mask Oxygen Flow Rate (L/min): 6 Assessment Airway patent: Yes Spontaneous unlabored respirations: Yes Mental status: Awake and Uncooperative nausea: No Vomiting: No Anesthesia Complication: No Fluid Hydration Crystalloid volume administer (ml): 30 Total IV fluid infused: 30 Progress Note Anesthesia document: Postop Eval 1 completed: Yes 03/30/24 105 Date Wilner Rodriguez CRNA Cosigner Signature: Date CC: Signed [facility] MR/[email or web address] 03-30-2024 [facility] Medical Records Department [address] [place] [address] Anesthesia Postop Eval II 03/30/24 1142 MR#: [id number] Acct: [id number] Name: KARLA MINA Rep #: [id number] : 1945 78 From: Anders Albright MD PCP: Dr. Kandis Dawson MD Status:REG [facility] Y Race: C Location: [place] [address]- Anesthesia Postop Eval I Sum Postop Eval Completion status Anesthesia document: Postop Eval 1 completed: Yes Anesthesia Postop Eval I Summary Anesthesia Postop Eval I Summary: Anesthesia Postop Eval I: Assessment Summary Airway patent Yes 03/30/24 10:59 [address] RECORDING [email or web address] Spontaneous unlabored Yes 03/30/24 10:59 [address] RECORDING [email or web address] respirations Mental status Awake, 03/30/24 10:59 [address] RECORDING [email or web address] Uncooperative nausea No 03/30/24 10:59 [address] RECORDING [email or web address] Vomiting No 03/30/24 10:59 [address] RECORDING [email or web address] Anesthesia Postop Eval I: Fluid Summary Crystalloid volume administer 30 03/30/24 10:59 [address] RECORDING [email or web address] (ml) Colloids volume administered ( ml) Blood Product volume administered (ml) Total IV fluid infused 30 03/30/24 10:59 [address] RECORDING [email or web address] Anesthesia Postop Eval I: Summary Notes Anesthesia Complication No 03/30/24 10:59 [address] RECORDING [email or web address] Anesthesia Complication Comment: Post-operative progress note Anesthesia: Postop Eval II Evaluation Mental status: Awake and Calm (Patient is more awake and cooperative now.) Pain Level: 1 nausea: No Vomiting: No Complications Anesthesia Complication: No 03/30/24 1147 Date Anders Albright MD Cosigner Signature: Date CC: Signed [facility] Operative Reporton 4 Operative Report [facility] Medical Records Department [address] [place] [address] Operative Report 03/30/24 1049 MR#: [id number] Acct: [id number] Name: KARLA MINA Rep #: [id number] : 1945 78 From: Isauro Lewis MD PCP: Dr. Kandis Dawson MD Status:[facility] Location: [place] [address] Problems Associated Problem List Diagnoses (1) Cubital tunnel syndrome on right: (2) Right carpal tunnel syndrome: Report of Operation Date of Procedure: 03/30/24 Pre-Operative Diagnosis: R carpal tunnel syndrome and right cubital tunnel release Post-Operative Diagnosis: same Surgery/Procedure Performed:: Right endoscopic carpal tunnel release and right cubital tunnel release Surgeon: Isauro Lewis Type of Anesthesia: Local MAC Anesthesiologist: Rolando Jennings Estimated Blood Loss (mL): 20 Description of Procedure: Patient brought to the operating room theater. Placed upon on the table. General anesthesia induced by the anesthetic team. Patient placed supine on the table all bony prominences padded. SCDs on the legs. Bed turned 90 degrees. Hand table used. Tourniquet applied properly padded to the upper extremity. Upper extremity prepped and draped in the usual sterile fashion with chlorhexidine-based prep solution allowing over 3 minutes drying time prior to draping. Preoperative timeout performed to confirm the site patient and the surgery. Began by elevating the limb and inflated the tourniquet to 250 mmHg. Used a bump under the elbow. Externally rotated the shoulder. Made a longitudinal incision over the medial aspect of the elbow overlying the ulnar nerve. Carried the dissection down through skin and subcutaneous tissue achieved meticulous hemostasis. Identified the nerve proximally followed this distally down through the cubital tunnel into the 2 heads of FCU, all the way to the first motor branch. Released all overlying fascia from the nerve. There was a positive hourglass sign just distal to the medial epicondyle. No osteophytes. I released the nerve from any sites of entrapment like the cubital tunnel ligament as well as 2 heads of the FCU medial intermuscular septum as well as proximally at the arcade of [place]. Released Zambrano's ligament took out a small central strip of this as it was a bit hypertrophic. Nerve was stable to range of motion no subluxation of the nerve. Left in situ. I used the Arthex center line endoscopic carpal tunnel kit / technique. I made a transverse 2 cm incision in line with the??? transverse wrist crease.??? This was in line with the fourth digit.??? I carried the dissection down through skin and subcutaneous tissue achieved meticulous hemostasis. Just ulnar to palmaris tendon.??? I incised the antebrachial fascia.??? I passed sequential dilators into the carpal tunnel along the radial border of the Guyon's canal aiming for the fourth digit with the hand in extension.??? I used a synovial elevator to identify the transverse fibers of the transverse carpal tunnel ligament.??? Passed the scope into the carpal tunnel. Once I had identified the full proximal and distal extent of the ligament I fully released the ligament under direct visualization by deploying the blade and slowly withdrawing the scope made sequential passes until I no longer felt tension as well as the entire extent of the ligament was released under direct visualization.??? Sounded the tunnel with penny tenotomy scissors, complete release, no bands. Arthroscope light was more visible through the skin. Pictures taken and saved. Wounds thoroughly irrigated.??? 11cc 0.25% bupivicaine for local anesthesia. Tourniquet let down prior to end of the case and meticulous hemostasis achieved.??? Thorough irrigation.? Incisions closed with 2-0 vicryl and 3-0 moncryl for the skin.???Then adaptic 4x4 gauze and ondina. Patient woken up,??? transferred off the operating room table and taken to postanesthetic care unit in stable condition. All sponge needle instrument counts were correct no complications.??? Plan for the patient to be discharged home according to day surgery criteria when they are comfortable. Follow-up in the office in 2 days time. Gentle ROM hand and elbow no heavy lifting. cpt 95817???and [id number] door serviceman finesse for positioning and retracting Procedure Start Time: 10:01 Procedure Stop Time: 10:43 Complications none Admit VTE Documentation VTE Present on Admission: No VTE Mechan Device Prophylaxis: SCD's VTE Pharm Prophylaxis ordered?: No Reason prophylaxis not ordered:: Treatment Not Indicated Procedures Musculoskeletal 20xxx-29xxx: Other Procedure See Report 03/30/24 1055 Cosigner Signature (if applicable): CC: Dr. Kandis Dawson MD; Dr. Isauro Lewis MD Signed Normal [facility] Orthopedic Visit Reporton Orthopedic Visit Report [facility] [address] [place] [address] [address] [place] [address] OFFICE VISIT Date of Service: 02/11/24 MR#: [id number] Acct: [id number] Name: KARLA MINA Rep #: [id number] : 1945 Provider: Dr. Isauro montgomery MD Age/Sex: 78/F Location: [facility] [place] Status: Signed Intake Vital Signs 11/05/23 09:54 12/17/23 13:42 Height 5 ft 4 in 5 ft 4 in Weight: 247 lb 2 oz BMI 42.4 BP 136/61 H Blood Pressure Location Lt brachial Position Sitting Respiration 18 Pulse 59 L Pulse Source Monitor Intake Visit Reasons: RIGHT HAND Chief Complaint: pain and numbness Is patient in pain?: Yes Pain scale (1-10): 3 Allergies No Known Allergies Allergy (Verified 02/11/24 08:57) Medications ???Medication ???Instructions ???Recorded ???Confirmed ???Type esomeprazole magnesium 20 mg 40 mg PO DAILY stomach 90 days 03/05/18 02/11/24 History capsule,delayed release #180 caps ferrous sulfate 325 mg (65 mg 325 mg PO DAILY supplement 03/05/18 02/11/24 History iron) tablet ibuprofen 600 mg tablet 600 mg PO QHS pain 22 days 03/05/18 02/11/24 History calcium carbonate (Calcium 600) 1,200 mg PO DAILY supplement 01/31/20 02/11/24 History diphenhydramine HCl 25 mg capsule 25 mg PO QHS allergies 01/31/20 02/11/24 History (Allergy Relief (diphenhydramine)) acetaminophen 325 mg tablet 650 mg (2 x 325 mg) PO Q4H PRN PRN 11/20/21 02/11/24 Rx (Tylenol) Fever, pain 1-03/31 #0 tabs albuterol sulfate 2.5 mg/3 mL 2.5 mg (3 mL) inhalation Q4H.RT #0 11/20/21 02/11/24 Rx (0.083 %) solution for nebulization mL ipratropium bromide 0.02 % ml continuous nebulization Q6H 02/06/22 02/11/24 History solution for inhalation amlodipine 10 mg tablet 10 mg PO DAILY bp 90 days #90 tabs 09/30/22 02/11/24 Rx valsartan 80 mg tablet 80 mg PO BID bp 90 days #180 tabs 09/30/22 02/11/24 Rx atenolol 100 mg tablet 50 mg (1/2 x 100 mg) PO DAILY bp 04/07/23 02/11/24 Rx 90 days #45 tabs docusate sodium 100 mg capsule 100 mg PO DAILY 04/07/23 02/11/24 History metformin 500 mg tablet 500 mg PO .QID diabetes 90 days 04/07/23 02/11/24 History apixaban 5 mg tablet (Eliquis) 5 mg PO BID blood thinner #180 tabs 10/09/23 02/11/24 Rx atorvastatin 40 mg tablet 40 mg PO DAILY cholesterol 90 days 10/09/23 02/11/24 Rx #90 tabs furosemide 80 mg tablet 80 mg PO DAILY fluid retention #90 10/09/23 02/11/24 Rx tabs potassium chloride 20 mEq 20 meq PO DAILY supplement #90 tabs 10/09/23 02/11/24 Rx tablet,extended release(part/cryst) insulin NPH isoph U-100 human 100 40 unit subcut BIDCM 12/17/23 02/11/24 History unit/mL (3 mL) subcutaneous pen (Humulin N NPH U-100 Insulin KwikPen) insulin lispro 100 unit/mL 20 unit subcut ACHS 12/17/23 02/11/24 History subcutaneous pen (Humalog KwikPen (U-100) Insulin) Have you fallen in the past year?: No FOR[facility] Medical History Cubital tunnel syndrome on right Right carpal tunnel syndrome On home oxygen therapy Lower extremity edema Knee pain, acute Traumatic hematoma of right knee Anticoagulant long-term use Paroxysmal atrial fibrillation Essential (primary) hypertension Sciatica Hearing loss Peripheral neuropathic pain Hyperlipidemia Cataracts, bilateral Osteoarthritis Anemia GERD (gastroesophageal reflux disease) Type 2 diabetes mellitus Nicotine dependence Obesity Ectopic atrial tachycardia Surgical History History of dilatation and curettage History of hysteroscopy History of cataract surgery Family History Mother Hypertension Diabetes Father Lung cancer Sister Kidney disease Breast cancer Cancer liver, ovarian Hypertension Diabetes Brother Hypertension Diabetes Social History Smoking Status: Current every day smoker tobacco type: cigarettes HPI RIGHT HAND Details: This documentation accurately reflects the service provided and the decisions made by me, Dr. Isauro Lewis MD 02/11/24 0853. Part of today???s visit was documented by [ ], acting as scribe. KARLA MINA is a 78 year old F here today for 2 months follow-up for right carpal tunnel syndrome and cubital tunnel syndrome. Patient states the hand numbness is getting worse it is in all the fingers. Patient did try the nighttime splint for the last 6 weeks. The patient has diabetes hemoglobin A1c 7.1 most recently I do not have that formally. Smoker 7 to 10 cigarettes a day. The patient also is on home oxygen. Ortho Exam General General: Yes no acute distress Neurologic: Yes alert and Yes oriented x3 Psychologic: Yes reasonable and appropriate Right Wrist/H (more content not included)... Normal [facility] Echo Complete W/ Contraston 01-12-2024 Echo Complete W/ Contrast [facility] [address] [place] [address] Echo Complete W/ Contrast 01/12/24 1015 MR#: [id number] Acct: [id number] Name: KARLA MINA Rep #: [id number] : 1945 78 From: Osman Montez MD Attending Dr: Dr. Osman Montez MD Status: MIKA WATTERS Ordering Dr: Osman Montez MD Date: 01/12/24 Location: [facility] Sex: F C Admitted: Reason For Study: ATRIAL FIBRILLATION Procedure This was a 2D Doppler, Color Flow transthoracic echocardiogram. The study was technically difficult. Due to body habitus and deep respirations. Contrast injection was performed. Exam performed in department. Left Ventricle Normal LV size. Left ventricular systolic function is normal. The left ventricular ejection fraction is 60 %. Stage 2 diastolic dysfunction. No regional wall motion abnormalities noted. Right Ventricle Normal RV size. Normal systolic function. Atria The left atrium is moderately enlarged. Normal right atrium. Aortic Valve The aortic valve is not well visualized. Mild (1+) aortic valve insufficiency. Great Vessels Normal aortic root. Pericardium/Pleural No pericardial effusion. Medication 22 gauge I.V. with prn adaptor inserted into right arm. Diluted definity 2.5ml given slow IV push to enhance endocardial definition. MMode/2D Measurements Calculations LVIDd: 4.6 cm FS: 30.5 % Ao root diam: 3.0 cm LVIDs: 3.2 cm RVDd: 4.0 cm LAV(MOD-bp): 92.3 ml SV(MOD-sp4): 57.4 ml LVAd ap4: 27.8 cm2 LAV(MOD-bp) Indexed: 43.1 ml/m2 LVLd ap4: 7.9 cm LAV(MOD-sp2): 87.8 ml EDV(MOD-sp4): 79.2 ml LAV(MOD-sp4): 85.0 ml EDV(sp4-el): 83.0 ml LVAs ap4: 13.0 cm2 LVLs ap4: 6.3 cm ESV(MOD-sp4): 21.8 ml ESV(sp4-el): 22.9 ml EF(MOD-sp4): 72.4 % EF(sp4-el): 72.4 % SV(sp4-el): 60.1 ml LA dimension(2D): 4.4 cm LA A4 area: 26.5 cm2 TAPSE: 2.3 cm RA A4 area: 14.6 cm2 Time Measurements MV dec time: 0.22 sec Doppler Measurements Calculations MV E max mani: 109.7 cm/sec Lat Peak E' Mani: 4.2 cm/sec MV V2 max: 112.2 cm/sec MV A max mani: 61.1 cm/sec E/E' lat: 26.1 MV max P.0 mmHg MV E/A: 1.8 MV V2 mean: 47.4 cm/sec MV mean P.2 mmHg MV V2 VTI: 30.5 cm MV P1/2t max main: 123.4 cm/sec Ao V2 max: 141.7 cm/sec AI max mani: 273.6 cm/sec MV P1/2t: 69.3 msec Ao max P.1 mmHg AI max P.9 mmHg Ao V2 mean: 101.9 cm/sec MV dec slope: 521.7 cm/sec2 Ao mean P.7 mmHg AI dec slope: 136.0 cm/sec2 MVA(P1/2t): 3.2 cm2 Ao V2 VTI: 38.9 cm AI P1/2t: 589.1 msec AV (velocity ratio): 0.85 LV V1 max: 119.8 cm/sec PA V2 max: 110.5 cm/sec LV V1 max P.7 mmHg PA V2 mean: 75.8 cm/sec LV V1 mean P.4 mmHg LV V1 mean: 87.8 cm/sec LV V1 VTI: 32.9 cm ECHO/Echo Complete W/ Contrast Interpretation Summary Normal LV size. Left ventricular systolic function is normal. The left ventricular ejection fraction is 60 %. Stage 2 diastolic dysfunction. Contrast injection was performed. The study was technically difficult. __ Ordering Physician: Osman Montez Referring Physician: Kandis Dawson Performed By: Karyna Rothman, MARILIA, RVT 01/12/24 1257 Date Osman Montez MD CC: Dr. Osman Montez MD; Dr. Kandis Dawson MD Date Dictated: 01/12/24 1015 Date Transcribed: 01/12/24 1257 Manager Code: Signed Normal [facility] Cardiology Visit Reporton Cardiology Visit Report [facility] [address] [place] [address] OFFICE VISIT Date of Service: 12/17/23 MR#: [id number] Acct: [id number] Name: KARLA MINA Rep #: [id number] : 1945 Provider: Dr. Osman Montez MD Age/Sex: 78/F Location: [facility] [place] Status: Signed [facility] History of Present Illness Details: This is a 78-year-old female that presents here today for a cardiovascular follow-up. She has a history of hypertension, hyperlipidemia, and paroxysmal atrial fibrillation. She appears now to be in permanent atrial fibrillation. She denies chest, arm, jaw, or neck discomfort. She states continual shortness of breath with exertion. She states symptoms of shortness of breath at rest. She denies orthopnea, PND, sudden weight gain, or bilateral lower extremity edema. She denies chronic cough. She states one episodes of lightheadedness when using the bathroom. She denies palpitations, dizziness or near syncope. She states passing out her whole life. She denies claudication issues. She denies fever or chills. She denies blood in stool or epistaxis. She states intermittent blood in urine. She denies myalgia. She denies unexplainable fatigue. Her exercise tolerance is stable. She expresses concerns regarding right arm numbness. Intake Vital Signs 11/05/23 09:54 12/17/23 13:42 Height 5 ft 4 in 5 ft 4 in Weight: 244 lb 6 oz 247 lb 2 oz BMI 41.9 42.4 BP 136/61 H Blood Pressure Location Lt brachial Position Sitting Respiration 18 Pulse 59 L Pulse Source Monitor Intake Visit Reasons: 1 Y FU Is patient in pain?: No Allergies No Known Allergies Allergy (Verified 12/17/23 13:45) Medications ???Medication ???Instructions ???Recorded ???Confirmed ???Type esomeprazole magnesium 20 mg 40 mg PO DAILY stomach 90 days 03/05/18 12/17/23 History capsule,delayed release #180 caps ferrous sulfate 325 mg (65 mg 325 mg PO DAILY supplement 03/05/18 12/17/23 History iron) tablet ibuprofen 600 mg tablet 600 mg PO QHS pain 22 days 03/05/18 12/17/23 History calcium carbonate (Calcium 600) 1,200 mg PO DAILY supplement 01/31/20 12/17/23 History diphenhydramine HCl 25 mg capsule 25 mg PO QHS allergies 01/31/20 12/17/23 History (Allergy Relief (diphenhydramine)) acetaminophen 325 mg tablet 650 mg (2 x 325 mg) PO Q4H PRN PRN 11/20/21 12/17/23 Rx (Tylenol) Fever, pain -03/31 #0 tabs albuterol sulfate 2.5 mg/3 mL 2.5 mg (3 mL) inhalation Q4H.RT #0 11/20/21 12/17/23 Rx (0.083 %) solution for nebulization mL ipratropium bromide 0.02 % ml continuous nebulization Q6H 02/06/22 12/17/23 History solution for inhalation amlodipine 10 mg tablet 10 mg PO DAILY bp 90 days #90 tabs 09/30/22 12/17/23 Rx valsartan 80 mg tablet 80 mg PO BID bp 90 days #180 tabs 09/30/22 12/17/23 Rx atenolol 100 mg tablet 50 mg (1/2 x 100 mg) PO DAILY bp 04/07/23 12/17/23 Rx 90 days #45 tabs docusate sodium 100 mg capsule 100 mg PO DAILY 04/07/23 12/17/23 History metformin 500 mg tablet 500 mg PO .QID diabetes 90 days 04/07/23 12/17/23 History apixaban 5 mg tablet (Eliquis) 5 mg PO BID blood thinner #180 tabs 10/09/23 12/17/23 Rx atorvastatin 40 mg tablet 40 mg PO DAILY cholesterol 90 days 10/09/23 12/17/23 Rx #90 tabs furosemide 80 mg tablet 80 mg PO DAILY fluid retention #90 10/09/23 12/17/23 Rx tabs potassium chloride 20 mEq 20 meq PO DAILY supplement #90 tabs 10/09/23 12/17/23 Rx tablet,extended release(part/cryst) insulin NPH isoph U-100 human 100 40 unit subcut BIDCM 12/17/23 12/17/23 History unit/mL (3 mL) subcutaneous pen (Humulin N NPH U-100 Insulin KwikPen) insulin lispro 100 unit/mL 20 unit subcut ACHS 12/17/23 12/17/23 History subcutaneous pen (Humalog KwikPen (U-100) Insulin) Have you fallen in the past year?: No [facility] Medical History Cubital tunnel syndrome on right Right carpal tunnel syndrome On home oxygen therapy Lower extremity edema Knee pain, acute Traumatic hematoma of right knee Anticoagulant long-term use Paroxysmal atrial fibrillation Essential (primary) hypertension Sciatica Hearing loss Peripheral neuropathic pain Hyperlipidemia Cataracts, bilateral Osteoarthritis Anemia GERD (gastroesophageal reflux disease) Type 2 diabetes mellitus Nicotine dependence Obesity Ectopic atrial tachycardia Surgical History History of dilatation and curettage History of hysteroscopy History of cataract surgery Family History Mother Hypertension Diabetes Father Lung cancer Sister Kidney disease Breast cancer Cancer liver, ovarian Hypertension Diabetes Brother Hypertension Diabetes (more content not included)... Normal [facility] Orthopedic Visit Reporton Orthopedic Visit Report [facility] [address] [place] [address] OFFICE VISIT Date of Service: 12/17/23 MR#: [id number] Acct: [id number] Name: KARLA MINA Rep #: [id number] : 1945 Provider: Dr. Isauro montgomery MD Age/Sex: 78/F Location: [facility] [place].[facility] Status: Signed Intake Vital Signs 11/05/23 09:54 Height 5 ft 4 in Weight: 244 lb 6 oz BMI 41.9 Intake Visit Reasons: RIGHT HAND Is patient in pain?: No Allergies No Known Allergies Allergy (Verified 12/17/23 08:58) Medications ???Medication ???Instructions ???Recorded ???Confirmed ???Type esomeprazole magnesium 20 mg 40 mg PO DAILY stomach 90 days 03/05/18 12/17/23 History capsule,delayed release #180 caps ferrous sulfate 325 mg (65 mg 325 mg PO DAILY supplement 03/05/18 12/17/23 History iron) tablet ibuprofen 600 mg tablet 600 mg PO QHS pain 22 days 03/05/18 12/17/23 History calcium carbonate (Calcium 600) 1,200 mg PO DAILY supplement 01/31/20 12/17/23 History diphenhydramine HCl 25 mg capsule 25 mg PO QHS allergies 01/31/20 12/17/23 History (Allergy Relief (diphenhydramine)) acetaminophen 325 mg tablet 650 mg (2 x 325 mg) PO Q4H PRN PRN 11/20/21 12/17/23 Rx (Tylenol) Fever, pain -03/31 #0 tabs albuterol sulfate 2.5 mg/3 mL 2.5 mg (3 mL) inhalation Q4H.RT #0 11/20/21 12/17/23 Rx (0.083 %) solution for nebulization mL insulin NPH isoph U-100 human 100 35 unit (0.35 mL) subcut BIDCM #0 11/20/21 12/17/23 Rx unit/mL (3 mL) subcutaneous pen mL (Humulin N NPH U-100 Insulin KwikPen) insulin lispro 100 unit/mL See Protocol subcut ACHS #0 mL 11/20/21 12/17/23 Rx subcutaneous pen (Humalog KwikPen (U-100) Insulin) ipratropium bromide 0.02 % ml continuous nebulization Q6H 02/06/22 12/17/23 History solution for inhalation amlodipine 10 mg tablet 10 mg PO DAILY bp 90 days #90 tabs 09/30/22 12/17/23 Rx valsartan 80 mg tablet 80 mg PO BID bp 90 days #180 tabs 09/30/22 12/17/23 Rx atenolol 100 mg tablet 50 mg (1/2 x 100 mg) PO DAILY bp 04/07/23 12/17/23 Rx 90 days #45 tabs docusate sodium 100 mg capsule 100 mg PO DAILY 04/07/23 12/17/23 History metformin 500 mg tablet 500 mg PO .QID diabetes 90 days 04/07/23 12/17/23 History apixaban 5 mg tablet (Eliquis) 5 mg PO BID blood thinner #180 tabs 10/09/23 12/17/23 Rx atorvastatin 40 mg tablet 40 mg PO DAILY cholesterol 90 days 10/09/23 12/17/23 Rx #90 tabs furosemide 80 mg tablet 80 mg PO DAILY fluid retention #90 10/09/23 12/17/23 Rx tabs potassium chloride 20 mEq 20 meq PO DAILY supplement #90 tabs 10/09/23 12/17/23 Rx tablet,extended release(part/cryst) Have you fallen in the past year?: No (unknown did not ask) PFSH Medical History Cubital tunnel syndrome on right Right carpal tunnel syndrome On home oxygen therapy Lower extremity edema Knee pain, acute Traumatic hematoma of right knee Anticoagulant long-term use Paroxysmal atrial fibrillation Essential (primary) hypertension Sciatica Hearing loss Peripheral neuropathic pain Hyperlipidemia Cataracts, bilateral Osteoarthritis Anemia GERD (gastroesophageal reflux disease) Type 2 diabetes mellitus Nicotine dependence Obesity Ectopic atrial tachycardia Surgical History History of dilatation and curettage History of hysteroscopy History of cataract surgery Family History Mother Hypertension Diabetes Father Lung cancer Sister Kidney disease Breast cancer Cancer liver, ovarian Hypertension Diabetes Brother Hypertension Diabetes Social History Smoking Status: Current every day smoker tobacco type: cigarettes HPI RIGHT HAND Details: This documentation accurately reflects the service provided and the decisions made by me, Dr. Isauro Lewis MD 12/17/23 0822. Part of today???s visit was documented by [ ], acting as scribe. KARLA MINA is a 78 year old F here today for 6 weeks follow-up for right carpal tunnel syndrome and cubital tunnel syndrome. Today the patient is doing very well. They feel like the nighttime bracing has been helping and the numbness is almost completely resolved in the hand. The patient does describe a little bit of triggering of the fingers. Mostly in the index finger. Ortho Exam General General: Yes no acute distress Neurologic: Yes alert and Yes oriented x3 Psychologic: Yes reasonable and appropriate Coding Level of Care Code Off vis,est,level 3 Diagnoses Right carpal tunnel syndrome G56.01 Cubital tunnel syndrome on right G56.21 Assessment and Plan Assessment and Plan (1) Right carpal tunnel syndrome: Status: Acu (more content not included)... Normal [facility] Absolute lymphocyte countOrd ered By: Kandis Dawson on 03-07-2023 Lymphocytes Auto (Unsp spec) [#/Vol] 1.29 10*3/uL 0.83-4.51 [facility] Basophil percentageOrdered B y: Kandis Dawson on 03-07-2023 Basophils/100 WBC (Bld) 0.7 % 0-1 [facility] Bilirubin [Mass/Vol] 0.50 mg/dL 0.20-1.00 [facility] Comment on above: For patients on eltr ombopag therapy, use of Dimension [place] TBIL is not recommended. Chloride [Moles/Vol] 109 mmol/L 98-107 [facility] Cholesterol [Mass/Vol] 98 mg/dL <200 [facility] Comment on above: <200 mg/dL Desirable 200-240 mg/dL Borderline >240 mg/dL High Risk Eosinophils/100 WBC (Bld) 2.8 % 0-5 [facility] Glucose [Mass/Vol] 114 mg/dL 74-106 [facility] Comment on above: Fasting Glucose resu lt from 100 to 125 mg/dL suggests IMPAIRED HOMEOSTASIS per A.D.A. criteria. Neutrophils (Bld) [#/Vol] 3.9 10*3/uL 2.0-7.7 [facility] Neutrophils/100 WBC (Bld) 67.4 % 47-70 [facility] Potassium [Moles/Vol] 4.0 mmol/L 3.5-5.1 [facility] Protein [Mass/Vol] 6.5 g/dL 6.4-8.2 [facility] Sodium [Moles/Vol] 142 mmol/L 136-145 [facility] Triglyceride [Mass/Vol] 173 mg/dL <199 [facility] Comment on above: The drugs N-Acetylcy steine and Metamizole may falsely depress this assay.Serum Triglycerides Reference Interval Normal <150 mg/dL Borderline high 150 - 199 mg/dL High 200 - 499 mg/dL Very High > or = 500 mg/dL WBC (Bld) [#/Vol] 5.8 10*3/uL 4.4-11.0 [facility] Blood erythrocytes count (nu mber/volume)Ordered By: Kandis Dawson on 03-07-2023 RBC (Bld) [#/Vol] 4.17 10*6/uL 4.2-5.4 [facility] Blood hemoglobin measurement (mass/volume)Ordered By: Kandis Dawson on 03-07-2023 Hemoglobin (Bld) [Mass/Vol] 12.3 g/dL 12.0-15.0 [facility] Blood lymphocytes/100 leukoc ytesOrdered By: Kandis Dawson on 03-07-2023 Lymphocytes/100 WBC (Bld) 22.2 % 19-41 [facility] Blood monocytes/100 leukocyt esOrdered By: Kandis Dawson on 03-07-2023 Monocytes/100 WBC (Bld) 6.6 % 0-10 [facility] Blood platelet mean volumeOr dered By: Kandis Dawson on 03-07-2023 Platelet mean volume (Bld) [Entitic vol] 10.4 fL 6.2-12.0 [facility] Determination of erythrocyte mean corpuscular volume (MCV)Ordered By: Kandis Dawson on 03-07-2023 MCV (RBC) [Entitic vol] 93.5 fL 81-99 [facility] Hematocrit Auto (Bld) [Volum e fraction]Ordered By: Kandis Dawson on 03-07-2023 Hematocrit (Bld) [Volume fraction] 39.0 % 37-47 [facility] - Chemistry and C hemistry - challengeOrdered By: Kandis Dawson on 03-07-2023 ALP [Catalytic activity/Vol] 70 U/L 45-117 [facility] ALT [Catalytic activity/Vol] 21 U/L 13-56 [facility] CO2 [Moles/Vol] 28.0 mmol/L 21.0-32.0 [facility] Globulin (S) [Mass/Vol] 3.4 g/dL 2.2-4.2 [facility] Urea nitrogen/Creatinine [Mass ratio] 21.0 mg/mg 10-20 [facility] - Hematology and Cell countsOrdered By: Kandis Dawson on 03-07-2023 Erythrocyte distribution width (RBC) [Entitic vol] 44.8 fL 35.1-43.9 [facility] Erythrocyte distribution width (RBC) [Ratio] 13.2 % 11.6-14.6 [facility] Immature granulocytes/100 WBC (Bld) 0.300 % 0.0-0.9 [facility] Comment on above: IG% - Immature Granu locytes (promyelocytes, myelocytes and metamyelocytes) > 1% indicates that a LEFT SHIFT is Present. MCH (RBC) [Entitic mass] 29.5 pg 27.0-32.0 [facility] Nucleated RBC/100 WBC (Bld) [Ratio] 0 % 0-5 [facility] MCHC Auto (RBC) [Mass/Vol]Or dered By: Kandis Dawson on 03-07-2023 MCHC (RBC) [Mass/Vol] 31.5 g/dL 32-36 [facility] No Panel InformationOrdered By: Kandis Dawson on 03-07-2023 Estimated GFR (MDRD) Amer 83 mL/min >60 [facility] Comment on above: GFR Calc Estimated GFR (MDRD) Non-Af Amer 68 mL/min >60 [facility] Comment on above: Non- GFR Calc Urine Microalbumin/Creatinine Ratio 328.9 mg/g CRE <30 [facility] Platelets bldOrdered By: Papi Dawson on 03-07-2023 Platelets (Bld) [#/Vol] 209 10*3/uL 150-450 [facility] Serum or plasma albumin luis urement (mass/volume)Ordered By: Kandis Dawson on 03-07-2023 Albumin [Mass/Vol] 3.1 g/dL 3.2-5.0 [facility] Serum or plasma albumin/glob ulin mass ratioOrdered By: Kandis Dawson on 03-07-2023 Albumin/Globulin [Mass ratio] 0.9 {ratio} 0.9-2.4 [facility] Serum or plasma calcium luis urement (mass/volume)Ordered By: Kandis Dawson on 03-07-2023 Calcium [Mass/Vol] 8.7 mg/dL 8.5-10.1 [facility] Serum or plasma cholesterol in HDL measurement (mass/volume)Ordered By: Kandis Dawson on 03-07-2023 Cholesterol in HDL [Mass/Vol] 33 mg/dL >40 [facility] Comment on above: The drugs N-Acetylcy steine and Metamizole may falsely depress this assay. Reference Range HDL <40 mg/dL Low HDL Cholesterol HDL >or= 60 mg/dL High HDL Cholesterol Serum or plasma cholesterol in VLDL measurement (mass/volume)Ordered By: Kandis Dawson on 03-07-2023 Cholesterol in VLDL [Mass/Vol] 35 mg/dL 5-40 [facility] Serum or plasma creatinine m easurement (mass/volume)Ordered By: Kandis Dawson on 03-07-2023 Creatinine [Mass/Vol] 0.86 mg/dL 0.55-1.02 [facility] Comment on above: The validity of the calculated GFR & GFRAA in patients over 70 years has not been determined. Clinical correlation is essential. Serum or plasma low density lipoprotein (LDL) cholesterol measurement (mass/volume)Ordered By: Kandis Dawson on 03-07-2023 Cholesterol in LDL [Mass/Vol] 30 mg/dL 0-130 [facility] Serum or plasma urea nitroge n measurement (mass/volume)Ordered By: Kandis Dawson on 03-07-2023 Urea nitrogen [Mass/Vol] 18 mg/dL 7-18 [facility] Thin prep Papanicolaou smear with manual screeningOrdered By: Kandis Dawson on 03-07-2023 Thin prep Papanicolaou smear with manual screening 15 U/L 15-37 [facility] Thin prep Papanicolaou smear with manual screening 5 5-15 [facility] Thin prep Papanicolaou smear with manual screening 273.0 mg/L NO RANGE EST. [facility] Urine creatinine measurement (mass/volume)Ordered By: Kandis Dawson on 03-07-2023 Creatinine (U) [Mass/Vol] 83.00 mg/dL NO RANGE EST. [facility] Whole blood hemoglobin A1c/t otal hemoglobin ratio (mass fraction)Ordered By: Kandis Dawson on 03-07-2023 HbA1c (Bld) [Mass fraction] 7.6 % 3.8-5.6 [facility] Comment on above: Normal < 5.7 % Predi abetic 5.7 - 6.4 % Diabetic >or= 6.5 % Please note range changes. Absolute lymphocyte countOrd ered By: Dr. Dawson on 08-26-2022 Lymphocytes Auto (Unsp spec) [#/Vol] 2.04 10*3/uL 0.83-4.51 [facility] Basophil percentageOrdered B y: Dr. Dawson on 08-26-2022 Basophils/100 WBC (Bld) 0.5 % 0-1 [facility] Bilirubin [Mass/Vol] 0.40 mg/dL 0.20-1.00 [facility] Comment on above: For patients on eltr ombopag therapy, use of Dimension [place] TBIL is not recommended. Chloride [Moles/Vol] 103 mmol/L 98-107 [facility] Eosinophils/100 WBC (Bld) 1.2 % 0-5 [facility] Glucose [Mass/Vol] 79 mg/dL 74-106 [facility] Neutrophils (Bld) [#/Vol] 6.7 10*3/uL 2.0-7.7 [facility] Neutrophils/100 WBC (Bld) 70.2 % 47-70 [facility] Potassium [Moles/Vol] 4.2 mmol/L 3.5-5.1 [facility] Comment on above: Slight Hemolysis, Re sult may be falsely increased. Protein [Mass/Vol] 7.4 g/dL 6.4-8.2 [facility] Sodium [Moles/Vol] 141 mmol/L 136-145 [facility] WBC (Bld) [#/Vol] 9.6 10*3/uL 4.4-11.0 [facility] Blood erythrocytes count (nu mber/volume)Ordered By: Dr. Dawson on 08-26-2022 RBC (Bld) [#/Vol] 4.55 10*6/uL 4.2-5.4 [facility] Blood hemoglobin measurement (mass/volume)Ordered By: Dr. Dawson on 08-26-2022 Hemoglobin (Bld) [Mass/Vol] 12.8 g/dL 12.0-15.0 [facility] Blood lymphocytes/100 leukoc ytesOrdered By: Dr. Dawson on 08-26-2022 Lymphocytes/100 WBC (Bld) 21.4 % 19-41 [facility] Blood monocytes/100 leukocyt esOrdered By: Dr. Dawson on 08-26-2022 Monocytes/100 WBC (Bld) 6.4 % 0-10 [facility] Blood platelet mean volumeOr dered By: Dr. Dawson on 08-26-2022 Platelet mean volume (Bld) [Entitic vol] 10.7 fL 6.2-12.0 [facility] Determination of erythrocyte mean corpuscular volume (MCV)Ordered By: Dr. Dawson on 08-26-2022 MCV (RBC) [Entitic vol] 89.7 fL 81-99 [facility] Hematocrit Auto (Bld) [Volum e fraction]Ordered By: Dr. Dawson on 08-26-2022 Hematocrit (Bld) [Volume fraction] 40.8 % 37-47 [facility] - Chemistry and C hemistry - challengeOrdered By: Dr. Dawson on 08-26-2022 ALP [Catalytic activity/Vol] 75 U/L 45-117 [facility] ALT [Catalytic activity/Vol] 27 U/L 13-56 [facility] CO2 [Moles/Vol] 28.0 mmol/L 21.0-32.0 [facility] Globulin (S) [Mass/Vol] 3.8 g/dL 2.2-4.2 [facility] Urea nitrogen/Creatinine [Mass ratio] 20.0 mg/mg 10-20 [facility] - Hematology and Cell countsOrdered By: Dr. Dawson on 08-26-2022 Erythrocyte distribution width (RBC) [Entitic vol] 49.1 fL 35.1-43.9 [facility] Erythrocyte distribution width (RBC) [Ratio] 15.1 % 11.6-14.6 [facility] Immature granulocytes/100 WBC (Bld) 0.300 % 0.0-0.9 [facility] Comment on above: IG% - Immature Granu locytes (promyelocytes, myelocytes and metamyelocytes) > 1% indicates that a LEFT SHIFT is Present. MCH (RBC) [Entitic mass] 28.1 pg 27.0-32.0 [facility] Nucleated RBC/100 WBC (Bld) [Ratio] 0 % 0-5 [facility] MCHC Auto (RBC) [Mass/Vol]Or dered By: Dr. Dawson on 08-26-2022 MCHC (RBC) [Mass/Vol] 31.4 g/dL 32-36 [facility] No Panel InformationOrdered By: Dr. Dawson on 08-26-2022 Estimated GFR (MDRD) Amer 62 mL/min >60 [facility] Comment on above: GFR Calc Estimated GFR (MDRD) Non-Af Amer 51 mL/min >60 [facility] Comment on above: Non- GFR Calc Platelets bldOrdered By: Dr. Dawson on 08-26-2022 Platelets (Bld) [#/Vol] 257 10*3/uL 150-450 [facility] Serum or plasma albumin luis urement (mass/volume)Ordered By: Dr. Dawson on 08-26-2022 Albumin [Mass/Vol] 3.6 g/dL 3.2-5.0 [facility] Serum or plasma albumin/glob ulin mass ratioOrdered By: Dr. Dawson on 08-26-2022 Albumin/Globulin [Mass ratio] 0.9 {ratio} 0.9-2.4 [facility] Serum or plasma calcium luis urement (mass/volume)Ordered By: Dr. Dawson on 08-26-2022 Calcium [Mass/Vol] 9.2 mg/dL 8.5-10.1 [facility] Serum or plasma creatinine m easurement (mass/volume)Ordered By: Dr. Dawson on 08-26-2022 Creatinine [Mass/Vol] 1.10 mg/dL 0.55-1.02 [facility] Comment on above: The validity of the calculated GFR & GFRAA in patients over 70 years has not been determined. Clinical correlation is essential. Serum or plasma urea nitroge n measurement (mass/volume)Ordered By: Dr. Dawson on 08-26-2022 Urea nitrogen [Mass/Vol] 22 mg/dL 7-18 [facility] Thin prep Papanicolaou smear with manual screeningOrdered By: Dr. Dawson on 08-26-2022 Thin prep Papanicolaou smear with manual screening 25 U/L 15-37 [facility] Comment on above: Slight Hemolysis, Re sult may be falsely increased. Thin prep Papanicolaou smear with manual screening 10 5-15 [facility] Absolute lymphocyte countOrd ered By: Dr. Dawson on 04-29-2022 Lymphocytes Auto (Unsp spec) [#/Vol] 1.45 10*3/uL 0.83-4.51 [facility] Basophil percentageOrdered B y: Dr. Dawson on 04-29-2022 Basophils/100 WBC (Bld) 0.8 % 0-1 [facility] Chloride [Moles/Vol] 100 mmol/L 98-107 [facility] Eosinophils/100 WBC (Bld) 1.8 % 0-5 [facility] Glucose [Mass/Vol] 101 mg/dL 74-106 [facility] Comment on above: Fasting Glucose resu lt from 100 to 125 mg/dL suggests IMPAIRED HOMEOSTASIS per A.D.A. criteria. Neutrophils (Bld) [#/Vol] 5.6 10*3/uL 2.0-7.7 [facility] Neutrophils/100 WBC (Bld) 72.1 % 47-70 [facility] Potassium [Moles/Vol] 3.8 mmol/L 3.5-5.1 [facility] Sodium [Moles/Vol] 139 mmol/L 136-145 [facility] WBC (Bld) [#/Vol] 7.8 10*3/uL 4.4-11.0 [facility] Blood erythrocytes count (nu mber/volume)Ordered By: Dr. Dawson on 04-29-2022 RBC (Bld) [#/Vol] 4.07 10*6/uL 4.2-5.4 [facility] Blood hemoglobin measurement (mass/volume)Ordered By: Dr. Dawson on 04-29-2022 Hemoglobin (Bld) [Mass/Vol] 10.6 g/dL 12.0-15.0 [facility] Blood lymphocytes/100 leukoc ytesOrdered By: Dr. Dawson on 04-29-2022 Lymphocytes/100 WBC (Bld) 18.6 % 19-41 [facility] Blood monocytes/100 leukocyt esOrdered By: Dr. Dawson on 04-29-2022 Monocytes/100 WBC (Bld) 6.4 % 0-10 [facility] Blood platelet mean volumeOr dered By: Dr. Dawson on 04-29-2022 Platelet mean volume (Bld) [Entitic vol] 11.0 fL 6.2-12.0 [facility] Determination of erythrocyte mean corpuscular volume (MCV)Ordered By: Dr. Dawson on 04-29-2022 MCV (RBC) [Entitic vol] 86.2 fL 81-99 [facility] Hematocrit Auto (Bld) [Volum e fraction]Ordered By: Dr. Dawson on 04-29-2022 Hematocrit (Bld) [Volume fraction] 35.1 % 37-47 [facility] Laboratory - Chemistry and C hemistry - challengeOrdered By: Dr. Dawson on 04-29-2022 CO2 [Moles/Vol] 32.0 mmol/L 21.0-32.0 [facility] Urea nitrogen/Creatinine [Mass ratio] 18.8 mg/mg 10-20 [facility] Laboratory - Hematology and Cell countsOrdered By: Dr. Dawson on 04-29-2022 Erythrocyte distribution width (RBC) [Entitic vol] 50.7 fL 35.1-43.9 [facility] Erythrocyte distribution width (RBC) [Ratio] 16.0 % 11.6-14.6 [facility] Immature granulocytes/100 WBC (Bld) 0.300 % 0.0-0.9 [facility] Comment on above: IG% - Immature Granu locytes (promyelocytes, myelocytes and metamyelocytes) > 1% indicates that a LEFT SHIFT is Present. MCH (RBC) [Entitic mass] 26.0 pg 27.0-32.0 [facility] Nucleated RBC/100 WBC (Bld) [Ratio] 0.3 % 0-5 [facility] MCHC Auto (RBC) [Mass/Vol]Or dered By: Dr. Dawson on 04-29-2022 MCHC (RBC) [Mass/Vol] 30.2 g/dL 32-36 [facility] No Panel InformationOrdered By: Dr. Dawson on 04-29-2022 Estimated GFR (MDRD) Amer 68 mL/min >60 [facility] Comment on above: GFR Calc Estimated GFR (MDRD) Non-Af Amer 57 mL/min >60 [facility] Comment on above: Non- GFR Calc Platelets bldOrdered By: Dr. Dawson on 04-29-2022 Platelets (Bld) [#/Vol] 304 10*3/uL 150-450 [facility] Serum or plasma calcium luis urement (mass/volume)Ordered By: Dr. Dawson on 04-29-2022 Calcium [Mass/Vol] 8.8 mg/dL 8.5-10.1 [facility] Serum or plasma creatinine m easurement (mass/volume)Ordered By: Dr. Dawson on 04-29-2022 Creatinine [Mass/Vol] 1.01 mg/dL 0.55-1.02 [facility] Comment on above: The validity of the calculated GFR & GFRAA in patients over 70 years has not been determined. Clinical correlation is essential. Serum or plasma urea nitroge n measurement (mass/volume)Ordered By: Dr. Dawson on 04-29-2022 Urea nitrogen [Mass/Vol] 19 mg/dL 7-18 [facility] Thin prep Papanicolaou smear with manual screeningOrdered By: Dr. Dawson on 04-29-2022 Thin prep Papanicolaou smear with manual screening 7 5-15 [facility] CBC + DIFFon 11-28-2021 Baso # 0.10 x10EE3/UL Normal 0.00 - 0.10 [facility] Comment on above: Performed By: #### 2 84473 #### [facility],[address] [place] [address] 40998 Basophils/100 WBC (Bld) 1.0 % Normal 0.0 - 2.0 [facility] Comment on above: Performed By: #### 2 30187 #### [facility],[address] [place] [address] 13924 CBC + DIFF Normal [facility] Comment on above: Result Comment: CBC- COMPLETE BLOOD COUNT Performed By: #### 2 56328 #### [facility],[address] [place] [address] 11362 EO # 0.20 x10EE3/UL Normal 0.00 - 0.50 [facility] Comment on above: Performed By: #### 2 11967 #### [facility],[address] [place] [address] Eosinophils/100 WBC (Bld) 3.1 % Normal 0.0 - 7.0 [facility] Comment on above: Performed By: #### 2 73109 #### [facility],[address] [place] [address] Erythrocyte distribution width (RBC) [Ratio] 14.3 % Normal 12.0 - 15.6 [facility] Comment on above: Performed By: #### 2 46939 #### [facility],[address] [place] [address] Hematocrit (Bld) [Volume fraction] 27.4 % Low 34.0 - 46.0 [facility] Comment on above: Performed By: #### 2 57567 #### [facility],[address] [place] [address] Hemoglobin (Bld) [Mass/Vol] 9.1 g/dL Low 12.0 - 16.0 [facility] Comment on above: Performed By: #### 2 12427 #### [facility],[address] [place] [address] Lymph # 1.00 x10EE3/UL Normal 0.80 - 2.80 [facility] Comment on above: Performed By: #### 2 11038 #### [facility],[address] [place], [place] [id number] Lymphocytes/100 WBC (Bld) 15.4 % Low 20.0 - 45.0 [facility] Comment on above: Performed By: #### 2 26664 #### [facility],[address] [place] [address] MANUAL DIFF N/A Normal [facility] Comment on above: Performed By: #### 2 51173 #### [facility],[address] [place], [place] [id number] MCH (RBC) [Entitic mass] 30 pg Normal 27 - 33 [facility] Comment on above: Performed By: #### 2 52845 #### [place] [address] MCHC 33 X10 3 Normal 32 - 36 [facility] Comment on above: Performed By: #### 2 77563 #### [place] [address] MCV (RBC) [Entitic vol] 90 fL Normal 80 - 99 [facility] Comment on above: Performed By: #### 2 65130 #### [place] [address] Wright # 0.40 x10EE3/UL Normal 0.20 - 1.00 [facility] Comment on above: Performed By: #### 2 02395 #### [place] [address] MONOS % 6.9 % Normal 0.0 - 10.0 [facility] Comment on above: Performed By: #### 2 88063 #### [place] [address] Morphology Ihsan (Bld) [Interp] N/A Normal [facility] Comment on above: Result Comment: {CD] Performed By: #### 2 68593 #### [place] [address] Neut # 4.70 x10EE3/UL Normal 1.50 - 7.10 [facility] Comment on above: Performed By: #### 2 64813 #### [place] [address] Neutrophils/100 WBC (Bld) 73.6 % Normal 46.0 - 76.0 [facility] Comment on above: Performed By: #### 2 38304 #### [place] [address] PLATELET 333 x10EE3/UL Normal 150 - 450 [facility] Comment on above: Performed By: #### 2 65482 #### [facility],[address] [place] [address] 95283 Platelet mean volume (Bld) [Entitic vol] 8.7 fL Normal 6.6 - 10.5 [facility] Comment on above: Result Comment: AUTO MATED DIFFERENTIAL Performed By: #### 2 79332 #### [facility],[address] [place] [address] 22329 RBC 3.04 x 10EE6/UL Low 4.10 - 5.30 [facility] Comment on above: Performed By: #### 2 74971 #### [address] [address] WBC 6.3 x 10EE3/UL Normal 4.5 - 10.8 [facility] Comment on above: Performed By: #### 2 29249 #### [facility],[address] [place] [address] 40700 HGB A1C [CCL]on 11-26-2021 HbA1c (Bld) [Mass fraction] 7.8 % High 4.3-5.6 [facility] Comment on above: Result Comment: [place] Diabetes Association guidelines indicate that patients with HgbA1c in the range 5.7-6.4% are at increased risk for development of diabetes, and intervention by lifestyle modification may be beneficial. HgbA1c greater or equal to 6.5% is considered diagnostic of diabetes. Performed By: #### 2 27099 #### [facility],[address] [place] [address] 40596 Hemoglobin A0 177 mg/dL Normal [facility] Comment on above: Result Comment: eAG: (Estimated average glucose) is a calculated value from HgbA1c and is personal banking representative of the average blood glucose level in the last 2-3 month period. [facility] [address] [place] [address] Moy Samuel III, M.D. [id number] Performed By: #### 2 81101 #### [facility],[address] [place], [place] [id number] CBC (NO DIFF)on 11-25-2021 CBC panel Auto (Bld) Normal [facility] Comment on above: Result Comment: CBC( WITHOUT DIFFERENTIAL) Performed By: #### 2 54944 #### [facility],[address] [place] [address] Erythrocyte distribution width (RBC) [Ratio] 14.3 % Normal 12.0 - 15.6 [facility] Comment on above: Performed By: #### 2 56047 #### [facility],[address] [place] [address] Hematocrit (Bld) [Volume fraction] 24.8 % Low 34.0 - 46.0 [facility] Comment on above: Performed By: #### 2 72385 #### [facility],[address] [place], [place] [id number] Hemoglobin (Bld) [Mass/Vol] 8.1 g/dL Low 12.0 - 16.0 [facility] Comment on above: Performed By: #### 2 68373 #### [facility],[address] [place] [address] 75003 MCH (RBC) [Entitic mass] 30 pg Normal 27 - 33 [facility] Comment on above: Performed By: #### 2 59211 #### [facility],[address] [place] [address]40 MCHC 33 X10 3 Normal 32 - 36 [facility] Comment on above: Performed By: #### 2 71976 #### [address] [address] MCV (RBC) [Entitic vol] 91 fL Normal 80 - 99 [facility] Comment on above: Performed By: #### 2 72167 #### [address] [address] PLATELET 290 x10EE3/UL Normal 150 - 450 [facility] Comment on above: Performed By: #### 2 30258 #### [facility],[address] [place] [address] 92292 Platelet mean volume (Bld) [Entitic vol] 8.9 fL Normal 6.6 - 10.5 [facility] Comment on above: Result Comment: {CB] Performed By: #### 2 21737 #### [facility],[address] [place] [address] 98454 RBC 2.72 x 10EE6/UL Low 4.10 - 5.30 [facility] Comment on above: Performed By: #### 2 16950 #### [facility],[address] [place] [address] 08200 WBC 6.1 x 10EE3/UL Normal 4.5 - 10.8 [facility] Comment on above: Performed By: #### 2 54888 #### [facility],[address] [place] [address] 90460 CMP with eGFRon 11-25-2021 AGE 76 years Normal [facility] Comment on above: Performed By: #### 2 15205 #### [facility],[address] [place] [address] 08237 Albumin [Mass/Vol] 3.0 g/dL Low 3.4 - 5.0 [facility] Comment on above: Performed By: #### 2 14962 #### [facility],[address] [place] [address] 88583 Albumin/Globulin [Mass ratio] 0.9 {ratio} Normal 0.9 - 1.6 [facility] Comment on above: Performed By: #### 2 96071 #### [facility],[address] [place] [address] 69640 ALK PHOS 67 U/L Normal 46 - 116 [facility] Comment on above: Performed By: #### 2 52866 #### [facility],[address] [place] [address] 89132 ALT [Catalytic activity/Vol] 23 U/L Normal 14 - 59 [facility] Comment on above: Performed By: #### 2 04832 #### [facility],[address] [place] [address] 17791 Anion gap [Moles/Vol] 19 mmol/L Normal 10 - 20 [facility] Comment on above: Performed By: #### 2 06661 #### [facility],[address] [place] [address] 90662 AST [Catalytic activity/Vol] 21 U/L Normal 13 - 39 [facility] Comment on above: Performed By: #### 2 68454 #### [facility],[address] [place], [place] [id number] B/C RATIO 25 ratio Normal 0 - 30 [facility] Comment on above: Performed By: #### 2 45456 #### [facility],[address] [place] [address] 88202 Bilirubin [Mass/Vol] 0.5 mg/dL Normal 0.2 - 1.0 [facility] Comment on above: Performed By: #### 2 51332 #### [facility],[address] [place] [address] 27881 Calcium [Mass/Vol] 8.5 mg/dL Normal 8.5 - 10.1 [facility] Comment on above: Performed By: #### 2 12275 #### [facility],[address] [place] [address] 72053 Chloride [Moles/Vol] 99 mmol/L Normal 98 - 107 [facility] Comment on above: Performed By: #### 2 55905 #### [facility],[address] [place] [address] 93844 CMP with eGFR Normal [facility] Comment on above: Result Comment: COMP REHENSIVE METABOLIC PANEL Performed By: #### 2 94890 #### [facility],[address] [place] [address] 93383 CO2 [Moles/Vol] 24.3 mmol/L Normal 21.0 - 32.0 [facility] Comment on above: Performed By: #### 2 63750 #### [facility],[address] [place] [address] 92190 Creatinine [Mass/Vol] 1.09 mg/dL High 0.55 - 1.02 [facility] Comment on above: Performed By: #### 2 94398 #### [facility],[address] [place] [address] 13395 eGFR 49 ML/MINUTE Low 60 - 999 [facility] Comment on above: Performed By: #### 2 49969 #### [facility],[address] [place] [address] 28835 eGFR(AA) 59 ML/MINUTE Low 60 - 999 [facility] Comment on above: Result Comment: ACCO RDING TO THE NATIONAL KIDNEY DISEASE EDUCATION PROGRAM(NKDE), A NORMAL eGFR IS A VALUE GREATER THAN OR EQUAL TO 60 ML/MIN/1.73 SQ METERS. CHRONIC KIDNEY DISEASE: <60mL/MIN/1.73 SQ METERS KIDNEY FAILURE: <15mL/MIN/1.73 SQ METERS THIS TEST SHOULD ONLY BE USED FOR PATIENTS 18 YEARS OF AGE AND OLDER. Performed By: #### 2 88187 #### [facility],[address] [place] [address] 27274 Globulin (S) [Mass/Vol] 3.2 g/dL Normal 1.5 - 3.8 [facility] Comment on above: Performed By: #### 2 67025 #### [facility],[address] [place] [address] 71508 Glucose [Mass/Vol] 255 mg/dL High 74 - 106 [facility] Comment on above: Performed By: #### 2 51079 #### [facility],[address] [place] [address] 70255 Potassium [Moles/Vol] 4.0 mmol/L Normal 3.5 - 5.1 [facility] Comment on above: Performed By: #### 2 81948 #### [facility],[address] [place] [address] 47642 Protein [Mass/Vol] 6.2 g/dL Low 6.4 - 8.2 [facility] Comment on above: Performed By: #### 2 31624 #### [facility],[address] [place] [address] 56045 Sodium [Moles/Vol] 138 mmol/L Normal 136 - 145 [facility] Comment on above: Performed By: #### 2 07077 #### [facility],[address] [place], [place] [address] Urea nitrogen [Mass/Vol] 27 mg/dL High 7 - 18 [facility] Comment on above: Performed By: #### 2 39397 #### [facility],[address] [place] [address] 39287 TSHon 11-25-2021 TSH Qn 1.70 m[IU]/L Normal 0.35 - 3.74 [facility] Comment on above: Performed By: #### 2 18099 #### [facility],[address] [place] [address] 57461 URINE MICROALBUMIN W/CREATIN INE, RANDOMon 11-25-2021 CREATININE UR <13.00 Normal [facility] Comment on above: Performed By: #### 2 81180 #### [facility],[address] [place] [address] 06576 MICROALBUMIN UR 1.3 mg/dL Normal 0.1 - 11.6 [facility] Comment on above: Performed By: #### 2 74365 #### [facility],[address] [place] [address] 24989 UACR >50 Normal [facility] Comment on above: Performed By: #### 2 50401 #### [facility],[address] [facility] [address] Absolute lymphocyte counton 11-20-2021 Lymphocytes Auto (Unsp spec) [#/Vol] 1.17 10*3/uL 0.83-4.51 [facility] Work Phone: Basophil percentageon 2021 Basophils/100 WBC (Bld) 0.5 % 0-1 [facility] Work Phone: Eosinophils/100 WBC (Bld) 0.9 % 0-5 [facility] Work Phone: Neutrophils (Bld) [#/Vol] 4.8 10*3/uL 2.0-7.7 [facility] Work Phone: [phone] Neutrophils/100 WBC (Bld) 73.0 % 47-70 [facility] Work Phone: WBC (Bld) [#/Vol] 6.5 10*3/uL 4.4-11.0 [facility]: Blood erythrocytes count (nu mber/volume)on 11-20-2021 RBC (Bld) [#/Vol] 2.70 10*6/uL 4.2-5.4 [facility] Work Phone: Blood hemoglobin measurement (mass/volume)on 11-20-2021 Hemoglobin (Bld) [Mass/Vol] 8.3 g/dL 12.0-15.0 [facility] Work Phone: Blood lymphocytes/100 leukoc yteson 11-20-2021 Lymphocytes/100 WBC (Bld) 17.9 % 19-41 [facility] Work Phone: Blood monocytes/100 leukocyt eson 11-20-2021 Monocytes/100 WBC (Bld) 7.2 % 0-10 [facility] Work Phone: Blood platelet mean volumeon 11-20-2021 Platelet mean volume (Bld) [Entitic vol] 10.4 fL 6.2-12.0 [facility] Work Phone: Determination of erythrocyte mean corpuscular volume (MCV)on 11-20-2021 MCV (RBC) [Entitic vol] 91.1 fL 81-99 [facility] Work Phone: Glucose Glucometer (BldC) [M ass/Vol]on 11-20-2021 Glucose [Mass/Vol] 173 mg/dL 74-106 [facility] Work Phone: Comment on above: MANAGEMENT OF PATIEN T CARE PER NURSING PROTOCOL Hematocrit Auto (Bld) [Volum e fraction]on 11-20-2021 Hematocrit (Bld) [Volume fraction] 25.6 % 37-47 [facility] Work Phone: Laboratory - Hematology and Cell countson 11-20-2021 Erythrocyte distribution width (RBC) [Entitic vol] 42.9 fL 35.1-43.9 [facility] Work Phone: [phone] Erythrocyte distribution width (RBC) [Ratio] 13.0 % 11.6-14.6 [facility] Work Phone: [phone] Immature granulocytes/100 WBC (Bld) 0.500 % 0.0-0.9 [facility] Work Phone: Comment on above: IG% - Immature Granu locytes (promyelocytes, myelocytes and metamyelocytes) > 1% indicates that a LEFT SHIFT is Present. MCH (RBC) [Entitic mass] 30.0 pg 27.0-32.0 [facility] Work Phone: [phone] Nucleated RBC/100 WBC (Bld) [Ratio] 0 % 0-5 [facility] Work Phone: [phone] MCHC Auto (RBC) [Mass/Vol]on 11-20-2021 MCHC (RBC) [Mass/Vol] 32.9 g/dL 32-36 [facility] Work Phone: Platelets bldon 11-20-2021 Platelets (Bld) [#/Vol] 201 10*3/uL 150-450 [facility] Work Phone: Absolute lymphocyte counton 11-19-2021 Lymphocytes Auto (Unsp spec) [#/Vol] 1.71 10*3/uL 0.83-4.51 [facility] Work Phone: Basophil percentageon 2021 Basophils/100 WBC (Bld) 0.5 % 0-1 [facility] Work Phone: Bilirubin [Mass/Vol] 0.30 mg/dL 0.20-1.00 [facility] Work Phone: Comment on above: For patients on eltr ombopag therapy, use of Dimension [place] TBIL is not recommended. Chloride [Moles/Vol] 108 mmol/L 98-107 [facility] Work Phone: Eosinophils/100 WBC (Bld) 0.8 % 0-5 [facility] Work Phone: Glucose [Mass/Vol] 226 mg/dL 74-106 [facility] Work Phone: Comment on above: Glucose result great er than or equal to 200 mg/dLsuggests DIABETES MELLITUS per A.D.A. criteria. Neutrophils (Bld) [#/Vol] 8.6 10*3/uL 2.0-7.7 [facility] Work Phone: Neutrophils/100 WBC (Bld) 77.3 % 47-70 [facility] Work Phone: [phone] Potassium [Moles/Vol] 4.6 mmol/L 3.5-5.1 [facility] Work Phone: Comment on above: Slight Hemolysis, Re sult may be falsely increased. Protein [Mass/Vol] 6.2 g/dL 6.4-8.2 [facility] Work Phone: Sodium [Moles/Vol] 139 mmol/L 136-145 [facility] Work Phone: WBC (Bld) [#/Vol] 11.1 10*3/uL 4.4-11.0 [facility]: Blood erythrocytes count (nu mber/volume)on 11-19-2021 RBC (Bld) [#/Vol] 3.67 10*6/uL 4.2-5.4 [facility] Work Phone: Blood hemoglobin measurement (mass/volume)on 11-19-2021 Hemoglobin (Bld) [Mass/Vol] 10.9 g/dL 12.0-15.0 [facility] Work Phone: Blood lymphocytes/100 leukoc yteson 11-19-2021 Lymphocytes/100 WBC (Bld) 15.4 % 19-41 [facility] Work Phone: Blood monocytes/100 leukocyt eson 11-19-2021 Monocytes/100 WBC (Bld) 5.7 % 0-10 [facility] Work Phone: Blood platelet mean volumeon 11-19-2021 Platelet mean volume (Bld) [Entitic vol] 10.7 fL 6.2-12.0 [facility] Work Phone: Determination of erythrocyte mean corpuscular volume (MCV)on 11-19-2021 MCV (RBC) [Entitic vol] 90.2 fL 81-99 [facility] Work Phone: Hematocrit Auto (Bld) [Volum e fraction]on 11-19-2021 Hematocrit (Bld) [Volume fraction] 33.1 % 37-47 [facility] Work Phone: INR in Blood by Coagulation assayon 11-19-2021 INR Coag (Bld) [Relative time] 1.2 {INR} [facility] Work Phone: Laboratory - Chemistry and C hemistry - challengeon 11-19-2021 ALP [Catalytic activity/Vol] 59 U/L 45-117 [facility] Work Phone: ALT [Catalytic activity/Vol] 18 U/L 13-56 [facility] Work Phone: CO2 [Moles/Vol] 24.0 mmol/L 21.0-32.0 [facility] Work Phone: Globulin (S) [Mass/Vol] 3.0 g/dL 2.2-4.2 [facility] Work Phone: [phone] Urea nitrogen/Creatinine [Mass ratio] 24.5 mg/mg 10-20 [facility] Work Phone: [phone] Laboratory - Coagulationon 0 11-19-2021 aPTT Coag (Bld) [Time] 30.7 s 24.1-36.2 [facility] Work Phone: [phone] PT Coag (PPP) [Time] 14.6 s 11.7-14.[address] [facility] Work Phone: [phone] Laboratory - Hematology and Cell countson 11-19-2021 Erythrocyte distribution width (RBC) [Entitic vol] 42.5 fL 35.1-43.9 [facility] Work Phone: [phone] Erythrocyte distribution width (RBC) [Ratio] 13.0 % 11.6-14.6 [facility] Work Phone: [phone] Immature granulocytes/100 WBC (Bld) 0.300 % 0.0-0.9 [facility] Work Phone: [phone] Comment on above: IG% - Immature Granu locytes (promyelocytes, myelocytes and metamyelocytes) > 1% indicates that a LEFT SHIFT is Present. MCH (RBC) [Entitic mass] 29.7 pg 27.0-32.0 [facility] Work Phone: [phone] Nucleated RBC/100 WBC (Bld) [Ratio] 0 % 0-5 [facility] Work Phone: [phone] MCHC Auto (RBC) [Mass/Vol]on 11-19-2021 MCHC (RBC) [Mass/Vol] 32.9 g/dL 32-36 [facility] Work Phone: [phone] Panel Informationon 11-19 Estimated Creatinine Clearance Calc 42.17 ml/min [facility] Work Phone: [phone] Estimated GFR (MDRD) Amer 71 mL/min >60 [facility] Work Phone: [phone] Comment on above: GFR Calc Estimated GFR (MDRD) Non-Af Amer 59 mL/min >60 [facility] Work Phone: Comment on above: Non- GFR Calc Platelets bldon 11-19-2021 Platelets (Bld) [#/Vol] 280 10*3/uL 150-450 [facility] Work Phone: Serum or plasma albumin luis urement (mass/volume)on 11-19-2021 Albumin [Mass/Vol] 3.2 g/dL 3.2-5.0 [facility] Work Phone: [phone] Serum or plasma albumin/glob ulin mass ratioon 11-19-2021 Albumin/Globulin [Mass ratio] 1.1 {ratio} 0.9-2.4 [facility] Work Phone: Serum or plasma calcium luis urement (mass/volume)on 11-19-2021 Calcium [Mass/Vol] 8.5 mg/dL 8.5-10.1 [facility] Work Phone: Serum or plasma creatinine m easurement (mass/volume)on 11-19-2021 Creatinine [Mass/Vol] 0.98 mg/dL 0.55-1.02 [facility] Work Phone: Comment on above: The validity of the calculated GFR & GFRAA in patients over 70 years has not been determined. Clinical correlation is essential. Serum or plasma urea nitroge n measurement (mass/volume)on 11-19-2021 Urea nitrogen [Mass/Vol] 24 mg/dL 7-18 [facility] Work Phone: Thin prep Papanicolaou smear with manual screeningon 11-19-2021 Thin prep Papanicolaou smear with manual screening 19 U/L 15-37 [facility] Work Phone: Comment on above: Slight Hemolysis, Re sult may be falsely increased. Thin prep Papanicolaou smear with manual screening 7 5-15 [facility] Work Phone: Vital Signs Date Time Vital Sign Value Performing Clinician Faci milagrosy 11-28-2024 10:46-0400 Body height 163.8 cm Mitchell Almeida MD Work Phone: [facility] 11-28-2024 10:46-0400 Body mass index (BMI) [Ratio] 41.54 kg/m2 Mitchell Almeida MD Work Phone: [facility] 11-28-2024 10:46-0400 Body weight 111.49 kg Mitchell Almeida MD Work Phone: [facility] 11-28-2024 10:46-0400 Diastolic blood pressure 60 mm[Hg] Mitchell Almeida MD Work Phone: [facility] 11-28-2024 10:46-0400 Heart rate 61 /min Mitchell Almeida MD Work Phone: [facility] 11-28-2024 10:46-0400 SaO2% (BldA) [Mass fraction] 88 % Mitchell Almeida MD Work Phone: [facility] 11-28-2024 10:46-0400 Systolic blood pressure 138 mm[Hg] Mitchell Almeida MD Work Phone: [facility] 10-27-2024 10:16-0400 Body height 162.[address] Kandis Dawson MD Work Phone: [facility] 10-27-2024 10:10-0400 Body mass index (BMI) [Ratio] 41.9 kg/m2 Dr. Kandis Dawson MD Work Phone: [facility] 10-27-2024 10:10-0400 Body weight 110.[address] Kandis Dawson MD Work Phone: [facility] 10-27-2024 10:10-0400 Diastolic blood pressure 44 mm[Hg] Dr. Kandis Dawson MD Work Phone: [facility] 10-27-2024 10:10-0400 Systolic blood pressure 115 mm[Hg] Dr. Kandis Dawson MD Work Phone: [facility] 09-09-2024 14:27-0400 Heart rate 58 /min Dr. Kandis Dawson MD Work Phone: [facility] 09-09-2024 14:27-0400 Respiratory rate 21 /min Dr. Kandis Dawson MD Work Phone: [facility] 09-09-2024 13:37-0400 Body temperature 98.4 [degF] Dr. Kandis Dawson MD Work Phone: [facility] 09-09-2024 13:37-0400 Diastolic blood pressure 49 mm[Hg] Dr. Kandis Dawson MD Work Phone: [facility] 09-09-2024 13:37-0400 Inhaled oxygen flow rate 3 L/min Dr. Kandis Dawson MD Work Phone: [facility] 09-09-2024 13:37-0400 SaO2% (BldA) [Mass fraction] 91 % Dr. Kandis Dawson MD Work Phone: [facility] 09-09-2024 13:37-0400 Systolic blood pressure 119 mm[Hg] Dr. Kandis Dawson MD Work Phone: [facility] 09-09-2024 05:37-0400 Body mass index (BMI) [Ratio] 40.8 kg/m2 Dr. Kandis Dawson MD Work Phone: [facility] 09-09-2024 05:37-0400 Body weight 108.[address] Kandis Dawson MD Work Phone: [facility] 09-08-2024 15:49-0400 Body height 162.[address] Kandis Dawson MD Work Phone: [facility] 09-06-2024 13:59-0400 Heart rate 69 /min Dr. Kandis Dawson MD Work Phone: [facility] 09-06-2024 13:59-0400 Inhaled oxygen flow rate 3 L/min Dr. Kandis Dawson MD Work Phone: [facility] 09-06-2024 13:59-0400 SaO2% (BldA) [Mass fraction] 93 % Dr. Kandis Dawson MD Work Phone: [facility] 09-06-2024 13:54-0400 Body temperature 98.3 [degF] Dr. Kandis Dawson MD Work Phone: [facility] 09-06-2024 13:54-0400 Diastolic blood pressure 78 mm[Hg] Dr. Kandis Dawson MD Work Phone: [facility] 09-06-2024 13:54-0400 Respiratory rate 20 /min Dr. Kandis Dawson MD Work Phone: [facility] 09-06-2024 13:54-0400 Systolic blood pressure 140 mm[Hg] Dr. Kandis Dawson MD Work Phone: [facility] 09-06-2024 08:23-0400 Body height 162.[address] Kandis Dawson MD Work Phone: [facility] 09-06-2024 08:23-0400 Body mass index (BMI) [Ratio] 43.1 kg/m2 Dr. Kandis Dawson MD Work Phone: [facility] 09-06-2024 08:23-0400 Body weight [address] Kandis Dawson MD Work Phone: [facility] 06-09-2024 08:48-0500 Body mass index (BMI) [Ratio] 41.8 kg/m2 Dr. Kandis Dawson MD Work Phone: [facility] 06-09-2024 08:48-0500 Body weight 110.[address] Kandis Dawson MD Work Phone: [facility] 06-09-2024 08:48-0500 Diastolic blood pressure 56 mm[Hg] Dr. Kandis Dawson MD Work Phone: [facility] 06-09-2024 08:48-0500 Heart rate 63 /min Dr. Kandis Dawson MD Work Phone: [facility] 06-09-2024 08:48-0500 Inhaled oxygen flow rate 3 L/min Dr. Kandis Dawson MD Work Phone: [facility] 06-09-2024 08:48-0500 Respiratory rate 20 /min Dr. Kandis Dawson MD Work Phone: [facility] 06-09-2024 08:48-0500 SaO2% (BldA) [Mass fraction] 85 % Dr. Kandis Dawson MD Work Phone: [facility] 06-09-2024 08:48-0500 Systolic blood pressure 150 mm[Hg] Dr. Kandis Dawson MD Work Phone: [facility] 02-06-2022 10:32-0400 Body height 162.[address] Kandis Dawson Work Phone: [facility] Work Phone: 02-06-2022 10:32-0400 Body mass index (BMI) [Ratio] 42.5 kg/m2 Dr. Kandis Dawson Work Phone: [facility] Work Phone: 02-06-2022 10:32-0400 Body weight 112.[address] Kandis Dawson Work Phone: [facility] Work Phone: 02-06-2022 10:32-0400 Diastolic blood pressure 76 mm[Hg] Dr. Kandis Dawson Work Phone: [facility] Work Phone: 02-06-2022 10:32-0400 Heart rate 106 /min Dr. Kandis Dawson Work Phone: [facility] Work Phone: 02-06-2022 10:32-0400 Inhaled oxygen flow rate 3 L/min Dr. Kandis Dawson Work Phone: [facility] Work Phone: 02-06-2022 10:32-0400 Respiratory rate 18 /min Dr. Kandis Dawson Work Phone: [facility] Work Phone: 02-06-2022 10:32-0400 SaO2% (BldA) [Mass fraction] 90 % Dr. Kandis Dwason Work Phone: [facility] Work Phone: 02-06-2022 10:32-0400 Systolic blood pressure 128 mm[Hg] Dr. Kandis Dawson Work Phone: [facility] Work Phone: 11-20-2021 17:41-0400 Body temperature 98.2 [degF] Dr. Kandis Dawson Work Phone: [facility] Work Phone: 11-20-2021 17:41-0400 Diastolic blood pressure 70 mm[Hg] Dr. Kandis Dawson Work Phone: [facility] Work Phone: 11-20-2021 17:41-0400 Heart rate 88 /min Dr. Kandis Dawson Work Phone: [facility] Work Phone: 11-20-2021 17:41-0400 Inhaled oxygen flow rate 3 L/min Dr. Kandis Dawson Work Phone: [facility] Work Phone: 11-20-2021 17:41-0400 Respiratory rate 18 /min Dr. Kandis Dawson Work Phone: [facility] Work Phone: 11-20-2021 17:41-0400 SaO2% (BldA) [Mass fraction] 96 % Dr. Kandis Dawson Work Phone: [facility] Work Phone: 11-20-2021 17:41-0400 Systolic blood pressure 140 mm[Hg] Dr. Kandis Dawson Work Phone: [facility] Work Phone: 11-19-2021 19:08-0400 Body height 162.[address] Kandis Dawson Work Phone: [facility] Work Phone: 11-19-2021 19:08-0400 Body mass index (BMI) [Ratio] 41.3 kg/m2 Dr. Kandis Dawson Work Phone: [facility] Work Phone: 11-19-2021 19:08-0400 Body weight 109.[address] Kandis Dawson Work Phone: [facility] Work Phone: 11-19-2021 18:20-0400 Body temperature 97.9 [degF] [facility] Work Phone: 11-19-2021 18:20-0400 Diastolic blood pressure 90 mm[Hg] [facility] Work Phone: 11-19-2021 18:20-0400 Heart rate 73 /min [facility] Work Phone: 11-19-2021 18:20-0400 Respiratory rate 20 /min [facility] Work Phone: 11-19-2021 18:20-0400 SaO2% (BldA) [Mass fraction] 93 % [facility] Work Phone: 11-19-2021 18:20-0400 Systolic blood pressure 122 mm[Hg] [facility] Work Phone: 11-19-2021 15:54-0400 Body height 162.56 cm [facility] Work Phone: 11-19-2021 15:54-0400 Body mass index (BMI) [Ratio] 43.1 kg/m2 [facility] Work Phone: 11-19-2021 15:54-0400 Body weight 114 kg [facility] Work Phone: Encounters Encounter Date Encounter Type Care Provider Facility Start: 12-19-2024 ambulatory Jian Dutton ty:[facility] Start: 11-28-2024 End: 11-28-2024 Office outpatient new 30 minutes Mitchell Almeida MD Work Phone: [facility] [place] Comment on above: PMB (postmenopausal bleeding) (Primary Dx); Increased endometrial stripe thickness Start: 11-28-2024 End: 11-28-2024 ambulatory MITCHELL ALMEIDA [facility] Start: 11-01-2024 End: 11-01-2024 ambulatory [facility]o [facility] Facility:[facility] Start: 10-27-2024 End: 10-27-[address] Kandis Dawson MD Work Phone: [facility] Work Phone: Start: 10-27-2024 End: 10-27-2024 Patient encounter procedure Jojo MACK -Laboratory, Specimen Work Phone: Start: 10-27-2024 End: 10-27-2024 Patient encounter procedure Jojo MULLENC -[facility] Work Phone: Start: 10-27-2024 End: 10-27-2024 ambulatory Jojo Whittington Facility:[facility] Start: 10-27-2024 End: 10-27-2024 ambulatory Jojo Whittington Facility:[facility] Start: 09-09-2024 Non-patient / Non-visit Dr. Florencio Norwood DO -[facility] Work Phone: Start: 09-08-2024 Non-patient / Non-visit Dr. Florencio Norwood DO [facility] Work Phone: Start: 09-07-2024 Non-patient / Non-visit Dr. Florencio Norwood DO [facility] Work Phone: Start: 09-06-2024 End: 09-09-2024 Evaluation and management of inpatient Dr. Florencio Loco DO -[facility] Work Phone: Start: 09-06-2024 ambulatory Bladimir Gregory [facility] ility:[facility] Start: 09-06-2024 Non-patient / Non-visit Dr. Walter JOSHUA [facility] Work Phone: Start: 09-06-2024 End: 09-06-2024 ambulatory [facility] Facility:[facility] Start: 09-06-2024 End: 09-06-2024 Non-patient / Non-visit Dr. Osman Montez MD -[facility] Work Phone: Start: 09-06-2024 End: 09-06-2024 Emergency department patient visit Dr. Kandis Dawson MD Work Phone: -Emergency Department Work Phone: Start: 06-09-2024 End: 06-09-[address] Isauro Lewis MD -[facility] Work Phone: Start: 06-09-2024 End: 06-09-2024 ambulatory [facility] Facility:[facility] Start: 06-09-2024 End: 06-09-2024 Patient encounter procedure Peter Tanner NP-Rojelio -[facility] Work Phone: Start: 06-09-2024 End: 06-09-2024 ambulatory [facility] Facility:[facility] Start: 04-12-2024 End: 04-12-2024 ambulatory [facility] Facility:[facility] Start: 04-05-2024 End: 04-05-2024 ambulatory [facility] Facility:[facility] Start: 03-30-2024 ambulatory Isauro Lewis Facility :[facility] Start: 03-30-2024 End: 03-30-2024 ambulatory [facility] Facility:[facility] Start: 02-11-2024 End: 02-11-2024 ambulatory Kandis Eunice Facility:[facility] Start: 01-12-2024 ambulatory Kandis Aminahedel Facility: [facility] Start: 01-12-2024 ambulatory Kandis Aminahed Facility: [facility] Start: 01-12-2024 End: 01-12-2024 ambulatory [facility] Facility:[facility] Start: 12-17-2023 End: 12-17-2023 ambulatory Kandis Mied Facility:[facility] Start: 12-17-2023 End: 12-17-2023 ambulatory Kandis Lars Facility:[facility] Start: 10-22-2023 Non-patient / Non-visit Dr. James Dawson Work Phone: [facility] Start: 10-22-2023 End: 10-22-[address] Kandis Dawson Work Phone: [facility] Work Phone: Start: 10-22-2023 End: 10-22-[address] Kandis Dawson Work Phone: [facility]-Pulmonary Services/Neurology Work Phone: Start: 03-07-2023 End: 03-07-2023 ambulatory [facility] Work Phone: Start: 03-07-2023 End: 03-07-2023 Patient encounter procedure [facility]-Laboratory Work Phone: Start: 08-26-2022 End: 08-26-[address] Kandis Dawson Work Phone: [facility] Work Phone: Start: 08-26-2022 End: 08-26-[address] Kandis Dawson Work Phone: [facility] Start: 06-26-2022 End: 06-26-[address] Kandis Dawson Work Phone: [facility] Work Phone: Start: 06-26-2022 End: 06-26-[address] Kandis Dawson Work Phone: [facility]-Laboratory, Specimen Start: 06-17-2022 End: 06-17-[address] Kandis Dawson Work Phone: [facility] Work Phone: Start: 06-17-2022 End: 06-17-[address] Kandis Dawson Work Phone: [facility] Start: 05-20-2022 End: 05-20-[address] Kandis Dawson Work Phone: [facility] Work Phone: Start: 05-20-2022 End: 05-20-[address] Kandis Dawson Work Phone: [facility] Start: 04-29-2022 Non-patient / Non-visit Dr. James Dawson Work Phone: [facility] Start: 04-29-2022 End: 04-29-[address] Kandis Dawson Work Phone: [facility] Work Phone: Start: 04-29-2022 End: 04-29-[address] Kandis Dawson Work Phone: [facility]-Laboratory, [facility] Start: 02-06-2022 End: 02-06-[address] Kandis Dawson Work Phone: [facility] Start: 12-12-2021 End: 12-12-[address] Kandis Dawson Work Phone: [facility]-Cardiovascula r Services Start: 11-25-2021 End: 02-28-[address] [facility] Start: 11-20-2021 Non-patient / Non-visit Dr. James Dawson Work Phone: [facility] Start: 11-19-2021 Non-patient / Non-visit Dr. James Dawson Work Phone: [facility] Start: 11-19-2021 End: 11-20-2021 Evaluation and management of inpatient [facility]-Medical Surgical 3 Procedures Date Procedure Procedure Detail Performing Clinician Start: 09-08-[address] Kandis Dawson MD Work Phone: Start: 09-06-2024 SARS-CoV-2, Influenz a & RSV (PCR) Dr. Kandis Dawson MD Work Phone: Start: 09-06-2024 X-ray of chest, PA a nd lateral views Dr. Kandis Dawson MD Work Phone: Start: 06-17-2022 Plain chest X-ray Dr. Jessie Dawson Work Phone: Start: 05-20-[address] Jessie Dawson Work Phone: Start: 05-20-[address] Kandis Dawson Work Phone: Start: 11-20-2021 MRI of lower extremity Dr. Kandis Dawson Work Phone: Start: 11-20-2021 End: 11-20-[address] Kandis Dawson Work Phone: Start: 11-19-2021 Plain X-ray of femur Start: 11-19-2021 Radiologic examinati on of knee Start: 11-19-2021 Plain chest X-ray Viral antigen assay Dr. Brunilda Dawson Work Phone: Plan of Treatment Date Care Activity Detail Author Start: 11-28-2024 End: 11-28-2025 Endometrial biopsy Endometrial biopsy Procedures Routine PMB (postmenopausal bleeding) Increased endometrial stripe thickness Expected: 11/28/2024 (Approximate), Expires: 11/28/2025 [facility] Comment on above: Expected: 11/28/2024 (Approximate), Expires: 11/28/2025 Start: 11-28-2024 End: 11-28-2025 Tissue exam [facility] Work Phone: Comment on above: Expected: 11/28/2024 (Approximate), Expires: 11/28/2025 Start: 10-27-2024 Liquid based cervica l cytology screening [facility] Start: 09-09-2024 Patient discharge [facility] Start: 09-07-2024 [facility] Start: 09-06-2024 Following clinical p athway protocol [facility] Start: 09-06-2024 Ambulation without limitation [facility] Start: 09-06-2024 Assessment of risk o f venous thromboembolism [facility] Start: 09-06-2024 Care regimes management [facility] Start: 09-06-2024 Inhalation therapy procedure [facility] Start: 09-06-2024 Insertion of cathete r into peripheral vein [facility] Start: 09-06-2024 Measuring intake and output [facility] Start: 09-06-2024 Notification of physician [facility] Start: 09-06-2024 Oxygen therapy [facility] Start: 09-06-2024 Providing care accor ding to standard [facility] Start: 09-06-2024 Referral to occupati onal therapist [facility] Start: 09-06-2024 Referral to service [facility] Start: 09-06-2024 SARS-CoV-2, Influenz a & RSV (PCR) SARS-CoV-2, Influenza & RSV (PCR) [facility] Start: 09-06-2024 End: 09-06-2024 [facility] Start: 09-06-2024 Hospital admission, emergency, from emergency room, medical nature [facility] Start: 09-06-2024 Admission procedure [facility] Start: 09-06-2024 Patient referral to dietitian [facility] Start: 02-21-2024 COVID-19 Vaccine ( season) COVID-19 Vaccine () [facility] Start: 11-20-2021 Oxygen therapy [facility] Work Phone: Start: 11-20-2021 Patient discharge [facility] Work Phone: Start: 11-20-2021 Referral to service [facility] Work Phone: Start: 11-20-2021 Inhalation therapy procedure [facility] Work Phone: Start: 11-19-2021 End: 11-20-2021 [facility] Work Phone: Start: 11-19-2021 Assessment of risk o f venous thromboembolism [facility] Work Phone: Start: 11-19-2021 Care regimes management [facility] Work Phone: Start: 11-19-2021 Consultation [facility] Work Phone: Start: 11-19-2021 Insertion of cathete r into peripheral vein [facility] Work Phone: Start: 11-19-2021 Notification of physician [facility] Work Phone: Start: 11-19-2021 Providing care accor ding to standard [facility] Work Phone: Start: 11-19-2021 Provision of activit y privileges [facility] Work Phone: Start: 11-19-2021 Referral to occupati onal therapist [facility] Work Phone: Start: 11-19-2021 Referral to service [facility] Work Phone: Start: 05-31-2022 Following clinical p athway protocol [facility] Work Phone: Start: 11-19-2021 Admission procedure [facility] Work Phone: Start: 04-28-2021 Pneumococcal Vaccine : 50+ Years (3 of 3 - PCV20 or PCV21) Pneumococcal Vaccine: 50+ Years (3 of 3 - PCV20 or PCV21) [facility] Start: 2020 RSV Immunization for Adults (1 - 1-dose 75+ series) RSV Immunization for Adults (1 - 1-dose 75+ series) [facility] Start: 1995 Zoster Vaccines (1 of 2) Zoste r Vaccines (1 of 2) [facility] Start: 1964 DTaP/Tdap/Td Vaccine s (1 - Tdap) DTaP/Tdap/Td Vaccines (1 - Tdap) [facility] Start: 1963 Hepatitis C screening Hepatitis C Sc reening [facility] Start: 1957 Depression Screening Depression Scre ening [facility] Start: 1945 Lipid panel Lipid Panel [facility] Start: 1945 Medicare Annual Well ness (AWV) Medicare Annual Wellness (AWV) [facility] Start: 1945 Screening for osteoporosis Bone Dens ity Scan [facility] Cytology report of Cervical or vaginal smear or scraping Cyto stain.thin prep [facility] Path report.final Dx Spec [facility] Patient referral [facility] Work Phone: [place] [facility] Payers Date Payer Category Payer Medicaid [id number] 2023 Self-pay [id number] 2023 Medicaid 2010 Medicare MEDICARE PART A AND B [id number] 2010 Medicare [id number] 1945 Unknown [id number] Unknown [id number] Unknown [id number] Unknown [id number] [id number] Unknown [id number] [id number] Unknown [id number] [id number] Unknown [id number] [id number] Unknown [id number] 2.16.840.1.486245.3.579.2.462 Unknown [id number] [id number] Unknown [id number] 2.16.840.1.537807.3.579.2.462 Unknown [id number] [id number] Unknown [id number] [id number] Unknown [id number] 2.16.840.1.421227.3.579.2.462 Unknown [id number] 2.16.840.1.396100.3.579.2.462 Unknown [id number] 2.16.840.1.241912.3.579.2.462 Unknown [id number] [id number] Unknown [id number] 2.16.840.1.304024.3.579.2.462 Unknown [id number] 2.16.840.1.227988.3.579.2.462 Unknown [id number] [id number] Unknown [id number] [id number] Unknown [id number] [id number] Unknown [id number] [id number] Unknown [id number] Social History Date Type Detail Facility Start: 11-19-2021 End: 04-07-2023 Tobacco smoking status LAIS Unknown if ever smoked [facility] Start: 1945 Sex Assigned At Female [facility] Start: 09-06-2024 End: 09-07-2024 Tobacco smoking status NHIS Current Light tobacco smoker [facility] Start: 09-06-2024 End: 11-08-2024 Sex Female (finding) [facility] Start: 11-21-2024 Tobacco smoking stat us LAIS Smokes tobacco daily [facility] History of tobacco use Cigarette Smoker [facility] Start: 11-21-2024 Tobacco use and exposure Smokeless tobacco non-user [facility] Start: 11-28-2024 Alcoholic beverage intake Lifetime non-drinker (finding) [facility] Start: 11-28-2024 History of Social function [facility] Start: 11-28-2024 Tobacco use panel [facility] Start: 1945 Sex assigned at Not on file [facility] Goals Date Patient Goal Desired Activity /State Functional Status Date Assessment Result Facility 09-09-2024 Functional status Chair [facility] Work Phone: 09-09-2024 Functional status Tolerates Activity Poor [facility] Work Phone: 11-20-2021 Functional status Bedrest;Bedside Commode [facility] Work Phone: Mental Status Date Assessment Result Facility 09-09-2024 Cognitive function Patient Kierra yin Person;Place;Time [facility] Work Phone: 09-09-2024 Cognitive function Voice/Name [facility] Work Phone: 09-06-2024 Cognitive function Level Of Cons ciousness Awake;Alert;Appropriate;Follow s Commands [facility] Work Phone: 11-20-2021 Cognitive function Appropriate;Cooperativ e [facility] Work Phone: Clinical Notes 10-22-2023 to 11-28-2024 Mitchell Almeida MD - 11/28/2024 11:00 AM EDTNanette Box MA - 11/28/2024 11:00 AM EDT Note Date & Type Note Facility 11-28-2024 History of Present illness Narrative Images from the original note were not included. HPI: Karla Mina is a pleasant 79 y.o. female who presents in consultation from CHARLENE Whittington for further evaluation and management of postmenopausal bleeding with a thickened endometrial stripe. She initiallypresented with postmenopausal bleeding. Patient states she has been bleeding now for the last 4 to 5 months, not associate any pain, pelvic pain, uterine cramps, adenopathy. The bleeding is described as mild to moderate in amount and with no other modifying factors. Underwent ultrasound that shows a 16 mm endometrial stripe. Had endometrial biopsy in June 2022 which reportedly was benign endometrium. Patient is oxygen dependent due to tobacco use. COPD. Lives with her daughter. Arrives in a wheelchair. Medical History[1] A fib Surgical History[2] Family History[3] Social History[4] Current Medications[5] Allergies as of 11/28/2024 (No Known Allergies) Review of Systems: Review of Systems Respiratory: Positive for shortness of breath. Genitourinary: Positive for vaginal bleeding. Negative for pelvic pain. There were no vitals taken for this visit. Physical Exam: Physical Exam Vitals and nursing note reviewed. Exam conducted with a egg trayer present. Constitutional: Appearance: She is obese. She is ill-appearing. Abdominal: General: Abdomen is flat. There is no distension. Palpations: Abdomen is soft. There is no mass. Tenderness: There is no abdominal tenderness. Comments: Small nodules and pannus secondary to insulin injections Genitourinary: General: Normal vulva. Labia: Right: No lesion. Left: No lesion. Urethra: No urethral lesion. Vagina: Bleeding present. Cervix: Lesion present. Uterus: Normal. Adnexa: Right: No mass. Left: No mass. Comments: Large polypoid mass hanging out of the cervical os into the vagina, somewhat necrotic. Well-formed. Appears to be benign. Very narrow stalk. Neurological: Mental Status: She is alert. Psychiatric: Mood and Affect: Mood normal. Multiple records in the EMR been reviewed from referring physician Procedure note; the polyp was grasped with a ring forcep, was gently twisted and removed in its entirety. No bleeding afterwards. Endometrial biopsy was also obtained in the endometrial cavity with mostly blood obtained. Uterus sounded to 8 cm. ASSESSMENT/PLAN: Diagnosis Plan 1. PMB (postmenopausal bleeding) Polyp as well as endometrial biopsy sent to pathology. Discussed that if it is benign no further treatment would be necessary. On the other hand if it is a malignancy will need to consider hysterectomy. The patient is not a good candidate for surgery due to her multiple medical comorbidities. We discussed potential long-term ventilation after surgery. Will await results of biopsy. Total time spent in review of EMR lari-ln-lccf counseling with patient was 35 minutes [1] Past Medical History: Diagnosis Date Acute exacerbation of chronic obstructive pulmonary disease (COPD) (HCC) Acute heart failure with preserved ejection fraction (HFpEF) (HCC) Anemia Atrial fibrillation (HCC) Carpal tunnel syndrome, right Cataracts, bilateral CHF (congestive heart failure) (HCC) Cubital tunnel syndrome on right Diabetes type 2 (HCC) Ectopic atrial tachycardia (HCC) Edema, lower extremity Essential hypertension GERD (gastroesophageal reflux disease) Hyperlipidemia Osteoarthritis Paroxysmal atrial fibrillation (HCC) Peripheral neuropathic pain Sciatica Traumatic hematoma of right knee [2] Past Surgical History: Procedure Laterality Date CARPAL TUNNEL RELEASE Right wrist CATARACT EXTRACTION DILATION AND CURETTAGE OF UTERUS HYSTEROSCOPY [3] Family History Problem Relation Name Age of Onset Hypertension Mother Diabetes Mother Lung cancer Father Kidney disease Sister Breast cancer Sister Liver cancer Sister Ovarian cancer Sister Hypertension Sister Diabetes Sister Hypertension Brother Diabetes Brother [4] Social History Socioeconomic History Marital status: Tobacco Use Smoking status: Every Day Types: Cigarettes Smokeless tobacco: Never Substance and Sexual Activity Alcohol use: Never Drug use: Never [5] Current Outpatient Medications Medication Sig Dispense Refill albuterol (2.5 MG/3ML) 0.083% nebulizer solution Take 2.5 mg by nebulization every 6 hours as needed for wheezing or shortness of breath. amLODIPine (Norvasc) 10 MG tablet Take 10 mg by mouth daily. apixaban (Eliquis) 5 MG tablet Take 5 mg by mouth 2 times daily. atenolol (Tenormin) 50 MG tablet Take 50 mg by mouth daily. atorvastatin (Lipitor) 40 MG tablet Take 40 mg by mouth daily. calcium carbonate (Tums) 500 MG chewable tablet Chew 600 mg daily. diphenhydrAMINE (BENADryl) 25 MG capsule Take 25 mg by mouth every evening. docusate sodium (Colace) 100 MG capsule Take 100 mg by mouth every evening. esomeprazole (NexIUM) [address] capsule Take 40 mg by mouth every morning (before breakfast). Do not open capsule. ferrous sulfate 325 (65 Fe) MG tablet Take 325 mg by mouth daily (with breakfast). furosemide (Lasix) 80 MG tablet Take 80 mg by mouth every morning. insulin glargine (Lantus) 100 UNIT/ML injection Inject 62 Units under the skin Nightly. insulin regular (HumuLIN R,NovoLIN R) 100 UNIT/ML patient supplied pump Inject 15 Units under the skin continuous. ipratropium (Atrovent) 0.02 % nebulizer solution Take 2.5 mL by nebulization every 6 hours. metFORMIN (Glucophage) 500 MG tablet Take 1,000 mg by mouth 2 times daily. potassium chloride CR (Klor-Con M20) 20 MEQ ER tablet Take 20 mEq by mouth daily. Do not crush or chew. predniSONE (Deltasone) 20 MG tablet Take 20 mg by mouth daily. valsartan (Diovan) 80 MG tablet Take 80 mg by mouth 2 times daily. furosemide (Lasix) 40 MG tablet Take 40 mg by mouth. (Patient not taking: Reported on 11/21/2024) No current facility-administered medications for this visit. Workforce Management Analyst was offered to the patient for exam. Patient accepted, faculty i on call medical assistant in room during exam documented in this encounter [facility] 11-28-2024 Note HPI: Karla Mina is a pleasant 79 y.o. female who presents in consultation from CHARLENE Whittington for further evaluation and management of postmenopausal bleeding with a thickened endometrial stripe. She initiallypresented with postmenopausal bleeding. Patient states she has been bleeding now for the last 4 to 5 months, not associate any pain, pelvic pain, uterine cramps, adenopathy. The bleeding is described as mild to moderate in amount and with no other modifying factors. Underwent ultrasound that shows a 16 mm endometrial stripe. Had endometrial biopsy in June 2022 which reportedly was benign endometrium. Patient is oxygen dependent due to tobacco use. COPD. Lives with her daughter. Arrives in a wheelchair. Medical History[1] A fib Surgical History[2] Family History[3] Social History[4] Current Medications[5] Allergies as of 11/28/2024 (No Known Allergies) Review of Systems: Review of Systems Respiratory: Positive for shortness of breath. Genitourinary: Positive for vaginal bleeding. Negative for pelvic pain. There were no vitals taken for this visit. Physical Exam: Physical Exam Vitals and nursing note reviewed. Exam conducted with a egg trayer present. Constitutional: Appearance: She is obese. She is ill-appearing. Abdominal: General: Abdomen is flat. There is no distension. Palpations: Abdomen is soft. There is no mass. Tenderness: There is no abdominal tenderness. Comments: Small nodules and pannus secondary to insulin injections Genitourinary: General: Normal vulva. Labia: Right: No lesion. Left: No lesion. Urethra: No urethral lesion. Vagina: Bleeding present. Cervix: Lesion present. Uterus: Normal. Adnexa: Right: No mass. Left: No mass. Comments: Large polypoid mass hanging out of the cervical os into the vagina, somewhat necrotic. Well-formed. Appears to be benign. Very narrow stalk. Neurological: Mental Status: She is alert. Psychiatric: Mood and Affect: Mood normal. Multiple records in the EMR been reviewed from referring physician Procedure note; the polyp was grasped with a ring forcep, was gently twisted and removed in its entirety. No bleeding afterwards. Endometrial biopsy was also obtained in the endometrial cavity with mostly blood obtained. Uterus sounded to 8 cm. ASSESSMENT/PLAN: Diagnosis Plan 1. PMB (postmenopausal bleeding) Polyp as well as endometrial biopsy sent to pathology. Discussed that if it is benign no further treatment would be necessary. On the other hand if it is a malignancy will need to consider hysterectomy. The patient is not a good candidate for surgery due to her multiple medical comorbidities. We discussed potential long-term ventilation after surgery. Will await results of biopsy. Total time spent in review of EMR akam-[id number] counseling with patient was 35 minutes [1] Past Medical History: Diagnosis Date Acute exacerbation of chronic obstructive pulmonary disease (COPD) (HCC) Acute heart failure with preserved ejection fraction (HFpEF) (HCC) Anemia Atrial fibrillation (HCC) Carpal tunnel syndrome, right Cataracts, bilateral CHF (congestive heart failure) (HCC) Cubital tunnel syndrome on right Diabetes type 2 (HCC) Ectopic atrial tachycardia (HCC) Edema, lower extremity Essential hypertension GERD (gastroesophageal reflux disease) Hyperlipidemia Osteoarthritis Paroxysmal atrial fibrillation (HCC) Peripheral neuropathic pain Sciatica Traumatic hematoma of right knee [2] Past Surgical History: Procedure Laterality Date CARPAL TUNNEL RELEASE Right wrist CATARACT EXTRACTION DILATION AND CURETTAGE OF UTERUS HYSTEROSCOPY [3] Family History Problem Relation Name Age of Onset Hypertension Mother Diabetes Mother Lung cancer Father Kidney disease Sister Breast cancer Sister Liver cancer Sister Ovarian cancer Sister Hypertension Sister Diabetes Sister Hypertension Brother Diabetes Brother [4] Social History Socioeconomic History Marital status: Tobacco Use Smoking status: Every Day Types: Cigarettes Smokeless tobacco: Never Substance and Sexual Activity Alcohol use: Never Drug use: Never [5] Current Outpatient Medications Medication Sig Dispense Refill albuterol (2.5 MG/3ML) 0.083% nebulizer solution Take 2.5 mg by nebulization every 6 hours as needed for wheezing or shortness of breath. amLODIPine (Norvasc) 10 MG tablet Take 10 mg by mouth daily. apixaban (Eliquis) 5 MG tablet Take 5 mg by mouth 2 times daily. atenolol (Tenormin) 50 MG tablet Take 50 mg by mouth daily. atorvastatin (Lipitor) 40 MG tablet Take 40 mg by mouth daily. calcium carbonate (Tums) 500 MG chewable tablet Chew 600 mg daily. diphenhydrAMINE (BENADryl) 25 MG capsule Take 25 mg by mouth every evening. docusate sodium (Colace) 100 MG capsule Take 100 mg by mouth every evening. esomeprazole (NexIUM) [address] capsule Take 40 mg by mo (more content not included)... [facility] 09-09-2024 Consult note [facility] 09-09-2024 Discharge summary Note Date/Time September 09, 2024 1:54pm [facility] Medical Records Department [address] [place] [address] Instructions for Home/Discharge Instructions 09/09/24 1333 MR#: [id number] Acct: [id number] Name: KALRA MINA Rep #:[id number] : 1945 79 From: Florencio Loco DO PCP: Dr. Kandis Dawson MD Status:ADM IN Discharge Instructions Diet Discharge Diet: No restrictions DC O2, CPAP, BIPAP needs Home O2 Discharge instructions: Yes Type of respiratory needs?: Oxygen Oxygen frequency: Continuous Continuous oxygen liters per minute: 3 L and With Ambulation Oxygen liters per minute during Ambulation: 4 L Dressing / Incision Discharge Activity: Return to Normal Activity Weight Bearing Status: Full weight bearing Follow Up Care Test Results: Test results from this visit will be discussed in further detail at your follow-up appointment, if applicable. Discharge Plan Admission Admit Date/Time: 09/06/24 13:37 Primary Reason for Your Visit: CHF, COPD Attending Provider: Florencio Loco Primary Care Provider: Kandis Dawson Consulting Providers: Bladimir Gregory Discharge Orders/Prescriptions Prescriptions: New furosemide [Lasix] 40 mg tablet 40 mg PO UD Qty: 90 0RF Rx Instructions: 2 tablets every morning, 1 tablet late afternoon prednisone 20 mg tablet 20 mg PO DAILY Qty: 7 0RF Continued ferrous sulfate 325 mg (65 mg iron) tablet 325 mg PO DAILY metformin 500 mg tablet 1,000 mg PO BID 90 Days Patient Comments: calcium carbonate [Calcium 600] 600 mg calcium (1,500 mg) tablet 600 mg PO BID diphenhydramine HCl [Allergy Relief(diphenhydramin)] 25 mg capsule 25 mg PO QHS ipratropium bromide 0.02 % solution 2.5 ml continuous nebulization Q6H PRN (Reason: shortness of breath or wheezing) amlodipine 10 mg tablet 10 mg PO DAILY 90 Days Qty: 90 3RF valsartan 80 mg tablet 80 mg PO BID 90 Days Qty: 180 3RF docusate sodium 100 mg capsule 100 mg PO QHS atenolol 50 mg tablet 50 mg PO QDAY esomeprazole magnesium 40 mg capsule,delayed release(DR/EC) 40 mg PO QDAY insulin glargine [Lantus U-100 Insulin] 100 unit/mL solution 62 unit subcut QHS albuterol sulfate 2.5 mg /3 mL (0.083 %) Solution For Nebulization 2.5 mg inhalation PRN PRN (Reason: shortness of breath or wheezing) Eliquis 5 mg tablet 5 mg PO BID Qty: 180 3RF atorvastatin 40 mg tablet 40 mg PO DAILY 90 Days Qty: 90 3RF potassium chloride 20 mEq tablet,ER particles/crystals 20 meq PO DAILY Qty: 90 3RF Changed Humulin R Regular U-100 Insuln 100 unit/mL solution 15 unit subcut BID Qty: 1 0RF Patient Comments: INJECT 20 UNITS EVERY MORNING , THEN INJECT 20 UNITS EVERY EVENING Discontinued ibuprofen 600 mg tablet 600 mg PO QHS 22 Days Patient Comments: Humulin N NPH Insulin KwikPen 100 unit/mL (3 mL) insulin pen 40 unit subcut DAILY furosemide 80 mg tablet 80 mg PO DAILY Humulin N NPH Insulin KwikPen 100 unit/mL (3 mL) insulin pen 27 unit subcut QPM Referrals / Follow Up: Kandis Dawson MD [Primary Care Provider] - In 1 Week Disposition Disposition (needs filled in before D/C Order can be placed): Home, Self Care 09/09/24 1354<Electronically signed by Florencio Loco DO>Florencio Loco DO CC: Dr. Bladimir Gregory DO; Dr. Kandis Dawson MD ~ Signed [facility] Work Phone: 1(266) 336-156003-21-2025 Discharge summary [facility] Medical Records Department [address] [place] [address] Instructions for Home/Discharge Instructions 09/09/24 1333 MR#: [id number] Acct: [id number] Name: KARLA MINA Rep #:[id number] : 1945 79 From: Florencio Loco DO PCP: Dr. Kandis Dawson MD Status:ADM IN Discharge Instructions Diet Discharge Diet: No restrictions DC O2, CPAP, BIPAP needs Home O2 Discharge instructions: Yes Type of respiratory needs?: Oxygen Oxygen frequency: ContinuousContinuous oxygen liters per minute: 3 L and With Ambulation Oxygen liters per minute during Ambulation: 4 L Dressing / Incision Discharge Activity: Return to Normal Activity Weight Bearing Status: Full weight bearing Follow Up Care Test Results: Test results from this visit will be discussed in further detail at your follow- up appointment, if applicable. Discharge Plan Admission Admit Date/Time: 09/06/24 13:37 Primary Reason for Your Visit: CHF, COPD Attending Provider: Florencio Loco Primary Care Provider: Kandis Dawson Consulting Providers: Bladimir Gregory Discharge Orders/Prescriptions Prescriptions: New furosemide [Lasix] 40 mg tablet 40 mg PO UD Qty: 90 0RF Rx Instructions: 2 tablets every morning, 1 tablet late afternoon prednisone 20 mg tablet 20 mg PO DAILY Qty: 7 0RF Continued ferrous sulfate 325 mg (65 mg iron) tablet 325 mg PO DAILY metformin 500 mg tablet 1,000 mg PO BID 90 Days Patient Comments: calcium carbonate [Calcium 600] 600 mg calcium (1,500 mg) tablet 600 mg PO BID diphenhydramine HCl [Allergy Relief(diphenhydramin)] 25 mg capsule 25 mg PO QHS ipratropium bromide 0.02 % solution 2.5 ml continuous nebulization Q6H PRN (Reason: shortness of breath or wheezing) amlodipine 10 mg tablet 10 mg PO DAILY 90 Days Qty: 90 3RF valsartan 80 mg tablet 80 mg PO BID 90 Days Qty: 180 3RF docusate sodium 100 mg capsule 100 mg PO QHS atenolol 50 mg tablet 50 mg PO QDAY esomeprazole magnesium 40 mg capsule,delayed release(DR/EC) 40 mg PO QDAY insulin glargine [Lantus U-100 Insulin] 100 unit/mL solution 62 unit subcut QHS albuterol sulfate 2.5 mg /3 mL (0.083 %) Solution For Nebulization 2.5 mg inhalation PRN PRN (Reason: shortness of breath or wheezing) Eliquis 5 mg tablet 5 mg PO BID Qty: 180 3RF atorvastatin 40 mg tablet 40 mg PO DAILY 90 Days Qty: 90 3RF potassium chloride 20 mEq tablet,ER particles/crystals 20 meq PO DAILY Qty: 90 3RF Changed Humulin R Regular U-100 Insuln 100 unit/mL solution 15 unit subcut BID Qty: 1 0RF Patient Comments: INJECT 20 UNITS EVERY MORNING , THEN INJECT 20 UNITS EVERY EVENING Discontinued ibuprofen 600 mg tablet 600 mg PO QHS 22 Days Patient Comments: Humulin N NPH Insulin KwikPen 100 unit/mL (3 mL) insulin pen 40 unit subcut DAILY furosemide 80 mg tablet 80 mg PO DAILY Humulin N NPH Insulin KwikPen 100 unit/mL (3 mL) insulin pen 27 unit subcut QPM Referrals / Follow Up: Kandis Dawson MD [Primary Care Provider] - In 1 Week Disposition Disposition (needs filled in before D/C Order can be placed): Home, Self Care 09/09/24 1354Florencio Loco DO CC: Dr. Bladimir Gregory DO; Dr. Kandis Dawson MD ~ [facility]03-21-2025 [facility] Medical Records Department [address] [place] [address] Discharge Summary 09/09/24 1354 MR#: [id number] Acct: [id number] Name: KARLA MINA Rep #: [id number] : 1945 79 From: Florencio Loco DO PCP: Dr. Kandis Dawson MD Status:DIS IN Location: [facility] [id number] Providers Date of Admission: 09/06/24 Date of Discharge: 09/09/24 Primary Care Physician: Dr. Kandis Dawson MD Reason For Visit: hypoglycemia Diagnosis Discharge Diagnosis (1) Acute heart failure with preserved ejection fraction (HFpEF): Status: Acute Code(s): I50.31 - Acute diastolic (congestive) heart failure Plan 1. Acute congestive heart failure with preserved ejection fraction-continue IV Lasix at this time #2 acute on chronic hypoxic respiratory failure-patient is currently on 4 L of oxygen at rest, her baseline oxygen at home is 3 L, pulse ox will be monitored #3 acute exacerbation of chronic obstructive pulmonary disease-patient is being treated with IV corticosteroids and aerosol treatments #4 paroxysmal atrial fibrillation-patient is currently in sinus rhythm at this time, she will remain on rate limiting agents and Eliquis #5 essential hypertension-patient is on amlodipine and atenolol #6 hyperlipidemia-patient is on atorvastatin #7 type 2 diabetes-patient's blood sugars will be monitored with fingerstick blood sugars, sliding scale insulin will be administered as indicated, patient is on basal insulin Total clinical time spent by myself addressing the patient's medical issues, reviewing all of her data, and collaborating with patient's care team: 35 minutes Medications at Discharge Home Medications ferrous sulfate 325 mg (65 mg iron) tablet 325 mg PO DAILY supplement 03/05/18 calcium carbonate (Calcium 600) 600 mg PO BID supplement 01/31/20 diphenhydramine HCl 25 mg capsule (Allergy Relief (diphenhydramine)) 25 mg PO QHS allergies 01/31/20 ipratropium bromide 0.02 % solution for inhalation 2.5 ml continuous nebulization Q6H PRN shortness of breath or wheezing 02/06/22 amlodipine 10 mg tablet 10 mg PO DAILY bp 90 days #90 tabs 09/30/22 valsartan 80 mg tablet 80 mg PO BID bp 90 days #180 tabs 09/30/22 docusate sodium 100 mg capsule 100 mg PO QHS 04/07/23 metformin 500 mg tablet 1,000 mg PO BID diabetes 90 days 04/07/23 apixaban 5 mg tablet (Eliquis) 5 mg PO BID blood thinner #180 tabs 10/09/23 atorvastatin 40 mg tablet 40 mg PO DAILY cholesterol 90 days #90 tabs 10/09/23 potassium chloride 20 mEq tablet,extended release(part/cryst) 20 meq PO DAILY supplement #90 tabs 10/09/23 albuterol sulfate 2.5 mg/3 mL (0.083 %) solution for nebulization 2.5 mg inhalation PRN PRN shortness of breath or wheezing 03/28/24 insulin glargine 100 unit/mL subcutaneous solution (Lantus U-100 Insulin) 62 unit subcut QHS 03/28/24 atenolol 50 mg tablet 50 mg PO QDAY 06/09/24 esomeprazole magnesium 40 mg capsule,delayed release 40 mg PO QDAY 06/09/24 furosemide 40 mg tablet (Lasix) 40 mg PO UD #90 tabs 09/09/24 insulin regular human 100 unit/mL injection solution (Humulin R Regular U-100 Insulin) 15 unit (0.15 mL) subcut BID #1 mL 09/09/24 prednisone 20 mg tablet 20 mg PO DAILY #7 tabs 09/09/24 Hospital Course Operations None Procedures None Summary of Care Provided Minutes Spent on Discharge: 31 Hospital Course: This 79-year-old white female was seen in the emergency room at [facility] with complaints of shortness of breath and low blood sugar. Workup in the emergency room included a CBC which showed a normal white blood cell count, hemoglobin was 10.3, patient's chest x-ray showed pulmonary venous congestion. Patient was admitted to PCU with a diagnosis of acute congestive heart failure and acute exacerbation of COPD. She was given aerosol treatments, IV corticosteroids, and IV Lasix. Patient improved over the next several days. On 09/09/2024, patient was seen and examined:alert, oriented x3, no apparent distress and healthy appearing Constitutional Narrative: Patient has class III obesity General Appearance: cooperative, well kempt and well developed Orientation / Consciousness: awake, oriented to person, oriented to place and oriented to time HEENT normocephalic, head/scalp atraumatic and moist oral mucous membranes Eyes PERRL, EOMs intact bilaterally and conjunctivae normal Neck supple, no JVD, thyroid normal and no carotid bruits General: trachea midline Resp normal respiratory effort, no retractions and no use of accessory muscles Resp Narrative: Breath sounds are diminished bilaterally Auscultation: Negative for rales, rhonchi or wheezes Cardio regular rate, regular rhythm, S1 normal heart sound, S2 normal heart sound, no murmurs, no rub and no gallops GI normal to inspection, nondistended, normoactive bowel sounds, soft to palpation, non-tender and non- dis (more content not included)...[facility]03-21-2025 Progress note Author Tiffany Murillo [facility] Note Date/Time September 08, 2024 10: 17pm [facility] Medical Records Department [address] [place] [address] Progress Note - Hospitalist 09/08/24 MR#: [id number] Acct: [id number] Name: MARY JOKARLA S Rep #:[id number] : 1945 79 From: Tiffany Murillo MD PCP: Dr. Kandis Dawson MD Status:ADM IN Location: [place] [address] Hospitalist Note BS remained elevated, on steroids of note, given ISS earlier and recheck only minimally improved, will given 10 u ISS x 1 now and reassess per discussion withRN. 09/08/242216 <Electronically signed by Tiffany Murillo MD> Cosigner Signature (if applicable): CC: ~ Signed [facility] Work Phone: 1(884) 686-729903-20-2025 Progress note [facility] Medical Records Department [address] [place] [address] Progress Note - Hospitalist 09/08/242215 MR#: [id number] Acct: [id number] Name: KARLA MINA Rep #:[id number] : 1945 79 From: Tiffany Murillo MD PCP: Dr. Kandis Dawson MD Status:ADM IN Location: [place] [address] Hospitalist Note BS remained elevated, on steroids of note, given ISS earlier and recheck only minimally improved, will given 10 u ISS x 1 now and reassess per discussion withRN. 09/08/242216 Cosigner Signature (if applicable): CC: ~ Signed [facility]03-20-2025 Progress note Author [facility]io [facility] Note Date/Time September 08, 2024 9:4 3am [facility] Medical Records Department [address] [place] [address] Progress Note - Hospitalist 09/08/24 0938 MR#: [id number] Acct: [id number] Name: KARLA MINA Rep #:[id number] : 1945 79 From: Florencio Loco DO PCP: Dr. Kandis Dawson MD Status:ADM IN Location: [place] [address] Reason for Visit Reason for Visit: Diagnoses Acute diastolic (congestive) heart failure (09/06/24) Chronic obstructive pulmonary disease with (acute) exacerbation (09/06/24) Subjective Subjective Patient was seen and examined today, her family members were in the room at the time of my examination, I had a question whether the patient had a heart attack this admission-I stated she did not. Patient remains on 4 L of oxygen at this time, family states that the patient is on 3 L of oxygen normally at home and when ambulating. Objective Data Objective Data Vital Signs: Vital Signs Temp Pulse Resp BP Pulse Ox O2 Del Method O2 Flow Rate 98.2 F 66 18 128/48 H 95 Nasal Cannula 4 09/08/24 02:10 09/08/24 06:50 09/08/24 06:50 09/08/24 02:10 09/08/24 06:50 09/08/24 06:50 09/08/24 06:50 Oxygen Flow Rate (L/min) 4 Oxygen Delivery Method Nasal Cannula Weight: 108.6 kg Body Mass Index (BMI) 41.1 Intake & Output: Intake and Output for Last 24 Hours 09/06/24 09/07/24 09/08/24 23:59 23:59 23:59 Intake Total 480 / 480 570 / 570 0 / 0 Output Total 1000 / 1000 1675 / 1675 Balance -520 / -520 -1105 / -1105 0 / 0 Lab / Micro Data 09/07/24 05:04 09/07/24 05:04 Labs: Laboratory Results - last 24 hr 09/07/24 11:27: POC Glucose 374 H 09/07/24 17:25: POC Glucose 308 H 09/07/24 21:15: POC Glucose 338 H 09/08/24 08:09: POC Glucose 269 H Micro: Microbiology 09/06/24 14:00 Mucosa - Nose SARS-CoV-2, Influenza & RSV (PCR) - Final Physical Exam Narrative alert, oriented x3, no apparent distress and healthy appearing Constitutional Narrative: Patient has class III obesity General Appearance: cooperative, well kempt and well developed Orientation / Consciousness: awake, oriented to person, oriented to place and oriented to time HEENT normocephalic, head/scalp atraumatic and moist oral mucous membranes Eyes PERRL, EOMs intact bilaterally and conjunctivae normal Neck supple, no JVD, thyroid normal and no carotid bruits General: trachea midline Resp normal respiratory effort, no retractions and no use of accessory muscles Resp Narrative: Breath sounds are diminished bilaterally Auscultation: Negative for rales, rhonchi or wheezes Cardio regular rate, regular rhythm, S1 normal heart sound, S2 normal heart sound, no murmurs, no rub and no gallops GI normal to inspection, nondistended, normoactive bowel sounds, soft to palpation,non-tender and non-distended Extremity Extremity Narrative: Patient has bilateral lower leg edema Skin no rashes or lesions noted General Skin Exam: no breakdown Neuro oriented x3, CN's II-XII intact bilaterally, moves all extremities, no focal motor deficits and no sensory deficits noted Sensorium / Orientation: awake and alert Speech: speech normal Psych affect normal Assessment & Plan Assessment/Plan (1) Acute heart failure with preserved ejection fraction (HFpEF): PLAN: Plan 1. Acute congestive heart failure with preserved ejection fraction-continue IV Lasix at this time #2 acute on chronic hypoxic respiratory failure-patient is currently on 4 L of oxygen at rest, her baseline oxygen at home is 3 L, pulse ox will be monitored #3 acute exacerbation of chronic obstructive pulmonary disease-patient is being treated with IV corticosteroids and aerosol treatments #4 paroxysmal atrial fibrillation-patient is currently in sinus rhythm at this time, she will remain on rate limiting agents and Eliquis #5 essential hypertension-patient is on amlodipine and atenolol #6 hyperlipidemia-patient is on atorvastatin #7 type 2 diabetes-patient's blood sugars will be monitored with fingerstick blood sugars, sliding scale insulin will be administered as indicated, patient is on basal insulin Total clinical time spent by myself addressing the patient's medical issues, reviewing all of her data, and collaborating with patient's care team: 35 minutes Charges/Coding Visit Charges Inpatient E&M: 09906 Subs Hosp L2 09/08/24 0943 <Electronically signed by Florencio Loco DO> Cosigner Signature (if applicable): CC: ~ Signed [facility] Work Phone: 1(780) 272-298203-20-2025 Progress note [facility] Medical Records Department [address] [place] [address] Progress Note - Hospitalist 09/08/2438 MR#: [id number] Acct: [id number] Name: KARLA MINA Rep #:[id number] : 1945 79 From: Florencio Loco DO PCP: Dr. Kandis Dawson MD Status:ADM IN Location: [place] [address]- Reason for Visit Reason for Visit: Diagnoses Acute diastolic (congestive) heart failure (09/06/24) Chronic obstructive pulmonary disease with (acute) exacerbation (09/06/24) Subjective Subjective Patient was seen and examined today, her family members were in the room at the time of my examination, I had a question whether the patient had a heart attack this admission-I stated she did not. Patient remains on 4 L of oxygen at this time, family states that the patient is on 3 L of oxygen normally at home and when ambulating. Objective Data Objective Data Vital Signs: Vital Signs Temp Pulse Resp BP Pulse Ox O2 Del Method O2 Flow Rate 98.2 F 66 18 128/48 H 95 Nasal Cannula 4 09/08/24 02:10 09/08/24 06:50 09/08/24 06:50 09/08/24 02:10 09/08/24 06:50 09/08/24 06:50 09/08/24 06:50 Oxygen Flow Rate (L/min) 4 Oxygen Delivery Method Nasal Cannula Weight: 108.6 kg Body Mass Index (BMI) 41.1 Intake & Output: Intake and Output for Last 24 Hours 09/06/24 09/07/24 09/08/24 23:59 23:59 23:59 Intake Total 480 / 480 570 / 570 0 / 0 Output Total 1000 / 1000 1675 / 1675 Balance -520 / -520 -1105 / -1105 0 / 0 Lab / Micro Data 09/07/24 05:04 09/07/24 05:04 Labs: Laboratory Results - last 24 hr 09/07/24 11:27: POC Glucose 374 H 09/07/24 17:25: POC Glucose 308 H 09/07/24 21:15: POC Glucose 338 H 09/08/24 08:09: POC Glucose 269 H Micro: Microbiology 09/06/24 14:00 Mucosa - Nose SARS-CoV-2, Influenza & RSV (PCR) - Final Physical Exam Narrative alert, oriented x3, no apparent distress and healthy appearing Constitutional Narrative: Patient has class III obesity General Appearance: cooperative, well kempt and well developed Orientation / Consciousness: awake, oriented to person, oriented to place and oriented to time HEENT normocephalic, head/scalp atraumatic and moist oral mucous membranes Eyes PERRL, EOMs intact bilaterally and conjunctivae normal Neck supple, no JVD, thyroid normal and no carotid bruits General: trachea midline Resp normal respiratory effort, no retractions and no use of accessory muscles Resp Narrative: Breath sounds are diminished bilaterally Auscultation: Negative for rales, rhonchi or wheezes Cardio regular rate, regular rhythm, S1 normal heart sound, S2 normal heart sound, no murmurs, no rub and no gallops GI normal to inspection, nondistended, normoactive bowel sounds, soft to palpation,non-tender and non-distended Extremity Extremity Narrative: Patient has bilateral lower leg edema Skin no rashes or lesions noted General Skin Exam: no breakdown Neuro oriented x3, CN's II-XII intact bilaterally, moves all extremities, no focal motor deficits and no sensory deficits noted Sensorium / Orientation: awake and alert Speech: speech normal Psych affect normal Assessment & Plan Assessment/Plan (1) Acute heart failure with preserved ejection fraction (HFpEF): PLAN: Plan 1. Acute congestive heart failure with preserved ejection fraction-continue IV Lasix at this time #2 acute on chronic hypoxic respiratory failure-patient is currently on 4 L of oxygen at rest, her baseline oxygen at home is 3 L, pulse ox will be monitored #3 acute exacerbation of chronic obstructive pulmonary disease-patient is being treated with IV corticosteroids and aerosol treatments #4 paroxysmal atrial fibrillation-patient is currently in sinus rhythm at this time, she will remain on rate limiting agents and Eliquis #5 essential hypertension-patient is on amlodipine and atenolol #6 hyperlipidemia-patient is on atorvastatin #7 type 2 diabetes-patient's blood sugars will be monitored with fingerstick blood sugars, sliding scale insulin will be administered as indicated, patient is on basal insulin Total clinical time spent by myself addressing the patient's medical issues, reviewing all of her data, and collaborating with patient's care team: 35 minutes Charges/Coding Visit Charges Inpatient E&M: 30011 Subs Hosp L2 09/08/24 0943 Cosigner Signature (if applicable): CC: ~ Signed [facility]03-19-2025 Progress note Author Florencio Loco [facility] Note Date/Time September 07, 2024 1:0 8pm [facility] [address] [place] [address] Progress Note - Hospitalist 09/07/24 1301 MR#: [id number] Acct: [id number] Name: KARLA MINA Rep #:[id number] : 1945 79 From: Florencio Loco DO PCP: Dr. Kandis Dawson MD Status:ADM IN Location: [place] [address] Reason for Visit Reason for Visit: Diagnoses Acute diastolic (congestive) heart failure (09/06/24) Chronic obstructive pulmonary disease with (acute) exacerbation (09/06/24) Subjective Subjective Patient was seen and examined today, she appears comfortable at rest, she is requiring 5 L oxygen via nasal cannula. Objective Data Objective Data Vital Signs: Vital Signs Temp Pulse Resp BP Pulse Ox O2 Del Method O2 Flow Rate 97.5 F L 79 20 H 144/54 H 97 Nasal Cannula 5 09/07/24 11:03 09/07/24 11:13 09/07/24 11:13 09/07/24 11:03 09/07/24 11:03 09/07/24 11:03 09/07/24 11:03 Oxygen Flow Rate (L/min) 5 Oxygen Delivery Method Nasal Cannula Weight: 108.12 kg Body Mass Index (BMI) 40.8 Intake & Output: Intake and Output for Last 24 Hours 09/05/24 09/06/24 09/07/24 23:59 23:59 23:59 Intake Total 480 / 480 120 / 120 Output Total 1000 / 1000 800 / 800 Balance -520 / -520 -680 / -680 Lab / Micro Data 09/07/24 05:04 09/07/24 05:04 Labs: Laboratory Results - last 24 hr 09/06/24 08:24: POC Glucose 119 H 09/06/24 09:25: Hemoglobin A1c 6.6 09/06/24 16:21: POC Glucose 282 H 09/06/24 20:46: POC Glucose 337 H 09/07/24 05:04: WBC 6.7, RBC 4.03 L, Hgb 11.4 L, Hct 35.2 L, MCV 87.3, MCH 28.3,MCHC 32.4, RDW Std Deviation 44.1 H, RDW Coeff of Sebastian 13.9, Plt Count 236, MPV 10.8, Sodium 139, Potassium 4.2, Chloride 102, Carbon Dioxide 26.1, Anion Gap 11, BUN 24 H, Creatinine 1.01, Estim Creat Clear Calc 54.24, Est GFR (MDRD) Non-Af 57 L, BUN/Creatinine Ratio 23.3 H, Glucose 322 H, Calcium 8.9 09/07/24 06:31: POC Glucose 321 H 09/07/24 11:27: POC Glucose 374 H Micro: Microbiology 09/06/24 14:00 Mucosa - Nose SARS-CoV-2, Influenza & RSV (PCR) - Final Physical Exam Const alert, oriented x3, no apparent distress and healthy appearing Constitutional Narrative: Patient has class III obesity General Appearance: cooperative, well kempt and well developed Orientation / Consciousness: awake, oriented to person, oriented to place and oriented to time HEENT normocephalic, head/scalp atraumatic and moist oral mucous membranes Eyes PERRL, EOMs intact bilaterally and conjunctivae normal Neck supple, no JVD, thyroid normal and no carotid bruits General: trachea midline Resp normal respiratory effort, no retractions and no use of accessory muscles Resp Narrative: Breath sounds are diminished bilaterally Auscultation: Negative for rales, rhonchi or wheezes Cardio regular rate, regular rhythm, S1 normal heart sound, S2 normal heart sound, no murmurs, no rub and no gallops GI normal to inspection, nondistended, normoactive bowel sounds, soft to palpation,non-tender and non-distended Extremity Extremity Narrative: Patient has bilateral lower leg edema Skin no rashes or lesions noted General Skin Exam: no breakdown Neuro oriented x3, CN's II-XII intact bilaterally, moves all extremities, no focal motor deficits and no sensory deficits noted Sensorium / Orientation: awake and alert Speech: speech normal Psych affect normal Assessment & Plan Assessment/Plan (1) Acute heart failure with preserved ejection fraction (HFpEF): PLAN: Plan 1. Acute congestive heart failure with preserved ejection fraction-continue IV Lasix at this time #2 acute on chronic hypoxic respiratory failure-patient is currently on 5 L of oxygen at rest, her baseline oxygen at home is 3 L, pulse ox will be monitored #3 acute exacerbation of chronic obstructive pulmonary disease-patient is being treated with IV corticosteroids and aerosol treatments #4 paroxysmal atrial fibrillation-patient is currently in sinus rhythm at this time, she will remain on rate limiting agents and Eliquis #5 essential hypertension-patient is on amlodipine and atenolol #6 hyperlipidemia-patient is on atorvastatin #7 type 2 diabetes-patient's blood sugars will be monitored with fingerstick blood sugars, sliding scale insulin will be administered as indicated, patient is on basal insulin Total clinical time spent by myself addressing the patient's medical issues, reviewing all of her data, and collaborating with patient's care team: 50 minutes Charges/Coding Visit Charges Inpatient E&M: 35132 Subs Hosp L3 09/07/24 1308 <Electronically signed by Florencio Loco DO> Cosigner Signature (if applicable): CC: ~ Signed [facility] Work Phone: 1(595) 235-383003-19-2025 Progress note [facility] Medical Records Department [address] [place] [address] Progress Note - Hospitalist 09/07/24 1301 MR#: [id number] Acct: [id number] Name: KARLA MINA Rep #:[id number] : 1945 79 From: Florencio Loco DO PCP: Dr. Kandis Dawson MD Status:ADM IN Location: [place] [address] Reason for Visit Reason for Visit: Diagnoses Acute diastolic (congestive) heart failure (09/06/24) Chronic obstructive pulmonary disease with (acute) exacerbation (09/06/24) Subjective Subjective Patient was seen and examined today, she appears comfortable at rest, she is requiring 5 L oxygen via nasal cannula. Objective Data Objective Data Vital Signs: Vital Signs Temp Pulse Resp BP Pulse Ox O2 Del Method O2 Flow Rate 97.5 F L 79 20 H 144/54 H 97 Nasal Cannula 5 09/07/24 11:03 09/07/24 11:13 09/07/24 11:13 09/07/24 11:03 09/07/24 11:03 09/07/24 11:03 09/07/24 11:03 Oxygen Flow Rate (L/min) 5 Oxygen Delivery Method Nasal Cannula Weight: 108.12 kg Body Mass Index (BMI) 40.8 Intake & Output: Intake and Output for Last 24 Hours 09/05/24 09/06/24 09/07/24 23:59 23:59 23:59 Intake Total 480 / 480 120 / 120 Output Total 1000 / 1000 800 / 800 Balance -520 / -520 -680 / -680 Lab / Micro Data 09/07/24 05:04 09/07/24 05:04 Labs: Laboratory Results - last 24 hr 09/06/24 08:24: POC Glucose 119 H 09/06/24 09:25: Hemoglobin A1c 6.6 09/06/24 16:21: POC Glucose 282 H 09/06/24 20:46: POC Glucose 337 H 09/07/24 05:04: WBC 6.7, RBC 4.03 L, Hgb 11.4 L, Hct 35.2 L, MCV 87.3, MCH 28.3,MCHC 32.4, RDW Std Deviation 44.1 H, RDW Coeff of Sebastian 13.9, Plt Count 236, MPV 10.8, Sodium 139, Potassium 4.2, Chloride 102, Carbon Dioxide 26.1, Anion Gap 11, BUN 24 H, Creatinine 1.01, Estim Creat Clear Calc 54.24, Est GFR (MDRD) Non-Af 57 L, BUN/Creatinine Ratio 23.3 H, Glucose 322 H, Calcium 8.9 09/07/24 06:31: POC Glucose 321 H 09/07/24 11:27: POC Glucose 374 H Micro: Microbiology 09/06/24 14:00 Mucosa - Nose SARS-CoV-2, Influenza & RSV (PCR) - Final Physical Exam Const alert, oriented x3, no apparent distress and healthy appearing Constitutional Narrative: Patient has class III obesity General Appearance: cooperative, well kempt and well developed Orientation / Consciousness: awake, oriented to person, oriented to place and oriented to time HEENT normocephalic, head/scalp atraumatic and moist oral mucous membranes Eyes PERRL, EOMs intact bilaterally and conjunctivae normal Neck supple, no JVD, thyroid normal and no carotid bruits General: trachea midline Resp normal respiratory effort, no retractions and no use of accessory muscles Resp Narrative: Breath sounds are diminished bilaterally Auscultation: Negative for rales, rhonchi or wheezes Cardio regular rate, regular rhythm, S1 normal heart sound, S2 normal heart sound, no murmurs, no rub and no gallops GI normal to inspection, nondistended, normoactive bowel sounds, soft to palpation,non-tender and non-distended Extremity Extremity Narrative: Patient has bilateral lower leg edema Skin no rashes or lesions noted General Skin Exam: no breakdown Neuro oriented x3, CN's II-XII intact bilaterally, moves all extremities, no focal motor deficits and no sensory deficits noted Sensorium / Orientation: awake and alert Speech: speech normal Psych affect normal Assessment & Plan Assessment/Plan (1) Acute heart failure with preserved ejection fraction (HFpEF): PLAN: Plan 1. Acute congestive heart failure with preserved ejection fraction-continue IV Lasix at this time #2 acute on chronic hypoxic respiratory failure-patient is currently on 5 L of oxygen at rest, her baseline oxygen at home is 3 L, pulse ox will be monitored #3 acute exacerbation of chronic obstructive pulmonary disease-patient is being treated with IV corticosteroids and aerosol treatments #4 paroxysmal atrial fibrillation-patient is currently in sinus rhythm at this time, she will remain on rate limiting agents and Eliquis #5 essential hypertension-patient is on amlodipine and atenolol #6 hyperlipidemia-patient is on atorvastatin #7 type 2 diabetes-patient's blood sugars will be monitored with fingerstick blood sugars, sliding scale insulin will be administered as indicated, patient is on basal insulin Total clinical time spent by myself addressing the patient's medical issues, reviewing all of her data, and collaborating with patient's care team: 50 minutes Charges/Coding Visit Charges Inpatient E&M: 61520 [facility] Hosp 09/07/24 1308 Cosigner Signature (if applicable): CC: ~ Signed [facility]03-18-2025 Discharge summary Author Richard Corbett [facility] Note Date/Time September 06, 2024 3:3 6pm [facility] Medical Records Department [address] [place] [address] Emergency Department Summary 09/06/24 MR#: [id number] Acct: [id number] Name: KARLA MINA Rep #:[id number] : 1945 79 From: Richard Morgan PCP: Dr. Kandis Dawson MD Status:ADM IN Location: [place] [address] HPI History of Present Illness Chief Complaint: Hypoglycemia Informant: patient and family Onset/Context/Timing Onset: Today Context: Sudden Onset Timing: Continuous Quality: Dyspnea with exertion Location: Chest Worsened by: Exertion Relieved by: Rest Narrative Narrative: Patient presents with low blood sugar and shortness of breath that began today. Patient states her breathing is worse with any exertion. Patient states it is better with rest. Family states that patient's blood sugar was down to 53 this morning. EMS administered oral glucose and it improved. Patient states she is coughing up occasional white sputum. Patient admits to some subjective chills but denies any fevers. Patient denies any chest pain. Patient admits to a mildheadache. Patient has a history of COPD. Patient smokes 5 to 7 cigarettes/day. [facility] Medical History Wears dentures History of stress test History of echocardiogram Cardiology follow-up encounter Cubital tunnel syndrome on right Right carpal tunnel syndrome On home oxygen therapy Lower extremity edema Knee pain, acute Traumatic hematoma of right knee Anticoagulant long-term use Paroxysmal atrial fibrillation Essential (primary) hypertension Sciatica Hearing loss Peripheral neuropathic pain Hyperlipidemia Cataracts, bilateral Osteoarthritis Anemia GERD (gastroesophageal reflux disease) Type 2 diabetes mellitus Nicotine dependence Obesity Ectopic atrial tachycardia Home Medications ?Medication ?Instructions ?Recorded ?Last Taken ?Type ferrous sulfate 325 mg (65 mg 325 mg PO DAILY suppleme nt 03/05/18 09/05/24 History iron) tablet ibuprofen 600 mg tablet 600 mg PO QHS pain 22 days 0 03/05/18 09/05/24 History calcium carbonate (Calcium 600) 600 mg PO BID suppleme nt 01/31/20 09/05/24 History diphenhydramine HCl 25 mg capsule 25 mg PO QHS allergi es 01/31/20 09/05/24 History (Allergy Relief (diphenhydramine)) ipratropium bromide 0.02 % 2.5 ml continuous nebulizat ion Q6H 02/06/22 09/05/24 History solution for inhalation PRN shortness of breath or w heezing amlodipine 10 mg tablet 10 mg PO DAILY bp 90 days #9 0 tabs 09/30/22 09/05/24 Rx valsartan 80 mg tablet 80 mg PO BID bp 90 days #180 tabs 09/30/22 09/05/24 Rx docusate sodium 100 mg capsule 100 mg PO QHS 04/07/23 09/05/24 History metformin 500 mg tablet 1,000 mg PO BID diabetes 90 days 04/07/23 09/05/24 History apixaban 5 mg tablet (Eliquis) 5 mg PO BID blood thinn er #180 tabs 10/09/23 09/05/24 Rx atorvastatin 40 mg tablet 40 mg PO DAILY cholesterol 9 0 days 10/09/23 09/05/24 Rx #90 tabs potassium chloride 20 mEq 20 meq PO DAILY supplement # 90 tabs 10/09/23 09/05/24 Rx tablet,extended release(part/cryst) insulin NPH isoph U-100 human 100 40 unit subcut DAILY 12/17/23 09/05/24 History unit/mL (3 mL) subcutaneous pen (Humulin N NPH U-100 Insulin KwikPen) albuterol sulfate 2.5 mg/3 mL 2.5 mg inhalation PRN ID N 03/28/24 09/05/24 History (0.083 %) solution for nebulization shortness of breat h or wheezing insulin glargine 100 unit/mL 62 unit subcut QHS 09/05/24 History subcutaneous solution (Lantus U-100 Insulin) insulin regular human 100 unit/mL 20 unit subcut BID 1 09/05/24 History injection solution (Humulin R Regular U-100 Insulin) atenolol 50 mg tablet 50 mg PO QDAY 06/09/2409/05 History esomeprazole magnesium 40 mg 40 mg PO QDAY 06/09/24 History capsule,delayed release furosemide 80 mg tablet 80 mg PO DAILY fluid retenti on 06/09/24 09/05/24 History insulin NPH isoph U-100 human 100 27 unit subcut QPM 0 09/06/24 09/05/24 History unit/mL (3 mL) subcutaneous pen (Humulin N NPH U-100 Insulin KwikPen) Allergy/AdvReac Type Severity Reaction Status Date / Time No Known Allergies Allergy Verified 06/09/24 10:31 Family History Mother Hypertension Diabetes Father Lung cancer Sister Kidney disease Breast cancer Cancer liver, ovarian Hypertension Diabetes Brother Hypertension Diabetes Surgical History History of carpal tunnel surgery of right wrist History of dilatation and curettage History of hysteroscopy History of cataract surgery Social History Smoking Status: Light Smoker (<10/day) alcohol intake: never substance use type: does not use caffeine: Yes Type: carbonated beverages and coffee ROS ROS ED Constitutional Constitutional ED: Reports chills and subjective; Denies fever(s) Eyes Eyes: Denies blurry vision or change in vision ENT ENT ED: Denies rhinorrhea or sore throat Cardiovascular Cardiovascular: Denies chest pain or palpitations Respiratory/Chest Respiratory/Chest: Reports cough and dyspnea Gastrointestinal Gastrointestinal: Denies nausea or vomiting Genitourinary Genitourinary ED: Denies dysuria or hematuria Musculoskeletal Musculoskeletal: Denies back pain or neck pain Integumentary Denies abscess or rash Neurologic Neurologic: Reports headache(s); Denies weakness Allergic/Immunologic Allergic/Immunologic ED: Denies mouth swelling or urticaria EXAM Physical Exam Const Vital Signs: 09/06/24 08:23 09/06/24 08:42 09/06/24 09:03 Temperature 98.3 F Temperature Source Oral Pulse Rate 69 Respiratory Rate 16 Respiratory Pattern Normal Blood Pressure 121/91 H Blood Pressure Mean 101 Pulse Ox 97 93 Oxygen Delivery Method Nasal Cannula Nasal Cannula Oxygen Flow Rate (L/min) 3 3 09/06/24 09:03 09/06/24 10:21 09/06/24 12:00 Temperature Temperature Source Pulse Rate 65 63 61 Respiratory Rate 18 18 16 Respiratory Pattern Normal Blood Pressure 131/47 H 140/78 H Blood Pressure Mean 75 98 Pulse Ox 94 93 Oxygen Delivery Method Nasal Cannula Room Air Oxygen Flow Rate (L/min) 3 09/06/24 13:22 Temperature Temperature Source Pulse Rate 59 L Respiratory Rate 17 Respiratory Pattern Normal Blood Pressure Blood Pressure Mean Pulse Ox Oxygen Delivery Method Oxygen Flow Rate (L/min) Positive well nourished and well developed General Appearance ED: well developed and NAD HEENT Reports moist mucous membranes Neck supple and no JVD Resp normal respiratory effort Auscultation: wheezes expiratory wheezes and throughout Cardio regular rate Rhythm: abnormal rhythm irregularly irregular GI non-tender and non-distended Palpation: soft Extremity normal to inspection Neuro oriented x3, CN's II-XII intact bilaterally and no sensory deficits noted Sensorium / Orientation: alert Motor Exam: strength 5/5 throughout Psych mental status grossly normal MDM MDM MDM Narrative Medical decision making narrative: Differential diagnosis includes COPD exacerbation, pneumonia, bronchitis, hypoglycemia, electrolyte abnormality, cardiac dysrhythmia, and cardiac ischemia. EKG will be obtained to assess for cardiac dysrhythmia and cardiac ischemia. Chest x-ray will be obtained to assess for pneumonia or bronchitis. CBC will be obtained to assess for leukocytosis and anemia. Basic metabolic profile will be obtained to assess for electrolyte abnormality and renal function. Lab Data Attestation: I reviewed the patient's lab results. Lab results narrative: CBC was reviewed. There is a mild anemia with a hemoglobin of 10.3 hematocrit 32.8. Platelets were normal. Basic metabolic profile was reviewed and was within normal limits. BNP was reviewed and was normal at 692. Labs: Laboratory Results - last 24 hr 09/06/24 09/06/24 09/06/24 09:02 09:02 09:25 WBC Cancelled 5.8 Corrected WBC Cancelled RBC Cancelled 3.66 L Hgb Cancelled 10.3 L Hct Cancelled 32.8 L MCV Cancelled 89.6 MCH Cancelled 28.1 MCHC Cancelled 31.4 L RDW Std Deviation Cancelled 45.2 H RDW Coeff of Sebastian Cancelled 14.0 Plt Count Cancelled 208 MPV Cancelled 9.7 Immature Gran % (Auto) Cancelled 0.300 Neut % (Auto) Cancelled 77.5 H Lymph % (Auto) Cancelled 13.9 L Wright % (Auto) Cancelled 6.2 Eos % (Auto) Cancelled 1.4 Baso % (Auto) Cancelled 0.7 Absolute Neuts (auto) Cancelled 4.5 Absolute Lymphs (auto) Cancelled 0.81 L Total Counted Cancelled Neutrophils % (Manual) Cancelled Band Neutrophils % Cancelled Lymphocytes % (Manual) Cancelled Monocytes % (Manual) Cancelled Eosinophils % (Manual) Cancelled Basophils % (Manual) Cancelled Metamyelocytes % Cancelled Myelocytes % Cancelled Promyelocytes % Cancelled Blast Cells % Cancelled Plasma Cell % (Manual) Cancelled Other Cells % Cancelled Nucleated RBC % Cancelled 0 Nucleated RBCs/100 WBC Cancelled Differential Comment Cancelled Diff Path Review Cancelled Hypersegmented Neuts Cancelled Atypical Lymphocytes Cancelled Reactive Lymphocytes Cancelled Smudge Cells Cancelled Toxic Granulation Cancelled Toxic Vacuolation Cancelled Dohle Bodies Cancelled Chet Rods Cancelled Platelet Estimate Cancelled Plt Morphology Comment Cancelled RBC Morphology Cancelled Cancelled Polychromasia Cancelled Hypochromasia Cancelled Basophilic Stippling Cancelled Anisocytosis Cancelled Microcytosis Cancelled Macrocytosis Cancelled Spherocytes Cancelled Sickle Cells Cancelled Target Cells Cancelled Tear Drop Cells Cancelled Ovalocytes Cancelled Stomatocytes Cancelled Hernandez-[place] Boro Bodies Cancelled [place] Cells Cancelled Bite Cells Cancelled Crenated Cell Cancelled Acanthocytes (Spur) Cancelled Rouleaux Cancelled Schistocytes Cancelled Sodium 141 Potassium 4.4 Chloride 107 Carbon Dioxide 21.1 Anion Gap 12 BUN 20 H Creatinine 0.87 Estim Creat Clear Calc 64.91 Est GFR (MDRD) Non-Af 68 BUN/Creatinine Ratio 23.4 H Glucose 92 Calcium 8.6 NT pro BNP II 692 POC Glucose 09/06/24 09/06/24 09:57 10:54 WBC Corrected WBC RBC Hgb Hct MCV MCH MCHC RDW Std Deviation RDW Coeff of Sebastian Plt Count MPV Immature Gran % (Auto) Neut % (Auto) Lymph % (Auto) Wright % (Auto) Eos % (Auto) Baso % (Auto) Absolute Neuts (auto) Absolute Lymphs (auto) Total Counted Neutrophils % (Manual) Band Neutrophils % Lymphocytes % (Manual) Monocytes % (Manual) Eosinophils % (Manual) Basophils % (Manual) Metamyelocytes % Myelocytes % Promyelocytes % Blast Cells % Plasma Cell % (Manual) Other Cells % Nucleated RBC % Nucleated RBCs/100 WBC Differential Comment Diff Path Review Hypersegmented Neuts Atypical Lymphocytes Reactive Lymphocytes Smudge Cells Toxic Granulation Toxic Vacuolation Dohle Bodies Chet Rods Platelet Estimate Plt Morphology Comment RBC Morphology Polychromasia Hypochromasia Basophilic Stippling Anisocytosis Microcytosis Macrocytosis Spherocytes Sickle Cells Target Cells Tear Drop Cells Ovalocytes Stomatocytes Hernandez-[place] Boro Bodies [place] Cells Bite Cells Crenated Cell Acanthocytes (Spur) Rouleaux Schistocytes Sodium Potassium Chloride Carbon Dioxide Anion Gap BUN Creatinine Estim Creat Clear Calc Est GFR (MDRD) Non-Af BUN/Creatinine Ratio Glucose Calcium NT pro BNP II POC Glucose 90 168 H Radiography Chest X-Ray - ED: 2 View, Read by ED Physician, Read by Radiologist and - (Pulmonary venous congestion) Diagnostic Testing: Clinical Impression(s) from Imaging Studies Chest X-Ray 09/06/24 09:33 IMPRESSION: Pulmonary venous congestion. Reading Location: [facility] PA and lateral chest x-ray was obtained. There are 2 views. On my independent interpretation, lung estrella show some pulmonary venous congestion. There is normal cardiac silhouette. Bony thorax is normal. Radiologist also interpretedthe x-ray and agrees. EKG Initial EKG: Attestation: I personally reviewed and interpreted this EKG as follows: Interpretation: Sinus Rhythm (60) and No Acute Injury Pattern Comments: EKG was obtained. On my independent interpretation, it showed anormal sinus rhythm with a rate of 60. ID interval, QRS interval, and QTc intervals were all normal. There is borderline left axis deviation at -28. There are no acute ST or T wave changes. Prior EKG tracings: available for review Prior: Unchanged (11/19/2021) Management Discussion w/another healthcare provider: Hospitalist (Dr. Gregory) Treatment and Re-Evaluation :: Smoking cessation was discussed. Patient was given a DuoNeb aerosol here. Patient was feeling better on reevaluation. Patient was advised of her findings. Patient was ambulated here in the emergency department. Patient oxygen saturation dropped to 89% while ambulating, and then dropped to 86% aftershe got back into bed. Patient was given an albuterol aerosol. Patient was given a dose of Solu-Medrol. Patient was advised of her need for admission for hypoxia. Patient is agreeable with this. Case was discussed with the hospitalist. He will admit the patient to his service. Patient understood and was agreeable with the plan. All questions were answered. Discharge Plan Triage Chief Complaint: Hypoglycemia ED Provider: Richard Corbett Dx/Rx/DC Orders Clinical Impression: Acute exacerbation of chronic obstructive pulmonary disease, Nicotine dependence, Hypoxia Prescriptions: No Action ferrous sulfate 325 mg (65 mg iron) tablet 325 mg PO DAILY ibuprofen 600 mg tablet 600 mg PO QHS 22 Days Patient Comments: metformin 500 mg tablet 1,000 mg PO BID 90 Days Patient Comments: calcium carbonate [Calcium 600] 600 mg calcium (1,500 mg) tablet 600 mg PO BID diphenhydramine HCl [Allergy Relief(diphenhydramin)] 25 mg capsule 25 mg PO QHS ipratropium bromide 0.02 % solution 2.5 ml continuous nebulization Q6H PRN (Reason: shortness of breath or wheezing) amlodipine 10 mg tablet 10 mg PO DAILY 90 Days Qty: 90 3RF valsartan 80 mg tablet 80 mg PO BID 90 Days Qty: 180 3RF docusate sodium 100 mg capsule 100 mg PO QHS Humulin N NPH Insulin KwikPen 100 unit/mL (3 mL) insulin pen 40 unit subcut DAILY atenolol 50 mg tablet 50 mg PO QDAY esomeprazole magnesium 40 mg capsule,delayed release(DR/EC) 40 mg PO QDAY Humulin R Regular U-100 Insuln 100 unit/mL solution 20 unit subcut BID Patient Comments: INJECT 20 UNITS EVERY MORNING , THEN INJECT 20 UNITS EVERY EVENING insulin glargine [Lantus U-100 Insulin] 100 unit/mL solution 62 unit subcut QHS albuterol sulfate 2.5 mg /3 mL (0.083 %) Solution For Nebulization 2.5 mg inhalation PRN PRN (Reason: shortness of breath or wheezing) furosemide 80 mg tablet 80 mg PO DAILY Humulin N NPH Insulin KwikPen 100 unit/mL (3 mL) insulin pen 27 unit subcut QPM Eliquis 5 mg tablet 5 mg PO BID Qty: 180 3RF atorvastatin 40 mg tablet 40 mg PO DAILY 90 Days Qty: 90 3RF potassium chloride 20 mEq tablet,ER particles/crystals 20 meq PO DAILY Qty: 90 3RF Primary Care Provider: Kandis Dawson Referrals: Kandis Dawson MD [Primary Care Provider] - Print Language: Dominican Disposition Disposition: Acute Care Hospital [facility] What to do if you have Problems For any increased pain, shortness of breath, bleeding, nausea or vomiting, chestpain, or any unexpected problems, contact your Primary Care Provider. Call [facility] ([phone]) or report to the closest Emergency Room. Call 911 if necessary. 09/06/24 3822 <Electronically signed by Richard Corbett DO> Cosigner Signature (if applicable): CC: Dr. Kandis Dawson MD ~ Signed [facility] Work Phone: [phone] History and physical note Author Bladimir Gregory [facility] Note Date/Time September 06, 2024 2:2 4pm [facility] Medical Records Department [address] [place] [address] H&P Exam - Hospitalist 09/06/24 1336 MR#: [id number] Acct: [id number] Name: KARLA MINA Rep #:[id number] : 1945 79 From: Bladimir tucker DO PCP: Dr. Kandis Dawson MD Status:REG ER Location: ED HPI - General General Date of Admission: 09/06/24 Date of Service: 09/06/24 Chief Complaint: Shortness of breath and hypoglycemia HPI Narrative KARLA MINA, is a 79 F who presented to [facility] ED on 09/06/2024 with shortness of breath and hypoglycemia. Patient lives at home withher daughter. History is significant for COPD with chronic respiratory failure on 3 L nasal cannula, insulin-dependent type 2 diabetes mellitus, paroxysmal A-fib, hypertension, hyperlipidemia, and current smoker. Patient reports worsening shortness of breath with exertion over the past several months. However, this morning her daughter noted that she was much more short of breath when she woke up and called EMS. Was found to have a blood sugar 59 per EMS. Blood sugar improved with treatment. On arrival to the ED she was back on her home 3 L nasal cannula with oxygen saturations in the low 90s. She was mildly hypertensive but otherwise in rate controlled A-fib. CBC and BMP were unremarkable. BNP was normal at 692 but notably patient has BMI of 43. Chest x- ray showed pulmonary venous congestion patient had mild bilateral lower extremity edema on exam. Given concern for COPD versus CHF exacerbation, she was given doses of IV Solu-Medrol, DuoNeb treatment and IV Lasix and hospitalistwas contacted for admission. I saw the patient at bedside in the ED, daughter and son were present. Patient was somewhat chronically ill appearing and mildly fatigued appearing but otherwise sitting back comfortably in bed, breathing comfortably on 3 L nasal cannula and in no acute distress. She is very hard of hearing at baseline and has difficulty maintaining a conversation. She does make appropriate eye contact and answers questions with short appropriate responses as able. She wasable to show me her insulin regimen and notes that she has been taking this as prescribed recently. Denies any recent fevers or chills or upper respiratory symptoms. Has had slightly decreased appetite over the past few weeks especially per daughter but no nausea or vomiting. Has been taking her home Lasix as prescribed with good urine output. No other acute concerns at this time. [facility], [facility] Medical History Wears dentures History of stress test History of echocardiogram Cardiology follow-up encounter Cubital tunnel syndrome on right Right carpal tunnel syndrome On home oxygen therapy Lower extremity edema Knee pain, acute Traumatic hematoma of right knee Anticoagulant long-term use Paroxysmal atrial fibrillation Essential (primary) hypertension Sciatica Hearing loss Peripheral neuropathic pain Hyperlipidemia Cataracts, bilateral Osteoarthritis Anemia GERD (gastroesophageal reflux disease) Type 2 diabetes mellitus Nicotine dependence Obesity Ectopic atrial tachycardia Home Medications ?Medication ?Instructions ?Recorded ?Last Taken ?Type ferrous sulfate 325 mg (65 mg 325 mg PO DAILY suppleme nt 03/05/18 09/05/24 History iron) tablet ibuprofen 600 mg tablet 600 mg PO QHS pain 22 days 0 03/05/18 09/05/24 History calcium carbonate (Calcium 600) 600 mg PO BID suppleme nt 01/31/20 09/05/24 History diphenhydramine HCl 25 mg capsule 25 mg PO QHS allergi es 01/31/20 09/05/24 History (Allergy Relief (diphenhydramine)) ipratropium bromide 0.02 % 2.5 ml continuous nebulizat ion Q6H 02/06/22 09/05/24 History solution for inhalation PRN shortness of breath or w heezing amlodipine 10 mg tablet 10 mg PO DAILY bp 90 days #9 0 tabs 09/30/22 09/05/24 Rx valsartan 80 mg tablet 80 mg PO BID bp 90 days #180 tabs 09/30/22 09/05/24 Rx docusate sodium 100 mg capsule 100 mg PO QHS 04/07/23 09/05/24 History metformin 500 mg tablet 1,000 mg PO BID diabetes 90 days 04/07/23 09/05/24 History apixaban 5 mg tablet (Eliquis) 5 mg PO BID blood thinn er #180 tabs 10/09/23 09/05/24 Rx atorvastatin 40 mg tablet 40 mg PO DAILY cholesterol 9 0 days 10/09/23 09/05/24 Rx #90 tabs potassium chloride 20 mEq 20 meq PO DAILY supplement # 90 tabs 10/09/23 09/05/24 Rx tablet,extended release(part/cryst) insulin NPH isoph U-100 human 100 40 unit subcut DAILY 12/17/23 09/05/24 History unit/mL (3 mL) subcutaneous pen (Humulin N NPH U-100 Insulin KwikPen) albuterol sulfate 2.5 mg/3 mL 2.5 mg inhalation PRN ID N 03/28/24 09/05/24 History (0.083 %) solution for nebulization shortness of breat h or wheezing insulin glargine 100 unit/mL 62 unit subcut QHS 09/05/24 History subcutaneous solution (Lantus U-100 Insulin) insulin regular human 100 unit/mL 20 unit subcut BID 1 09/05/24 History injection solution (Humulin R Regular U-100 Insulin) atenolol 50 mg tablet 50 mg PO QDAY 06/09/2409/05 History esomeprazole magnesium 40 mg 40 mg PO QDAY 06/09/24 History capsule,delayed release furosemide 80 mg tablet 80 mg PO DAILY fluid retenti on 06/09/24 09/05/24 History insulin NPH isoph U-100 human 100 27 unit subcut QPM 0 09/06/24 09/05/24 History unit/mL (3 mL) subcutaneous pen (Humulin N NPH U-100 Insulin KwikPen) Allergy/AdvReac Type Severity Reaction Status Date / Time No Known Allergies Allergy Verified 06/09/24 10:31 Family History Mother Hypertension Diabetes Father Lung cancer Sister Kidney disease Breast cancer Cancer liver, ovarian Hypertension Diabetes Brother Hypertension Diabetes Surgical History History of carpal tunnel surgery of right wrist History of dilatation and curettage History of hysteroscopy History of cataract surgery Social History Smoking Status: Light Smoker (<10/day) alcohol intake: never substance use type: does not use caffeine: Yes Type: carbonated beverages and coffee ROS Constitutional Constitutional: Reports fatigue; Denies chills, fever(s) or weakness Eyes Eyes: Denies change in vision Cardiovascular Cardiovascular: Reports dyspnea on exertion, edema and orthopnea; Denies chest pain or palpitations Respiratory/Chest Respiratory/Chest: Reports cough, shortness of breath at rest and shortness of breath with exertion; Denies productive cough or wheezing Gastrointestinal Gastrointestinal: Denies abdominal pain, constipation, diarrhea, nausea or vomiting Genitourinary Genitourinary: Denies dysuria Musculoskeletal Musculoskeletal: Denies arthralgias or myalgias Neurologic Neurologic: Denies dizziness or headache(s) Vital Signs Vital Signs Vital Signs: 09/06/24 08:23 09/06/24 08:42 09/06/24 09:03 Temperature 98.3 F Temperature Source Oral Pulse Rate 69 Respiratory Rate 16 Respiratory Pattern Normal Blood Pressure 121/91 H Blood Pressure Mean 101 Pulse Ox 97 93 Oxygen Delivery Method Nasal Cannula Nasal Cannula Oxygen Flow Rate (L/min) 3 3 09/06/24 09:03 09/06/24 10:21 09/06/24 12:00 Temperature Temperature Source Pulse Rate 65 63 61 Respiratory Rate 18 18 16 Respiratory Pattern Normal Blood Pressure 131/47 H 140/78 H Blood Pressure Mean 75 98 Pulse Ox 94 93 Oxygen Delivery Method Nasal Cannula Room Air Oxygen Flow Rate (L/min) 3 09/06/24 13:22 Temperature Temperature Source Pulse Rate 59 L Respiratory Rate 17 Respiratory Pattern Normal Blood Pressure Blood Pressure Mean Pulse Ox Oxygen Delivery Method Oxygen Flow Rate (L/min) Weight Weight: 114 kg Body Mass Index (BMI) 43.1 Physical Exam Const alert, oriented x3 and no apparent distress Constitutional Narrative: Elderly female, chronically ill-appearing, mildly fatigued appearing, class III obesity, very hard of hearing, otherwise sitting back comfortably in bed, breathing comfortably on 3 L nasal cannula and in no acute distress. General Appearance: cooperative and comfortable HEENT normocephalic, head/scalp atraumatic, nasal mucous membranes and turbinates normal and moist oral mucous membranes HEENT Narrative: Very hard of hearing. Eyes PERRL, EOMs intact bilaterally and conjunctivae normal Neck full ROM Chest inspection of chest normal Resp normal respiratory effort and no use of accessory muscles Resp Narrative: Breathing comfortably on 3 L nasal cannula at rest. Mildly decreased breath sounds bilaterally with crackles and midlung zones. No wheezing noted. Cardio no murmurs and peripheral pulses 2+ throughout Cardio Narrative: A-fib, rate controlled. GI normal to inspection, nondistended, normoactive bowel sounds, soft to palpation,non-tender and non-distended Back/Spine normal ROM Extremity Extremity Narrative: +1-2 lower extremity edema noted. Skin no rashes or lesions noted Neuro moves all extremities and no focal motor deficits Speech: speech normal Psych mental status grossly normal Results Lab / Micro Data 09/06/24 09:25 09/06/24 09:02 Labs: Laboratory Results - last 24 hr 09/06/24 09:02: WBC Cancelled, Corrected WBC Cancelled, RBC Cancelled, Hgb Cancelled, Hct Cancelled, MCV Cancelled, MCH Cancelled, MCHC Cancelled, RDW Std Deviation Cancelled, RDW Coeff of Sebastian Cancelled, Plt Count Cancelled, MPV Cancelled, Immature Gran % (Auto) Cancelled, Neut % (Auto) Cancelled, Lymph % (Auto) Cancelled, Wright % (Auto) Cancelled, Eos % (Auto) Cancelled, Baso % (Auto)Cancelled, Absolute Neuts (auto) Cancelled, Absolute Lymphs (auto) Cancelled, Total Counted Cancelled, Neutrophils % (Manual) Cancelled, Band Neutrophils % Cancelled, Lymphocytes % (Manual) Cancelled, Monocytes % (Manual) Cancelled, Eosinophils % (Manual) Cancelled, Basophils % (Manual) Cancelled, Metamyelocytes% Cancelled, Myelocytes % Cancelled, Promyelocytes % Cancelled, Blast Cells % Cancelled, Plasma Cell % (Manual) Cancelled, Other Cells % Cancelled, Nucleated RBC % Cancelled, Nucleated RBCs/100 WBC Cancelled, Differential Comment Cancelled, Diff Path Review Cancelled, Hypersegmented Neuts Cancelled, Atypical Lymphocytes Cancelled, Reactive Lymphocytes Cancelled, Smudge Cells Cancelled, Toxic Granulation Cancelled, Toxic Vacuolation Cancelled, Dohle Bodies Cancelled, Chet Rods Cancelled, Platelet Estimate Cancelled, Plt Morphology Comment Cancelled, RBC Morphology Cancelled 09/06/24 09:02: RBC Morphology Cancelled, Polychromasia Cancelled, HypochromasiaCancelled, Basophilic Stippling Cancelled, Anisocytosis Cancelled, Microcytosis Cancelled, Macrocytosis Cancelled, Spherocytes Cancelled, Sickle Cells Cancelled, Target Cells Cancelled, Tear Drop Cells Cancelled, Ovalocytes Cancelled, Stomatocytes Cancelled, Hernandez-[place] Boro Bodies Cancelled, [place] Cells Cancelled, Bite Cells Cancelled, Crenated Cell Cancelled, Acanthocytes (Spur) Cancelled, Rouleaux Cancelled, Schistocytes Cancelled, Sodium 141, Potassium 4.4, Chloride 107, Carbon Dioxide 21.1, Anion Gap 12, BUN 20 H, Creatinine 0.87,Estim Creat Clear Calc 64.91, Est GFR (MDRD) Non-Af 68, BUN/Creatinine Ratio 23.4 H, Glucose 92, Calcium 8.6, NT pro BNP II 692 09/06/24 09:25: WBC 5.8, RBC 3.66 L, Hgb 10.3 L, Hct 32.8 L, MCV 89.6, MCH 28.1,MCHC 31.4 L, RDW Std Deviation 45.2 H, RDW Coeff of Sebastian 14.0, Plt Count 208, MPV9.7, Immature Gran % (Auto) 0.300, Neut % (Auto) 77.5 H, Lymph % (Auto) 13.9 L, Wright % (Auto) 6.2, Eos % (Auto) 1.4, Baso % (Auto) 0.7, Absolute Neuts (auto) 4.5, Absolute Lymphs (auto) 0.81 L, Nucleated RBC % 0 09/06/24 09:57: POC Glucose 90 09/06/24 10:54: POC Glucose 168 H Imaging Radiology Impression Chest X-Ray 09/06/24 09:33 IMPRESSION: Pulmonary venous congestion. Reading Location: [facility] Assessment & Plan Assessment/Plan (1) Acute heart failure with preserved ejection fraction (HFpEF): (2) Acute exacerbation of chronic obstructive pulmonary disease: PLAN: Plan Patient is a 79-year-old female who presented to [facility] ED on 09/06/2024 with shortness of breath and hypoglycemia. 1. Suspected HFpEF exacerbation with possible mild COPD exacerbation in settingof COPD with chronic hypoxic respiratory failure ? Admit under inpatient status to PCU. On home 3 L nasal cannula and stable on 3 L nasal cannula at rest in ED but did drop to the mid 80s with exertion. Chest x- ray showed pulmonary vascular congestion and patient with mild lower extremity edema on exam. On chart review, echo in 12/2023 showed EF 60%, stage II diastolic dysfunction. BNP normal but notably is underestimated with class III obesity. Suspect she has developed volume overload over an extended period of time in setting of her hypertension. Will treat with IV Lasix 60 mg twice daily for now, monitor daily BMP and urine output. COVID/flu/RSV pending. Willtreat for COPD exacerbation as well with scheduled DuoNebs and IV Solu-Medrol but low threshold to de-escalate if patient improving with Lasix. 2. Episode of hypoglycemia in setting of insulin-dependent type 2 diabetes mellitus ? Current home regimen of Lantus 58 units at night, regular insulin 20 units in the morning and 20 units at night. Is being managed by her PCP. Has likely hadreduced appetite recently due to volume overload from HFpEF exacerbation and this is led to episodes of hypoglycemia. Will treat with Lantus 40 units at night and sliding scale insulin with meals for now, adjust as needed. 3. Paroxysmal A-fib, hypertension, hyperlipidemia ? In rate controlled A-fib on admit. Continue home atenolol, amlodipine, valsartan, Eliquis and statin. 4. Mild acute on chronic debility ? PT/OT/case management consulted. Patient lives at home with her daughter and has slightly worsened debility now in setting of HFpEF and possible COPD exacerbation. Appreciate therapy recommendations. Chronic medical conditions: ? Class III obesity: BMI 43 on admit. Complicates hospital course, care and prognosis. ? GERD: Continue home PPI. ? Chronic iron deficiency anemia: Hemoglobin stable at baseline 10-11 on admit. Continue home iron supplement. DVT prophylaxis: Not indicated, on Eliquis CODE STATUS: DNR CCA, DNI Expected disposition: Home, 2 to 3 days Total clinical time spent by myself addressing the patient's medical issues, reviewing all the data, and collaborating with patient's care team: 75 minutes. Charges/Coding Visit Charges Inpatient E&M: 40567 Init Hosp L3 09/06/24 2108 <Electronically signed by Bladimir Gregory DO> Cosigner Signature (if applicable): CC: Dr. Bladimir Gregory DO; Dr. Kandis Dawson MD~ Signed [facility] Work Phone: [phone] 980-875603-18-2025 Evaluation note* Diagnosis Onset Date Resolution Status Admit Date Acute exacerbation of chroni c obstructive pulmonary disease inactive [facility] 2024 1:37pm Acute heart failure with preserved ejection fraction (HFpEF) inactive September 06, 2024 1:37pm Post-menopausal bleeding acute October 27, 2024 10:06am [facility] Work Phone: [phone]) 845-294003-18-2025 Discharge summary [facility] Medical Records Department [address] [place] [address] Emergency Department Summary 09/06/24 MR#: [id number] Acct: [id number] Name: KARLA MINA Rep #:[id number] : 1945 79 From: Richard Morgan PCP: Dr. Kandis Dawson MD Status:ADM IN Location: [address] History of Present Illness Chief Complaint: Hypoglycemia Informant: patient and family Onset/Context/Timing Onset: Today Context: Sudden Onset Timing: Continuous Quality: Dyspnea with exertion Location: Chest Worsened by: Exertion Relieved by: Rest Narrative Narrative: Patient presents with low blood sugar and shortness of breath that began today. Patient states her breathing is worse with any exertion. Patient states it is better with rest. Family states that patient's blood sugar was down to 53 this morning. EMS administered oral glucose and it improved. Patient states she is coughing up occasional white sputum. Patient admits to some subjective chills but denies any fevers. Patient denies any chest pain. Patient admits to a mildheadache. Patient has a history of COPD. Patient smokes 5 to 7 cigarettes/day. [facility] Medical History Wears dentures History of stress test History of echocardiogram Cardiology follow-up encounter Cubital tunnel syndrome on right Right carpal tunnel syndrome On home oxygen therapy Lower extremity edema Knee pain, acute Traumatic hematoma of right knee Anticoagulant long-term use Paroxysmal atrial fibrillation Essential (primary) hypertension Sciatica Hearing loss Peripheral neuropathic pain Hyperlipidemia Cataracts, bilateral Osteoarthritis Anemia GERD (gastroesophageal reflux disease) Type 2 diabetes mellitus Nicotine dependence Obesity Ectopic atrial tachycardia Home Medications ?Medication ?Instructions ?Recorded ?Last Taken ?Type ferrous sulfate 325 mg (65 mg 325 mg PO DAILY suppleme nt 03/05/18 09/05/24 History iron) tablet ibuprofen 600 mg tablet 600 mg PO QHS pain 22 days 0 03/05/18 09/05/24 History calcium carbonate (Calcium 600) 600 mg PO BID suppleme nt 01/31/20 09/05/24 History diphenhydramine HCl 25 mg capsule 25 mg PO QHS allergi es 01/31/20 09/05/24 History (Allergy Relief (diphenhydramine)) ipratropium bromide 0.02 % 2.5 ml continuous nebulizat ion Q6H 02/06/22 09/05/24 History solution for inhalation PRN shortness of breath or w heezing amlodipine 10 mg tablet 10 mg PO DAILY bp 90 days #9 0 tabs 09/30/22 09/05/24 Rx valsartan 80 mg tablet 80 mg PO BID bp 90 days #180 tabs 09/30/22 09/05/24 Rx docusate sodium 100 mg capsule 100 mg PO QHS 04/07/23 09/05/24 History metformin 500 mg tablet 1,000 mg PO BID diabetes 90 days 04/07/23 09/05/24 History apixaban 5 mg tablet (Eliquis) 5 mg PO BID blood thinn er #180 tabs 10/09/23 09/05/24 Rx atorvastatin 40 mg tablet 40 mg PO DAILY cholesterol 9 0 days 10/09/23 09/05/24 Rx #90 tabs potassium chloride 20 mEq 20 meq PO DAILY supplement # 90 tabs 10/09/23 09/05/24 Rx tablet,extended release(part/cryst) insulin NPH isoph U-100 human 100 40 unit subcut DAILY 12/17/23 09/05/24 History unit/mL (3 mL) subcutaneous pen (Humulin N NPH U-100 Insulin KwikPen) albuterol sulfate 2.5 mg/3 mL 2.5 mg inhalation PRN ID N 03/28/24 09/05/24 History (0.083 %) solution for nebulization shortness of breat h or wheezing insulin glargine 100 unit/mL 62 unit subcut QHS 09/05/24 History subcutaneous solution (Lantus U-100 Insulin) insulin regular human 100 unit/mL 20 unit subcut BID 1 09/05/24 History injection solution (Humulin R Regular U-100 Insulin) atenolol 50 mg tablet 50 mg PO QDAY 06/09/2409/05 History esomeprazole magnesium 40 mg 40 mg PO QDAY 06/09/24 History capsule,delayed release furosemide 80 mg tablet 80 mg PO DAILY fluid retenti on 06/09/24 09/05/24 History insulin NPH isoph U-100 human 100 27 unit subcut QPM 0 09/06/24 09/05/24 History unit/mL (3 mL) subcutaneous pen (Humulin N NPH U-100 Insulin KwikPen) Allergy/AdvReac Type Severity Reaction Status Date / Time No Known Allergies Allergy Verified 06/09/24 10:31 Family History Mother Hypertension Diabetes Father Lung cancer Sister Kidney disease Breast cancer Cancer liver, ovarian Hypertension Diabetes Brother Hypertension Diabetes Surgical History History of carpal tunnel surgery of right wrist History of dilatation and curettage History of hysteroscopy History of cataract surgery Social History Smoking Status: Light Smoker (<10/day) alcohol intake: never substance use type: does not use caffeine: Yes Type: carbonated beverages and coffee ROS ROS ED Constitutional Constitutional ED: Reports chills and subjective; Denies fever(s) Eyes Eyes: Denies blurry vision or change in vision ENT ENT ED: Denies rhinorrhea or sore throat Cardiovascular Cardiovascular: Denies chest pain or palpitations Respiratory/Chest Respiratory/Chest: Reports cough and dyspnea Gastrointestinal Gastrointestinal: Denies nausea or vomiting Genitourinary Genitourinary ED: Denies dysuria or hematuria Musculoskeletal Musculoskeletal: Denies back pain or neck pain Integumentary Denies abscess or rash Neurologic Neurologic: Reports headache(s); Denies weakness Allergic/Immunologic Allergic/Immunologic ED: Denies mouth swelling or urticaria EXAM Physical Exam Const Vital Signs: 09/06/24 08:23 09/06/24 08:42 09/06/24 09:03 Temperature 98.3 F Temperature Source Oral Pulse Rate 69 Respiratory Rate 16 Respiratory Pattern Normal Blood Pressure 121/91 H Blood Pressure Mean 101 Pulse Ox 97 93 Oxygen Delivery Method Nasal Cannula Nasal Cannula Oxygen Flow Rate (L/min) 3 3 09/06/24 09:03 09/06/24 10:21 09/06/24 12:00 Temperature Temperature Source Pulse Rate 65 63 61 Respiratory Rate 18 18 16 Respiratory Pattern Normal Blood Pressure 131/47 H 140/78 H Blood Pressure Mean 75 98 Pulse Ox 94 93 Oxygen Delivery Method Nasal Cannula Room Air Oxygen Flow Rate (L/min) 3 09/06/24 13:22 Temperature Temperature Source Pulse Rate 59 L Respiratory Rate 17 Respiratory Pattern Normal Blood Pressure Blood Pressure Mean Pulse Ox Oxygen Delivery Method Oxygen Flow Rate (L/min) Positive well nourished and well developed General Appearance ED: well developed and NAD HEENT Reports moist mucous membranes Neck supple and no JVD Resp normal respiratory effort Auscultation: wheezes expiratory wheezes and throughout Cardio regular rate Rhythm: abnormal rhythm irregularly irregular GI non-tender and non-distended Palpation: soft Extremity normal to inspection Neuro oriented x3, CN's II-XII intact bilaterally and no sensory deficits noted Sensorium / Orientation: alert Motor Exam: strength 5/5 throughout Psych mental status grossly normal MDM MDM MDM Narrative Medical decision making narrative: Differential diagnosis includes COPD exacerbation, pneumonia, bronchitis, hypoglycemia, electrolyteabnormality, cardiac dysrhythmia, and cardiac ischemia. EKG will be obtained to assess for cardiac dysrhythmia and cardiac ischemia. Chest x-ray will be obtained to assess for pneumonia or bronchitis. CBC will be obtained to assess for leukocytosis and anemia. Basic metabolic profile will be obtained to assess for electrolyte abnormality and renal function. Lab Data Attestation: I reviewed the patient's lab results. Lab results narrative: CBC was reviewed. There is a mild anemia with a hemoglobin of 10.3 hematocrit 32.8. Platelets were normal. Basic metabolic profile was reviewed and was within normal limits. BNP was reviewed and was normal at 692. Labs: Laboratory Results - last 24 hr 09/06/24 09/06/24 09/06/24 09:02 09:02 09:25 WBC Cancelled 5.8 Corrected WBC Cancelled RBC Cancelled 3.66 L Hgb Cancelled 10.3 L Hct Cancelled 32.8 L MCV Cancelled 89.6 MCH Cancelled 28.1 MCHC Cancelled 31.4 L RDW Std Deviation Cancelled 45.2 H RDW Coeff of Sebastian Cancelled 14.0 Plt Count Cancelled 208 MPV Cancelled 9.7 Immature Gran % (Auto) Cancelled 0.300 Neut % (Auto) Cancelled 77.5 H Lymph % (Auto) Cancelled 13.9 L Wright % (Auto) Cancelled 6.2 Eos % (Auto) Cancelled 1.4 Baso % (Auto) Cancelled 0.7 Absolute Neuts (auto) Cancelled 4.5 Absolute Lymphs (auto) Cancelled 0.81 L Total Counted Cancelled Neutrophils % (Manual) Cancelled Band Neutrophils % Cancelled Lymphocytes % (Manual) Cancelled Monocytes % (Manual) Cancelled Eosinophils % (Manual) Cancelled Basophils % (Manual) Cancelled Metamyelocytes % Cancelled Myelocytes % Cancelled Promyelocytes % Cancelled Blast Cells % Cancelled Plasma Cell % (Manual) Cancelled Other Cells % Cancelled Nucleated RBC % Cancelled 0 Nucleated RBCs/100 WBC Cancelled Differential Comment Cancelled Diff Path Review Cancelled Hypersegmented Neuts Cancelled Atypical Lymphocytes Cancelled Reactive Lymphocytes Cancelled Smudge Cells Cancelled Toxic Granulation Cancelled Toxic Vacuolation Cancelled Dohle Bodies Cancelled Chet Rods Cancelled Platelet Estimate Cancelled Plt Morphology Comment Cancelled RBC Morphology Cancelled Cancelled Polychromasia Cancelled Hypochromasia Cancelled Basophilic Stippling Cancelled Anisocytosis Cancelled Microcytosis Cancelled Macrocytosis Cancelled Spherocytes Cancelled Sickle Cells Cancelled Target Cells Cancelled Tear Drop Cells Cancelled Ovalocytes Cancelled Stomatocytes Cancelled Hernandez-[place] Boro Bodies Cancelled Viki Cells Cancelled Bite Cells Cancelled Crenated Cell Cancelled Acanthocytes (Spur) Cancelled Rouleaux Cancelled Schistocytes Cancelled Sodium 141 Potassium 4.4 Chloride 107 Carbon Dioxide 21.1 Anion Gap 12 BUN 20 H Creatinine 0.87 Estim Creat Clear Calc 64.91 Est GFR (MDRD) Non-Af 68 BUN/Creatinine Ratio 23.4 H Glucose 92 Calcium 8.6 NT pro BNP II 692 POC Glucose 09/06/24 09/06/24 09:57 10:54 WBC Corrected WBC RBC Hgb Hct MCV MCH MCHC RDW Std Deviation RDW Coeff of Sebastian Plt Count MPV Immature Gran % (Auto) Neut % (Auto) Lymph % (Auto) Wright % (Auto) Eos % (Auto) Baso % (Auto) Absolute Neuts (auto) Absolute Lymphs (auto) Total Counted Neutrophils % (Manual) Band Neutrophils % Lymphocytes % (Manual) Monocytes % (Manual) Eosinophils % (Manual) Basophils % (Manual) Metamyelocytes % Myelocytes % Promyelocytes % Blast Cells % Plasma Cell % (Manual) Other Cells % Nucleated RBC % Nucleated RBCs/100 WBC Differential Comment Diff Path Review Hypersegmented Neuts Atypical Lymphocytes Reactive Lymphocytes Smudge Cells Toxic Granulation Toxic Vacuolation Dohle Bodies Chet Rods Platelet Estimate Plt Morphology Comment RBC Morphology Polychromasia Hypochromasia Basophilic Stippling Anisocytosis Microcytosis Macrocytosis Spherocytes Sickle Cells Target Cells Tear Drop Cells Ovalocytes Stomatocytes Hernandez-[place] Boro Bodies [place] Cells Bite Cells Crenated Cell Acanthocytes (Spur) Rouleaux Schistocytes Sodium Potassium Chloride Carbon Dioxide Anion Gap BUN Creatinine Estim Creat Clear Calc Est GFR (MDRD) Non-Af BUN/Creatinine Ratio Glucose Calcium NT pro BNP II POC Glucose 90 168 H Radiography Chest X-Ray - ED: 2 View, Read by ED Physician, Read by Radiologist and - (Pulmonary venous congestion) Diagnostic Testing: Clinical Impression(s) from Imaging Studies Chest X-Ray 09/06/24 09:33 IMPRESSION: Pulmonary venous congestion. Reading Location: [facility] PA and lateral chest x-ray was obtained. There are 2 views. On my independent interpretation, lung estrella show some pulmonary venous congestion. There is normal cardiac silhouette. Bony thorax is normal. Radiologist also interpretedthe x-ray and agrees. EKG Initial EKG: Attestation: I personally reviewed and interpreted this EKG as follows: Interpretation: Sinus Rhythm (60) and No Acute Injury Pattern Comments: EKG was obtained. On my independent interpretation, it showed anormal sinus rhythm with arate of 60. ID interval, QRS interval, and QTc intervals were all normal. There is borderline left axis deviation at -28. There are no acute ST or T wave changes. Prior EKG tracings: available for review Prior: Unchanged (11/19/2021) Management Discussion w/another healthcare provider: Hospitalist (Dr. Gregory) Treatment and Re-Evaluation :: Smoking cessation was discussed. Patient was given a DuoNeb aerosol here. Patient was feeling better on reevaluation. Patient was advised of her findings. Patient was ambulated here in the emergency department. Patient oxygen saturation dropped to 89% while ambulating, and then dropped to 86% aftershe got back into bed. Patient was given an albuterol aerosol. Patient was given a dose of Solu-Medrol. Patient was advised of her need for admission for hypoxia. Patient is agreeable with this. Case was discussed with the hospitalist. He will admit the patient to his service. Patient understood andwas agreeable with the plan. All questions were answered. Discharge Plan Triage Chief Complaint: Hypoglycemia ED Provider: Richard Corbett Dx/Rx/DC Orders Clinical Impression: Acute exacerbation of chronic obstructive pulmonary disease, Nicotine dependence, Hypoxia Prescriptions: No Action ferrous sulfate 325 mg (65 mg iron) tablet 325 mg PO DAILY ibuprofen 600 mg tablet 600 mg PO QHS 22 Days Patient Comments: metformin 500 mg tablet 1,000 mg PO BID 90 Days Patient Comments: calcium carbonate [Calcium 600] 600 mg calcium (1,500 mg) tablet 600 mg PO BID diphenhydramine HCl [Allergy Relief(diphenhydramin)] 25 mg capsule 25 mg PO QHS ipratropium bromide 0.02 % solution 2.5 ml continuous nebulization Q6H PRN (Reason: shortness of breath or wheezing) amlodipine 10 mg tablet 10 mg PO DAILY 90 Days Qty: 90 3RF valsartan 80 mg tablet 80 mg PO BID 90 Days Qty: 180 3RF docusate sodium 100 mg capsule 100 mg PO QHS Humulin N NPH Insulin KwikPen 100 unit/mL (3 mL) insulin pen 40 unit subcut DAILY atenolol 50 mg tablet 50 mg PO QDAY esomeprazole magnesium 40 mg capsule,delayed release(DR/EC) 40 mg PO QDAY Humulin R Regular U-100 Insuln 100 unit/mL solution 20 unit subcut BID Patient Comments: INJECT 20 UNITS EVERY MORNING , THEN INJECT 20 UNITS EVERY EVENING insulin glargine [Lantus U-100 Insulin] 100 unit/mL solution 62 unit subcut QHS albuterol sulfate 2.5 mg /3 mL (0.083 %) Solution For Nebulization 2.5 mg inhalation PRN PRN (Reason: shortness of breath or wheezing) furosemide 80 mg tablet 80 mg PO DAILY Humulin N NPH Insulin KwikPen 100 unit/mL (3 mL) insulin pen 27 unit subcut QPM Eliquis 5 mg tablet 5 mg PO BID Qty: 180 3RF atorvastatin 40 mg tablet 40 mg PO DAILY 90 Days Qty: 90 3RF potassium chloride 20 mEq tablet,ER particles/crystals 20 meq PO DAILY Qty: 90 3RF Primary Care Provider: Kandis Dawson Referrals: Kandis Dawson MD [Primary Care Provider] - Print Language: Dominican Disposition Disposition: Acute Care Hospital [facility] What to do if you have Problems For any increased pain, shortness of breath, bleeding, nausea or vomiting, chestpain, or any unexpected problems, contact your Primary Care Provider. Call [facility] ([phone]) or report tothe closest Emergency Room. Call 911 if necessary. 09/06/24 1536 Cosigner Signature (if applicable): CC: Dr. Kandis Dawson MD ~ Signed [facility]03-18-2025 History and physical note [facility] Medical Records Department [address] [place] [address] H&P Exam - Hospitalist 09/06/24 1336 MR#: [id number] Acct: [id number] Name: KARLA MINA Rep #:[id number] : 1945 79 From: Bladimir tucker DO PCP: Dr. Kandis Dawson MD Status:REG ER Location: ED HPI - General General Date of Admission: 09/06/24 Date of Service: 09/06/24 Chief Complaint: Shortness of breath and hypoglycemia HPI Narrative KARLA MINA, is a 79 F who presented to [facility] ED on 09/06/2024 with shortness of breath and hypoglycemia. Patient lives at home withher daughter. History is significant for COPD with chronic respiratory failure on 3 L nasal cannula, insulin-dependent type 2 diabetes mellitus, par oxysmal A-fib, hypertension, hyperlipidemia, and current smoker. Patient reports worsening shortness of breath with exertion over the past several months. However, this morning her daughter noted that she was much more short of breath when she woke up and called EMS. Was found to have a blood sugar59 per EMS. Blood sugar improved with treatment. On arrival to the ED she was back on her home 3 L nasal cannula with oxygen saturations in the low 90s. She was mildly hypertensive but otherwise in rate controlled A-fib. CBC and BMP were unremarkable. BNP was normal at 692 but notably patient has BMI of 43. Chest x- ray showed pulmonary venous congestion patient had mild bilateral lower extremity edema on exam. Given concern for COPD versus CHF exacerbation, she was given doses of IV Solu-Medrol, DuoNeb treatment and IV Lasix and hospitalistwas contacted for admission. I saw the patient at bedside in the ED, daughter and son were present. Patient was somewhat chronically ill appearing and mildly fatigued appearing but otherwise sitting back comfortably in bed, breathing comfortably on 3 L nasal cannula and in no acute distress. She is very hard of hearing at baseline and has difficulty maintaining a conversation. She does make appropriate eye contact and answers questions with short appropriate responses as able. She wasable to show me her insulin regimen andnotes that she has been taking this as prescribed recently. Denies any recent fevers or chills or upper respiratory symptoms. Has had slightly decreased appetite over the past few weeks especially per daughter but no nausea or vomiting. Has been taking her home Lasix as prescribed with good urine output. No other acute concerns at this time. [facility], LAT[facility] Medical History Wears dentures History of stress test History of echocardiogram Cardiology follow-up encounter Cubital tunnel syndrome on right Right carpal tunnel syndrome On home oxygen therapy Lower extremity edema Knee pain, acute Traumatic hematoma of right knee Anticoagulant long-term use Paroxysmal atrial fibrillation Essential (primary) hypertension Sciatica Hearing loss Peripheral neuropathic pain Hyperlipidemia Cataracts, bilateral Osteoarthritis Anemia GERD (gastroesophageal reflux disease) Type 2 diabetes mellitus Nicotine dependence Obesity Ectopic atrial tachycardia Home Medications ?Medication ?Instructions ?Recorded ?Last Taken ?Type ferrous sulfate 325 mg (65 mg 325 mg PO DAILY suppleme nt 03/05/18 09/05/24 History iron) tablet ibuprofen 600 mg tablet 600 mg PO QHS pain 22 days 0 03/05/18 09/05/24 History calcium carbonate (Calcium 600) 600 mg PO BID suppleme nt 01/31/20 09/05/24 History diphenhydramine HCl 25 mg capsule 25 mg PO QHS allergi es 01/31/20 09/05/24 History (Allergy Relief (diphenhydramine)) ipratropium bromide 0.02 % 2.5 ml continuous nebulizat ion Q6H 02/06/22 09/05/24 History solution for inhalation PRN shortness of breath or w heezing amlodipine 10 mg tablet 10 mg PO DAILY bp 90 days #9 0 tabs 09/30/22 09/05/24 Rx valsartan 80 mg tablet 80 mg PO BID bp 90 days #180 tabs 09/30/22 09/05/24 Rx docusate sodium 100 mg capsule 100 mg PO QHS 04/07/23 09/05/24 History metformin 500 mg tablet 1,000 mg PO BID diabetes 90 days 04/07/23 09/05/24 History apixaban 5 mg tablet (Eliquis) 5 mg PO BID blood thinn er #180 tabs 10/09/23 09/05/24 Rx atorvastatin 40 mg tablet 40 mg PO DAILY cholesterol 9 0 days 10/09/23 09/05/24 Rx #90 tabs potassium chloride 20 mEq 20 meq PO DAILY supplement # 90 tabs 10/09/23 09/05/24 Rx tablet,extended release(part/cryst) insulin NPH isoph U-100 human 100 40 unit subcut DAILY 12/17/23 09/05/24 History unit/mL (3 mL) subcutaneous pen (Humulin N NPH U-100 Insulin KwikPen) albuterol sulfate 2.5 mg/3 mL 2.5 mg inhalation PRN ID N 03/28/24 09/05/24 History (0.083 %) solution for nebulization shortness of breat h or wheezing insulin glargine 100 unit/mL 62 unit subcut QHS 09/05/24 History subcutaneous solution (Lantus U-100 Insulin) insulin regular human 100 unit/mL 20 unit subcut BID 1 09/05/24 History injection solution (Humulin R Regular U-100 Insulin) atenolol 50 mg tablet 50 mg PO QDAY 06/09/2409/05 History esomeprazole magnesium 40 mg 40 mg PO QDAY 06/09/24 History capsule,delayed release furosemide 80 mg tablet 80 mg PO DAILY fluid retenti on 06/09/24 09/05/24 History insulin NPH isoph U-100 human 100 27 unit subcut QPM 0 09/06/24 09/05/24 History unit/mL (3 mL) subcutaneous pen (Humulin N NPH U-100 Insulin KwikPen) Allergy/AdvReac Type Severity Reaction Status Date / Time No Known Allergies Allergy Verified 06/09/24 10:31 Family History Mother Hypertension Diabetes Father Lung cancer Sister Kidney disease Breast cancer Cancer liver, ovarian Hypertension Diabetes Brother Hypertension Diabetes Surgical History History of carpal tunnel surgery of right wrist History of dilatation and curettage History of hysteroscopy History of cataract surgery Social History Smoking Status: Light Smoker (<10/day) alcohol intake: never substance use type: does not use caffeine: Yes Type: carbonated beverages and coffee ROS Constitutional Constitutional: Reports fatigue; Denies chills, fever(s) or weakness Eyes Eyes: Denies change in vision Cardiovascular Cardiovascular: Reports dyspnea on exertion, edema and orthopnea; Denies chest pain or palpitations Respiratory/Chest Respiratory/Chest: Reports cough, shortness of breath at rest and shortness of breath with exertion; Denies productive cough or wheezing Gastrointestinal Gastrointestinal: Denies abdominal pain, constipation, diarrhea, nausea or vomiting Genitourinary Genitourinary: Denies dysuria Musculoskeletal Musculoskeletal: Denies arthralgias or myalgias Neurologic Neurologic: Denies dizziness or headache(s) Vital Signs Vital Signs Vital Signs: 09/06/24 08:23 09/06/24 08:42 09/06/24 09:03 Temperature 98.3 F Temperature Source Oral Pulse Rate 69 Respiratory Rate 16 Respiratory Pattern Normal Blood Pressure 121/91 H Blood Pressure Mean 101 Pulse Ox 97 93 Oxygen Delivery Method Nasal Cannula Nasal Cannula Oxygen Flow Rate (L/min) 3 3 09/06/24 09:03 09/06/24 10:21 09/06/24 12:00 Temperature Temperature Source Pulse Rate 65 63 61 Respiratory Rate 18 18 16 Respiratory Pattern Normal Blood Pressure 131/47 H 140/78 H Blood Pressure Mean 75 98 Pulse Ox 94 93 Oxygen Delivery Method Nasal Cannula Room Air Oxygen Flow Rate (L/min) 3 09/06/24 13:22 Temperature Temperature Source Pulse Rate 59 L Respiratory Rate 17 Respiratory Pattern Normal Blood Pressure Blood Pressure Mean Pulse Ox Oxygen Delivery Method Oxygen Flow Rate (L/min) Weight Weight: 114 kg Body Mass Index (BMI) 43.1 Physical Exam Const alert, oriented x3 and no apparent distress Constitutional Narrative: Elderly female, chronically ill-appearing, mildly fatigued appearing, class III obesity, very hard of hearing, otherwise sitting back comfortably in bed, breathing comfortably on 3 L nasal cannula and in no acute distress. General Appearance: cooperative and comfortable HEENT normocephalic, head/scalp atraumatic, nasal mucous membranes and turbinates normal and moist oral mucous membranes HEENT Narrative: Very hard of hearing. Eyes PERRL, EOMs intact bilaterally and conjunctivae normal Neck full ROM Chest inspection of chest normal Resp normal respiratory effort and no use of accessory muscles Resp Narrative: Breathing comfortably on 3 L nasal cannula at rest. Mildly decreased breath sounds bilaterally withcrackles and midlung zones. No wheezing noted. Cardio no murmurs and peripheral pulses 2+ throughout Cardio Narrative: A-fib, rate controlled. GI normal to inspection, nondistended, normoactive bowel sounds, soft to palpation,non-tender and non-distended Back/Spine normal ROM Extremity Extremity Narrative: +1-2 lower extremity edema noted. Skin no rashes or lesions noted Neuro moves all extremities and no focal motor deficits Speech: speech normal Psych mental status grossly normal Results Lab / Micro Data 09/06/24 09:25 09/06/24 09:02 Labs: Laboratory Results - last 24 hr 09/06/24 09:02: WBC Cancelled, Corrected WBC Cancelled, RBC Cancelled, Hgb Cancelled, Hct Cancelled, MCV Cancelled, MCH Cancelled, MCHC Cancelled, RDW Std Deviation Cancelled, RDW Coeff of Sebastian Cancelled, Plt Count Cancelled, MPV Cancelled, Immature Gran % (Auto) Cancelled, Neut % (Auto) Cancelled, Lymph % (Auto) Cancelled, Wright % (Auto) Cancelled, Eos % (Auto) Cancelled, Baso % (Auto)Cancelled, Absolute Neuts (auto) Cancelled, Absolute Lymphs (auto) Cancelled, Total Counted Cancelled, Neutrophils % (Manual) Cancelled, Band Neutrophils % Cancelled, Lymphocytes % (Manual) Cancelled, Monocytes %(Manual) Cancelled, Eosinophils % (Manual) Cancelled, Basophils % (Manual) Cancelled, Metamyelocytes% Cancelled, Myelocytes % Cancelled, Promyelocytes % Cancelled, Blast Cells % Cancelled, Plasma Cell % (Manual) Cancelled, Other Cells % Cancelled, Nucleated RBC % Cancelled, Nucleated RBCs/100 WBC Cancelled, Differential Comment Cancelled, Diff Path Review Cancelled, Hypersegmented Neuts Cancelled, Atypical Lymphocytes Cancelled, Reactive Lymphocytes Cancelled, Smudge Cells Cancelled, Toxic Granulation Cancelled, Toxic Vacuolation Cancelled, Dohle Bodies Cancelled, Chet Rods Cancelled, Platelet Estimate Cancelled, Plt Morphology Comment Cancelled, RBC Morphology Cancelled 09/06/24 09:02: RBC Morphology Cancelled, Polychromasia Cancelled, HypochromasiaCancelled, Basophilic Stippling Cancelled, Anisocytosis Cancelled, Microcytosis Cancelled, Macrocytosis Cancelled, Spherocytes Cancelled, Sickle Cells Cancelled, Target Cells Cancelled, Tear Drop Cells Cancelled, Ovalocytes Cancelled, Stomatocytes Cancelled, Hernandez-[place] Boro Bodies Cancelled, Viki Cells Cancelled, Bite Cells Cancelled, Crenated Cell Cancelled, Acanthocytes (Spur) Cancelled, Rouleaux Cancelled, Schistocytes Cancelled, Sodium 141, Potassium 4.4, Chloride 107, Carbon Dioxide 21.1, Anion Gap 12, BUN 20 H,Creatinine 0.87,Estim Creat Clear Calc 64.91, Est GFR (MDRD) Non-Af 68, BUN/Creatinine Ratio 23.4 H, Glucose 92, Calcium 8.6, NT pro BNP II 692 09/06/24 09:25: WBC 5.8, RBC 3.66 L, Hgb 10.3 L, Hct 32.8 L, MCV 89.6, MCH 28.1,MCHC 31.4 L, RDW Std Deviation 45.2 H, RDW Coeff of Sebastian 14.0, Plt Count 208, MPV9.7, Immature Gran % (Auto) 0.300, Neut% (Auto) 77.5 H, Lymph % (Auto) 13.9 L, Wright % (Auto) 6.2, Eos % (Auto) 1.4, Baso % (Auto) 0.7, Absolute Neuts (auto) 4.5, Absolute Lymphs (auto) 0.81 L, Nucleated RBC % 0 09/06/24 09:57: POC Glucose 90 09/06/24 10:54: POC Glucose 168 H Imaging Radiology Impression Chest X-Ray 09/06/24 09:33 IMPRESSION: Pulmonary venous congestion. Reading Location: [facility] Assessment & Plan Assessment/Plan (1) Acute heart failure with preserved ejection fraction (HFpEF): (2) Acute exacerbation of chronic obstructive pulmonary disease: PLAN: Plan Patient is a 79-year-old female who presented to [facility] ED on 09/06/2024 with shortness of breath and hypoglycemia. 1. Suspected HFpEF exacerbation with possible mild COPD exacerbation in settingof COPD with chronichypoxic respiratory failure ? Admit under inpatient status to PCU. On home 3 L nasal cannula and stable on 3 L nasal cannula atrest in ED but did drop to the mid 80s with exertion. Chest x- ray showed pulmonary vascular congestion and patient with mild lower extremity edema on exam. On chart review, echo in 12/2023 showed EF 60%, stage II diastolic dysfunction. BNP normal but notably is underestimated with class III obesity. Suspect she has developed volume overload over an extended period of time in setting of her hypertension. Will treat with IV Lasix 60 mg twice daily for now, monitor daily BMP and urine output. COVID/flu/RSV pending. Willtreat for COPD exacerbation as well with scheduled DuoNebs and IV Solu-Medrol but low threshold to de-escalate if patient improving with Lasix. 2. Episode of hypoglycemia in setting of insulin-dependent type 2 diabetes mellitus ? Current home regimen of Lantus 58 units at night, regular insulin 20 units in the morning and 20 units at night. Is being managed by her PCP. Has likely hadreduced appetite recently due to volume overload from HFpEF exacerbation and this is led to episodes of hypoglycemia. Will treat with Lantus 40 units at night and sliding scale insulin with meals for now, adjust as needed. 3. Paroxysmal A-fib, hypertension, hyperlipidemia ? In rate controlled A-fib on admit. Continue home atenolol, amlodipine, valsartan, Eliquis and statin. 4. Mild acute on chronic debility ? PT/OT/case management consulted. Patient lives at home with her daughter and has slightly worsened debility now in setting of HFpEF and possible COPD exacerbation. Appreciate therapy recommendations. Chronic medical conditions: ? Class III obesity: BMI 43 on admit. Complicates hospital course, care and prognosis. ? GERD: Continue home PPI. ? Chronic iron deficiency anemia: Hemoglobin stable at baseline 10-11 on admit. Continue home iron supplement. DVT prophylaxis: Not indicated, on Eliquis CODE STATUS: DNR CCA, DNI Expected disposition: Home, 2 to 3 days Total clinical time spent by myself addressing the patient's medical issues, reviewing all the data, and collaborating with patient's care team: 75 minutes. Charges/Coding Visit Charges Inpatient E&M: 33240 Init Hosp L3 09/06/24 1424 Cosigner Signature (if applicable): CC: Dr. Bladimir Gregory DO; Dr. Kandis Dawson MD~ Signed [facility]03-18-2025 Radiology Diagnostic study note [facility] Imaging Services [address] [place] [address] [id number] Chest PA and Lateral MR#: [id number] Acct: [id number] Name: KARLA MINA Rep #: [id number] : 1945 F 79 From: Rebecca Aaron MD PCP: Dr. Kandis Dawson MD Status: REG ER Study:Chest PA and Lateral Date of Exam: 09/06/24 Exam# [id number] Ordering Dr: Richard Corbett DO EXAM: XR Chest, 2 Views CLINICAL INDICATION: DYSPNEA TECHNIQUE: Frontal and lateral views of the chest. COMPARISON: No relevant prior studies available. FINDINGS: LUNGS AND PLEURAL SPACES: Pulmonary venous congestion. No consolidation. No pneumothorax. HEART: Unremarkable. No cardiomegaly. MEDIASTINUM: Unremarkable. Normal mediastinal contour. BONES/JOINTS: Unremarkable. No acute fracture. RAD/Chest PA and Lateral IMPRESSION: Pulmonary venous congestion. Reading Location: [facility] CC: Dr. Richard Corbett DO; Dr. Kandis Dawson MD ~ Manager Code: Signed [facility]01-02-2025 Consult note Author Aline Palafox [facility] Note Date/Time September 09, 2024 4:0 6pm [facility] Medical Records Department [address] [place] [address] Counseling Note - Pharmacy 09/09/24 1604 MR#: [id number] Acct: [id number] Name: KARLA MINA Rep #:[id number] : 1945 79 From: Aline Palafox PCP: Dr. Kandis Dawson MD Status:ADM IN Y Location: [place] [id number] has performed discharge medication reconciliation and counseling for this patient. 1. PREDNISONE 20MG PO DAILY X 7 DAYS 2. LASIX CHANGED TO 80MG AM AND 40MG IN THE AFTERNOON 3. HUMULIN R CHANGED TO 15 UNITS AM AND 15 UNITS PM 4. HUMULIN N STOPPED, IBUPROFEN STOPPED The patient's discharge medication list was reviewed for discrepancies and discrepancies were resolved. The patient was counseled on the following discharge medications and changes in medications for homegoing were reviewed. The Reason for Use, instructions for use, and potential side effects were reviewed for all new medications. The patient's questions regarding all of their medications were answered. The patient was able to verbally demonstrate an understanding of their dischargemedications. Medications at Discharge Home Medications ferrous sulfate 325 mg (65 mg iron) tablet 325 mg PO DAILY supplement 03/05/18 calcium carbonate (Calcium 600) 600 mg PO BID supplement 01/31/20 diphenhydramine HCl 25 mg capsule (Allergy Relief (diphenhydramine)) 25 mg PO QHS allergies 01/31/20 ipratropium bromide 0.02 % solution for inhalation 2.5 ml continuous nebulization Q6H PRN shortness of breath or wheezing 02/06/22 amlodipine 10 mg tablet 10 mg PO DAILY bp 90 days #90 tabs 09/30/22 valsartan 80 mg tablet 80 mg PO BID bp 90 days #180 tabs 09/30/22 docusate sodium 100 mg capsule 100 mg PO QHS 04/07/23 metformin 500 mg tablet 1,000 mg PO BID diabetes 90 days 04/07/23 apixaban 5 mg tablet (Eliquis) 5 mg PO BID blood thinner #180 tabs 10/09/23 atorvastatin 40 mg tablet 40 mg PO DAILY cholesterol 90 days #90 tabs 10/09/23 potassium chloride 20 mEq tablet,extended release(part/cryst) 20 meq PO DAILY supplement #90 tabs 10/09/23 albuterol sulfate 2.5 mg/3 mL (0.083 %) solution for nebulization 2.5 mg inhalation PRN PRN shortness of breath or wheezing 03/28/24 insulin glargine 100 unit/mL subcutaneous solution (Lantus U-100 Insulin) 62 unit subcut QHS 03/28/24 atenolol 50 mg tablet 50 mg PO QDAY 06/09/24 esomeprazole magnesium 40 mg capsule,delayed release 40 mg PO QDAY 06/09/24 furosemide 40 mg tablet (Lasix) 40 mg PO UD #90 tabs 09/09/24 insulin regular human 100 unit/mL injection solution (Humulin R Regular U-100 Insulin) 15 unit (0.15 mL) subcut BID #1 mL 09/09/24 prednisone 20 mg tablet 20 mg PO DAILY #7 tabs 09/09/24 09/09/24 1606 <Electronically signed by Aline Palafox> Date _ Aline Palafox Cosigner Signature (if applicable): Date CC: ~ Signed [facility] Work Phone: 1(714) 348-231912-19-2024 Evaluation note* Diagnosis Onset Date Resolution Status Admit Date Essential (primary) hypertension chronic June 09, 2 024 8:45am Paroxysmal atrial fibrillation chron ic June 09, 2024 8:45am Cubital tunnel syndrome on right acute June 09, 024 10:26am Right carpal tunnel syndrome acute June 09, 2024 10:26am [facility] Work Phone: 1(165) 142-631112-19-2024 Evaluation note* Diagnosis Onset Date Resolution Status Admit Date Essential (primary) hypertension chronic June 09, 2 024 8:45am Paroxysmal atrial fibrillation chron ic June 09, 2024 8:45am Cubital tunnel syndrome on right acute June 09, 2 024 10:26am Right carpal tunnel syndrome acute June 09, 2024 10:26am Acute heart failure with preserved ejection fraction (HFpEF) acute September 06, 2024 1:37pm Acute exacerbation of chroni c obstructive pulmonary disease chronic Ma h 2024 1:37pm [facility] Work Phone: 1(985) 275-346510-09-2024 [facility] Medical Records Department [address] [place] [address] History Physical Exam 03/30/2438 MR#: [id number] Acct: [id number] Name: KARLA MINA Rep #: [id number] : 1945 78 From: Isauro Lewis MD PCP: Dr. Kandis Dawson MD Status:[facility] Location: [place] [address] HPI - General HPI Narrative KARLA MINA, is a 78 F who presents for right endoscopic carpal tunnel release, right elbow cubital tunnel release. No changes to history and physical exam. Patient wishes to proceed. Right elbow and right wrist marked. Patient was advised to hold her blood thinners prior to surgery. Risks alternatives benefits as well as postoperative instructions follow-up and narcotic counseling done. The patient understands no further questions or concerns. MR#: [id number] Acct: [id number] Name: KARLA MINA Rep #: [id number] : 1945 Provider: Dr. Isauro Lewis MD Age/Sex: 78/F Location: [facility] Status: Signed Intake Vital Signs 11/04/2408:54 12/16/2412:42 Height 5 ft 4 in 5 ft 4 in Weight: 247 lb 2 oz BMI 42.4 BP 136/61 H Blood Pressure Location Lt brachial Position Sitting Respiration 18 Pulse 59 L Pulse Source Monitor Intake Visit Reasons: RIGHT HAND Chief Complaint: pain and numbness Is patient in pain?: Yes Pain scale (1-10): 3 Allergies No Known Allergies Allergy (Verified 02/11/24 08:57) Medications ???Medication ???Instructions ???Recorded ???Confirmed ???Type esomeprazole magnesium 20 mg 40 mg PO DAILY stomach 90 days 03/05/18 02/11/24 History capsule,delayed release #180 caps ferrous sulfate 325 mg (65 mg 325 mg PO DAILY supplement 03/05/18 02/11/24 History iron) tablet ibuprofen 600 mg tablet 600 mg PO QHS pain 22 days 03/05/18 02/11/24 History calcium carbonate (Calcium 600) 1,200 mg PO DAILY supplement 01/31/20 02/11/24 History diphenhydramine HCl 25 mg capsule 25 mg PO QHS allergies 01/31/20 02/11/24 History (Allergy Relief (diphenhydramine)) acetaminophen 325 mg tablet 650 mg (2 x 325 mg) PO Q4H PRN PRN 11/20/21 02/11/24 Rx (Tylenol) Fever, pain -03/31 #0 tabs albuterol sulfate 2.5 mg/3 mL 2.5 mg (3 mL) inhalation Q4H.RT #0 11/20/21 02/11/24 Rx (0.083 %) solution for nebulization mL ipratropium bromide 0.02 % ml continuous nebulization Q6H 02/06/22 02/11/24 History solution for inhalation amlodipine 10 mg tablet 10 mg PO DAILY bp 90 days #90 tabs 09/30/22 02/11/24 Rx valsartan 80 mg tablet 80 mg PO BID bp 90 days #180 tabs 09/30/22 02/11/24 Rx atenolol 100 mg tablet 50 mg (1/2 x 100 mg) PO DAILY bp 04/07/23 02/11/24 Rx 90 days #45 tabs docusate sodium 100 mg capsule 100 mg PO DAILY 04/07/23 02/11/24 History metformin 500 mg tablet 500 mg PO .QID diabetes 90 days 04/07/23 02/11/24 History apixaban 5 mg tablet (Eliquis) 5 mg PO BID blood thinner #180 tabs 10/09/23 02/11/24 Rx atorvastatin 40 mg tablet 40 mg PO DAILY cholesterol 90 days 10/09/23 02/11/24 Rx #90 tabs furosemide 80 mg tablet 80 mg PO DAILY fluid retention #90 10/09/23 02/11/24 Rx tabs potassium chloride 20 mEq 20 meq PO DAILY supplement #90 tabs 10/09/23 02/11/24 Rx tablet,extended release(part/cryst) insulin NPH isoph U-100 human 100 40 unit subcut BIDCM 12/17/23 02/11/24 History unit/mL (3 mL) subcutaneous pen (Humulin N NPH U-100 Insulin KwikPen) insulin lispro 100 unit/mL 20 unit subcut ACHS 12/17/23 02/11/24 History subcutaneous pen (Humalog KwikPen (U-100) Insulin) Have you fallen in the past year?: No PFSH Medical History Cubital tunnel syndrome on right Right carpal tunnel syndrome On home oxygen therapy Lower extremity edema Knee pain, acute Traumatic hematoma of right knee Anticoagulant long-term use Paroxysmal atrial fibrillation Essential (primary) hypertension Sciatica Hearing loss Peripheral neuropathic pain Hyperlipidemia Cataracts, bilateral Osteoarthritis Anemia GERD (gastroesophageal reflux disease) Type 2 diabetes mellitus Nicotine dependence Obesity Ectopic atrial tachycardia Surgical History History of dilatation and curettage History of hysteroscopy History of cataract surgery Family History Mother Hypertension DiabetesFather Lung cancerSister Kidney disease Breast cancer Cancer liver, ovarian Hypertension DiabetesBrother Hypertension Diabetes Social History Smoking Status: Current every day smoker tobacco type: cigarettes HPI RIGHT HAND (more content not included)...[facility]05[facility] Diagnosis Onset Date Resolution Status Anticoagulant long-term use acute Fall acute Traumatic hematoma of right knee acute Paroxysmal atrial fibrillation chronic [facility] Work Phone: Evaluation note* Diagnosis Onset Date Resolution Status Anticoagulant long-term use acute Fall acute Knee pain, acute acute Traumatic hematoma of right knee acute Paroxysmal atrial fibrillation chronic [facility] Work Phone: Evaluation note* Diagnosis Onset Date Resolution Status Anticoagulant long-term use acute Knee pain, acute acute Traumatic hematoma of right knee acute Paroxysmal atrial fibrillation chronic Fall resolved [facility] Work Phone: Evaluation note* Diagnosis Onset Date Resolution Status Essential (primary) hypertension chronic Paroxysmal atrial fibrillation chronic [facility] Work Phone: Evaluation noteNo assessment information available [facility] Work Phone: Evaluation note* Diagnosis PMB (postmenopausal bleeding)- Primary Postmenopausal bleeding Increased endometrial stripe thickness Nonspecific (abnormal) findings on radiological and other examination of genitourinary organs documented [facility] Author Bladimir Gregory [facility] Note Date/Time September 06, 2024 2:2 4pm [facility] Medical Records Department [address] [place] [address] H&P Exam - Hospitalist 09/06/24 1336 MR#: [id number] Acct: [id number] Name: KARLA MINA Rep #:[id number] : 1945 79 From: Bladimir tucker DO PCP: Dr. Kandis Dawson MD Status:REG ER Location: ED HPI - General General Date of Admission: 09/06/24 Date of Service: 09/06/24 Chief Complaint: Shortness of breath and hypoglycemia HPI Narrative KARLA MINA, is a 79 F who presented to [facility] ED on 09/06/2024 with shortness of breath and hypoglycemia. Patient lives at home withher daughter. History is significant for COPD with chronic respiratory failure on 3 L nasal cannula, insulin-dependent type 2 diabetes mellitus, paroxysmal A-fib, hypertension, hyperlipidemia, and current smoker. Patient reports worsening shortness of breath with exertion over the past several months. However, this morning her daughter noted that she was much more short of breath when she woke up and called EMS. Was found to have a blood sugar 59 per EMS. Blood sugar improved with treatment. On arrival to the ED she was back on her home 3 L nasal cannula with oxygen saturations in the low 90s. She was mildly hypertensive but otherwise in rate controlled A-fib. CBC and BMP were unremarkable. BNP was normal at 692 but notably patient has BMI of 43. Chest x- ray showed pulmonary venous congestion patient had mild bilateral lower extremity edema on exam. Given concern for COPD versus CHF exacerbation, she was given doses of IV Solu-Medrol, DuoNeb treatment and IV Lasix and hospitalistwas contacted for admission. I saw the patient at bedside in the ED, daughter and son were present. Patient was somewhat chronically ill appearing and mildly fatigued appearing but otherwise sitting back comfortably in bed, breathing comfortably on 3 L nasal cannula and in no acute distress. She is very hard of hearing at baseline and has difficulty maintaining a conversation. She does make appropriate eye contact and answers questions with short appropriate responses as able. She wasable to show me her insulin regimen and notes that she has been taking this as prescribed recently. Denies any recent fevers or chills or upper respiratory symptoms. Has had slightly decreased appetite over the past few weeks especially per daughter but no nausea or vomiting. Has been taking her home Lasix as prescribed with good urine output. No other acute concerns at this time. [facility], [facility] Medical History Wears dentures History of stress test History of echocardiogram Cardiology follow-up encounter Cubital tunnel syndrome on right Right carpal tunnel syndrome On home oxygen therapy Lower extremity edema Knee pain, acute Traumatic hematoma of right knee Anticoagulant long-term use Paroxysmal atrial fibrillation Essential (primary) hypertension Sciatica Hearing loss Peripheral neuropathic pain Hyperlipidemia Cataracts, bilateral Osteoarthritis Anemia GERD (gastroesophageal reflux disease) Type 2 diabetes mellitus Nicotine dependence Obesity Ectopic atrial tachycardia Home Medications ?Medication ?Instructions ?Recorded ?Last Taken ?Type ferrous sulfate 325 mg (65 mg 325 mg PO DAILY suppleme nt 03/05/18 09/05/24 History iron) tablet ibuprofen 600 mg tablet 600 mg PO QHS pain 22 days 0 03/05/18 09/05/24 History calcium carbonate (Calcium 600) 600 mg PO BID suppleme nt 01/31/20 09/05/24 History diphenhydramine HCl 25 mg capsule 25 mg PO QHS allergi es 01/31/20 09/05/24 History (Allergy Relief (diphenhydramine)) ipratropium bromide 0.02 % 2.5 ml continuous nebulizat ion Q6H 02/06/22 09/05/24 History solution for inhalation PRN shortness of breath or w heezing amlodipine 10 mg tablet 10 mg PO DAILY bp 90 days #9 0 tabs 09/30/22 09/05/24 Rx valsartan 80 mg tablet 80 mg PO BID bp 90 days #180 tabs 09/30/22 09/05/24 Rx docusate sodium 100 mg capsule 100 mg PO QHS 04/07/23 09/05/24 History metformin 500 mg tablet 1,000 mg PO BID diabetes 90 days 04/07/23 09/05/24 History apixaban 5 mg tablet (Eliquis) 5 mg PO BID blood thinn er #180 tabs 10/09/23 09/05/24 Rx atorvastatin 40 mg tablet 40 mg PO DAILY cholesterol 9 0 days 10/09/23 09/05/24 Rx #90 tabs potassium chloride 20 mEq 20 meq PO DAILY supplement # 90 tabs 10/09/23 09/05/24 Rx tablet,extended release(part/cryst) insulin NPH isoph U-100 human 100 40 unit subcut DAILY 12/17/23 09/05/24 History unit/mL (3 mL) subcutaneous pen (Humulin N NPH U-100 Insulin KwikPen) albuterol sulfate 2.5 mg/3 mL 2.5 mg inhalation PRN ID N 03/28/24 09/05/24 History (0.083 %) solution for nebulization shortness of breat h or wheezing insulin glargine 100 unit/mL 62 unit subcut QHS 09/05/24 History subcutaneous solution (Lantus U-100 Insulin) insulin regular human 100 unit/mL 20 unit subcut BID 1 09/05/24 History injection solution (Humulin R Regular U-100 Insulin) atenolol 50 mg tablet 50 mg PO QDAY 06/09/2409/05 History esomeprazole magnesium 40 mg 40 mg PO QDAY 06/09/24 History capsule,delayed release furosemide 80 mg tablet 80 mg PO DAILY fluid retenti on 06/09/24 09/05/24 History insulin NPH isoph U-100 human 100 27 unit subcut QPM 0 09/06/24 09/05/24 History unit/mL (3 mL) subcutaneous pen (Humulin N NPH U-100 Insulin KwikPen) Allergy/AdvReac Type Severity Reaction Status Date / Time No Known Allergies Allergy Verified 06/09/24 10:31 Family History Mother Hypertension Diabetes Father Lung cancer Sister Kidney disease Breast cancer Cancer liver, ovarian Hypertension Diabetes Brother Hypertension Diabetes Surgical History History of carpal tunnel surgery of right wrist History of dilatation and curettage History of hysteroscopy History of cataract surgery Social History Smoking Status: Light Smoker (<10/day) alcohol intake: never substance use type: does not use caffeine: Yes Type: carbonated beverages and coffee ROS Constitutional Constitutional: Reports fatigue; Denies chills, fever(s) or weakness Eyes Eyes: Denies change in vision Cardiovascular Cardiovascular: Reports dyspnea on exertion, edema and orthopnea; Denies chest pain or palpitations Respiratory/Chest Respiratory/Chest: Reports cough, shortness of breath at rest and shortness of breath with exertion; Denies productive cough or wheezing Gastrointestinal Gastrointestinal: Denies abdominal pain, constipation, diarrhea, nausea or vomiting Genitourinary Genitourinary: Denies dysuria Musculoskeletal Musculoskeletal: Denies arthralgias or myalgias Neurologic Neurologic: Denies dizziness or headache(s) Vital Signs Vital Signs Vital Signs: 09/06/24 08:23 09/06/24 08:42 09/06/24 09:03 Temperature 98.3 F Temperature Source Oral Pulse Rate 69 Respiratory Rate 16 Respiratory Pattern Normal Blood Pressure 121/91 H Blood Pressure Mean 101 Pulse Ox 97 93 Oxygen Delivery Method Nasal Cannula Nasal Cannula Oxygen Flow Rate (L/min) 3 3 09/06/24 09:03 09/06/24 10:21 09/06/24 12:00 Temperature Temperature Source Pulse Rate 65 63 61 Respiratory Rate 18 18 16 Respiratory Pattern Normal Blood Pressure 131/47 H 140/78 H Blood Pressure Mean 75 98 Pulse Ox 94 93 Oxygen Delivery Method Nasal Cannula Room Air Oxygen Flow Rate (L/min) 3 09/06/24 13:22 Temperature Temperature Source Pulse Rate 59 L Respiratory Rate 17 Respiratory Pattern Normal Blood Pressure Blood Pressure Mean Pulse Ox Oxygen Delivery Method Oxygen Flow Rate (L/min) Weight Weight: 114 kg Body Mass Index (BMI) 43.1 Physical Exam Const alert, oriented x3 and no apparent distress Constitutional Narrative: Elderly female, chronically ill-appearing, mildly fatigued appearing, class III obesity, very hard of hearing, otherwise sitting back comfortably in bed, breathing comfortably on 3 L nasal cannula and in no acute distress. General Appearance: cooperative and comfortable HEENT normocephalic, head/scalp atraumatic, nasal mucous membranes and turbinates normal and moist oral mucous membranes HEENT Narrative: Very hard of hearing. Eyes PERRL, EOMs intact bilaterally and conjunctivae normal Neck full ROM Chest inspection of chest normal Resp normal respiratory effort and no use of accessory muscles Resp Narrative: Breathing comfortably on 3 L nasal cannula at rest. Mildly decreased breath sounds bilaterally with crackles and midlung zones. No wheezing noted. Cardio no murmurs and peripheral pulses 2+ throughout Cardio Narrative: A-fib, rate controlled. GI normal to inspection, nondistended, normoactive bowel sounds, soft to palpation,non-tender and non-distended Back/Spine normal ROM Extremity Extremity Narrative: +1-2 lower extremity edema noted. Skin no rashes or lesions noted Neuro moves all extremities and no focal motor deficits Speech: speech normal Psych mental status grossly normal Results Lab / Micro Data 09/06/24 09:25 09/06/24 09:02 Labs: Laboratory Results - last 24 hr 09/06/24 09:02: WBC Cancelled, Corrected WBC Cancelled, RBC Cancelled, Hgb Cancelled, Hct Cancelled, MCV Cancelled, MCH Cancelled, MCHC Cancelled, RDW Std Deviation Cancelled, RDW Coeff of Sebastian Cancelled, Plt Count Cancelled, MPV Cancelled, Immature Gran % (Auto) Cancelled, Neut % (Auto) Cancelled, Lymph % (Auto) Cancelled, Wright % (Auto) Cancelled, Eos % (Auto) Cancelled, Baso % (Auto)Cancelled, Absolute Neuts (auto) Cancelled, Absolute Lymphs (auto) Cancelled, Total Counted Cancelled, Neutrophils % (Manual) Cancelled, Band Neutrophils % Cancelled, Lymphocytes % (Manual) Cancelled, Monocytes % (Manual) Cancelled, Eosinophils % (Manual) Cancelled, Basophils % (Manual) Cancelled, Metamyelocytes% Cancelled, Myelocytes % Cancelled, Promyelocytes % Cancelled, Blast Cells % Cancelled, Plasma Cell % (Manual) Cancelled, Other Cells % Cancelled, Nucleated RBC % Cancelled, Nucleated RBCs/100 WBC Cancelled, Differential Comment Cancelled, Diff Path Review Cancelled, Hypersegmented Neuts Cancelled, Atypical Lymphocytes Cancelled, Reactive Lymphocytes Cancelled, Smudge Cells Cancelled, Toxic Granulation Cancelled, Toxic Vacuolation Cancelled, Dohle Bodies Cancelled, Chet Rods Cancelled, Platelet Estimate Cancelled, Plt Morphology Comment Cancelled, RBC Morphology Cancelled 09/06/24 09:02: RBC Morphology Cancelled, Polychromasia Cancelled, HypochromasiaCancelled, Basophilic Stippling Cancelled, Anisocytosis Cancelled, Microcytosis Cancelled, Macrocytosis Cancelled, Spherocytes Cancelled, Sickle Cells Cancelled, Target Cells Cancelled, Tear Drop Cells Cancelled, Ovalocytes Cancelled, Stomatocytes Cancelled, Hernandez-Washington Boro Bodies Cancelled, Viki Cells Cancelled, Bite Cells Cancelled, Crenated Cell Cancelled, Acanthocytes (Spur) Cancelled, Rouleaux Cancelled, Schistocytes Cancelled, Sodium 141, Potassium 4.4, Chloride 107, Carbon Dioxide 21.1, Anion Gap 12, BUN 20 H, Creatinine 0.87,Estim Creat Clear Calc 64.91, Est GFR (MDRD) Non-Af 68, BUN/Creatinine Ratio 23.4 H, Glucose 92, Calcium 8.6, NT pro BNP II 692 09/06/24 09:25: WBC 5.8, RBC 3.66 L, Hgb 10.3 L, Hct 32.8 L, MCV 89.6, MCH 28.1,MCHC 31.4 L, RDW Std Deviation 45.2 H, RDW Coeff of Sebastian 14.0, Plt Count 208, MPV9.7, Immature Gran % (Auto) 0.300, Neut % (Auto) 77.5 H, Lymph % (Auto) 13.9 L, Wright % (Auto) 6.2, Eos % (Auto) 1.4, Baso % (Auto) 0.7, Absolute Neuts (auto) 4.5, Absolute Lymphs (auto) 0.81 L, Nucleated RBC % 0 09/06/24 09:57: POC Glucose 90 09/06/24 10:54: POC Glucose 168 H Imaging Radiology Impression Chest X-Ray 09/06/24 09:33 IMPRESSION: Pulmonary venous congestion. Reading Location: [facility] Assessment & Plan Assessment/Plan (1) Acute heart failure with preserved ejection fraction (HFpEF): (2) Acute exacerbation of chronic obstructive pulmonary disease: PLAN: Plan Patient is a 79-year-old female who presented to [facility] ED on 09/06/2024 with shortness of breath and hypoglycemia. 1. Suspected HFpEF exacerbation with possible mild COPD exacerbation in settingof COPD with chronic hypoxic respiratory failure ? Admit under inpatient status to PCU. On home 3 L nasal cannula and stable on 3 L nasal cannula at rest in ED but did drop to the mid 80s with exertion. Chest x- ray showed pulmonary vascular congestion and patient with mild lower extremity edema on exam. On chart review, echo in 12/2023 showed EF 60%, stage II diastolic dysfunction. BNP normal but notably is underestimated with class III obesity. Suspect she has developed volume overload over an extended period of time in setting of her hypertension. Will treat with IV Lasix 60 mg twice daily for now, monitor daily BMP and urine output. COVID/flu/RSV pending. Willtreat for COPD exacerbation as well with scheduled DuoNebs and IV Solu-Medrol but low threshold to de-escalate if patient improving with Lasix. 2. Episode of hypoglycemia in setting of insulin-dependent type 2 diabetes mellitus ? Current home regimen of Lantus 58 units at night, regular insulin 20 units in the morning and 20 units at night. Is being managed by her PCP. Has likely hadreduced appetite recently due to volume overload from HFpEF exacerbation and this is led to episodes of hypoglycemia. Will treat with Lantus 40 units at night and sliding scale insulin with meals for now, adjust as needed. 3. Paroxysmal A-fib, hypertension, hyperlipidemia ? In rate controlled A-fib on admit. Continue home atenolol, amlodipine, valsartan, Eliquis and statin. 4. Mild acute on chronic debility ? PT/OT/case management consulted. Patient lives at home with her daughter and has slightly worsened debility now in setting of HFpEF and possible COPD exacerbation. Appreciate therapy recommendations. Chronic medical conditions: ? Class III obesity: BMI 43 on admit. Complicates hospital course, care and prognosis. ? GERD: Continue home PPI. ? Chronic iron deficiency anemia: Hemoglobin stable at baseline 10-11 on admit. Continue home iron supplement. DVT prophylaxis: Not indicated, on Eliquis CODE STATUS: DNR CCA, DNI Expected disposition: Home, 2 to 3 days Total clinical time spent by myself addressing the patient's medical issues, reviewing all the data, and collaborating with patient's care team: 75 minutes. Charges/Coding Visit Charges Inpatient E&M: 75914 Init Hosp L3 09/06/24 1424 <Electronically signed by Bladimir Gregory DO> Cosigner Signature (if applicable): CC: Dr. Bladimir Gregory DO; Dr. Kandis Dawson MD~ Signed [facility] Work Phone: [facility]WA[facility] Work Phone: Reason for referral (narrative)No reason for referral information availableWAdena Regional Medical Center Work Phone: Chief Complaint and Reason for Visit Chief Complaint R KNEE HEMATOMA, TABBY BILITY TO WALK Reason for Visit Anticoagulant long-t erm use Fall Traumatic hematoma of right knee Paroxysmal atrial fibrillation Chief Complaint HEMATOMA KNEE HEMATOMA KNEE HEMATOMA KNEE Reason for Visit Anticoagulant long-t erm use Fall Knee pain, acute Traumatic hematoma of right knee Paroxysmal atrial fibrillation Chief Complaint HEMATOMA KNEE HEMATOMA KNEE HEMATOMA KNEE RIGHT LOWER CONTUSION OF KNEE Reason for Visit Anticoagulant long-t erm use Knee pain, acute Traumatic hematoma of right knee Paroxysmal atrial fibrillation Fall Chief Complaint 1 Y FU Amb Documentation Reason for Visit Essential (primary) hypertension Paroxysmal atrial fibrillation Chief Complaint 1 Y FU Amb Documentation POST IVELISSE BLEEDING Reason for Visit Essential (primary) hypertension Paroxysmal atrial fibrillation Chief Complaint Amb Documentation POST IVELISSE BLEEDING EDEMA, INCREASED NEED OXYGEN Chief Complaint ORDER SCANNED Chief Complaint RIGHT UPPER EXT WEAK NESS RIGHT UPPER EXT WEAKNESS Chief Complaint Admit Date 6 M FU June 09, 2024 8:45am RIGHT HAND June 09, 2024 10:26am hypoglycemia September 06, 2024 8:2 1am Reason for Visit Admit Date Essential (primary) hypertension Decembe r 2023 8:45am Paroxysmal atrial fibrillation June 09, 2024 8:45am Cubital tunnel syndrome on right Decembe r 2023 10:26am Right carpal tunnel syndrome June 092023 10:26am Chief Complaint Admit Date 6 M FU June 09, 2024 8:45am RIGHT HAND June 09, 2024 10:26am hypoglycemia September 06, 2024 1:3 6pm hypoglycemia September 06, 2024 1:3 7pm hypoglycemia September 07, 2024 1:0 1pm hypoglycemia September 08, 2024 9:3 8am Reason for Visit Admit Date Essential (primary) hypertension Decembe r 2023 8:45am Paroxysmal atrial fibrillation June 09, 2024 8:45am Cubital tunnel syndrome on right Decembe r 2023 10:26am Right carpal tunnel syndrome June 092023 10:26am Acute heart failure with pre served ejection fraction (HFpEF) September 06, 2024 1:37pm Acute exacerbation of chroni c obstructive pulmonary disease September 06, 2024 1:37pm Chief Complaint Admit Date EKG September 06, 2024 9:0 4am hypoglycemia September 06, 2024 1:3 6pm hypoglycemia September 06, 2024 1:3 7pm hypoglycemia September 07, 2024 1:0 1pm hypoglycemia September 08, 2024 9:3 8am hypoglycemia September 09, 2024 1:5 4pm VAGINAL ULCER (OTTO FAMILY) October 27, 2024 10:06am Reason for Visit Admit Date Acute exacerbation of chronic obstructiv e pulmonary disease September 06, 2024 1:37pm Acute heart failure with preserved eject ion fraction (HFpEF) September 06, 2024 1:37pm Post-menopausal bleeding October 27, 2024 1 0:06am Family History No Family History Records Found Relationship Condition Age at Onset Recorded Date/T vik mother Hypertension Unknown Diabetes mellitus Unknown father Malignant neoplasm of lung Unknown sister Kidney disorder Unknown Malignant neoplasm of breast Unknown Malignant neoplasm Unknown Hypertension Unknown brother Hypertension Unknown Advance Directives No Advanced Directives Records Found Advance Directive Response Recorded Date/ Time Living Will Yes November 19, 2021 3 :59pm Power of Elevated Work Platform Operator Yes November 19, 2021 3:59pm Advance Directive Response Recorded Date/ Time Living Will Yes November 19, 2021 7 :05pm Power of Elevated Work Platform Operator Yes November 19, 2021 7:05pm Advance Directive Response Recorded Date/ Time Name of Medical Power of Elevated Work Platform Operator KARYNA RAMSEY DTR November 19, 2021 7:05pm Living Will Yes November 19, 2021 7 :05pm Power of Elevated Work Platform Operator Yes November 19, 2021 7:05pm Advance Directive Response Recorded Date/ Time Living Will Yes November 19, 2021 6 :05pm Power of Elevated Work Platform Operator Yes November 19, 2021 6:05pm Advance Directive Response Recorded Date/ Time Living Will Yes November 19, 2021 7 :05pm Power of Elevated Work Platform Operator Yes November 19, 2021 7:05pm Living Will No April 05 9:49am Power of Elevated Work Platform Operator No April 05, 2024 9:49am Living Will No September 06, 2024 8:42am Power of Elevated Work Platform Operator No September 06 8:42am Advance Directive Response Recorded Date/ Time Living Will Yes November 19, 2021 7 :05pm Do you have a Healthcare Power of Elevated Work Platform Operator? Yes November 19, 2021 7:05pm Living Will No April 05 9:49am Do you have a Healthcare Power of Elevated Work Platform Operator? No April 05, 2024 9:49am Living Will No September 06, 2024 2:44pm Do you have a Healthcare Power of Elevated Work Platform Operator? No September 06, 2024 2:44pm Advance Directive Response Recorded Date/ Time Living Will No September 06, 2024 2:44pm Do you have a Healthcare Power of Elevated Work Platform Operator? No September 06, 2024 2:44pm Summary Purpose Additional Source Comments Goals (unrecognized section and content) Goals may be documented in a n alternate sectionGoals may be documented in an alternate sectionGoals may be documented in an alternate sectionGoals may be documented in an alternate sectionGoals may be documented in an alternate sectionGoals may be documented in an alternate sectionGoals may be documented in an alternate sectionGoals may be documented in an alternate sectionGoals may be documented in an alternate sectionGoals may be documented in an alternate section INFORMATION SOURCE (unrecogn ized section and content) DATE CREATED AUTHOR 02/28/2022 [facility] DATE CREATED AUTHOR AUTHOR'S ORGANIZ ATION 11/17/2024 [facility] DATE CREATED AUTHOR AUTHOR'S ORGANIZ ATION 11/29/2024 [facility] Care Teams (unrecognized sec tion and content) Team Status: Active Member Role Status Dates Dr. Kandis Dawson MD Primary Care Provider Active Team Status: Active Member Role Status Dates Dr. Kandis Dawson MD Primary Care Provider Active Start: September 06, 2024 End: September 06, 2024 Dr. Osman Montez MD Attending Provider Active S tart: September 06, 2024 End: September 06, 2024 Dr. Osman Montez MD Referring Provider Active S tart: September 06, 2024 End: September 06, 2024 Team Status: Active Member Role Status Dates Dr. Kandis Dawson MD Primary Care Provider Active Start: September 06, 2024 Dr. Richard Corbett , DO Emergency Provider Active Start: September 06, 2024 Dr. Bladimir Gregory , Attending Provider Active Start: September 06, 2024 Team Status: Inactive Member Role Status Dates Dr. Kandis Dawson MD Primary Care Provider Active Start: September 06, 2024 End: September 09, 2024 Dr. Richard Corbett , Emergency Provider Active Start: September 06, 2024 End: September 09, 2024 Dr. Bladimir Gregory , Admit Provider Active Start: September 06, 2024 End: September 09, 2024 Dr. Bladimir Gregory , Other Provider Active Start: September 06, 2024 End: September 09, 2024 Dr. Florencio Loco , Attending Provider Active Start: September 06, 2024 End: September 09, 2024 Team Status: Active Member Role Status Dates Dr. Kandis Dawson MD Primary Care Provider Active Start: September 07, 2024 Dr. Richard Corbett , Emergency Provider Active Start: September 07, 2024 Dr. Bladimir Gregory , Admit Provider Active Start: September 07, 2024 Dr. Bladimir Gregory , Other Provider Active Start: September 07, 2024 Dr. Florencio Loco , Attending Provider Active Start: September 07, 2024 Dr. Florencio Loco , Other Provider Active S tart: September 07, 2024 Team Status: Active Member Role Status Dates Dr. Kandis Dawson MD Primary Care Provider Active Start: September 08, 2024 Dr. Richard Corbett , Emergency Provider Active Start: September 08, 2024 Dr. Bladimir Gregory , Admit Provider Active Start: September 08, 2024 Dr. Bladimir Gregory , DO Other Provider Active Start: September 08, 2024 Dr. Florencio Loco , Attending Provider Active Start: September 08, 2024 Dr. Florencio Loco , Other Provider Active S tart: September 08, 2024 Team Status: Active Member Role Status Dates Dr. Kandis Dawson MD Primary Care Provider Active Start: September 09, 2024 Dr. Richard Corbett , Emergency Provider Active Start: September 09, 2024 Dr. Bladimir Gregory , DO Admit Provider Active Start: September 09, 2024 Dr. Bladimir Gregory , DO Other Provider Active Start: September 09, 2024 Dr. Florencio Loco , Attending Provider Active Start: September 09, 2024 Dr. Florencio Loco , DO Other Provider Active S tart: September 09, 2024 Team Status: Inactive Member Role Status Dates Dr. Kandis Dawson MD Primary Care Provider Active Start: October 27, 2024 End: October 27, 2024 Dr. Kandis Dawson MD Referring Provider Active Start: October 27, 2024 End: October 27, 2024 MARTINA Ritter Attending Provider Active Start: October 27, 2024 End: October 27, 2024 Team Status: Inactive Member Role Status Dates Dr. Kandis Dawson MD Primary Care Provider Active Start: October 27, 2024 End: October 27, 2024 MARTINA Ritter Attending Provider Active Start: October 27, 2024 End: October 27, 2024 MARTINA Ritetr Referring Provider Active Start: October 27, 2024 End: October 27, 2024 Team Status: Active Member Role Status Dates Dr. Kandis Dawson MD Family Provider Active Dr. Kandis Dawson MD Primary Care Provider Active Team Status: Active Member Role Status Dates Dr. Kandis Dawson MD Primary Care Provider Active Sheryl Arora Attending Provider Active Team Status: Inactive Member Role Status Dates Dr. Kandis Dawson MD Primary Care Provider, Attendin g Provider Active Team Status: Inactive Member Role Status Dates Dr. Kandis Dawson MD Primary Care Prov ider, Attending Provider, Referring Provider Active Team Status: Inactive Member Role Status Dates Dr. Kandis Dawson MD Primary Care Provider Active Dr. Candido Escalona MD Attending Provider Active Team Status: Active Member Role Status Dates Dr. Kandis Dawson MD Primary Care Prov ider, Referring Provider, Other Provider Active Dr. Asmita Banda MD Attending Provider Active Team Status: Inactive Member Role Status Dates Dr. Kandis Dawson MD Primary Care Provider Active Start: June 09, 2024 End: June 09, 2024 Dr. Kandis Dawson MD Referring Provider Active Start: June 09, 2024 End: June 09, 2024 Peter Tanner VEGETABLE FARM WORKER, VEGETABLE FARM WORKER-C Attending Provider Active S tart: June 09, 2024 End: June 09, 2024 Team Status: Inactive Member Role Status Dates Dr. Kandis Dawson MD Primary Care Provider Active Start: June 09, 2024 End: June 09, 2024 Dr. Kandis Dawson MD Referring Provider Active Start: June 09, 2024 End: June 09, 2024 Isauro Lewis MD Attending Provider Active St art: June 09, 2024 End: June 09, 2024 Team Status: Inactive Member Role Status Dates Dr. Kandis Dawson MD Primary Care Provider Active Start: September 06, 2024 End: September 06, 2024 Dr. Richard Corbett DO Emergency Provider Active Start: September 06, 2024 End: September 06, 2024 [employer] Relationship Specialty Start Date End Date Kandis Dawson MD [address] [facility] [place] [id number] PCP - General Family Medicine 11/08/24 Mitchell Almeida MD [address] [facility] [facility] [address] [place] [address] Consulting Physician Gynecologic Oncology 11/21/24 Reason for Visit (unrecogniz ed section and content) Reason Comments Female Problem Specialty Diagnoses / Procedures Referred By Contsiddhartha t Referred To Contact Gynecologic Oncology Diagnoses Postmenopausal bleeding Abnormal findings on diagnostic imaging of other specified body structures Procedures [facility] Jojo Whittington [address] [place], [place] [address]Raymond [place] [address] Phone: tel: fax: Mitchell Almeida MD [address] [facility] [address] [place] [address] Phone: tel: fax: Referral ID Status Reason Start Date Expiration Date V isits Requested Visits Authorized [id number] Pending Review 11/08/2024 11/08/2025 1 1 FOR RECORDS PERTAINING TO PATIENTS WHO ARE OR HAVE BEEN ENROLLED IN A CHEMICAL DEPENDENCY/SUBSTANCEABUSE PROGRAM, SOME INFORMATION MAY BE OMITTED. This clinical summary was aggregated from multiple sources. Caution should be exercised in using it in the provision of clinical care. This summary normalizes information from multiple sources, and as a consequence, information in this document may materially change the coding, format and clinical context of patient data. In addition, data may be omitted in some cases. CLINICAL DECISIONS SHOULD BE BASED ON THE PRIMARY CLINICAL RECORDS. [facility] [employer] provides no warranty or guarantee of the accuracy or completeness of information in this document.
[2024-12-02 02:55] LABS: ALB/GLOB Ratio 1.4 RATIO (0.9-2.4); AST(SGOT) 41 U/L (<=31); Alanine Aminotransfer ALT/SGPT 14 U/L (<=34); Albumin, Serum 3.8 g/dL (3.4-4.8); Alkaline Phosphatase 70 U/L (35-104); Anion Gap 15 (5-15); BUN 22 mg/dL (4-19); BUN/Creat Ratio 21.7 RATIO (10-20); Calcium,Total 9.1 mg/dL (7.6-11.0); Carbon Dioxide 20.4 mmol/L (21.0-32.0); Chloride 106 mmol/L (98-108); Creatinine, Serum 1.03 mg/dL (0.70-1.20); EST Glomerular Filtration Rate 55 (>60); Estimated Creatinine Clearance 55.25 ml/min (50-250); Globulin 2.8 g/dL (2.2-4.2); Glucose 75 mg/dL (70-99); Potassium 4.2 mmol/L (3.3-5.1); Protein, Total 6.6 g/dL (5.9-8.4); Sodium Level 141 mmol/L (133-145); Total Bilirubin 0.22 mg/dL (0.00-1.30)
[2024-12-02 02:56] LABS: Lactic Acid 2.2 mmol/L (0.0-2.0)
[2024-12-02] MEDS: Ketamine HCl 500 MG/5 ML Vial 110 MG IV (03:02)
--- NOTE | 2024-12-02 03:08 | RAD_ITS ---
PROCEDURE: CHEST 1 VIEW (PORTABLE) 12/02/2024 REASON FOR EXAM: HYPOXIA TECHNIQUE: Frontal view of the chest. COMPARISON: 09/06/2024. FINDINGS: Increased central pulmonary venous congestion. There is no demonstrated pleural abnormality. Enlarged cardiac silhouette. Normal mediastinum and mayo. Normal visualized pulmonary arteries. Atheromatous plaques of the visualized aortic arch and descending thoracic aorta. Diffuse spondylosis of the visualized thoracic spine. Normal visualized ribs, clavicles. Degenerative joint disease. There is no demonstrated abnormality of the visualized soft tissue structures of the upper abdomen. RAD/Chest 1 View (Portable) IMPRESSION: Increased central pulmonary venous congestion. Unchanged cardiomegaly. Reading [facility]
[2024-12-02 03:10] LABS: Bedside Glucose 99 mg/dL (74-106)
[2024-12-02] MEDS: Etomidate 20 MG/10 ML Vial IV (03:31)
[2024-12-02] MEDS: Rocuronium Bromide 50 MG/5 ML Vial 55 MG IV (03:32)
[2024-12-02] MEDS: Propofol 10MG/Ml 1,000 MG/100 ML Bottle 6.9 MG CONT INF (03:46)
[2024-12-02] MEDS: fentaNYL drip 100 ML 2.5 MCG CONT INF (03:48)
[2024-12-02] MEDS: Ceftriaxone 2 GM in 0.9% Normal Saline (50mL MB+) 50 ML IV (03:52)
--- NOTE | 2024-12-02 04:06 | RAD_ITS ---
PROCEDURE: CHEST 1 VIEW (PORTABLE) 12/02/2024 REASON FOR EXAM: INTUBATION TECHNIQUE: Frontal view of the chest. COMPARISON: 12/02/2024. FINDINGS: Endotracheal tube is in good position. Enteric feeding tube is in good position with its tip at the level of the gastric body. Increased central pulmonary venous congestion. Increased bilateral basilar airspace disease/infiltrates. Enlarged cardiac silhouette. Normal mediastinum and mayo. Normal visualized pulmonary arteries. Atheromatous plaques of the visualized aortic arch and descending thoracic aorta. Diffuse spondylosis of the visualized thoracic spine. Normal visualized ribs, clavicles. Degenerative joint disease. There is no demonstrated abnormality of the visualized soft tissue structures of the upper abdomen. RAD/Chest 1 View (Portable) IMPRESSION: Endotracheal tube is in good position. Enteric feeding tube is in good position with its tip at the level of the gastr ic body. Increased central pulmonary venous congestion. Increased bilateral basilar airspace disease/infiltrates. Enlarged cardiac silhouette. Reading Location: [facility]
--- NOTE | 2024-12-02 04:06 | RAD_ITS ---
PROCEDURE: ABDOMEN SINGLE VIEW (PORTABLE) 12/02/2024 REASON FOR EXAM: NG INSERTION TECHNIQUE: Single view abdomen. COMPARISON: 12/02/2024. FINDINGS: Endotracheal tube is in good position. Enteric feeding tube is in good position with its tip extending below the level of the left hemidiaphragm reaching the gastric body. Increased bilateral basilar atelectatic changes/infiltrates. Mild increase in central pulmonary venous congestion. There is no demonstrated pleural abnormality. Enlarged cardiac silhouette. Normal mediastinum and mayo. Normal visualized pulmonary arteries. Atheromatous plaques of the visualized aortic arch and descending thoracic aorta. Diffuse spondylosis of the visualized thoracic spine. Normal visualized ribs, clavicles. Degenerative joint disease. There is no demonstrated abnormality of the visualized soft tissue structures of the upper abdomen. RAD/Abdomen Single View (Portable) IMPRESSION: Endotracheal tube is in good position. Enteric feeding tube is in good position with its tip extending below the level of the left hemidiaphragm reaching the gastric body. Increased bilateral basilar atelectatic changes/infiltrates. Mild increase in central pulmonary venous congestion. [facility]
[2024-12-02 04:14] LABS: Bacteria 1+ /hpf (None Seen)
[2024-12-02] MEDS: Vancomycin HCl 1,750 MG in 0.9% Normal Saline (500mL Bag) 500 ML 250 MG IV (04:23)
[2024-12-02] MEDS: Metoprolol Tartrate 5 MG/5 ML Vial IV (04:25)
[2024-12-02] MEDS: Furosemide 40 MG/4 ML Vial IV (04:30)
[2024-12-02] MEDS: Propofol 200 MG/20 ML Vial 100 MG IV BOLUS (04:38)
[2024-12-02 04:46] LABS: CPK Total, Creatine Kinase 193 U/L (24-195); Triglycerides 108 mg/dL
[2024-12-02 04:55] LABS: Base Excess -2 mmol/L (-2 to +2); Blood Gas Specimen Type ART; Mode AC; O2 Delivery Device Adult Vent; PEEP 5; PO2 94 mmHG (75-100); RR 16; SITE R Radial; SO2 97 % (95-99); Total Carbon Dioxide 25 mmol/L; pCO2 44.1 mmHg (35-45); pH 7.34 (7.35-7.45)
[2024-12-02] MEDS: Rocuronium Bromide 50 MG/5 ML Vial 75 MG IV (05:36)
[2024-12-02] MEDS: Norepinephrine 16 mg/250 mL 0.9% NS 4.7 MG CONT INF (06:01)
[2024-12-02] MEDS: Ipratropium/Albuterol Sulfate 3 ML AMPUL.NEB INHALATION (06:04)
[2024-12-02 06:24] LABS: Reflex Lactate? Y
--- NOTE | 2024-12-02 06:48 | ED.RN ---
Addendum entered by Ephraim Monroe 12/02/24 07:01: At approximately 0530 pt started to become agitated and fight the mechanical ventilator. New orders placed by Dr. Mccall. Addendum entered by Ephraim Monroe 12/02/24 06:59: On arrival, pt was confused and disoriented. Pt kept asking where she was but was able to recognize family member in room. Pt insisted on laying on her right side and would not cooperative in order to obtain vital signs. Pt would not lay on her back for any imaging to be done. New orders placed by Dr. Mccall around 0230 to attempt to calm patient for imaging. At approximately 0240 pt was still uncooperative and unable to have imagine done. New orders entered by Dr. Mccall. Original Note: At approximately 0320 pt started to become more combative where verbal de-escalation/redirection was not working. Pt was placed in soft restraints for this reason to bilateral wrists.
--- NOTE | 2024-12-02 07:10 | RAD_ITS ---
PROCEDURE: CXR FOR LINE PLACEMENT 12/02/2024 REASON FOR EXAM: CENTRAL LINE PLACEMENT TECHNIQUE: Single frontal images of the chest COMPARISON: Earlier in day 12/02/2024 FINDINGS: Endotracheal and enteric tubes are in appropriate position. Right IJ line is noted. Moderate pulmonary edema. Underlying focal consolidations not excluded. Increased moderate posterior layered pleural effusion of the right and stable mild posterior layered pleural effusion of the left. No pneumothorax. Cardiomegaly. RAD/CXR for Line Placement IMPRESSION: Interval placement of right IJ line. Moderate pulmonary edema. Underlying focal consolidation is not excluded. Increased moderate posterior layered pleural effusion of the right and stable m ild posterior layered pleural effusion of the left. Reading Location: [id number]
--- NOTE | 2024-12-02 07:14 | ED.RN ---
Per Dr. Mccall, no resuscitation fluids will be ordered at this time.
[2024-12-02 07:34] LABS: Lactic Acid 1.3 mmol/L (0.0-2.0)
[2024-12-02] MEDS: Propofol 10MG/Ml 1,000 MG/100 ML Bottle 20.8 MG CONT INF (07:51)
--- NOTE | 2024-12-02 09:17 | ED.RN ---
pts daughter called in and given an update. this rn will call back with ETA of transport and bed assignment.
--- NOTE | 2024-12-02 09:41 | ED.RN ---
pt report called to ZAN Stroud at [facility].
== END 2024-12-02 10:25 | disposition short-term general hospital (02) ==
PROVIDERS: Emergency Provider Emergency Medicine; PCP Family Medicine; Visit Provider Emergency Medicine
DX: G93.40 Encephalopathy, unspecified (principal); J96.11 Chronic respiratory failure with hypoxia; I11.0 Hypertensive heart disease with heart failure; I50.33 Acute on chronic diastolic (congestive) heart failure; J44.9 Chronic obstructive pulmonary disease, unspecified; I48.0 Paroxysmal atrial fibrillation; E10.10 Type 1 diabetes mellitus with ketoacidosis without coma; E10.42 Type 1 diabetes mellitus with diabetic polyneuropathy; Z79.4 Long term (current) use of insulin; E78.5 Hyperlipidemia, unspecified; F17.200 Nicotine dependence, unspecified, uncomplicated; Z79.01 Long term (current) use of anticoagulants; Z79.899 Other long term (current) drug therapy
CPT/HCPCS: 31500; 31720; 36600; 51702; 70450; 71045; 74018; 80053; 81001; 82533; 82550; 82803; 82962; 83605; 84443; 84478; 85025; 87040; 93005; 94002; 94640; 96365; 96366; 96367; 96368; 96375; 99252; 99285; A4216; C1751; G0463; J0696; J1938